=== PATIENT | male | born 1965 | race African-American/Black ===

== ENCOUNTER 2019-04-24 18:08 | Outpatient (CLI) | payer OTHER, SELFPAY ==
--- NOTE | ~2019-04-24 | XR_ITS ---
EXAMINATION: XR chest 2V EXAM DATE: 04/24/2019 18:21 INDICATION: Flu. Fever, productive cough. Central anterior chest pain with cough. TECHNIQUE: Frontal and lateral projections of the chest obtained and reviewed. Comparison is made to prior examination from 07/05/2018. FINDINGS: Symmetric nodular densities are likely patient's The lungs are otherwise clear. There are no pleural effusions. The cardiomediastinal silhouette is within normal limits. There is no pneumo thorax suspected. The bones and soft tissues are unremarkable. IMPRESSION: No acute cardiopulmonary findings. Reviewed, dictated and finalized at location A. OPERATOR
== END 2019-04-24 18:09 | disposition home or self-care (01) ==
LOC: ANHIMG 18:11
PROVIDERS: PCP Family Medicine; Visit Provider Family Medicine
DX: J10.1 Influenza due to other identified influenza virus with other respiratory manifestations (principal); R05 Cough
CPT/HCPCS: 71046

== ENCOUNTER 2020-05-02 16:39 | Outpatient (CLI) | payer OTHER, SELFPAY ==
--- NOTE | ~2020-05-02 | XR_ITS ---
XR chest 2V 05/02/2020 16:54 Indication: Hypertension Procedure: PA and lateral views of the chest Comparison: 04/24/2019 Findings: Heart size upper normal. No focal air space disease, pulmonary edema, pleural effusion or s uspected pneumothorax. Calcified granuloma left lower lobe. Impression: 1: No acute cardiopulmonary disease. Reviewed, dictated and finalized at location A. [employer] FABRICATION Impression: 1: No acute cardiopulmonary disease.
== END 2020-05-02 16:40 | disposition home or self-care (01) ==
LOC: ANHIMG 16:41
PROVIDERS: PCP Family Medicine; Visit Provider Family Medicine
DX: I10 Essential (primary) hypertension (principal)
CPT/HCPCS: 71046

== ENCOUNTER 2020-07-10 10:30 | Outpatient (RCR) | payer SELFPAY ==
[2020-05-19 12:08] VITALS: PULSE 61
== END 2020-07-10 19:30 | disposition home or self-care (01) ==
LOC: ANHCPREHAB 10:30
PROVIDERS: PCP Family Medicine; Visit Provider Internal Medicine Cardiovascular Disease
DX: I42.8 Other cardiomyopathies (principal); I11.0 Hypertensive heart disease with heart failure
CPT/HCPCS: 93798; 99199

== ENCOUNTER 2022-06-18 09:59 | Outpatient (CLI) | payer OTHER, SELFPAY ==
--- NOTE | ~2022-06-18 | US_ITS ---
EXAMINATION: US venous doppler [facility] DATE: 06/18/2022 11:15 INDICATION: Bilateral lower limb pain TECHNIQUE: [place] scale images without and with compression and Doppler images of the bilateral lower e xtremity veins were obtained. COMPARISON: 07/06/2018 FINDINGS: The right common femoral vein, profunda femoral vein, femoral vein, popliteal vein, peroneal trunk, p osterior tibial veins, and greater saphenous vein are patent. The left common femoral vein, profunda femoral vein, femoral vein, popliteal vein, peroneal trunk, po sterior tibial veins, and greater saphenous vein are patent. IMPRESSION: 1. Patent bilateral lower extremity veins. No evidence of deep venous thrombosis. Reviewed, dictated and finalized at location B. IMPRESSION: 1. Patent bilateral lower extremity veins. No evidence of deep venous thrombosi s.
== END 2022-06-18 10:00 ==
LOC: MICIMG 10:00
PROVIDERS: PCP Family Medicine; Visit Provider Physician Assistant
DX: M79.604 Pain in right leg (principal); M79.605 Pain in left leg
CPT/HCPCS: 93970

== ENCOUNTER 2022-09-27 13:30 | Outpatient (RCR) | payer OTHER, SELFPAY ==
[2022-07-16 10:19] VITALS: BP 160/84; PULSE 76; RESP 18; BMI 37.0
--- NOTE | 2022-08-12 09:22 | PCWOUND ---
Patient did not show up for her appointment. Call made to patient, but went straight to voicemail. Left message for patient to call office back.
--- NOTE | 2022-08-30 15:16 | PCWOUND ---
Patient did not show up for scheduled appointment. No call was made by patient to cancel or reschedule.
== END 2022-10-14 23:59 | disposition home or self-care (01) ==
LOC: ANHWOC 13:30
PROVIDERS: PCP Family Medicine; Visit Provider Physician Assistant
DX: I83.009 Varicose veins of unspecified lower extremity with ulcer of unspecified site (principal); L97.909 Non-pressure chronic ulcer of unspecified part of unspecified lower leg with unspecified severity
CPT/HCPCS: 99213; A9270; G0463

== ENCOUNTER 2022-11-08 07:14 | Outpatient (RCR) | payer OTHER, SELFPAY ==
[2022-10-15 00:03] VITALS: BP 160/84; PULSE 76; RESP 18; BMI 37.0
--- NOTE | 2022-12-06 10:42 | PCWOUND ---
WOCN NOTE Patient called and left message to cancel appointment for today.
--- NOTE | 2022-12-06 14:01 | PCWOUND ---
Patient called and canceled his appointment because he stated his wound is healed.
== END 2023-01-03 10:49 | disposition home or self-care (01) ==
LOC: ANHWOC 07:14
PROVIDERS: PCP Family Medicine; Visit Provider Physician Assistant
DX: I83.009 Varicose veins of unspecified lower extremity with ulcer of unspecified site (principal); L97.909 Non-pressure chronic ulcer of unspecified part of unspecified lower leg with unspecified severity
CPT/HCPCS: 99213; A9270; G0463

== ENCOUNTER 2024-02-19 18:13 | Observation (INO) | payer OTHER, SELFPAY ==
[2024-02-19] VITALS (14 sets, daily range): BP systolic 154–211; BP diastolic 107–118; PULSE 82–96; RESP 9–19; TEMP 36.8; O2SAT 94–99
--- NOTE | ~2024-02-19 | NM_ITS ---
EXAMINATION: NM neil stress w perfusion DATE: 02/21/2024 10:38 INDICATION: Non-ST elevation myocardial infarction TECHNIQUE: Rest images were obtained following intravenous administration of 10 mCi Tc99m tetrofosmin (Myoview). The patient was infused intravenously with Lexiscan (Regadenoson). Then, 31.9 mCi Tc99m t etrofosmin (Myoview) was administered intravenously, and stress images were obtained initially in the supine position with repeat post stress imaging obtained in the prone position. Data was reconstruct ed into short axis and horizontal and vertical long axis SPECT images. Gated SPECT images were also o btained. COMPARISON: None. FINDINGS: There is a moderate severity nonreversible perfusion defect consistent with infarct involvi ng the mid and basilar inferolateral segments. There is some artifactually decreased activity extendi ng into the anterolateral wall which normalizes with prone imaging. Left ventricular enlargement with calculated end-diastolic volume of 229 mm. Mild global hypokinesis with mildly decreased left ventri cular ejection fraction measuring 40%. IMPRESSION: 1. Moderate severity myocardial infarction involving the mid and basilar inferolateral segments. No e vident reversible ischemia. 2. Left ventricular ejection fraction measuring >70%. Reviewed, dictated and finalized at location A. FIC WAREHOUSE SUPERVISOR IMPRESSION: 1. Moderate severity myocardial infarction involving the mid and basilar infero lateral segments. No evident reversible ischemia. 2. Left ventricular ejection fraction measuring >70%.
--- NOTE | ~2024-02-19 | XR_ITS ---
CHEST RADIOGRAPH CLINICAL HISTORY: cp, SOB . COMPARISON: 05/02/2020 TECHNIQUE: Single portable view of the chest. FINDINGS The cardiomediastinal silhouette is unremarkable. The lungs are clear. Visualized osseous structures and soft tissues are unremarkable. IMPRESSION: No focal infiltrate or effusion. Reviewed, dictated and finalized at location A. TRICIAN MACHINE SHOP
--- NOTE | 2024-02-19 18:44 | ECG_ITS ---
Test Date: 2024-02-19 18:48:50 Measurements Intervals [place] Rate: 93 P: 50 ME: 204 QRS: -1 QRSD: 108 T: 91 QT: 365 QTc: 455 Interpretive Statements SINUS RHYTHM NONSPECIFIC T-WAVE ABNORMALITY No previous ECG available for comparison Electronically Signed On 02-20-2024 18:24:31 PROCESSING ANALYST by Seble Barbosa M.D.
--- NOTE | 2024-02-19 19:42 | ED_ITS ---
HPI - General Adult General Chief complaint: Chest Pain Stated complaint: CP and SOB, hx CHF Time Seen by Provider: 02/19/24 19:22 History of Present Illness HPI narrative: Patient 58-year-old gentleman presents emergency department with chief complaint of shortness of breath with exertion. Patient reports he has history of congestive heart failure reports he also has history of hypertension and takes multiple antihypertensives patient states that he just does not feel like taking his blood pressure medicines and heart medications at times and takes it intermittently. Patient reports been several weeks since he last checked his blood pressure and reports that today it was elevated patient did report that he took a dose of his diuretics and antihypertensives before coming into the emergency department. Neuro Related Data Allergies Allergy/AdvReac Type Severity Reaction Status Date / Time amoxicillin (From Augmentin) Allergy Intermediate Itching Verified 02/19/24 18:15 clavulanic acid (From Allergy Intermediate Itching Verified 02/19/24 18:15 Augmentin) Review of Systems 2 Review of Systems: A 10 system review of systems was completed on the patient and is negative except for what is stated in the HPI. Nursing and ancillary documentation was reviewed. [facility] Past Medical History Medical History Benign hypertension with chronic kidney disease Stage 3a chronic kidney disease Venous insufficiency (chronic) (peripheral) Mixed hyperlipidemia Malignant hypertensive urgency Hemiplegia affecting dominant side Dietary counseling and surveillance (12/12/18) Chronic eczema Chronic diastolic congestive heart failure Chronic combined systolic (congestive) and diastolic (congestive) heart failure Cerebrovascular accident (CVA) due to embolism of cerebral artery Tobacco abuse Hyperlipidemia Non-ischemic cardiomyopathy Chronic combined systolic (congestive) and diastolic (congestive) heart failure Hemiplegia, dominant side S/P CVA (cerebrovascular accident) Malignant diastolic hypertension with CHF, NYHA class 2 Family History Family History Mother Hypertension Grandparent Chronic obstructive pulmonary disease Cerebrovascular accident Social History Social History Social History: Years smoked: 1 Smoking status: Former smoker Tobacco type: cigarettes Second hand tobacco smoke exposure: No Smoking end date: 02/21/83 Alcohol intake: former Substance use: never Substance use type: does not use Do You Feel Safe in your Home?: Yes Lack of Transportation: No Lack of Food: Never True Current Housing: Decline to Answer Concerned About Future Housing: No Difficulty Paying Gas/Electric Bills: No Difficulty Paying for Meds: No Currently Unemployed: YES Education: Decline to Answer Difficulty w/ Childcare or Family Care: Decline to Answer Living arrangements: with family Occupation/Education: occupation Gender identity (if verbalized by the patient): Male Sexual Orientation (if Verbalized by the Patient): Straight or Heterosexual Exam 2 Narrative: GENERAL: Well-appearing, well-nourished, and in no acute distress. HEAD: Normocephalic, atraumatic. EYES: PERRLA and EOMI. ENT: Nares clear, no rhinorrhea or epistaxis. Mucous membranes moist. NECK: Supple. CHEST: Clear to auscultation. No respiratory distress. HEART: Regular rate and rhythm. No murmur heard. Normal peripheral pulses. ABDOMEN: Soft, nontender, nondistended, normal active bowel sounds. EXTREMITIES: Normal range of motion. +1edema. SKIN: Warm, dry, no rash. NEURO: No focal deficits. Alert and oriented x3. PSYCH: Normal mood and affect. Course Vital Signs Vital signs: Vital Signs Temperature 36.8 C 02/19/24 18:52 Pulse Rate 96 02/19/24 18:52 Respiratory Rate 16 02/19/24 18:52 Blood Pressure 211/117 H 02/19/24 18:52 Pulse Oximetry 97 02/19/24 18:52 Oxygen Delivery Room Air 02/19/24 18:52 Temperature 36.8 C 02/19/24 18:52 Pulse Rate 82 02/19/24 19:46 Respiratory Rate 11 L 02/19/24 19:46 Blood Pressure 182/109 H 02/19/24 19:46 Pulse Oximetry 99 02/19/24 19:46 Oxygen Delivery Room Air 02/19/24 19:19 Medical Decision Making Vital Signs Vital Signs: Vital Signs Temperature 36.8 C 02/19/24 18:52 Pulse Rate 96 02/19/24 18:52 Respiratory Rate 16 02/19/24 18:52 Blood Pressure 211/117 H 02/19/24 18:52 Pulse Oximetry 97 02/19/24 18:52 Oxygen Delivery Room Air 02/19/24 18:52 Temperature 36.8 C 02/19/24 18:52 Pulse Rate 82 02/19/24 19:46 Respiratory Rate 11 L 02/19/24 19:46 Blood Pressure 182/109 H 02/19/24 19:46 Pulse Oximetry 99 02/19/24 19:46 Oxygen Delivery Room Air 02/19/24 19:19 Lab Data 02/19/24 19:23 02/19/24 19:23 Labs: Lab Results 02/19/24 02/19/24 Range/Units 19:23 19:58 WBC 5.3 (4.5-10.0) K/mm3 RBC 4.98 (4.6-6.20) M/mm3 Hgb 14.8 (14.0-18.0) g/dL Hct 46.2 (42.0-52.0) % MCV 92.8 (80-100) fl MCH 29.7 (26-34) pg MCHC 32.0 (32-36) g/dl RDW 13.7 (11.5-14.5) % Plt Count 255 (150-375) k/mm3 MPV 9.6 (7.4-10.4) fl Immature Gran % (Auto) 0.9 H (0-0.5) % Neut % (Auto) 52.6 (45.5-73.1) % Lymph % (Auto) 34.8 (18.3-44.2) % [place] % (Auto) 9.0 H (2.6-8.5) % Eos % (Auto) 2.1 (0-4.4) % Baso % (Auto) 0.6 (0.2-1.2) % Lymph # (Auto) 1.86 (0.9-3.2) K/mm3 [place] # (Auto) 0.5 (0.1-0.6) K/mm3 Eos # (Auto) 0.1 (0-0.3) K/mm3 Baso # (Auto) 0.0 (0.0-0.1) K/mm3 Abs Immat Gran (auto) 0.05 H (0.00-0.031) K/mm3 Absolute Neuts (auto) 2.8 (1.3-6.7) K/mm3 Absolute Nucleated RBC 0.000 (0.0-0.012) K/mm3 Nucleated RBC % 0.0 (0.0-0.2) % PT 13.4 (11.1-14.7) Seconds INR 1.0 APTT 32.7 (22.3-36.8) Seconds Sodium 137 (137-145) mmol/L Potassium 4.1 (3.4-5.0) mmol/L Chloride 104 (98-107) mmol/L Carbon Dioxide 31 H (22-30) mmol/L Anion Gap 2 L (4-12) mmol/L BUN 17 (9-20) mg/dL Creatinine 1.20 (0.7-1.3) mg/dL Estim Creat Clear Calc 81 ml/min Estimated GFR > 60 (59 - ) Glucose 100 (65-110) mg/dL Calcium 9.8 (8.4-10.2) mg/dL Total Bilirubin 0.8 (0.2-1.3) mg/dL AST 27 (17-59) U/L ALT 15 (6-50) U/L Alkaline Phosphatase 82 (38-126) U/L Troponin I 0.055 H* (0.000-0.034) ng/mL NT-Pro-B Natriuret Pep 1870 H (19.9-100) pg/mL Total Protein 8.0 (6.3-8.2) g/dL Albumin 4.5 (3.5-5.1) g/dL Lipase 120 (23-300) U/L Urine Color Yellow (Yellow) Urine Appearance Clear (Clear) Urine pH 7.5 (5.0-9.0) Ur Specific [place] 1.011 (1.001-1.035) Urine Protein Negative (Negative) mg/dL Urine Glucose (UA) Negative (Negative) mg/dL Urine Ketones Negative (Negative) mg/dL Ur Blood (Man) Negative (Negative) Urine Nitrate Negative (Negative) Urine Bilirubin Negative (Negative) Urine Urobilinogen 1.0 (<2.0) mg/dL Leukocyte Esterase Rfl Negative (Negative) [place] Critical Care Time Critical Care Time Critical Care Time: Yes Total Critical Care Time: 30 Discharge Plan Discharge Clinical Impression: Hypertension, Elevated troponin Patient Disposition: Still a Patient Condition: Stable Patient Language: [place]ian Prescriptions: No Action cholecalciferol (vitamin D3) 25 mcg (1,000 unit) capsule 1,000 unit PO DAILY Qty: 90 3RF (DME) calcium alginate 2 X 2 bandage See Rx Instructions .Route Qty: 100 0RF Rx Instructions: As directed polysaccharide iron complex [Nu-Iron] 150 mg iron capsule 150 mg PO DAILY Qty: 90 0RF tramadol 50 mg tablet 50 mg PO Q8H PRN (Reason: pain) Qty: 30 0RF carvedilol 25 mg tablet 25 mg PO Q12H Qty: 180 3RF urea 20 % cream 1 applic topical BID Qty: 85 4RF aspirin [Adult Low Dose Aspirin] 81 mg tablet,delayed release (DR/EC) 81 mg PO DAILY Qty: 90 3RF spironolactone 50 mg tablet 50 mg PO BID Qty: 180 1RF atorvastatin 40 mg tablet 40 mg PO DAILY Qty: 90 1RF lisinopril 40 mg tablet See Rx Instructions .ROUTE .COMPLEX Qty: 90 3RF Dose Instruction: TAKE 1 TABLET BY MOUTH DAILY Rx Instructions: TAKE 1 TABLET BY MOUTH DAILY gabapentin 300 mg capsule 300 mg PO BID Qty: 60 1RF furosemide 20 mg tablet See Rx Instructions .ROUTE .COMPLEX Qty: 90 0RF Dose Instruction: TAKE 1 TABLET BY MOUTH EVERY MORNING Rx Instructions: TAKE 1 TABLET BY MOUTH EVERY MORNING hydralazine 100 mg tablet 100 mg PO TID 90 Days Qty: 270 1RF Follow-up/Referrals: Jaylin Ibarra MD [Primary Care Provider] - Time of Disposition: 21:56
[2024-02-19] MEDS: ASPIRIN 81 MG CHEWABLE TABLET 324 MG PO (19:54)
[2024-02-19] MEDS: hydrALAZINE HCL 20 MG/ML VIAL 10 MG IV PUSH (19:54)
[2024-02-19 20:03] LABS: Basophils Percent Auto 0.6 % (0.2-1.2); Eosinophils Absolute Auto 0.1 K/mm3 (0-0.3); Eosinophils Percent Auto 2.1 % (0-4.4); Hematocrit 46.2 % (42.0-52.0); Hemoglobin 14.8 g/dL (14.0-18.0); Immature Granulocyte Absolute 0.05 K/mm3 (0.00-0.031); Immature Granulocyte Percent A 0.9 % (0-0.5); Lymphocytes Absolute Auto 1.86 K/mm3 (0.9-3.2); Lymphocytes Percent Auto 34.8 % (18.3-44.2); Mean Corpuscular Hemoglobin 29.7 pg (26-34); Mean Corpuscular Volume 92.8 fl (80-100); Mean Platelet Volume 9.6 fl (7.4-10.4); Monocytes Absolute Auto 0.5 K/mm3 (0.1-0.6); Neutrophils Absolute Auto 2.8 K/mm3 (1.3-6.7); Neutrophils Percent Auto 52.6 % (45.5-73.1); Platelet Count Result 255 k/mm3 (150-375); Red Blood Count 4.98 M/mm3 (4.6-6.20); Red Cell Distribution Width 13.7 % (11.5-14.5); White Blood Count 5.3 K/mm3 (4.5-10.0)
[2024-02-19 20:06] LABS: Add Urine Microscopic? NO; Appearance Urine Clear (Clear); Bilirubin Urine Negative (Negative); Blood Urine Negative (Negative); Color Urine Yellow (Yellow); Glucose Urine UA Negative (Negative); Ketones Urine Negative (Negative); Leukocyte Esterase Ur Negative LEU/UL (Negative); Nitrate Urine Negative (Negative); Protein Urine Negative (Negative); Specific Grav Ur 1.011 (1.001-1.035); pH Urine 7.5 (5.0-9.0)
[2024-02-19 20:15] LABS: Prothrombin Time 13.4 Seconds (11.1-14.7)
[2024-02-19 20:16] LABS: Partial Thromboplastin Time 32.7 Seconds (22.3-36.8)
[2024-02-19 20:18] LABS: Alanine Aminotransferase 15 U/L (6-50); Albumin Level 4.5 g/dL (3.5-5.1); Alkaline Phosphatase 82 U/L (38-126); Anion Gap 2 mmol/L (4-12); Aspartate Amino Transferase 27 U/L (17-59); Bilirubin,Total 0.8 mg/dL (0.2-1.3); Blood Urea Nitrogen 17 mg/dL (9-20); Calcium 9.8 mg/dL (8.4-10.2); Carbon Dioxide 31 mmol/L (22-30); Chloride 104 mmol/L (98-107); Estimated CRCL calculation 81 ml/min; Estimated Glomerular Filt Rate > 60; Glucose 100 mg/dL (65-110); Lipase 120 U/L (23-300); Potassium 4.1 mmol/L (3.4-5.0); Sodium 137 mmol/L (137-145)
[2024-02-19 21:07] LABS: NT Pro B Type Natriuretic Pept 1870 pg/mL (19.9-100); Troponin I 0.055 ng/mL (0.000-0.034)
[2024-02-19] MEDS: carvediloL 25 MG TABLET PO (22:24)
--- NOTE | 2024-02-19 22:25 | ECG_ITS ---
Test Date: 2024-02-19 22:31:11 Measurements Intervals [place] Rate: 87 P: 49 SC: 209 QRS: -3 QRSD: 102 T: 115 QT: 354 QTc: 426 Interpretive Statements SINUS RHYTHM LOW QRS VOLTAGE IN PRECORDIAL LEADS [QRS DEFLECTION < 1.0 mV IN CHEST LEADS] NONSPECIFIC T-WAVE ABNORMALITY Compared to ECG 02/19/2024 18:48:50 Low QRS voltage now present T-wave abnormality still present Electronically Signed On 02-20-2024 18:20:05 JAVA CONSULTANT by Seble Barbosa M.D.
[2024-02-19 23:14] LABS: Troponin I 0.059 ng/mL (0.000-0.034)
[2024-02-20] VITALS (16 sets, daily range): BP systolic 138–183; BP diastolic 89–117; PULSE 47–79; RESP 10–18; TEMP 36.4–36.9; O2SAT 96–100; BMI 39.8
--- NOTE | 2024-02-20 | ECHO_ITS ---
Patient Info Name: Portillo Martin Age: 58 years : 1965 Gender: Male Ht: 71 in Wt: 285 lbs BSA: 2.60 m2 HR: 47 bpm BP: 167 / 104 mmHg Technical Quality: Fair Exam Date: 02/20/2024 10:56 AM Exam Location: Echo Lab Patient Status: Outpatient Admit Date: 02/19/2024 Staff Ordering Physician: Jeff Starkey MD Physical Medicine Specialist: Carlos Perez RDCS Attending Provider: Jeff Starkey MD Exam Type: CA echo doppler color flow Study Info Indications - HYPERTENSION Complete two-dimensional, color flow and Doppler transthoracic echocardiogram is performed. Summary 1. Complete two-dimensional, color flow and Doppler transthoracic echocardiogram is performed. 2. Left ventricular systolic function is normal, estimated at 50-55%. 3. There is severely increased left ventricular wall thickness. 4. The left ventricular diastolic function is grade I diastolic dysfunction. 5. Left atrial chamber dimension is mildly enlarged. 6. There is mild mitral valve regurgitation. Left Ventricle Left ventricular chamber dimension is normal. Left ventricular systolic function is normal, estimated at 50-55%. There is severely increased left ventricular wall thickness. Left ventricular septal wall motion is normal. The left ventricular diastolic function is grade I diastolic dysfunction. Right Ventricle Right ventricular chamber dimension is normal. Right ventricular systolic function is normal. Left Atria Left atrial chamber dimension is mildly enlarged. Right Atria Right atrial chamber dimension is normal. Aortic Valve The aortic valve is trileaflet. There is no aortic valve sclerosis. There is no aortic valve stenosis. There is no aortic valve regurgitation. Pulmonic Valve The pulmonic valve is normal. There is no pulmonic valve stenosis. There is no pulmonic regurgitation. Mitral Valve The mitral valve has normal leaflets. There is no mitral valve stenosis. There is mild mitral valve regurgitation. Tricuspid Valve The tricuspid valve leaflets are normal. There is no significant tricuspid valve stenosis. There is no tricuspid valve regurgitation. Pericardium/Pleural The pericardium appears normal. There is no pericardial effusion. Inferior Vena Cava Normal inferior vena cava with >50% collapse upon inspiration consistent with normal right atrial pressure, 10 mmHg. Aorta The aortic root size at the sinus of Valsalva is normal. The prox ascending aorta size is normal. Left Ventricular Outflow Tract Name Value Normal LVOT 2D LVOT Diameter 2.3 cm LVOT Doppler LVOT Peak Velocity 91 cm/s LVOT Peak Gradient 3 mmHg LVOT Mean Gradient 2 mmHg LVOT VTI 20 cm LVOT VTI/AV VTI Ratio 0.7 LVOT Stroke Volume 83 ml LVOT CO 5.0 l/min LVOT CI 2.0 l/min/m2 Pulmonic Valve Name Value Normal RVOT Doppler RVOT Peak Gradient 4 mmHg PV Doppler PV Peak Velocity 111 cm/s PV Peak Gradient 5 mmHg Mitral Valve Name Value Normal MV Doppler MV Peak Gradient 5 mmHg MV Mean Gradient 1 mmHg MV Decel [place] 255 cm/s2 MV PHT 59 ms MV Area (PHT) 3.7 cm2 4.0-5.0 MV Area (Cont Eq VTI) 2.6 cm2 MV Diastolic Function MV E Peak Velocity 52 cm/s MV A Peak Velocity 98 cm/s MV E/A 0.5 MV Decel Time 202 ms MV Annular TDI MV Septal e' Velocity 5.6 cm/s >=8.0 MV E/e' (Septal) 9.2 <=8.0 MV Lateral e' Velocity 5.8 cm/s >=10.0 MV E/e' (Lateral) 8.9 <=8.0 MV e' Average 5.70 MV E/e' (Average) 9.1 Tricuspid Valve Name Value Normal Estimated PAP/RSVP RA Pressure 10 mmHg <=5 TV Annular TDI TV Lateral [place] s' Velocity 16.3 cm/s 9.5-18.7 Aorta Name Value Normal Ascending Aorta Ao Root Diameter (MM) 3.9 cm Ao Root Diam Index (MM) 1.5 cm/m2 Ao [place] Diameter 3.2 cm 2.6-3.2 Aortic Valve Name Value Normal AV Doppler AV Peak Velocity 134 cm/s AV Peak Gradient 7 mmHg AV Mean Gradient 4 mmHg AV VTI 27 cm AV Area (Cont Eq VTI) 3.0 cm2 >=3.0 AV Area (Cont Eq Kyle) 2.7 cm2 AV V1/V2 Ratio 0.68 AV Regurgitation 2D LVOT Area 4.1 cm2 Ventricles Name Value Normal LV Dimensions 2D/MM IVS Diastolic Thickness (2D) 2.0 cm 0.6-1.0 LVID Diastole (2D) 5.8 cm 4.2-5.8 LVIW Diastolic Thickness (2D) 2.1 cm 0.6-1.0 LVID Systole (2D) 4.5 cm 2.5-4.0 LVOT Diameter 2.3 cm LV Mass (2D Cubed) 632.59 g 88.00-224.00 LV Mass Index (2D Cubed) 243 g/m2 49-115 Relative Wall Thickness (2D) 0.72 LV Fractional Shortening/Ejection Fraction 2D/MM LV Fractional Shortening (2D) 23 % 25-43 LV EF (2D Teicholz) 46 % 52-72 LV Diastolic Volume (4C MOD) 206 ml LV EF (4C MOD) 59 % LV Diastolic Volume (2C MOD) 212 ml LV EF (2C MOD) 49 % LV Diastolic Volume (BP MOD) 215 ml 62-150 LV Diastolic Volume Index (BP MOD) 83 ml/m2 34-74 LV Systolic Volume (BP MOD) 94 ml 21-61 LV Systolic Volume Index (BP MOD) 36 ml/m2 11-31 LV EF (BP MOD) 56 % 52-72 LV Diastolic Length (4C) 9.3 cm LV Systolic Length (4C) 8.1 cm LV Stroke Volume (4C MOD) 122 ml Atria Name Value Normal LA Dimensions LA Dimension (MM) 5.4 cm 3.0-4.1 LA Volume (4C A-L) 59 ml LA Volume (BP A-L) 81 ml RA Dimensions RA Area (4C) 15.9 cm2 <=18.0 Report Signatures
--- NOTE | 2024-02-20 00:30 | ECG_ITS ---
Test Date: 2024-02-20 00:39:33 Measurements Intervals [place] Rate: 63 P: 43 MI: 201 QRS: -1 QRSD: 110 T: 148 QT: 436 QTc: 448 Interpretive Statements SINUS RHYTHM LOW QRS VOLTAGE IN PRECORDIAL LEADS [QRS DEFLECTION < 1.0 mV IN CHEST LEADS] PROBABLE INFERIOR MYOCARDIAL INFARCTION , OF INDETERMINATE AGE [35 ms Q WAVE IN II/aVF] MODERATE T-WAVE ABNORMALITY, CONSIDER LATERAL ISCHEMIA [-0.1+ mV T WAVE IN I/aVL/V5/V6] Compared to ECG 02/19/2024 22:31:11 Myocardial infarct finding now present Possible ischemia now present T-wave abnormality still present Electronically Signed On 02-20-2024 18:19:11 RECORDS OFFICER by Seble Barbosa M.D.
[2024-02-20 01:17] LABS: Troponin I 0.048 ng/mL (0.000-0.034)
--- NOTE | 2024-02-20 04:38 | ADMGEN ---
This patient, Portillo Martin, was admitted to IMU Room 205-01. Patient/family oriented to hospital policies and general routines including ID bracelet, bed and alarms, visiting hours, pain management, procedures, bathroom and other care routines, personal items, smoking policy, room service/diet, and visiting hours. Information on how to activate the Rapid Response Team has been discussed. Patient/Family are encouraged to report perceived risks to care and to ask questions if they do not understand what they are told or what they should do.
--- NOTE | 2024-02-20 07:21 | P.HP_ITS ---
H&P: HPI History of Present Illness Date/Time: 02/20/24 07:21 Chief Complaint: shortness of breath Narrative: Patient 58-year-old gentleman presents emergency department with chief complaint of shortness of breath with exertion yesterday. Patient reports he has history of congestive heart failure reports he also has history of hypertension and takes multiple antihypertensives patient states that he just does not feel like taking his blood pressure medicines and heart medications at times and takes it intermittently. Patient reports been several weeks since he last checked his blood pressure and reports that today it was elevated patient did report that he took a dose of his diuretics and antihypertensives before coming into the emergency department. He denies any chest pain. He has chronic lower extremity edema. Review of Systems Review of Systems: - CONSTITUTIONAL: Denies weight loss, fe beth and chills. - HEENT: Denies changes in vision and he aring - RESPIRATORY: Reports SOB and denies c ough. - CV: Denies palpitations and CP. - GI: Denies abdominal pain, nausea, vom iting and diarrhea. - : Denies dysuria and urinary frequen cy. - MSK: Denies myalgia and joint pain. - SKIN: Denies rash and pruritus. - NEUROLOGICAL: Denies headache and sync ope. - PSYCHIATRIC: Denies recent changes in mood. Denies anxiety and depression. [facility] Past Medical History Medical History Benign hypertension with chronic kidney disease Stage 3a chronic kidney disease Venous insufficiency (chronic) (peripheral) Mixed hyperlipidemia Malignant hypertensive urgency Hemiplegia affecting dominant side Dietary counseling and surveillance (12/12/18) Chronic eczema Chronic diastolic congestive heart failure Chronic combined systolic (congestive) and diastolic (congestive) heart failure Cerebrovascular accident (CVA) due to embolism of cerebral artery Tobacco abuse Hyperlipidemia Non-ischemic cardiomyopathy Chronic combined systolic (congestive) and diastolic (congestive) heart failure Hemiplegia, dominant side S/P CVA (cerebrovascular accident) Malignant diastolic hypertension with CHF, NYHA class 2 Family History Family History Mother Hypertension Grandparent Chronic obstructive pulmonary disease Cerebrovascular accident Social History Social History Social History: Years smoked: 1 Smoking status: Never smoker Tobacco type: cigarettes Second hand tobacco smoke exposure: No Smoking end date: 02/21/83 Alcohol intake: current Drinks per week: 1 Substance use: never Substance use type: does not use Do You Feel Safe in your Home?: Yes Lack of Transportation: No Lack of Food: Never True Current Housing: I Have Housing Concerned About Future Housing: No Difficulty Paying Gas/Electric Bills: No Difficulty Paying for Meds: No Currently Unemployed: No Education: Grade School Difficulty w/ Childcare or Family Care: No Living arrangements: with family Occupation/Education: occupation Gender identity (if verbalized by the patient): Male Sexual Orientation (if Verbalized by the Patient): Straight or Heterosexual Spiritual care concerns: No Meds Home Medications and Allergies Home Medications ?Medication ?Instructions ?Recorded ?Confirmed ?Type aspirin 81 mg tablet,delayed 81 mg PO DAILY #90 tabs 12/11/20 02/20/24 Rx release (Adult Low Dose Aspirin) carvedilol 25 mg tablet 25 mg PO Q12H #180 tabs 11/22/22 02/20/24 Rx cholecalciferol (vitamin D3) 25 1,000 unit PO DAILY #90 caps 03/08/23 02/20/24 Rx mcg (1,000 unit) capsule atorvastatin 40 mg tablet 40 mg PO DAILY #90 tabs 07/01/23 02/20/24 Rx spironolactone 50 mg tablet 50 mg PO BID #180 tabs 07/01/23 02/20/24 Rx polysaccharide iron complex 150 mg 150 mg PO DAILY #90 caps 07/15/23 02/20/24 Rx iron capsule (Nu-Iron) lisinopril 40 mg tablet See Rx Instructions .Route 08/16/23 02/20/24 Rx .COMPLEX #90 tabs furosemide 20 mg tablet See Rx Instructions .Route 11/27/23 02/20/24 Rx .COMPLEX #90 tabs hydralazine 100 mg tablet 100 mg PO TID 90 days #270 tabs 11/28/23 02/20/24 Rx chlorthalidone 25 mg tablet 25 mg PO DAILY 02/20/24 02/20/24 History Allergies Allergy/AdvReac Type Severity Reaction Status Date / Time amoxicillin (From Augmentin) Allergy Intermediate Itching Verified 02/20/24 04:46 clavulanic acid (From Allergy Intermediate Itching Verified 02/20/24 04:46 Augmentin) Vital Signs Vital Signs - 24 hr 02/19/24 18:52 02/19/24 19:18 02/19/24 19:19 Temperature 98.3 F Pulse Rate 96 92 Respiratory Rate 16 14 Blood Pressure 211/117 H 199/115 H Pulse Oximetry 97 99 98 Oxygen Delivery Room Air Room Air 02/19/24 19:31 02/19/24 19:46 02/19/24 19:47 Temperature Pulse Rate 88 82 87 Respiratory Rate 14 11 L 19 Blood Pressure 187/109 H 182/109 H Pulse Oximetry 98 99 99 Oxygen Delivery 02/19/24 21:32 02/19/24 21:42 02/19/24 21:51 Temperature Pulse Rate 91 87 87 Respiratory Rate 19 18 14 Blood Pressure 165/109 H 169/107 H 176/117 H Pulse Oximetry 97 99 94 Oxygen Delivery 02/19/24 22:02 02/19/24 22:12 02/19/24 22:24 Temperature Pulse Rate 86 88 91 Respiratory Rate 10 L 17 Blood Pressure 161/114 H 177/115 H Pulse Oximetry 98 99 Oxygen Delivery 02/19/24 23:12 02/19/24 23:12 02/19/24 23:31 Temperature Pulse Rate 82 82 82 Respiratory Rate 15 16 9 L Blood Pressure 154/111 H 154/111 H 155/118 H Pulse Oximetry 98 98 94 Oxygen Delivery 02/20/24 00:22 02/20/24 00:56 02/20/24 02:01 Temperature Pulse Rate 73 63 70 Respiratory Rate 10 L 16 13 Blood Pressure 156/108 H 170/102 H 157/100 H Pulse Oximetry 99 100 97 Oxygen Delivery 02/20/24 03:53 02/20/24 04:30 02/20/24 04:38 Temperature Pulse Rate 62 71 Respiratory Rate 11 L 14 Blood Pressure 155/89 H 160/100 H Pulse Oximetry 97 97 Oxygen Delivery Room Air 02/20/24 04:49 02/20/24 06:02 02/20/24 06:44 Temperature 98.5 F Pulse Rate 73 47 L Respiratory Rate 14 Blood Pressure 183/117 H 167/104 H Pulse Oximetry 96 Oxygen Delivery Exam Narrative: GENERAL: Well-appearing, well-nourished, and in no acute distress. HEAD: Normocephalic, atraumatic. EYES: PERRLA and EOMI. ENT: Nares clear, no rhinorrhea or epistaxis. Mucous membranes moist. NECK: Supple. CHEST: Clear to auscultation. No respiratory distress. HEART: Regular rate and rhythm. No murmur heard. Normal peripheral pulses. ABDOMEN: Soft, nontender, nondistended, normal active bowel sounds. EXTREMITIES: Normal range of motion. +1edema bilateral lower extremity with findings of stasis dermatitis SKIN: Warm, dry, no rash. NEURO: No focal deficits. Alert and oriented x3. PSYCH: Normal mood and affect. H&P: Results Labs Labs: Short CBC 02/19/24 Range/Units 19:23 WBC 5.3 (4.5-10.0) K/mm3 Hgb 14.8 (14.0-18.0) g/dL Hct 46.2 (42.0-52.0) % Plt Count 255 (150-375) k/mm3 BMP 02/19/24 19:23 Sodium 137 Potassium 4.1 Chloride 104 Carbon Dioxide 31 H BUN 17 Creatinine 1.20 Glucose 100 Calcium 9.8 Cardiac Enzymes 02/19/24 02/19/24 02/20/24 Range/Units 19:23 22:15 00:40 Troponin I 0.055 H* 0.059 H* 0.048 H* (0.000-0.034) ng/mL Liver Function 02/19/24 Range/Units 19:23 Total Bilirubin 0.8 (0.2-1.3) mg/dL AST 27 (17-59) U/L ALT 15 (6-50) U/L Alkaline Phosphatase 82 (38-126) U/L Albumin 4.5 (3.5-5.1) g/dL Urine 02/19/24 Range/Units 19:58 Urine Color Yellow (Yellow) Urine Appearance Clear (Clear) Urine pH 7.5 (5.0-9.0) Ur Specific [place] 1.011 (1.001-1.035) Urine Protein Negative (Negative) mg/dL Urine Glucose (UA) Negative (Negative) mg/dL Assessment and Plan Assessment and plan (1) Non compliance w medication regimen: Code(s): Z91.14 - Patient's other noncompliance with medication regimen Status: Acute (2) Hypertension: Code(s): I10 - Essential (primary) hypertension Status: Acute (3) Non-ischemic cardiomyopathy: Code(s): I42.8 - Other cardiomyopathies Status: Acute (4) Chronic combined systolic (congestive) and diastolic (congestive) heart failure: Code(s): I50.42 - Chronic combined systolic (congestive) and diastolic (congestive) heart failure Status: Acute (5) Elevated troponin: Code(s): R79.89 - Other specified abnormal findings of blood chemistry Status: Acute (6) Hyperlipidemia: Code(s): E78.5 - Hyperlipidemia, unspecified Status: Acute (7) Venous ulcer of lower extremity due to chronic peripheral venous hypertension: Code(s): I87.319 - Chronic venous hypertension (idiopathic) with ulcer of unspecified lower extremity Status: Acute Plan Patient 58-year-old gentleman presents emergency department with chief complaint of shortness of breath with exertion. Patient reports he has history of congestive heart failure reports he also has history of hypertension and takes multiple antihypertensives patient states that he just does not feel like taking his blood pressure medicines and heart medications at times and takes it intermittently. Patient reports been several weeks since he last checked his blood pressure and reports that today it was elevated patient did report that he took a dose of his diuretics and antihypertensives before coming into the emergency department. ED Evaluation showed blood pressure was elevated to 211 117 other vitals stable. Laboratory data showed WBC 5.3 hemoglobin of 14.8 came panel was unremarkable BNP was 1870. Troponin was 0.055. Lipase 120. Urinalysis was negative. EKG showed T-wave inversions in lateral leads 1 aVL. The changes are new as compared to EKG from 2020. Chest x-ray with no focal infiltrate or effusion. Echo 06/2021: Normal EF at 62% severe concentric left ventricular hypertrophy impaired diastolic relaxation grade 1 no significant valvular abnormality. Patient did have echo finding with EF of 45% in 2019. Serial troponin 0.055-0.059-0.048. He received a dose of hydralazine and carvedilol. Patient is admitted for further evaluation and management. Will resume all his home medications which include Coreg chlorthalidone furosemide hydralazine lisinopril spironolactone Combined systolic-diastolic congestive heart failure nonischemic cardiomyopathy Hypertension Hyperlipidemia History of CVA with residual right-sided weakness Recurrent venous stasis ulcers Tobacco abuse Stage 3 chronic kidney disease Polyneuropathy DVT prophylaxis Code status full code Hospitalist MIPS Advance Care Plan I have confirmed that the patient's Advanced Care Plan is present, code status is documented, or surrogate decision maker is listed in patient medical record.: Yes Medication Reconciliation I have utilized all available resources to obtain, update and review the patients current medications (includes all prescriptions, OTC, herbals, cannabis, and nutritional supplements).: Yes
[2024-02-20] MEDS: hydrALAZINE HCL 50 MG TABLET 100 MG PO ×3 (08:45→18:08)
[2024-02-20] MEDS: FUROSEMIDE 20 MG TABLET BY MOUTH (08:45)
[2024-02-20] MEDS: CHOLECALCIFEROL 1,000 UNITS TABLET 1000 UNITS PO (08:45)
[2024-02-20] MEDS: lisinopriL 20 MG TABLET 40 MG BY MOUTH (08:45)
[2024-02-20] MEDS: ATORVASTATIN 40 MG TABLET PO (08:45)
[2024-02-20] MEDS: carvediloL 25 MG TABLET PO ×2 (08:45→20:19)
[2024-02-20] MEDS: ASPIRIN 81 MG ENTERIC TABLET PO (08:45)
[2024-02-20] MEDS: POLYSACCHARIDE IRON COMPLEX 150 MG CAPSULE PO (08:45)
[2024-02-20] MEDS: CHLORTHALIDONE 25 MG TABLET PO (08:45)
[2024-02-20] MEDS: SPIRONOLACTONE 50 MG TABLET PO ×2 (08:46→18:08)
--- NOTE | 2024-02-20 12:56 | P.CONCA_ITS ---
Assessment and Plan Assessment and plan (1) Elevated troponin: Code(s): R79.89 - Other specified abnormal findings of blood chemistry Status: Acute (2) Hypertension: Code(s): I10 - Essential (primary) hypertension Status: Acute (3) Cardiomyopathy: Qualifiers: Cardiomyopathy type: dilated Qualified Code(s): I42.0 - Dilated cardiomyopathy Code(s): I42.9 - Cardiomyopathy, unspecified Status: Acute (4) CHF (congestive heart failure), NYHA class II: Qualifiers: Congestive heart failure type: combined Congestive heart failure chronicity: chronic Qualified Code(s): I50.42 - Chronic combined systolic (congestive) and diastolic (congestive) heart failure Code(s): I50.9 - Heart failure, unspecified Status: Acute Plan 1. Hypertensive emergency 2. Acute on chronic systolic HF NYHA II, Stage C previous echo shows recovered EF NICM 3. NSTEMI 4. Hyperlipidemia 5. Hx of CVA 6. CKD3 -for most likely his troponin elevation which shows a flat profile is secondary to accelerated hypertension leading to subendocardial ischemia. His previous left heart catheterization did not show any significant obstructive CAD as per him. However we will perform a stress test to rule out significant ischemia -continue aspirin, statin -restart antihypertensive medications to decrease MAP by 25-30% only -will get an echo to assess LV function History of Present Illness History of Present Illness Consult date/time: 02/20/24 12:56 Reason For Visit: Hypertension, chest pain, elevated troponin Narrative: Patient 58-year-old -Thai gentleman known to have HTN, hx of NICM, tobacco abuse, CVA who was admitted with hypertensive emergency. Cardiology consulted for elevated troponin. he denies any chest pain. Does endorse dyspnea on exertion which is what necessitated his admission. Has been non adherent to his medications had a [facility] a few years ago which showed no obstructive ds as per him, we do not have records for that [facility] Last echo shows recovered EF in 2021 ECG shows TWI in lat leads Echo pending. Flat troponin profile Review of Systems 2 Review of Systems: - CONSTITUTIONAL: Denies weight loss, fe beth and chills. - HEENT: Denies changes in vision and he aring - RESPIRATORY: Denies SOB and cough. - CV: Denies palpitations and CP. - GI: Denies abdominal pain, nausea, vom iting and diarrhea. - : Denies dysuria and urinary frequen cy. - MSK: Denies myalgia and joint pain. - SKIN: Denies rash and pruritus. - NEUROLOGICAL: Denies headache and sync ope. - PSYCHIATRIC: Denies recent changes in mood. Denies anxiety and depression. [facility] Past Medical History Medical History Benign hypertension with chronic kidney disease Stage 3a chronic kidney disease Venous insufficiency (chronic) (peripheral) Mixed hyperlipidemia Malignant hypertensive urgency Hemiplegia affecting dominant side Dietary counseling and surveillance (12/12/18) Chronic eczema Chronic diastolic congestive heart failure Chronic combined systolic (congestive) and diastolic (congestive) heart failure Cerebrovascular accident (CVA) due to embolism of cerebral artery Tobacco abuse Hyperlipidemia Non-ischemic cardiomyopathy Chronic combined systolic (congestive) and diastolic (congestive) heart failure Hemiplegia, dominant side S/P CVA (cerebrovascular accident) Malignant diastolic hypertension with CHF, NYHA class 2 Family History Family History Mother Hypertension Grandparent Chronic obstructive pulmonary disease Cerebrovascular accident Social History Social History Social History: Years smoked: 1 Smoking status: Never smoker Tobacco type: cigarettes Second hand tobacco smoke exposure: No Smoking end date: 02/21/83 Alcohol intake: current Drinks per week: 1 Substance use: never Substance use type: does not use Do You Feel Safe in your Home?: Yes Lack of Transportation: No Lack of Food: Never True Current Housing: I Have Housing Concerned About Future Housing: No Difficulty Paying Gas/Electric Bills: No Difficulty Paying for Meds: No Currently Unemployed: No Education: Grade School Difficulty w/ Childcare or Family Care: No Living arrangements: with family Occupation/Education: occupation Gender identity (if verbalized by the patient): Male Sexual Orientation (if Verbalized by the Patient): Straight or Heterosexual Spiritual care concerns: No Meds Home Medications and Allergies Home Medications ?Medication ?Instructions ?Recorded ?Confirmed ?Type aspirin 81 mg tablet,delayed 81 mg PO DAILY #90 tabs 12/11/20 02/20/24 Rx release (Adult Low Dose Aspirin) carvedilol 25 mg tablet 25 mg PO Q12H #180 tabs 11/22/22 02/20/24 Rx cholecalciferol (vitamin D3) 25 1,000 unit PO DAILY #90 caps 03/08/23 02/20/24 Rx mcg (1,000 unit) capsule atorvastatin 40 mg tablet 40 mg PO DAILY #90 tabs 07/01/23 02/20/24 Rx spironolactone 50 mg tablet 50 mg PO BID #180 tabs 07/01/23 02/20/24 Rx polysaccharide iron complex 150 mg 150 mg PO DAILY #90 caps 07/15/23 02/20/24 Rx iron capsule (Nu-Iron) lisinopril 40 mg tablet See Rx Instructions .Route 08/16/23 02/20/24 Rx .COMPLEX #90 tabs furosemide 20 mg tablet See Rx Instructions .Route 11/27/23 02/20/24 Rx .COMPLEX #90 tabs hydralazine 100 mg tablet 100 mg PO TID 90 days #270 tabs 11/28/23 02/20/24 Rx chlorthalidone 25 mg tablet 25 mg PO DAILY 02/20/24 02/20/24 History Allergies Allergy/AdvReac Type Severity Reaction Status Date / Time amoxicillin (From Augmentin) Allergy Intermediate Itching Verified 02/20/24 04:46 clavulanic acid (From Allergy Intermediate Itching Verified 02/20/24 04:46 Augmentin) Vital Signs Vital Signs - 24 hr 02/19/24 18:52 02/19/24 19:18 02/19/24 19:19 Temperature 36.8 C Pulse Rate 96 92 Respiratory Rate 16 14 Blood Pressure 211/117 H 199/115 H Pulse Oximetry 97 99 98 Oxygen Delivery Room Air Room Air 02/19/24 19:31 02/19/24 19:46 02/19/24 19:47 Temperature Pulse Rate 88 82 87 Respiratory Rate 14 11 L 19 Blood Pressure 187/109 H 182/109 H Pulse Oximetry 98 99 99 Oxygen Delivery 02/19/24 21:32 02/19/24 21:42 02/19/24 21:51 Temperature Pulse Rate 91 87 87 Respiratory Rate 19 18 14 Blood Pressure 165/109 H 169/107 H 176/117 H Pulse Oximetry 97 99 94 Oxygen Delivery 02/19/24 22:02 02/19/24 22:12 02/19/24 22:24 Temperature Pulse Rate 86 88 91 Respiratory Rate 10 L 17 Blood Pressure 161/114 H 177/115 H Pulse Oximetry 98 99 Oxygen Delivery 02/19/24 23:12 02/19/24 23:12 02/19/24 23:31 Temperature Pulse Rate 82 82 82 Respiratory Rate 15 16 9 L Blood Pressure 154/111 H 154/111 H 155/118 H Pulse Oximetry 98 98 94 Oxygen Delivery 02/20/24 00:22 02/20/24 00:56 02/20/24 02:01 Temperature Pulse Rate 73 63 70 Respiratory Rate 10 L 16 13 Blood Pressure 156/108 H 170/102 H 157/100 H Pulse Oximetry 99 100 97 Oxygen Delivery 02/20/24 03:53 02/20/24 04:30 02/20/24 04:38 Temperature Pulse Rate 62 71 Respiratory Rate 11 L 14 Blood Pressure 155/89 H 160/100 H Pulse Oximetry 97 97 Oxygen Delivery Room Air 02/20/24 04:49 02/20/24 06:02 02/20/24 06:44 Temperature 36.9 C Pulse Rate 73 47 L Respiratory Rate 14 Blood Pressure 183/117 H 167/104 H Pulse Oximetry 96 Oxygen Delivery 02/20/24 08:00 02/20/24 08:00 02/20/24 08:00 Temperature 36.5 C Pulse Rate 61 59 L Respiratory Rate 16 Blood Pressure 162/104 H Pulse Oximetry 99 Oxygen Delivery Room Air 02/20/24 10:00 02/20/24 12:00 Temperature 36.4 C L Pulse Rate 76 65 Respiratory Rate 18 Blood Pressure 172/99 H Pulse Oximetry 100 Oxygen Delivery Exam 2 Narrative: GENERAL: Well-appearing, well-nourished, and in no acute distress. HEAD: Normocephalic, atraumatic. EYES: PERRLA and EOMI. ENT: Nares clear, no rhinorrhea or epistaxis. Mucous membranes moist. NECK: Supple. CHEST: Clear to auscultation. No respiratory distress. HEART: Regular rate and rhythm. No murmur heard. Normal peripheral pulses. ABDOMEN: Soft, nontender, nondistended, normal active bowel sounds. EXTREMITIES: Normal range of motion. +1edema. SKIN: Warm, dry, no rash. NEURO: No focal deficits. Alert and oriented x3. PSYCH: Normal mood and affect. Results Labs and Meds 02/19/24 19:23 02/19/24 19:23 Lab results: Cardiac Enzymes 02/19/24 02/19/24 02/20/24 Range/Units 19:23 22:15 00:40 AST 27 (17-59) U/L Troponin I 0.055 H* 0.059 H* 0.048 H* (0.000-0.034) ng/mL Coagulation 02/19/24 Range/Units 19:23 PT 13.4 (11.1-14.7) Seconds APTT 32.7 (22.3-36.8) Seconds CBC 02/19/24 Range/Units 19:23 WBC 5.3 (4.5-10.0) K/mm3 RBC 4.98 (4.6-6.20) M/mm3 Hgb 14.8 (14.0-18.0) g/dL Hct 46.2 (42.0-52.0) % Plt Count 255 (150-375) k/mm3 Lymph # (Auto) 1.86 (0.9-3.2) K/mm3 [place] # (Auto) 0.5 (0.1-0.6) K/mm3 Eos # (Auto) 0.1 (0-0.3) K/mm3 Baso # (Auto) 0.0 (0.0-0.1) K/mm3 Comprehensive Metabolic Panel 02/19/24 Range/Units 19:23 Sodium 137 (137-145) mmol/L Potassium 4.1 (3.4-5.0) mmol/L Chloride 104 (98-107) mmol/L Carbon Dioxide 31 H (22-30) mmol/L BUN 17 (9-20) mg/dL Creatinine 1.20 (0.7-1.3) mg/dL Glucose 100 (65-110) mg/dL Calcium 9.8 (8.4-10.2) mg/dL AST 27 (17-59) U/L ALT 15 (6-50) U/L Alkaline Phosphatase 82 (38-126) U/L Total Protein 8.0 (6.3-8.2) g/dL Albumin 4.5 (3.5-5.1) g/dL Intake and Output 02/19/24 02/20/24 02/20/24 23:59 07:59 15:59 Intake Total 240 Balance 240 Intake: Oral 240 Patient Weight 12/30/24 23:59 Weight 129.5 kg
[2024-02-21] VITALS (14 sets, daily range): BP systolic 118–161; BP diastolic 60–100; PULSE 60–91; RESP 12–18; TEMP 36.4–36.8; O2SAT 95–100
--- NOTE | 2024-02-21 11:08 | P.PNCA_ITS ---
Progress Note: A&P Assessment and Plan (1) Elevated troponin: Code(s): R79.89 - Other specified abnormal findings of blood chemistry Status: Acute (2) Hypertension: Code(s): I10 - Essential (primary) hypertension Status: Acute (3) Cardiomyopathy: Qualifiers: Cardiomyopathy type: dilated Qualified Code(s): I42.0 - Dilated cardiomyopathy Code(s): I42.9 - Cardiomyopathy, unspecified Status: Acute (4) CHF (congestive heart failure), NYHA class II: Qualifiers: Congestive heart failure type: combined Congestive heart failure chronicity: chronic Qualified Code(s): I50.42 - Chronic combined systolic (congestive) and diastolic (congestive) heart failure Code(s): I50.9 - Heart failure, unspecified Status: Acute Plan 1. Hypertensive emergency 2. Acute on chronic systolic HF NYHA II, Stage C EF 50-55%, severe LVH, Gd 1 DD (02/20/2024) NICM 3. NSTEMI 4. Hyperlipidemia 5. Hx of CVA 6. CKD3 -for most likely his troponin elevation which shows a flat profile is secondary to accelerated hypertension leading to subendocardial ischemia. His previous left heart catheterization did not show any significant obstructive CAD as per him. However we will perform a stress test to rule out significant ischemia -continue aspirin, statin -Monitor BP Subjective Date/time seen: 02/21/24 11:08 Interval history: No acute events overnight BP improved, still not optimal though MPI today Review of Systems Review of Systems: - CONSTITUTIONAL: Denies weight loss, fe beth and chills. - HEENT: Denies changes in vision and he aring - RESPIRATORY: Denies SOB and cough. - CV: Denies palpitations and CP. - GI: Denies abdominal pain, nausea, vom iting and diarrhea. - : Denies dysuria and urinary frequen cy. - MSK: Denies myalgia and joint pain. - SKIN: Denies rash and pruritus. - NEUROLOGICAL: Denies headache and sync ope. - PSYCHIATRIC: Denies recent changes in mood. Denies anxiety and depression. Exam Narrative: GENERAL: Well-appearing, well-nourished, and in no acute distress. HEAD: Normocephalic, atraumatic. EYES: PERRLA and EOMI. ENT: Nares clear, no rhinorrhea or epistaxis. Mucous membranes moist. NECK: Supple. CHEST: Clear to auscultation. No respiratory distress. HEART: Regular rate and rhythm. No murmur heard. Normal peripheral pulses. ABDOMEN: Soft, nontender, nondistended, normal active bowel sounds. EXTREMITIES: Normal range of motion. +1edema. SKIN: Warm, dry, no rash. NEURO: No focal deficits. Alert and oriented x3. PSYCH: Normal mood and affect. Objective Data Vital Signs Vital Signs: Vital Signs - 24 hr 02/20/24 12:00 02/20/24 12:00 02/20/24 12:00 Temperature 36.4 C L Pulse Rate 65 68 Respiratory Rate 18 Blood Pressure 172/99 H Pulse Oximetry 100 Oxygen Delivery Room Air Fraction of Inspired Oxygen 02/20/24 14:00 02/20/24 16:00 02/20/24 16:00 Temperature 36.8 C Pulse Rate 64 64 Respiratory Rate 18 Blood Pressure 149/97 H Pulse Oximetry 98 Oxygen Delivery Room Air Fraction of Inspired Oxygen 95 02/20/24 16:00 02/20/24 18:00 02/20/24 20:00 Temperature 36.9 C Pulse Rate 67 79 65 Respiratory Rate 16 Blood Pressure 138/89 Pulse Oximetry 96 Oxygen Delivery Fraction of Inspired Oxygen 02/20/24 20:00 02/20/24 20:00 02/20/24 20:19 Temperature Pulse Rate 67 65 Respiratory Rate Blood Pressure Pulse Oximetry Oxygen Delivery Room Air Fraction of Inspired Oxygen 95 02/20/24 23:43 02/21/24 00:00 02/21/24 00:00 Temperature 36.8 C Pulse Rate 70 86 Respiratory Rate 18 Blood Pressure 124/60 Pulse Oximetry 95 Oxygen Delivery Room Air Fraction of Inspired Oxygen 02/21/24 03:54 02/21/24 04:00 02/21/24 04:16 Temperature 36.8 C Pulse Rate 67 66 Respiratory Rate 18 Blood Pressure 147/84 H Pulse Oximetry 97 Oxygen Delivery Room Air Fraction of Inspired Oxygen 02/21/24 07:50 02/21/24 08:00 02/21/24 08:00 Temperature 36.6 C Pulse Rate 64 63 Respiratory Rate 12 Blood Pressure 148/89 H Pulse Oximetry 97 Oxygen Delivery Room Air Fraction of Inspired Oxygen 02/21/24 10:00 02/21/24 10:52 Temperature Pulse Rate 66 Respiratory Rate Blood Pressure Pulse Oximetry 96 Oxygen Delivery Room Air Fraction of Inspired Oxygen Intake/Output Intake/Output: Intake & Output 02/18/24 02/19/24 02/20/24 02/21/24 23:59 23:59 23:59 23:59 Intake Total 1400 0 Output Total 450 0 Balance 950 0 Meds/Results Medications: Active Medications Generic Name Dose Route Start Last Admin Trade Name Freq PRN Reason Stop Dose Admin Acetaminophen 650 mg 02/19/24 21:54 Acetaminophen 325 Mg Tablet PO Q4H PRN Mild Pain (1-3) or Fever Aspirin 81 mg 02/20/24 09:00 02/20/24 08:45 Aspirin 81 Mg Enteric Tablet PO 81 mg DAILY JOSE Administration Atorvastatin Calcium 40 mg 02/20/24 09:00 02/20/24 08:45 Atorvastatin 40 Mg Tablet PO 40 mg DAILY JOSE Administration Carvedilol 25 mg 02/20/24 09:00 02/20/24 20:19 Carvedilol 25 Mg Tablet PO 25 mg Q12H JOSE Administration Chlorthalidone 25 mg 02/20/24 09:00 02/20/24 08:45 Chlorthalidone 25 Mg Tablet PO 25 mg DAILY JOSE Administration Furosemide 20 mg 02/20/24 09:00 02/20/24 08:45 Furosemide 20 Mg Tablet BY MOUTH 20 mg QAM JOSE Administration Hydralazine HCl 100 mg 02/20/24 09:00 02/20/24 18:08 Hydralazine Hcl 50 Mg Tablet PO 100 mg TID JOSE Administration Hydralazine HCl 10 mg 02/20/24 07:33 Hydralazine Hcl 20 Mg/Ml Vial IV PUSH Q8H PRN Blood Pressure - High Lisinopril 40 mg 02/20/24 09:00 02/20/24 08:45 Lisinopril 20 Mg Tablet BY MOUTH 40 mg DAILY JOSE Administration Perflutren Lipid Microsphere 0 ml 02/20/24 07:33 Perflutren Lipid Microspheres 1.5 Ml Vial Diluted To 10 Ml Total Volume IV PUSH 02/23/24 07:33 ONCE PRN adequate visualization Protocol Polysaccharide Iron Complex 150 mg 02/20/24 09:00 02/20/24 08:45 Polysaccharide Iron Complex 150 Mg Capsule PO 150 mg DAILY JOSE Administration Spironolactone 50 mg 02/20/24 09:00 02/20/24 18:08 Spironolactone 50 Mg Tablet PO 50 mg BID JOSE Administration Vitamin D 1,000 units 02/20/24 09:00 02/20/24 08:45 Cholecalciferol 1,000 Units Tablet PO 1,000 units DAILY JOSE Administration Radiology Results: ITS Impressions Chest X-Ray 02/19/24 20:13 IMPRESSION: No focal infiltrate or effusion.
[2024-02-21] MEDS: ONDANSETRON INJ 4 MG/2 ML VIAL IV PUSH (12:25)
[2024-02-21] MEDS: ATORVASTATIN 40 MG TABLET PO (13:04)
[2024-02-21] MEDS: SPIRONOLACTONE 50 MG TABLET PO ×2 (13:04→16:46)
[2024-02-21] MEDS: hydrALAZINE HCL 50 MG TABLET 100 MG PO ×2 (13:04→16:45)
[2024-02-21] MEDS: CHOLECALCIFEROL 1,000 UNITS TABLET 1000 UNITS PO (13:04)
[2024-02-21] MEDS: FUROSEMIDE 20 MG TABLET BY MOUTH (13:05)
[2024-02-21] MEDS: carvediloL 25 MG TABLET PO ×2 (13:05→21:23)
[2024-02-21] MEDS: CHLORTHALIDONE 25 MG TABLET PO (13:05)
[2024-02-21] MEDS: lisinopriL 20 MG TABLET 40 MG BY MOUTH (13:05)
[2024-02-21] MEDS: ASPIRIN 81 MG ENTERIC TABLET PO (13:05)
[2024-02-21] MEDS: POLYSACCHARIDE IRON COMPLEX 150 MG CAPSULE PO (13:05)
--- NOTE | 2024-02-21 13:18 | EST_ITS ---
Patient Info Name: Portillo Martin Age: 58 years : 1965 Gender: Male Ht: 71 in Wt: 285 lbs BSA: 2.60 m2 HR: 62 bpm BP: 135 / 101 mmHg Exam Date: 02/21/2024 9:14 AM Exam Location: Echo Lab Patient Status: Inpatient Admit Date: 02/19/2024 Staff Ordering Physician: Ainsley Thayer MD Attending Provider: Jeff Starkey MD Exercise Technologist: Jacqui Vazquez RDCS Nurse: Gauri Cardozo APN Exam Type: CA stress neil w NM Study Info A regadenoson stress test was performed. Summary 1. The ECG is not suggestive of ischemia during pharmacological stress. occ PVC seen. Protocol: Lexiscan Stress ECG Details Stage: REST Duration (min): 1 min : 11 sec HR (bpm): 64 SBP (mmHg): 135 DBP (mmHg): 101 Stage: REST Duration (min): 5 min : 41 sec HR (bpm): 65 SBP (mmHg): 135 DBP (mmHg): 101 Stage: STAGE 1 Duration (min): 1 min : 0 sec HR (bpm): 81 SBP (mmHg): 145 DBP (mmHg): 97 Stage: RECOVERY Duration (min): 1 min : 0 sec HR (bpm): --- SBP (mmHg): 145 DBP (mmHg): 97 Stage: RECOVERY Duration (min): 2 min : 0 sec HR (bpm): 88 SBP (mmHg): 145 DBP (mmHg): 97 Stage: RECOVERY Duration (min): 3 min : 0 sec HR (bpm): 87 SBP (mmHg): 158 DBP (mmHg): 95 Stage: RECOVERY Duration (min): 3 min : 34 sec HR (bpm): 88 SBP (mmHg): 158 DBP (mmHg): 95 Rest HR: 65 bpm Peak HR: 99 bpm Rest Sys BP: 135 mmHg Peak Sys BP: 158 mmHg Max Pred HR: 162 bpm % Max Pred HR: 61 % Target HR: 138 bpm Max RPP: 15,642 bpm*mmHg Total Time: 1 min : 0 sec Rest Rader BP: 101 mmHg Peak Rader BP: 95 mmHg Total Dose: 0.4 mg Report Signatures
--- NOTE | 2024-02-21 17:44 | PM.IMPN ---
Progress Note: A&P Assessment and Plan (1) Non compliance w medication regimen: Code(s): Z91.14 - Patient's other noncompliance with medication regimen Status: Acute (2) Hypertension: Code(s): I10 - Essential (primary) hypertension Status: Acute (3) Non-ischemic cardiomyopathy: Code(s): I42.8 - Other cardiomyopathies Status: Acute (4) Chronic combined systolic (congestive) and diastolic (congestive) heart failure: Code(s): I50.42 - Chronic combined systolic (congestive) and diastolic (congestive) heart failure Status: Acute (5) Elevated troponin: Code(s): R79.89 - Other specified abnormal findings of blood chemistry Status: Acute (6) Hyperlipidemia: Code(s): E78.5 - Hyperlipidemia, unspecified Status: Acute (7) Venous ulcer of lower extremity due to chronic peripheral venous hypertension: Code(s): I87.319 - Chronic venous hypertension (idiopathic) with ulcer of unspecified lower extremity Status: Acute Plan Patient 58-year-old gentleman presents emergency department with chief complaint of shortness of breath with exertion. Patient reports he has history of congestive heart failure reports he also has history of hypertension and takes multiple antihypertensives patient states that he just does not feel like taking his blood pressure medicines and heart medications at times and takes it intermittently. Patient reports been several weeks since he last checked his blood pressure and reports that today it was elevated patient did report that he took a dose of his diuretics and antihypertensives before coming into the emergency department. ED Evaluation showed blood pressure was elevated to 211 117 other vitals stable. Laboratory data showed WBC 5.3 hemoglobin of 14.8 came panel was unremarkable BNP was 1870. Troponin was 0.055. Lipase 120. Urinalysis was negative. EKG showed T-wave inversions in lateral leads 1 aVL. The changes are new as compared to EKG from 2020. Chest x-ray with no focal infiltrate or effusion. Echo 06/2021: Normal EF at 62% severe concentric left ventricular hypertrophy impaired diastolic relaxation grade 1 no significant valvular abnormality. Patient did have echo finding with EF of 45% in 2019. Serial troponin 0.055-0.059-0.048. He received a dose of hydralazine and carvedilol. Patient is admitted for further evaluation and management. Resume all his home medications which include Coreg chlorthalidone furosemide hydralazine lisinopril spironolactone. Blood pressure improved with his usual home medication. Reports he has not been compliant with his medications at home. He underwent stress test per Cardiology recommendations. Results are pending. If negative will DC home tomorrow Combined systolic-diastolic congestive heart failure nonischemic cardiomyopathy Hypertension Hyperlipidemia History of CVA with residual right-sided weakness Recurrent venous stasis ulcers Tobacco abuse Stage 3 chronic kidney disease Polyneuropathy DVT prophylaxis Code status full code Subjective Date/time seen: 02/21/24 17:44 Interval history: No overnight events. Blood pressure improved. Underwent stress test today. Results are pending. Review of Systems Review of Systems: All systems reviewed & are unremarkable except as noted in HPI and below Exam Narrative: GENERAL: Well-appearing, well-nourished, and in no acute distress. HEAD: Normocephalic, atraumatic. EYES: PERRLA and EOMI. ENT: Nares clear, no rhinorrhea or epistaxis. Mucous membranes moist. NECK: Supple. CHEST: Clear to auscultation. No respiratory distress. HEART: Regular rate and rhythm. No murmur heard. Normal peripheral pulses. ABDOMEN: Soft, nontender, nondistended, normal active bowel sounds. EXTREMITIES: Normal range of motion. +1edema bilateral lower extremity with findings of stasis dermatitis SKIN: Warm, dry, no rash. NEURO: No focal deficits. Alert and oriented x3. PSYCH: Normal mood and affect. Objective Data Vital Signs Vital Signs: Vital Signs - 24 hr 02/20/24 18:00 02/20/24 20:00 02/20/24 20:00 Temperature 98.4 F Pulse Rate 79 65 Respiratory Rate 16 Blood Pressure 138/89 Pulse Oximetry 96 Oxygen Delivery Room Air Fraction of Inspired Oxygen 95 02/20/24 20:00 02/20/24 20:19 02/20/24 23:43 Temperature Pulse Rate 67 65 Respiratory Rate Blood Pressure Pulse Oximetry Oxygen Delivery Room Air Fraction of Inspired Oxygen 02/21/24 00:00 02/21/24 00:00 02/21/24 03:54 Temperature 98.2 F Pulse Rate 70 86 Respiratory Rate 18 Blood Pressure 124/60 Pulse Oximetry 95 Oxygen Delivery Room Air Fraction of Inspired Oxygen 02/21/24 04:00 02/21/24 04:16 02/21/24 07:50 Temperature 98.2 F 97.9 F Pulse Rate 67 66 64 Respiratory Rate 18 12 Blood Pressure 147/84 H 148/89 H Pulse Oximetry 97 97 Oxygen Delivery Fraction of Inspired Oxygen 02/21/24 08:00 02/21/24 08:00 02/21/24 10:00 Temperature Pulse Rate 63 66 Respiratory Rate Blood Pressure Pulse Oximetry Oxygen Delivery Room Air Fraction of Inspired Oxygen 02/21/24 10:52 02/21/24 11:41 02/21/24 12:00 Temperature 97.5 F L Pulse Rate 67 60 Respiratory Rate 12 Blood Pressure 161/100 H Pulse Oximetry 96 100 Oxygen Delivery Room Air Fraction of Inspired Oxygen 02/21/24 12:00 02/21/24 14:00 02/21/24 16:00 Temperature 98.1 F Pulse Rate 84 74 Respiratory Rate 16 Blood Pressure 135/88 Pulse Oximetry 100 98 Oxygen Delivery Room Air Fraction of Inspired Oxygen Intake/Output Intake/Output: Intake & Output 02/18/24 02/19/24 02/20/24 02/21/24 23:59 23:59 23:59 23:59 Intake Total 1400 0 Output Total 450 0 Balance 950 0 Meds/Results Medications: Active Medications Generic Name Dose Route Start Last Admin Trade Name Freq PRN Reason Stop Dose Admin Acetaminophen 650 mg 02/19/24 21:54 Acetaminophen 325 Mg Tablet PO Q4H PRN Mild Pain (1-3) or Fever Aspirin 81 mg 02/20/24 09:00 02/21/24 13:05 Aspirin 81 Mg Enteric Tablet PO 81 mg DAILY JOSE Administration Atorvastatin Calcium 40 mg 02/20/24 09:00 02/21/24 13:04 Atorvastatin 40 Mg Tablet PO 40 mg DAILY JOSE Administration Carvedilol 25 mg 02/20/24 09:00 02/21/24 13:05 Carvedilol 25 Mg Tablet PO 25 mg Q12H JOSE Administration Chlorthalidone 25 mg 02/20/24 09:00 02/21/24 13:05 Chlorthalidone 25 Mg Tablet PO 25 mg DAILY JOSE Administration Furosemide 20 mg 02/20/24 09:00 02/21/24 13:05 Furosemide 20 Mg Tablet BY MOUTH 20 mg QAM JOSE Administration Hydralazine HCl 100 mg 02/20/24 09:00 02/21/24 16:45 Hydralazine Hcl 50 Mg Tablet PO 100 mg TID JOSE Administration Hydralazine HCl 10 mg 02/20/24 07:33 Hydralazine Hcl 20 Mg/Ml Vial IV PUSH Q8H PRN Blood Pressure - High Lisinopril 40 mg 02/20/24 09:00 02/21/24 13:05 Lisinopril 20 Mg Tablet BY MOUTH 40 mg DAILY JOSE Administration Ondansetron HCl 4 mg 02/21/24 12:14 02/21/24 12:25 Ondansetron Inj 4 Mg/2 Ml Vial IV PUSH 4 mg Q6H PRN Administration Nausea And Vomiting Perflutren Lipid Microsphere 0 ml 02/20/24 07:33 Perflutren Lipid Microspheres 1.5 Ml Vial Diluted To 10 Ml Total Volume IV PUSH 02/23/24 07:33 ONCE PRN adequate visualization Protocol Polysaccharide Iron Complex 150 mg 02/20/24 09:00 02/21/24 13:05 Polysaccharide Iron Complex 150 Mg Capsule PO 150 mg DAILY JOSE Administration Spironolactone 50 mg 02/20/24 09:00 02/21/24 16:46 Spironolactone 50 Mg Tablet PO 50 mg BID JOSE Administration Vitamin D 1,000 units 02/20/24 09:00 02/21/24 13:04 Cholecalciferol 1,000 Units Tablet PO 1,000 units DAILY JOSE Administration Radiology Results: ITS Impressions Chest X-Ray 02/19/24 20:13 IMPRESSION: No focal infiltrate or effusion.
--- NOTE | 2024-02-21 23:25 | PC.NURSE ---
Patient being transferred via wheelchair to bed 315 bed 1 in stable condition. All belongings to be sent with patient. Report called to Ashley CARDENAS on 3 Med/Surg.
[2024-02-22 05:01] VITALS: BP 101/74; PULSE 75; RESP 18; TEMP 36.7; O2SAT 93
[2024-02-22] MEDS: hydrALAZINE HCL 50 MG TABLET 100 MG PO ×2 (09:18→12:36)
[2024-02-22] MEDS: ATORVASTATIN 40 MG TABLET PO (09:18)
[2024-02-22] MEDS: SPIRONOLACTONE 50 MG TABLET PO (09:18)
[2024-02-22] MEDS: FUROSEMIDE 20 MG TABLET BY MOUTH (09:18)
[2024-02-22] MEDS: CHLORTHALIDONE 25 MG TABLET PO (09:18)
[2024-02-22] MEDS: carvediloL 25 MG TABLET PO (09:18)
[2024-02-22] MEDS: lisinopriL 20 MG TABLET 40 MG BY MOUTH (09:18)
[2024-02-22] MEDS: ASPIRIN 81 MG ENTERIC TABLET PO (09:19)
[2024-02-22] MEDS: CHOLECALCIFEROL 1,000 UNITS TABLET 1000 UNITS PO (09:19)
--- NOTE | 2024-02-22 12:00 | PM.DS ---
DS: Admitting Diagnosis Discharge Date 02/22/24 Admitting Diagnosis Shortness of breath DS: Discharge Diagnosis Discharge Diagnosis (1) Non compliance w medication regimen: Code(s): Z91.14 - Patient's other noncompliance with medication regimen Status: Acute (2) Hypertension: Code(s): I10 - Essential (primary) hypertension Status: Acute (3) Non-ischemic cardiomyopathy: Code(s): I42.8 - Other cardiomyopathies Status: Acute (4) Chronic combined systolic (congestive) and diastolic (congestive) heart failure: Code(s): I50.42 - Chronic combined systolic (congestive) and diastolic (congestive) heart failure Status: Acute (5) Elevated troponin: Code(s): R79.89 - Other specified abnormal findings of blood chemistry Status: Acute (6) Hyperlipidemia: Code(s): E78.5 - Hyperlipidemia, unspecified Status: Acute (7) Venous ulcer of lower extremity due to chronic peripheral venous hypertension: Code(s): I87.319 - Chronic venous hypertension (idiopathic) with ulcer of unspecified lower extremity Status: Acute DS: Summary Hospital Course Reason for hospitalization: 58yo male with NICMP, HTN, CHF, CVA and CKD here for SOB. Please see H&P for details. Hospital Course: Patient presents with SOB and found to have elevated BP to 211/117. Patient reports noncompliance with home meds. CBC, PT and PTT were normal. CMP was unremarkable. BNP was 1870. Troponin elevated to 0.059 but flat. Lipase normal and UA was clear. EKG showed nonspecific T-wave changes. CXR was clear. He received a dose of hydralazine and carvedilol. He was resumed on his home meds and blood pressure improved. Echo showing LV systolic fxn normal with EF 50-55%, severely increased LW wall thickness and grade I diastolic dysfunction. Mild MR noted. Cardiology consulted and he underwent Lexiscan stress test per Cardiology recommendations. EKG portion showing no suggestion of ischemia during pharmacological stress but with occasional PVCs. Nuclear portion showing moderate severity myocardial infarction involving the mid and basilar inferolateral segments. No evident reversible ischemia. Left ventricular enlargement with mildly decreased ejection fraction measuring 40%. Compliance with medications was stressed. He has his medications at home and does not need refills. He overall did well and was able to be discharged on 02/22/24. Status at Discharge Cognitive/behavioral status at discharge: stable Time Spent with Patient Time attestation: Total time spent providing and/or coordinating discharge services: 34 minutes Time spent: Greater than 30 minutes Exam Narrative: AF 98.0 101/74 75 18 93% ra Gen - NARD Chest - CTA bilaterally, nml RR CV - RRR S1/S2 Abd - Soft, NT/ND, Positive BS Ext - trace pedal edema Neuro - Alert and oriented. Nonfocal exam. Psych - Nml mood and affect Skin - Warm and dry Discharge Plan Discharge Attending physician on discharge: Dev Vazquez Consulting providers: Gauri Cardozo Discharging Clinician: Dev Vazquez Anticipated Discharge Date/Time: 02/22/24 12:12 Patient Disposition: Home, Self-Care Activity: as tolerated Diet: heart healthy Discharge Instructions: Check blood pressure 1 to 2 times a day. Record and bring into your doctor for review. Call your doctor if your blood pressure is greater than 180/110. Wear compression hose on in the morning and off at night. Take precautions to avoid falls. Rise slowly from a lying or sitting position. Pause before standing or walking. Check daily morning weights after voiding. Call your doctor if you gain more than 3 lb in 2 days or 5 lb in 1 week. Contact your doctor or call 911 and come to the Emergency Room if you have lightheadedness with standing or other worrisome symptoms. Avoid NSAIDs (ibuprofen, naproxen, Aleve). Tylenol is safe to take. Follow-up with your primary care provider in 1-2 weeks. Please call for appointment. Follow-up with Cardiology in 1-2 weeks. Please call for an appointment. Thank you for using [facility] for your health care needs. Patient Instructions: Antibiotic Form, Heart Failure (DC) Patient Language: Hungarian Stand Alone Forms: General Discharge Information Follow-up/Referrals: Gauri Cardozo, SENIOR CONTRACTS ADMINISTRATOR-C [Advanced Practice Nurse] - Call for Appointment Jaylin Ibarra MD [Primary Care Provider] - Call for Appointment Discharge Medications: Continued cholecalciferol (vitamin D3) 25 mcg (1,000 unit) capsule 1,000 unit PO DAILY Qty: 90 3RF carvedilol 25 mg tablet 25 mg PO Q12H Qty: 180 3RF chlorthalidone 25 mg tablet 25 mg PO DAILY aspirin [Adult Low Dose Aspirin] 81 mg tablet,delayed release (DR/EC) 81 mg PO DAILY Qty: 90 3RF spironolactone 50 mg tablet 50 mg PO BID Qty: 180 1RF atorvastatin 40 mg tablet 40 mg PO DAILY Qty: 90 1RF lisinopril 40 mg tablet See Rx Instructions .ROUTE .COMPLEX Qty: 90 3RF Dose Instruction: TAKE 1 TABLET BY MOUTH DAILY Rx Instructions: TAKE 1 TABLET BY MOUTH DAILY furosemide 20 mg tablet See Rx Instructions .ROUTE .COMPLEX Qty: 90 0RF Dose Instruction: TAKE 1 TABLET BY MOUTH EVERY MORNING Rx Instructions: TAKE 1 TABLET BY MOUTH EVERY MORNING hydralazine 100 mg tablet 100 mg PO TID 90 Days Qty: 270 1RF Discontinued polysaccharide iron complex [Nu-Iron] 150 mg iron capsule 150 mg PO DAILY Qty: 90 0RF Date of admission: 02/19/24 21:54 Primary Care Provider: Jaylin Ibarra Admitting Provider: Jeff Starkey Attending physician on admission: Jeff Starkey Condition: Stable Hospitalist MIPS Heart Failure (Exclusion) Patient has history of Heart Transplant or Left Ventricular Assistive Device?: No IF YES, STOP HERE Heart Failure (Qualifier) Patient has current or prior documentation of LVEF less than or equal to 40%, or mod/servere depressed LVSF?: No IF NO, STOP HERE
--- OUTSIDE RECORDS SUMMARY | 2024-02-26 22:56 | XMS_ITS | Encounter Summary ---
Author Organization [facility] Address [address] [place] [address]. [address] [address] Care Team Providers Care Hide [place] Man Name Role Phone Lauri Blair MD Primary Care Provider [phone] Reason for Visit * Reason Comments Image (SCAN) CT (SCAN) Lab (SCAN) Encounter Details Date Type Department Care Team (Late st Contact Info) Description 07/05/2018 Scan [facility] Scanned, Documents Image (SCAN); CT (SCAN); Lab (SCAN) Social History Tobacco Use Types Packs/Day Years Used Date Smoking Tobacco: Never Assessed Sex and Gender Information Value Date Recorded Sex Assigned at Not on file Legal Sex Male 5:55 PM CDT Gender Identity Not on file Sexual Orientation Not on file documented as of this encounter Plan of Treatment Not on file documented as of this encounter Procedures Procedure Name Priority Date/Time Associated Diagnosis Comments CT GENERIC Routine 07/05/2018 OUTSIDE LAB (SCAN ORDER) Routine 07/05/2018 OUTSIDE LAB (SCAN ORDER) Routine 07/05/2018 IMAGE GENERIC Routine 07/05/2018 documented in this encounter Results * OUTSIDE LAB (07/05/2018) 07/05/2018 us Documents Scanned SCANNING Edited Result - Final * OUTSIDE LAB (07/05/2018) 07/05/2018 us Documents Scanned SCANNING Edited Result - Final * CT (07/05/2018) Anatomical Region Laterality Modality Other us Documents Scanned SCANNING Edited Result - Final * IMAGE STUDY (07/05/2018) Anatomical Region Laterality Modality Other us Documents Scanned SCANNING Edited Result - Final documented in this encounter Visit Diagnoses Not on filedocumented in this encounter Care Teams [place] Man Relationship Specialty Start Date End Date Lauri Blair MD [address] [place] [address] PCP - General 10/30/14 documented as of this encounter
--- OUTSIDE RECORDS SUMMARY | 2024-02-26 22:56 | XMS_ITS | Encounter Summary ---
Author Organization [facility] Address [address] [place] [address]. [address] [address] Care Team Providers Care Citizenship Teacher Name Role Phone Lauri Blair MD Primary Care Provider [phone] Encounter Details Date Type Department Care Team (Latest Contact Info) Description 07/10/2018 Scan [facility] INFO [facility] Scanned, Documents Social History Tobacco Use Types Packs/Day Years Used Date Smoking Tobacco: Never Assessed Sex and Gender Information Value Date Recorded Sex Assigned at Not on file Legal Sex Male 5:55 PM CDT Gender Identity Not on file Sexual Orientation Not on file documented as of this encounter Plan of Treatment Not on file documented as of this encounter Visit Diagnoses Not on filedocumented in this encounter Care Teams Citizenship Teacher Relationship Specialty Start Date End Date Lauri Blair MD [address] [place] [address] PCP - General 10/30/14 documented as of this encounter
--- OUTSIDE RECORDS SUMMARY | 2024-02-26 22:56 | XMS_ITS | Encounter Summary ---
Author Organization [facility] Address [address] [place] [address]. [address] [address] Care Team Providers Care Car Checker Name Role Phone Lauri Blair MD Primary Care Provider [phone] Encounter Details Date Type Department Care Team (Latest Contact Info) Description 03/02/2017 Abstract [facility] Medical Group Social History Tobacco Use Types Packs/Day Years [...] on filedocumented in this encounter Care Teams Car Checker Relationship Specialty Start Date End Date Lauri Blair MD [address] [place] [address] PCP - General 10/30/14 documented as of this encounter
--- OUTSIDE RECORDS SUMMARY | 2024-02-26 22:56 | XMS_ITS | Encounter Summary ---
Author Organization [facility] Address [address] [place] [address]. [address] [address] Care Team Providers Care Clinical Safety Manager Name Role Phone Lauri Blair MD Primary Care Provider [phone] Encounter Details Date Type Department Care Team (Latest Contact Info) Description 07/24/2018 Scan HEALTH INFO SRVCS Scanned, Documents Social [...] on filedocumented in this encounter Care Teams Clinical Safety Manager Relationship Specialty Start Date End Date Lauri Blair MD [address] [place] [address] PCP - General 10/30/14 documented as of this encounter
--- OUTSIDE RECORDS SUMMARY | 2024-02-26 22:56 | XMS_ITS | Encounter Summary ---
Author Organization [facility] Address [address] [place] [address]. [address] [address] Care Team Providers Care Design Chief Name Role Phone Lauri Blair MD Primary Care Provider [phone] Encounter Details Date Type Department Care Team (Latest Contact Info) Description 07/07/2018 Scan HEALTH INFO SRVCS Scanned, Documents Social [...] on filedocumented in this encounter Care Teams Design Chief Relationship Specialty Start Date End Date Lauri Blair MD [address] [place] [address] PCP - General 10/30/14 documented as of this encounter
--- OUTSIDE RECORDS SUMMARY | 2024-02-26 22:56 | XMS_ITS | Encounter Summary ---
Author Organization [facility] Address [address] [place] [address]. [address] [address] Care Team Providers Care Vp Platforms Name Role Phone Lauri Blair MD Primary Care Provider [phone] Encounter Details Date Type Department Care Team (Latest Contact Info) Description 02/23/2017 Abstract [facility] Medical Group Social History Tobacco Use Types Packs/Day Years Used Date Smoking Tobacco: Never Assessed Sex and Gender Information Value Date Recorded Sex Assigned at Not on file Legal Sex Male 5:55 PM CDT Gender Identity Not on file Sexual Orientation Not on file documented as of this encounter Progress Notes * Generic Conversion MD Alondra - 02/23/2017 9:40 PM CST Message Cholesterol is slightly elevated, diet and exercise Rx Vitamin D is low, start on Vitamin D3 5000 IU daily Other labs are good. Pt updated and V/U-justino Verified Results CBC W Differential [id number] 08:37AM Lauri Balir Test Name Result Flag Reference WBC 5.4 x10'3/uL 4.8-10.8 RBC 5.30 x10'6/uL 4.70-6.10 Hemoglobin (HGB) 15.0 G/DL 14.0-18.0 Hematocrit (HCT) 48.5 % 43.0-54.0 Mean Corpuscular Volume (MCV) 91.5 FL 80.0-94.0 Mean Corpuscular Hgb (MCH) 28.3 PG 27.0-31.0 Mean Corpuscular Hgb Conc (MCH 30.9 G/DL L 32.0-36.0 RDW 14.2 % 11.5-14.5 PLATELET COUNT 293 x10'3/uL 130-400 Mean Platelet Volume (MPV) 10.7 FL 9.3-12.2 IMMATURE GRANULOCYTES 0.4 % 0.0-1.0 NEUTROPHILS 54.7 % 43.0-65.0 LYMPHOCYTES 33.5 % 20.0-46.0 MONOCYTES 7.7 % 5.0-12.0 EOSINOPHILS 3.0 % 1.0-3.0 BASOPHILS 0.7 % 0.0-1.0 Compr Metabolic Prof ( CMP ) [id number] 08:37AM Lauri Blair Test Name Result Flag Reference Sodium (Na) 140 MMOL/L 136-145 Potassium (K) 3.7 MMOL/L 3.5-5.1 Chloride (Cl) 103 MMOL/L 100-108 Carbon Dioxide (CO2) 27.0 MMOL/L 21-32 Anion Gap 13.7 MMOL/L 8-20 Blood Urea Nitrogen (BUN) 17 MG/DL 7-18 Creatinine 1.23 MG/DL 0.7-1.3 BUN CREATININE RATIO 13.8 6-26 Glucose 100 MG/DL H 70-99 Calcium 9.1 MG/DL 8.5-10.1 Total Bilirubin 0.8 MG/DL 0.2-1.2 AST/GOT 19 U/L 15-37 ALT/GPT 18 U/L 16-60 Alkaline Phosphatase (ALKP) 99 U/L 50-136 Total Protein 7.8 G/DL 6.4-8.2 Albumin 3.7 G/DL 3.4-5.0 A:G RATIO 0.9 RATIO L 1.0-2.0 GFR NONAFROAMERICAN >60 ML/MIN/1.73 M2 >60 EST GFR AFRIC/AMER >60 >60 NOTE: eGFR is not calculated for patients <18 years of age. This is an estimated GFR (CKD EPI) and should not be used for calculating drug doses. ML/MIN/1.73 M2 Prostate Specif Ag ( PSA ) Scrn [id number] 08:37AM Lauri Blair Test Name Result Flag Reference Prostate Specific Antigen 3.90 NG/ML <4.00 Test was performed using the Siemens method. Results obtained with other assay methods or kits cannot be used interchangeably with results obtained by the Siemens method. TSH W Reflex Free T4 [id number] 08:37AM Lauri Blair Test Name Result Flag Reference TSH w Reflex Free T4 2.360 uIU/ML 0.358-3.74 HIGH DOSES OF BIOTIN MAY INTERFERE WITH THIS TEST RESULT. CORRELATION TO CLINICAL HISTORY AND PRESENTATION RECOMMENDED. FREE T4 NOT INDICATED Uric Acid [id number] 08:37AM Lauri Blair Test Name Result Flag Reference Uric Acid 7.4 MG/DL H 3.5-7.2 Vitamin D 25 - Hydroxy [id number] 08:37AM Lauri Blair Test Name Result Flag Reference Vitamin D 25-Hydroxy 24 NG/ML L 30-100 INTERPRETATION DEFICIENT <20 INSUFFICIENT 20-29 SUFFICIENT 30-100 Signatures Electronically signed by : Carmelina Orourke R.N.; Feb 24 2017 12:31PM PREFABRICATOR (Author) documented in this encounter Plan of Treatment Not on file documented as of this encounter Visit Diagnoses Not on filedocumented in this encounter Care Teams Vp Platforms Relationship Specialty Start Date End Date Lauri Blair MD [address] [place] [address] PCP - General 10/30/14 documented as of this encounter
--- OUTSIDE RECORDS SUMMARY | 2024-02-26 22:56 | XMS_ITS | Clinical Summary ---
Author Organization [facility] Address [address] [place] [address]. [place] [address] Care Team Providers Care Housekeeping Lead Name Role Phone Lauri Blair MD Primary Care Provider [phone] Social History Tobacco Use Types Packs/Day Years Used Date Smoking Tobacco: Never Assessed Sex and Gender Information Value Date Recorded Sex Assigned at Not on file Legal Sex Male 5:55 PM CDT Gender Identity Not on file Sexual Orientation Not on file Last Filed Vital Signs Vital Sign Reading Time Taken Comments Blood Pressure 152/90 03/23/2017 12:05 PM DIRECTOR DERMATOLOGY Pulse 67 03/23/2017 12:05 PM DIRECTOR DERMATOLOGY Temperature - - Respiratory Rate - - Oxygen Saturation - - Inhaled Oxygen Concentration - - Weight 126.6 kg (279 lb) 03/23/2017 12:05 PM DIRECTOR DERMATOLOGY Height 185.4 cm (6' 1 ) 03/23/2017 12:05 PM DIRECTOR DERMATOLOGY Body Mass Index 36.81 03/23/2017 12:05 PM DIRECTOR DERMATOLOGY Plan of Treatment Health Maintenance Due Date Last Done Comments Colorectal Cancer Screening Colonoscopy (10 Years) 1965 Annual Physical 1968 Hepatitis C 08/03/1983 DTaP, Tdap and Td Vaccines ( 1 - Tdap) 1984 Hepatitis B Vaccines (1 of 3 - 19+ 3-dose series) 1984 Zoster Vaccines (1 of 2) 08/03/2015 COVID-19 Vaccine (2023-2 5 season) 2023 Influenza Adult (#1) 2023 Meningococcal Vaccine Aged Out No sangeeta julieta eligible based on patient's age to complete this topic Pneumococcal Vaccine: Pediat rics (0 to 5 Years) and At-Risk Patients (6 to 64 Years) Aged Out No longer eligible b ased on patient's age to complete this topic RSV Immunizations Under 20 Months Aged Out No longer eligible based on patient's age to complete this topic Care Teams Housekeeping Lead Relationship Specialty Start Date End Date Lauri Blair MD [address] [place] [address] PCP - General 10/30/14
--- OUTSIDE RECORDS SUMMARY | 2024-02-26 22:56 | XMS_ITS | Encounter Summary ---
Author Organization [facility] Address [address] [place] [address]. [address] [address] Care Team Providers Care Dermatology Procedural Physician Name Role Phone Lauri Blair MD Primary Care Provider [phone] Encounter Details Date Type Department Care Team [...] on filedocumented in this encounter Care Teams Dermatology Procedural Physician Relationship Specialty Start Date End Date Lauri Blair MD [address] [place] [address] PCP - General 10/30/14 documented as of this encounter
--- OUTSIDE RECORDS SUMMARY | 2024-02-26 22:56 | XMS_ITS | Encounter Summary ---
Author Organization [facility] Address [address] [place] [address]. [place], [place] [address] [place] [address] Care Team Providers Care Rougher For Cement Name Role Phone Lauri Blair MD Primary Care Provider [phone] Reason for Visit * Reason Comments CT (SCAN) CTA BRAIN / CAROTID Encounter Details Date Type Department Care Team (Late st Contact Info) Description 07/07/2018 Scan HEALTH INFO SRVCS Scanned, Documents CT (SCAN) (CTA BRAIN / CAROTID) Social History Tobacco Use Types Packs/Day Years [...] Date/Time Associated Diagnosis Comments CT GENERIC Routine 07/07/2018 documented in this encounter Results * CT (07/07/2018) Anatomical Region Laterality Modality Other us Documents Scanned SCANNING Final Result documented in this encounter Visit Diagnoses Not on filedocumented in this encounter Care Teams Rougher For Cement Relationship Specialty Start Date End Date Lauri Blair MD [address] [place] [address] PCP - General 10/30/14 documented as of this encounter
--- OUTSIDE RECORDS SUMMARY | 2024-02-26 22:56 | XMS_ITS | Encounter Summary ---
Author Organization [facility] Address [address] [place] [address]. [address] [address] Care Team Providers Care Marble Machine Tender Name Role Phone Lauri Blair MD Primary Care Provider [phone] Encounter Details Date Type Department Care Team (Latest Contact Info) Description 03/31/2017 Abstract [facility] Medical Group Social History Tobacco Use Types [...] on filedocumented in this encounter Care Teams Marble Machine Tender Relationship Specialty Start Date End Date Lauri Blair MD [address] [place] [address] PCP - General 10/30/14 documented as of this encounter
--- OUTSIDE RECORDS SUMMARY | 2024-02-26 22:56 | XMS_ITS | Encounter Summary ---
Author Organization [facility] Address [address] [place] [address]. [address] [address] Care Team Providers Care Supervisor Green End Department Name Role Phone Lauri Blair MD Primary Care Provider [phone] Encounter Details Date Type Department Care Team (Latest Contact Info) Description 01/31/2018 Scan HEALTH INFO SRVCS Scanned, Documents Social [...] on filedocumented in this encounter Care Teams Supervisor Green End Department Relationship Specialty Start Date End Date Lauri Blair MD [address] [place] [address] PCP - General 10/30/14 documented as of this encounter
--- OUTSIDE RECORDS SUMMARY | 2024-02-26 22:56 | XMS_ITS | Encounter Summary ---
Author Organization [facility] Address [address] [place] [address]. [address] [address] Care Team Providers Care Aircraft Restorer Name Role Phone Lauri Blair MD Primary Care Provider [phone] Encounter Details Date Type Department Care Team (Latest Contact Info) Description 03/21/2017 Abstract [facility] Medical Group Social History Tobacco Use Types [...] on filedocumented in this encounter Care Teams Aircraft Restorer Relationship Specialty Start Date End Date Lauri Blair MD [address] [place] [address] PCP - General 10/30/14 documented as of this encounter
--- OUTSIDE RECORDS SUMMARY | 2024-02-26 22:56 | XMS_ITS | Encounter Summary ---
Author Organization [facility] Address [address] [place] [address]. [address] [address] Care Team Providers Care Absorption And Adsorption Engineer Name Role Phone Lauri Blair MD Primary Care Provider Encounter Details Date Type Department Care Team [...] on filedocumented in this encounter Care Teams Absorption And Adsorption Engineer Relationship Specialty Start Date End Date Lauri Blair MD [address] [place] [address] PCP - General 10/30/14 documented as of this encounter
--- OUTSIDE RECORDS SUMMARY | 2024-02-26 22:56 | XMS_ITS | Encounter Summary ---
Author Organization [facility] Address [address] [place] [address]. [place], [place] [address] [place] [address] Care Team Providers Care Able Bodied Seaman Name Role Phone Lauri Blair MD Primary Care Provider [phone] Reason for Visit * Reason Comments Ultrasound (SCAN) MRI (SCAN) Encounter Details Date Type Department Care Team ([facility] Contact Info) Description 07/06/2018 Scan [facility] HEALTH INFO SRVCS Scanned, Documents Ultrasound (SCAN); MRI (SCAN) Social History Tobacco Use Types Packs/Day [...] Procedure Name Priority Date/Time Associated Diagnosis Comments MRI GENERIC Routine 07/06/2018 ULTRASOUND GENERIC (SCAN ORDER) Routine 07/06/2018 ULTRASOUND GENERIC (SCAN ORDER) Routine 07/06/2018 documented in this encounter Results * MRI (07/06/2018) Anatomical Region Laterality Modality Other us Documents Scanned SCANNING Edited Result - Final * ULTRASOUND (07/06/2018) Anatomical Region Laterality Modality Other us Documents Scanned SCANNING Edited Result - Final * ULTRASOUND (07/06/2018) Anatomical Region Laterality Modality Other us Documents Scanned SCANNING Edited Result - Final documented in this encounter Visit Diagnoses Not on filedocumented in this encounter Care Teams Able Bodied Seaman Relationship Specialty Start Date End Date Lauri Blair MD [address] [place] [phone] (Work) PCP - General 10/30/14 documented as of this encounter
--- OUTSIDE RECORDS SUMMARY | 2024-02-26 22:56 | XMS_ITS | Encounter Summary ---
Author Organization [facility] Address [address] [place] [address]. [place], [place] [address] [place] [address] Care Team Providers Care Surgical First Assistant Name Role Phone Lauri Blair MD Primary Care Provider [phone] Encounter Details Date Type Department Care Team (Late st Contact Info) Description 03/23/2017 Abstract [facility] Medical Group Family & Internal Medicine [address] [id number] Lauri Blair MD [address] [place] [id number] Social History Tobacco Use Types Packs/Day Years Used Date Smoking Tobacco: Never Assessed Sex and Gender Information Value Date Recorded Sex Assigned at Not on file Legal Sex Male 5:55 PM CDT Gender Identity Not on file Sexual Orientation Not on file documented as of this encounter Last Filed Vital Signs Vital Sign Reading Time Taken Comments Blood Pressure 152/90 03/23/2017 12:05 PM GARNETT MACHINE OPERATOR HELPER Pulse 67 03/23/2017 12:05 PM GARNETT MACHINE OPERATOR HELPER Temperature - - Respiratory Rate - - Oxygen Saturation - - Inhaled Oxygen Concentration - - Weight 126.6 kg (279 lb) 03/23/2017 12:05 PM GARNETT MACHINE OPERATOR HELPER Height 185.4 cm (6' 1 ) 03/23/2017 12:05 PM GARNETT MACHINE OPERATOR HELPER Body Mass Index 36.81 03/23/2017 12:05 PM GARNETT MACHINE OPERATOR HELPER documented in this encounter Progress Notes * Lauri Blair MD - 03/23/2017 11:20 AM CST Reason For Visit Hospital Follow-Up Chief Complaint Patient is following up after being hospitalized for elevated BP History of Present Illness PHQ-9 Depression Questionnaire: Over the past 2 weeks, how often have you been bothered by the following problems? 1.) Little interest or pleasure in doing things? Not at all. 2.) Feeling down, depressed or hopeless? Not at all. 3.) Trouble falling asleep or sleeping too much? Several days. 4.) Feeling tired or having little energy? Half the days or more. 5.) Poor appetite or overeating? Not at all. 6.) Feeling bad about yourself, or that you are a failure, or have let yourself or your family down? Not at all. 7.) Trouble concentrating on things, such as reading a newspaper or watching television? Not at all. 8.) Moving or speaking so slowly that other people could have noticed, or the opposite, moving or speaking faster than usual? Not at all. 9.) Thoughts that you would be off or of hurting yourself in some way? Not at all. TOTAL SCORE: 3. TCM: Date of Hospital/[place] Discharge: Date of Contact: Individual Contacted: Contacted by: Reviewed/ Addressed Narrative: He is here for follow up after a recent hospitalization for congestive heart failure which was caused by a hypertensive urgency. He was watching tv and he noticed that he was more SOB. He was able tosit up and was not SOB, but when he laid down he was short of breath. This continued to worsen, andhe decided to go to the ER. He was admitted and was followed by cardiology. Medications were reconciled with his discharge records. Date of Hospital/[place] Discharge: 03/15/2017 Date of Contact: 03/16/2017 Individual Contacted: Pt's Contacted by: Nel/Carmelina Reviewed/ Addressed Pt was admitted to [facility] with elevated BP and SOB. Feeling much better after starting on medications. Pt following up with us and Dr Casas next week. Review of Systems Constitutional: Normal. ENT: normal. Cardiovascular: Normal. Respiratory: Normal. Gastrointestinal: Normal. Genitourinary: Normal. Integumentary: Normal. Musculoskeletal: Normal. Neurological: Normal. Psychiatric: Normal.. Active Problems 1. Benign essential hypertension (401.1) (I10) 2. Cardiomyopathy (425.4) (I42.9) 3. Cellulitis, leg (682.6) (L03.119) 4. Colon cancer screening (V76.51) (Z12.11) 5. Edema (782.3) (R60.9) 6. Elevated creatine kinase level (790.5) (R74.8) 7. 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 Ganglion cyst of wrist (727.41) (M67.439) 9. Leg ulcer (707.10) (L97.909) 10. Screening for endocrine, nutritional, metabolic and immunity disorder (V77.99) (Z13.29,Z13.0,Z13.21,Z13.228) 11. Screening for heart disease (V81.2) (Z13.6) 12. Screening for prostate cancer (V76.44) (Z12.5) 13. Screening for rectal cancer (V76.41) (Z12.12) 14. Vitamin D deficiency (268.9) (E55.9) Family History Mother 1. Family history of Benign Essential Hypertension Father 2. Family history of Acute Myocardial Infarction (V17.3) Social History ?? Never a smoker Current Meds 1. AmLODIPine Besylate 10 MG Oral Tablet; TAKE 1 TABLET EVERY DAY; Therapy: 21May2013 to (Evaluate:18Dec2016) Requested for: 21Jun2016; Last Rx:21Jun2016 Ordered 2. Furosemide 40 MG Oral Tablet; TAKE 1 TABLET BY MOUTH DAILY; Therapy: 51Lzo8536 to (Evaluate:04May2017) Requested for: 99Vfg8903; Last Rx:[id number] Ordered 3. GuanFACINE HCl - 1 MG Oral Tablet; TAKE 1 TABLET DAILY AT BEDTIME; Therapy: 96Jvg6164 to (Evaluate:20Oxo9869) Requested for: 55Ozo7760; Last Rx:[id number] Ordered 4. HydrALAZINE HCl - 100 MG Oral Tablet; TAKE 1 TABLET BY MOUTH 3 TIMES A DAY; Therapy: 11Ype6646 to (Evaluate:59Kkn2595) Requested for: 37Mpo8871; Last Rx:21Jun2016 Ordered 5. HydroCHLOROthiazide 25 MG Oral Tablet; TAKE 1 TABLET BY MOUTH DAILY; Therapy: 38Pgn7803 to (Evaluate:04May2017) Requested for: 43Ldo4523; Last Rx:[id number] Ordered 6. Irbesartan 300 MG Oral Tablet; TAKE 1 TABLET DAILY; Therapy: 26Wzk4729 to (Evaluate:18Dec2016) Requested for: 21Jun2016; Last Rx:21Jun2016 Ordered 7. Klor-Con M20 20 MEQ Oral Tablet Extended Release; TAKE 1 TABLET BY MOUTH EVERY DAY; Therapy: 10Mar2015 to (Evaluate:28Mvj5741) Requested for: 10Mar2015; Last Rx:10Mar2015 Ordered 8. Lisinopril 20 MG Oral Tablet; TAKE 1 TABLET BY MOUTH TWICE DAILY; Therapy: 97Bsk9393 to (Evaluate:18Dec2016) Requested for: 21Jun2016; Last Rx:21Jun2016 Ordered 9. Potassium Chloride Dorothy ER 20 MEQ Oral Tablet Extended Release; TAKE 1 TABLET BY MOUTH EVERY DAY; Therapy: 73Kgf0308 to (Evaluate:13Jun2014) Requested for: 26Jai2627; Last Rx:26Fzl7290 Ordered 10. Vitamin D-3 5000 UNIT Oral Tablet; Take 1 tablet daily; Therapy: (Recorded:95Eur6072) to Recorded Allergies 1. No Known Drug Allergies Vitals Recorded: 23Mar2017 12:05PM Heart Rate 67 Respiration 18 Systolic 152 Diastolic 90 O2 Saturation 98 Height 6 ft 1 in Weight 279 lb BMI Calculated 36.81 BSA Calculated 2.48 Physical Exam right 2+, no bruit heard over the right carotid, left 2+ and no bruit heard over the left carotid. Constitutional General appearance: No acute distress, well appearing and well nourished. Pulmonary Respiratory effort: No increased work of breathing or signs of respiratory distress. Auscultation of lungs: Clear to auscultation. Cardiovascular Palpation of heart: Normal PMI, no thrills. Auscultation of heart: Normal rate and rhythm, normal S1 and S2, without murmurs. Examination of extremities for edema and/or varicosities: Normal. Musculoskeletal Gait and station: Normal. Assessment 1. CHF (congestive heart failure) (428.0) (I50.9) 2. Benign essential hypertension (401.1) (I10) Plan 1. From Furosemide 40 MG Oral Tablet TAKE 1 TABLET BY MOUTH DAILY To Furosemide 20 MG Oral Tablet TAKE 3 TABLET DAILY NEEDED Rx By: Lauri Blair; Dispense: 30 Days ; #:30 Tablet; Refill: 5; For: Cardiomyopathy, Edema; CAROL= N; Record; Last Updated By: Kelley Lorenzana; 03/23/2017 12:18:59 PM Signatures Electronically signed by : Lauri Blair M.D.; Mar 24 2017 10:18PM GARNETT MACHINE OPERATOR HELPER (Author) documented in this encounter Plan of Treatment Not on file documented as of this encounter Visit Diagnoses Not on filedocumented in this encounter Care Teams Surgical First Assistant Relationship Specialty Start Date End Date Lauri Blair MD [address] [place] [address] PCP - General 10/30/14 documented as of this encounter
--- OUTSIDE RECORDS SUMMARY | 2024-02-26 22:56 | XMS_ITS | Encounter Summary ---
Author Organization [facility] Address [address] [place] [address]. [address] [address] Care Team Providers Care Motorbike Courier Name Role Phone Lauri Blair MD Primary Care Provider [phone] Encounter Details Date Type Department Care Team (Latest Contact Info) Description 03/17/2017 Abstract [facility] Medical Group Social History Tobacco Use Types [...] on filedocumented in this encounter Care Teams Motorbike Courier Relationship Specialty Start Date End Date Lauri Blair MD [address] [place] [address] PCP - General 10/30/14 documented as of this encounter
--- OUTSIDE RECORDS SUMMARY | 2024-02-26 22:56 | XMS_ITS | Encounter Summary ---
Author Organization [facility] Address [address] [place] [address]. [address] [address] Care Team Providers Care Cardiovascular Invasive Specialist Name Role Phone Lauri Blair MD Primary Care Provider [phone] Encounter Details Date Type Department Care Team (Latest Contact Info) Description 03/30/2017 Abstract [facility] Medical Group Social History Tobacco [...] on filedocumented in this encounter Care Teams Cardiovascular Invasive Specialist Relationship Specialty Start Date End Date Lauri Blair MD [address] [place] [address] PCP - General 10/30/14 documented as of this encounter
--- OUTSIDE RECORDS SUMMARY | 2024-02-26 22:56 | XMS_ITS | Encounter Summary ---
Author Organization [facility] Address [address] [place] [address]. [address] [address] Care Team Providers Care Cottage Attendant Name Role Phone Lauri Blair MD Primary Care Provider [phone] Encounter Details Date Type Department Care Team (Latest Contact Info) Description 07/05/2018 Scan HEALTH INFO SRVCS Scanned, Documents Social [...] on filedocumented in this encounter Care Teams Cottage Attendant Relationship Specialty Start Date End Date Lauri Blair MD [address] [place] [address] PCP - General 10/30/14 documented as of this encounter
--- OUTSIDE RECORDS SUMMARY | 2024-02-26 22:56 | XMS_ITS | Encounter Summary ---
Author Organization [facility] Address [address] [place] [address]. [address] [address] Care Team Providers Care Rn Iv Therapy Name Role Phone Lauri Blair MD Primary Care Provider [phone] Encounter Details Date Type Department Care Team (Latest Contact Info) Description 03/14/2017 Abstract [facility] Medical Group Social History Tobacco Use [...] on filedocumented in this encounter Care Teams Rn Iv Therapy Relationship Specialty Start Date End Date Lauri Blair MD [address] [place] [address] PCP - General 10/30/14 documented as of this encounter
--- OUTSIDE RECORDS SUMMARY | 2024-02-26 22:56 | XMS_ITS | Encounter Summary ---
Author Organization [facility] Address [address] [place] [address]. [address] [address] Care Team Providers Care Grants Administrator Name Role Phone Lauri Blair MD Primary Care Provider [phone] Encounter Details Date Type Department Care Team (Latest Contact Info) Description 03/16/2017 Abstract [facility] Medical Group Social History Tobacco Use Types Packs/Day Years Used Date Smoking Tobacco: Never Assessed Sex and Gender Information Value Date Recorded Sex Assigned at Not on file Legal Sex Male 5:55 PM CDT Gender Identity Not on file Sexual Orientation Not on file documented as of this encounter Progress Notes * Reinier Sanz Md, MD - 03/16/2017 9:55 AM CST Message Date of Hospital/NH Discharge: 03/15/2017 Date of Contact: 03/16/2017 Individual Contacted: Pt's Contacted by: Nel/Carmelina Reviewed/ Addressed Pt was admitted to [facility] with elevated BP and SOB. Feeling much better after starting on medications. Pt following up with us and Dr Casas next week. Signatures Electronically signed by : Carmelina Orourke RSandie; Mar 16 2017 9:58AM ENGINEERING MANAGER ELECTRONICS (Author) documented in this encounter Plan of Treatment Not on file documented as of this encounter Visit Diagnoses Not on filedocumented in this encounter Care Teams Grants Administrator Relationship Specialty Start Date End Date Lauri Blair MD [address] [place] [address] PCP - General 10/30/14 documented as of this encounter
--- OUTSIDE RECORDS SUMMARY | 2024-02-26 22:56 | XMS_ITS | Encounter Summary ---
Author Organization [facility] Address [address] [place] [address]. [address] [address] Care Team Providers Care Calibration Technician Name Role Phone Lauri Blair MD Primary Care Provider [phone] Encounter Details Date Type Department Care Team (Latest Contact Info) Description 01/19/2019 Scan HE[facility] INFO [facility] Scanned, Documents Social [...] on filedocumented in this encounter Care Teams Calibration Technician Relationship Specialty Start Date End Date Lauri Blair MD [address] [place] [address] PCP - General 10/30/14 documented as of this encounter
--- OUTSIDE RECORDS SUMMARY | 2024-02-26 22:56 | XMS_ITS | Encounter Summary ---
Author Organization [facility] Address [address] [place] [address]. [address] [address] Care Team Providers Care Websphere Developer Name Role Phone Lauri Blair MD Primary Care Provider [phone] Encounter Details Date Type Department Care Team (Latest Contact Info) Description 08/15/2017 Abstract [facility] Medical Group Social History Tobacco [...] on filedocumented in this encounter Care Teams Websphere Developer Relationship Specialty Start Date End Date Lauri Blair MD [address] [place] [address] PCP - General 10/30/14 documented as of this encounter
--- OUTSIDE RECORDS SUMMARY | 2024-02-26 22:56 | XMS_ITS | Encounter Summary ---
Author Organization [facility] Address [address] [place] [address]. [address] [address] Care Team Providers Care Service Line Bus Cleaner Name Role Phone Lauri Blair MD Primary Care Provider [phone] Encounter Details Date Type Department Care Team (Latest Contact Info) Description 04/27/2017 Abstract [facility] Medical Group Social History Tobacco Use [...] on filedocumented in this encounter Care Teams Service Line Bus Cleaner Relationship Specialty Start Date End Date Lauri Blair MD [address] [place] [address] PCP - General 10/30/14 documented as of this encounter
--- OUTSIDE RECORDS SUMMARY | 2024-02-26 22:56 | XMS_ITS | Encounter Summary ---
Author Organization [facility] Address [address] [place] [address]. [address] [address] Care Team Providers Care Aircraft Dispatcher Name Role Phone Lauri Blair MD Primary Care Provider [phone] Encounter Details Date Type Department Care Team (Latest Contact Info) Description 08/05/2017 Abstract [facility] Medical Group Social History Tobacco Use [...] filedocumented in this encounter Care Teams Aircraft Dispatcher Relationship Specialty Start Date End Date Lauri Blair MD [address] [place] [address] PCP - General 10/30/14 documented as of this encounter
--- OUTSIDE RECORDS SUMMARY | 2024-02-26 22:56 | XMS_ITS | Encounter Summary ---
Author Organization [facility] Address [address] [place] [address]. [address] [address] Care Team Providers Care Cash Posting Specialist Name Role Phone Lauri Blair MD Primary Care Provider [phone] Encounter Details Date Type Department Care Team (Latest Contact Info) Description 07/15/2017 Abstract [facility] Medical Group Social History Tobacco [...] on filedocumented in this encounter Care Teams Cash Posting Specialist Relationship Specialty Start Date End Date Lauri Blair MD [address] [place] [address] PCP - General 10/30/14 documented as of this encounter
--- OUTSIDE RECORDS SUMMARY | 2024-02-26 22:56 | XMS_ITS | Encounter Summary ---
Author Organization [facility] Address [address] [place] [address]. [address] [address] Care Team Providers Care Mica Paster Name Role Phone Lauri Blair MD Primary Care Provider [phone] Encounter Details Date Type Department Care Team (Latest Contact Info) Description 07/14/2018 Scan HEALTH INFO [facility] Scanned, Documents Social [...] on filedocumented in this encounter Care Teams Mica Paster Relationship Specialty Start Date End Date Lauri Blair MD [address] [place] [address] PCP - General 10/30/14 documented as of this encounter
--- OUTSIDE RECORDS SUMMARY | 2024-02-26 22:56 | XMS_ITS | Encounter Summary ---
Author Organization [facility] Address [address] [place] [address]. [place], [place] [address] [place] [address] Care Team Providers Care Spring Crater Name Role Phone Lauri Blair MD Primary Care Provider [phone] Reason for Visit * Reason Onset Date Comments Error 07/10/2018 Encounter Details Date Type Department Care Team (Late st Contact Info) Description 07/10/2018 Telephone [facility] Medical Group Family & Internal Medicine [address] [address] Lauri Blair MD [address] [place] [address] Error Social History Tobacco Use Types Packs/Day Years Used Date Smoking Tobacco: Never Assessed Sex and Gender Information Value Date Recorded Sex Assigned at Not on file Legal Sex Male 5:55 PM CDT Gender Identity Not on file Sexual Orientation Not on file documented as of this encounter Progress Notes * Gabi Brunson RN - 07/10/2018 11:05 AM CDT Follow up call to patient post hospitalization Admitted - 07/05/18 Discharged- 07/10/18 Patient discharged from: [facility] Discharge diagnosis/diagnoses: Weakness, SOB, r/o CVA Procedures performed while inpatient: No Begin the medication reconciliation process (completed at first face to face visit) Any follow up services needed: Yes. Education on self management: No Assess adherence with treatment (medication) regimen and provide support. Does patient have access to care and services (rides, etc)? Yes Appointment scheduled for follow up in the office (7 days if high complexity or within 14 days for medium complexity) Appointment Date: Time: patient has not made appointment yet documented in this encounter Plan of Treatment Not on file documented as of this encounter Visit Diagnoses Not on filedocumented in this encounter Care Teams Spring Crater Relationship Specialty Start Date End Date Lauri Blair MD [address] [place] [address] PCP - General 10/30/14 documented as of this encounter
--- OUTSIDE RECORDS SUMMARY | 2024-02-26 22:56 | XMS_ITS | Encounter Summary ---
Author Organization [facility] Address [address] [place] [address]. [place] [address] Care Team Providers Care Pipeline Integrity Engineer Name Role Phone Lauri Blair MD Primary Care Provider [phone] Encounter Details Date Type Department Care Team (Latest Contact Info) Description 12/27/2017 Scan [facility] Medical Group , Reinier Sanz MD Social History Tobacco Use Types Packs/Day Years [...] on filedocumented in this encounter Care Teams Pipeline Integrity Engineer Relationship Specialty Start Date End Date Lauri Blair MD [address] [place] [address] PCP - General 10/30/14 documented as of this encounter
--- OUTSIDE RECORDS SUMMARY | 2024-02-26 22:57 | XMS_ITS | Encounter Summary ---
Author Organization [facility] Address [address] [place] [address]. [place], [place] [address] [place] [address] Care Team Providers Care Photocomposing Keyboard Operator Name Role Phone Lauri Blair MD Primary Care Provider [phone] Encounter Details Date Type Department Care Team (Late st Contact Info) Description 02/05/2016 Abstract [facility] Medical Group Family & Internal Medicine [address] [phone] Lauri Blair MD [address] [place] [address] Social History Tobacco Use Types Packs/Day Years Used Date Smoking Tobacco: Never Assessed Sex and Gender Information Value Date Recorded Sex Assigned at Not on file Legal Sex Male 5:55 PM CDT Gender Identity Not on file Sexual Orientation Not on file documented as of this encounter Last Filed Vital Signs Vital Sign Reading Time Taken Comments Blood Pressure 170/98 02/05/2016 5:01 PM FOLDER MACHINE ADJUSTER Pulse 76 02/05/2016 5:01 PM FOLDER MACHINE ADJUSTER Temperature - - Respiratory Rate - - Oxygen Saturation - - Inhaled Oxygen Concentration - - Weight 125.6 kg (277 lb) 02/05/2016 5:01 PM FOLDER MACHINE ADJUSTER Height 182.9 cm (6') 02/05/2016 5:01 PM FOLDER MACHINE ADJUSTER Body Mass Index 37.57 02/05/2016 5:01 PM FOLDER MACHINE ADJUSTER documented in this encounter Progress Notes * Lauri Blair MD - 02/05/2016 4:15 PM CST Reason For Visit Chronic Recheck Visit Chief Complaint Patient is following up for lower extremity cellulitis. History of Present Illness HPI Free Text: He is here for follow up on the cellulitis and swelling of his lower extremities. He states that hehas a lot of burning when he puts on the antibiotic ointment. He has been using NELL hose and he feels that this has helped him to decrease the swelling in his legs and his legs feel better at the end of the day. He has not been monitoring his blood pressure. He has not eaten well the past couple of days which usually causes his BP to elevated. Review of Systems Constitutional, Eyes, ENT, Cardiovascular, Respiratory, Gastrointestinal, Genitourinary, Musculoskeletal, Neurological, Psychiatric, Endocrine and Hematologic review of systems normal except as noted. Integumentary: skin wound. Active Problems 1. Benign essential hypertension (401.1) (I10) 2. Cardiomyopathy (425.4) (I42.9) 3. Cellulitis, leg (682.6) (L03.119) 4. Edema (782.3) (R60.9) 5. Elevated creatine kinase level (790.5) (R74.8) 6. 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 Ganglion cyst of wrist (727.41) (M67.439) 8. Leg ulcer (707.10) (L97.909) 9. Screening for endocrine, nutritional, metabolic and immunity disorder (V77.99) (Z13.29,Z13.0,Z13.21,Z13.228) 10. Screening for heart disease (V81.2) (Z13.6) 11. Screening for prostate cancer (V76.44) (Z12.5) 12. Vitamin d deficiency (268.9) (E55.9) Family History 1. Family history of Benign Essential Hypertension 2. Family history of Acute Myocardial Infarction (V17.3) Social History ?? Never a smoker Current Meds 1. AmLODIPine Besylate 10 MG Oral Tablet; TAKE 1 TABLET EVERY DAY; Therapy: 21May2013 to (Evaluate:40Bwu5690) Requested for: 12Jan2016; Last Rx:12Jan2016 Ordered 2. Bystolic 10 MG Oral Tablet; TAKE 1 TABLET DAILY Requested for: 12Jan2016; Last Rx:12Jan2016 Ordered 3. Furosemide 40 MG Oral Tablet; TAKE ONE TABLET BY MOUTH EVERY DAY; Therapy: 13Wnp5596 to (Evaluate:08Xrh2064) Requested for: 12Jan2016; Last Rx:12Jan2016 Ordered 4. GuanFACINE HCl - 1 MG Oral Tablet; TAKE 1 TABLET DAILY AT BEDTIME; Therapy: 62Lbb4868 to (Evaluate:11Ido1704) Requested for: 58Syj7080; Last Rx:42Dce2427 Ordered 5. HydrALAZINE HCl - 100 MG Oral Tablet; TAKE 1 TABLET BY MOUTH 3 TIMES A DAY; Therapy: 76Sht6478 to (Evaluate:97Ebj8040) Requested for: 12Jan2016; Last Rx:12Jan2016 Ordered 6. HydroCHLOROthiazide 25 MG Oral Tablet; TAKE 1 TABLET BY MOUTH DAILY; Therapy: 63Eud1973 to (Evaluate:18Arf1076) Requested for: 12Jan2016; Last Rx:12Jan2016 Ordered 7. Irbesartan 300 MG Oral Tablet; TAKE 1 TABLET DAILY; Therapy: 61Lep8290 to (Evaluate:56Hcm9034) Requested for: 12Jan2016; Last Rx:12Jan2016 Ordered 8. Klor-Con M20 20 MEQ Oral Tablet Extended Release; TAKE 1 TABLET BY MOUTH EVERY DAY; Therapy: 10Mar2015 to (Evaluate:85Opo7020) Requested for: 10Mar2015; Last Rx:10Mar2015 Ordered 9. Lisinopril 20 MG Oral Tablet; TAKE 1 TABLET BY MOUTH TWICE DAILY; Therapy: 17Gct0093 to (Evaluate:86Cqd3433) Requested for: 12Jan2016; Last Rx:12Jan2016 Ordered 10. Mupirocin 2 % External Ointment; APPLY THIN FILM TO AFFECTED AREA TWICE DAILY; Therapy: 20Vnb3181 to (Last Rx:47Xiw1333) Requested for: 78Kzx3431 Ordered 11. Potassium Chloride Dorothy ER 20 MEQ Oral Tablet Extended Release; TAKE 1 TABLET BY MOUTH EVERY DAY; Therapy: 52Lag9835 to (Evaluate:49Pst2145) Requested for: 06Evq7364; Last Rx:92Mwa3592 Ordered 12. Sulfamethoxazole-Trimethoprim 800-160 MG Oral Tablet; TAKE 1 TABLET TWICE DAILY WITH FOOD; Therapy: 05Nkv3130 to (Evaluate:35Vhz6734) Requested for: 99Hpp0086; Last Rx:93Kmd3101 Ordered 13. Vitamin D-3 5000 UNIT TABS; Take 1 tablet daily; Therapy: (Recorded:36Kwj8170) to Recorded Allergies 1. No Known Drug Allergies Vitals Recorded: 24Tdz1219 05:01PM Heart Rate 76 Respiration 16 Systolic 170 Diastolic 98 O2 Saturation 97 Height 6 ft Weight 277 lb BMI Calculated 37.57 BSA Calculated 2.45 Physical Exam Constitutional General appearance: No acute distress, well appearing and well nourished. Pulmonary Respiratory effort: No increased work of breathing or signs of respiratory distress. Auscultation of lungs: Clear to auscultation. Cardiovascular Palpation of heart: Normal PMI, no thrills. Auscultation of heart: Normal rate and rhythm, normal S1 and S2, without murmurs. Examination of extremities for edema and/or varicosities: Abnormal. bilateral ankle 1+ pitting edema and bilateral pretibial 1+ pitting edema. Musculoskeletal Gait and station: Normal. Skin Skin and subcutaneous tissue: Abnormal. Erythema is much decreased, no weaping from the wounds. No drainage is noted. Assessment 1. Cellulitis, leg (682.6) (L03.119) Plan Cellulitis, leg 1. Continue with our present treatment plan.; Status:Complete; Done: 92Bcb9773 05:19PM Ordered; For:Cellulitis, leg; Ordered By:Lauri Blair; 2. Keep the affected body part above the level of your heart to avoid swelling.; Status:Complete; Done: 77Izx7859 05:19PM Ordered; For:Cellulitis, leg; Ordered By:Lauri Blair; He was instructed to stop Bactroban and change to Vasoline to keep the area moist. He is to call if he develops new erythema or increased swelling. Signatures Electronically signed by : Lauri Blair M.D.; Feb 05 2016 5:20PM FOLDER MACHINE ADJUSTER (Author) documented in this encounter Plan of Treatment Not on file documented as of this encounter Visit Diagnoses Not on filedocumented in this encounter Care Teams Photocomposing Keyboard Operator Relationship Specialty Start Date End Date Lauri Blair MD [address] [place] [address] PCP - General 10/30/14 documented as of this encounter
--- OUTSIDE RECORDS SUMMARY | 2024-02-26 22:57 | XMS_ITS | Encounter Summary ---
Author Organization [facility] Address [address] [place] [address]. [place], [place] [address] [place] [address] Care Team Providers Care Underwriting Intern Name Role Phone Lauri Blair MD Primary Care Provider Lauri Blair MD Primary Care Provider [phone] Lauri Blair MD Primary Care Provider [phone] Encounter Details Date Type Department Care Team (Latest Contact Info) Description 12/27/2011 Abstract [facility] Medical Group Social History Tobacco Use Types [...] on filedocumented in this encounter Care Teams Underwriting Intern Relationship Specialty Start Date End Date Lauri Blair MD [address] [place] [address] PCP - General 10/30/14 Lauri Blair MD [address] [place] [address] PCP - General 05/15/14 10/29/14 Lauri Blair MD [address] [place] [address] PCP - General 05/24/13 05/14/14 documented as of this encounter
--- OUTSIDE RECORDS SUMMARY | 2024-02-26 22:57 | XMS_ITS | Encounter Summary ---
Author Organization [facility] Address [address] [place] [address]. [place], [place] [address] [place] [id number] Care Team Providers Care Bar Tacker Name Role Phone Lauri Blair MD Primary Care Provider [phone] Encounter Details Date Type Department Care Team (Late st Contact Info) Description 01/29/2016 Abstract [facility] Family & Internal Medicine [address] [id number] Lauri Blair MD [address] [place] [id number] Social History Tobacco Use Types Packs/Day Years Used Date Smoking Tobacco: Never Assessed Sex and Gender Information Value Date Recorded Sex Assigned at Not on file Legal Sex Male 5:55 PM CDT Gender Identity Not on file Sexual Orientation Not on file documented as of this encounter Last Filed Vital Signs Vital Sign Reading Time Taken Comments Blood Pressure 132/82 01/29/2016 11:30 AM USER INTERFACE ARTIST Pulse 80 01/29/2016 11:30 AM USER INTERFACE ARTIST Temperature - - Respiratory Rate - - Oxygen Saturation - - Inhaled Oxygen Concentration - - Weight 125.6 kg (277 lb) 01/29/2016 11:30 AM USER INTERFACE ARTIST Height 182.9 cm (6') 01/29/2016 11:30 AM USER INTERFACE ARTIST Body Mass Index 37.57 01/29/2016 11:30 AM USER INTERFACE ARTIST documented in this encounter Progress Notes * Lauri Blair MD - 01/29/2016 10:30 AM CST Reason For Visit Chronic Recheck Visit Chief Complaint Patient is following up for HTN and vitamin d def History of Present Illness PHQ-9 Depression Questionnaire: Over the past 2 weeks, how often have you been bothered by the following problems? 1.) Little interest or pleasure in doing things? Nearly every day. 2.) Feeling down, depressed or hopeless? Not at all. 3.) Trouble falling asleep or sleeping too much? Not at all. 4.) Feeling tired or having little energy? Not at all. 5.) Poor appetite or overeating? Several days. 6.) Feeling bad about yourself, or that [...] some way? Not at all. TOTAL SCORE: 4. How difficult have these problems made it for you to do your work, take care of things at home, or get along with people? Not at all. [facility]: Date: 01/29/16 Examiner: OKMAR Grade Completed: Reading Level: 12+ Can Pronounce: Menopause, Antibiotics, Exercise, Jaundice, Rectal, Anemia, Behavior Unable to Pronounce: HPI Free Text: He comes in today for his 6-month followup visit. He also complains of some leg irritation and ulceration. 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 He had been applying an ointment around the affected area. His sleep has been disrupted due to that. He has been elevating his legs a lot but once hegets it down, the tension would start again. His legs does look like it is infected and swollen today. Hypertension (Follow-Up): The patient presents for follow-up of primary hypertension. The patient states he has been doing well with his blood pressure control since the last visit. He has no comorbid illnesses. He has no significant interval events. Symptoms: The patient is currently asymptomatic. Associated symptoms include no headache, no focal neurologic deficits and no memory loss. Home monitoring: The patient checks his blood pressure regularly. Blood pressure control has been good. Medications: the patient is adherent with his medication regimen. He denies medication side effects. Disease Management: the patient is doing well with his blood pressure goals. Vitamin D Deficiency: The patient is being seen for follow-up of vitamin D deficiency. Disease type: vitamin D deficiency. Current treatment includes vitamin D3 (cholecalciferol). The patient is currently asymptomatic. Review of Systems Constitutional, Eyes, ENT, Respiratory, Gastrointestinal, Genitourinary, Musculoskeletal, Neurological, Psychiatric, Endocrine and Hematologic review of systems normal except as noted. Cardiovascular: lower extremity edema. Integumentary: skin wound. Active Problems 1. Benign essential hypertension (401.1) (I10) 2. Cardiomyopathy (425.4) (I42.9) 3. Edema (782.3) (R60.9) 4. Elevated creatine kinase level (790.5) (R74.8) 5. 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 Ganglion cyst of wrist (727.41) (M67.439) 7. Screening for endocrine, nutritional, metabolic and immunity disorder (V77.99) (Z13.29,Z13.0,Z13.21,Z13.228) 8. Screening for heart disease (V81.2) (Z13.6) 9. Screening for prostate cancer (V76.44) (Z12.5) 10. Vitamin d deficiency (268.9) (E55.9) Family History 1. Family history of Benign Essential Hypertension 2. Family history of Acute Myocardial Infarction (V17.3) Social History ?? Never a smoker Current Meds 1. AmLODIPine Besylate 10 MG Oral Tablet; TAKE 1 TABLET EVERY DAY; Therapy: 21May2013 to (Evaluate:31Mir0961) Requested for: 12Jan2016; Last Rx:12Jan2016 Ordered 2. Bystolic 10 MG Oral Tablet; TAKE 1 TABLET DAILY Requested for: 12Jan2016; Last Rx:12Jan2016 Ordered 3. Furosemide 40 MG Oral Tablet; TAKE ONE TABLET BY MOUTH EVERY DAY; Therapy: 76Pks6967 to (Evaluate:65Fhu3504) Requested for: 12Jan2016; Last Rx:12Jan2016 Ordered 4. GuanFACINE HCl - 1 MG Oral Tablet; TAKE 1 TABLET DAILY AT BEDTIME; Therapy: 00Bqm2329 to (Evaluate:34Zzn2335) Requested for: 99Eik9108; Last Rx:88Lcf9686 Ordered 5. HydrALAZINE HCl - 100 MG Oral Tablet; TAKE 1 TABLET BY MOUTH 3 TIMES A DAY; Therapy: 77Ilk0915 to (Evaluate:58Wts5635) Requested for: 12Jan2016; Last Rx:12Jan2016 Ordered 6. HydroCHLOROthiazide 25 MG Oral Tablet; TAKE 1 TABLET BY MOUTH DAILY; Therapy: 07Mfu0613 to (Evaluate:55Rge8167) Requested for: 12Jan2016; Last Rx:12Jan2016 Ordered 7. Irbesartan 300 MG Oral Tablet; TAKE 1 TABLET DAILY; Therapy: 52Stn6541 to (Evaluate:06Xws5773) Requested for: 12Jan2016; Last Rx:12Jan2016 Ordered 8. Klor-Con M20 20 MEQ Oral Tablet Extended Release; TAKE 1 TABLET BY MOUTH EVERY DAY; Therapy: 10Mar2015 to (Evaluate:90Vfq1357) Requested for: 10Mar2015; Last Rx:10Mar2015 Ordered 9. Lisinopril 20 MG Oral Tablet; TAKE 1 TABLET BY MOUTH TWICE DAILY; Therapy: 95Edl7407 to (Evaluate:06Uci2894) Requested for: 12Jan2016; Last Rx:12Jan2016 Ordered 10. Potassium Chloride Dorothy ER 20 MEQ Oral Tablet Extended Release; TAKE 1 TABLET BY MOUTH EVERY DAY; Therapy: 94Bpg4494 to (Evaluate:39Omy2835) Requested for: 67Idu5949; Last Rx:66Oag1128 Ordered 11. Vitamin D-3 5000 UNIT TABS; Take 1 tablet daily; Therapy: (Recorded:54Azu0522) to Recorded Allergies 1. No Known Drug Allergies Vitals Recorded: 07Qaa8858 11:30AM Heart Rate 80 Respiration 16 Systolic 132 Diastolic 82 O2 Saturation 97 Height 6 ft Weight 277 lb BMI Calculated 37.57 BSA Calculated 2.45 Physical Exam Constitutional General appearance: No acute distress, well appearing and well nourished. Eyes Conjunctiva and lids: No swelling, erythema, or discharge. Pupils and irises: Equal, round and reactive to light. Ears, Nose, Mouth, and Throat External inspection of ears and nose: Normal. Otoscopic examination: Tympanic membrane translucent with normal light reflex. Canals patent without erythema. Oropharynx: Normal with no erythema, edema, exudate or lesions. Pulmonary Respiratory effort: No increased work of breathing or signs of respiratory distress. Auscultation of lungs: Clear to auscultation. Cardiovascular Palpation of heart: Normal PMI, no thrills. Auscultation of heart: Normal rate and rhythm, normal S1 and S2, without murmurs. Examination of extremities for edema and/or varicosities: Abnormal. He does have some lower extremity edema. Musculoskeletal Gait and station: Normal. Neurologic Cranial nerves: Cranial nerves 2-12 intact. Psychiatric Orientation to person, place and time: Normal. Mood and affect: Normal. Assessment 1. Benign essential hypertension (401.1) (I10) 2. Vitamin d deficiency (268.9) (E55.9) 3. Edema (782.3) (R60.9) 4. Leg ulcer (707.10) (L97.909) 5. Cellulitis, leg (682.6) (L03.119) Plan Cellulitis, leg, Edema 1. Mupirocin 2 % External Ointment (Bactroban); APPLY THIN FILM TO AFFECTED AREA TWICE DAILY Rx By: Lauri Blair; Dispense: 0 Days ; #:1 X 22 GM Tube; Refill: 0; For: Cellulitis, leg, Edema; CAROL = N; Verified Transmission to [facility] in [place]; Last Updated By: Ruben Davila; 01/29/2016 12:03:05 PM 2. Sulfamethoxazole-Trimethoprim 800-160 MG Oral Tablet (Bactrim DS); TAKE 1 TABLET TWICE DAILY WITH FOOD Rx By: Lauri Blair; Dispense: 10 Days ; #:20 Tablet; Refill: 0; For: Cellulitis, leg, Edema; CAROL = N; Verified Transmission to [facility] in [place]; Last Updated By: Ruben Davila; 01/29/2016 12:03:06 PM Cellulitis, leg, Edema, Leg ulcer 3. Compression Stocking Knee High - Large; Status:Complete; Done: 72Qux7778 Perform:Not Applicable; Order Comments:30 ADAM; Due:00Pkc2251; Last Updated By:Kelley Lorenzana; 01/29/2016 12:03:20 PM;Ordered; For:Cellulitis, leg, Edema, Leg ulcer; Ordered By:Lauri Blair; Health Maintenance 4. Influenza For: Health Maintenance; Ordered By:Lauri Blair; Effective Date:29Jan2016; Last Updated By: Kelley Lorenzana; 01/29/2016 12:02:17 PM Follow-up visit in 1 week Outpatient Follow-up Status: Hold For - Scheduling Requested for: 29Jan2016 Ordered; For: Cellulitis, leg, Edema; Ordered By: Lauri Blair Performed: Due: 36Uxh8441; Last Updated By: Kelley Lorenzana; 01/30/2016 9:11:06 AM Signatures Electronically signed by : Lauri Blair M.D.; Feb 02 2016 8:54PM USER INTERFACE ARTIST (Author) documented in this encounter Plan of Treatment Not on file documented as of this encounter Visit Diagnoses Not on filedocumented in this encounter Care Teams Bar Tacker Relationship Specialty Start Date End Date Lauri Blair MD [address] [place] [address] PCP - General 10/30/14 documented as of this encounter
--- OUTSIDE RECORDS SUMMARY | 2024-02-26 22:57 | XMS_ITS | Encounter Summary ---
Author Organization [facility] Address [address] [place] [address]. [address] [address] Care Team Providers Care Vice President Payer Name Role Phone Lauri Blair MD Primary Care Provider [phone] Lauri Blair MD Primary Care Provider [phone] Lauri Blair MD Primary Care Provider [phone] Encounter Details Date Type Department Care Team (Latest Contact Info) Description 06/11/2011 Abstract [facility] Social History Tobacco Use Types [...] on filedocumented in this encounter Care Teams Vice President Payer Relationship Specialty Start Date End Date Lauri Blair MD [address] [place] [address] PCP - General 10/30/14 Lauri Blair MD [address] [place] [address] PCP - General 05/15/14 10/29/14 Lauri Blair MD [address] [place] [address] PCP - General 05/24/13 05/14/14 documented as of this encounter
--- OUTSIDE RECORDS SUMMARY | 2024-02-26 22:57 | XMS_ITS | Encounter Summary ---
Author Organization [facility] Address [address] [place] [address]. [place], [place] [id number] [place] [address] Care Team Providers Care Locomotive Operator Name Role Phone Lauri Blair MD Primary Care Provider [phone] Encounter Details Date Type Department Care Team (Latest Contact Info) Description 05/05/2016 Abstract [facility] Social History Tobacco Use Types Packs/Day Years Used Date Smoking Tobacco: Never Assessed Sex and Gender Information Value Date Recorded Sex Assigned at Not on file Legal Sex Male 5:55 PM CDT Gender Identity Not on file Sexual Orientation Not on file documented as of this encounter Progress Notes * Lauri Blair MD - 05/05/2016 3:07 PM CDT Message Recorded as Task Date: 05/05/2016 11:11 AM, Created By: Drea Gorman Task Name: Medical Complaint Callback Assigned To: [facility] [place] Regarding Patient: Portillo Martin, Status: In Progress Comment: Drea Gorman - 05 May 2016 11:11 AM TASK CREATED Caller: Self; Medical Complaint; Patient c/o right leg swelling, he is requesting antibiotics. He states he has been given them before for this issue and they helped, now the swelling is back. [facility]. [place] [facility]. Lauri Blair - 05 May 2016 1:12 PM TASK REASSIGNED: Previously Assigned To Lauri Blair Bactrim DS bid x 7 days He should come in if his symptoms are not improving. Bee Ken 05 May 2016 3:06 PM TASK IN PROGRESS Bee Ken 05 May 2016 3:09 PM TASK EDITED Patient contacted and informed, verbal understanding to come in for appointment if no improvement tn Plan 1. Sulfamethoxazole-Trimethoprim 800-160 MG Oral Tablet (Bactrim DS); TAKE 1 TABLET TWICE DAILY UNTIL FINISHED Rx By: Lauri Blair; Dispense: 7 Days ; #:14 Tablet; Refill: 0; For: Cellulitis, leg; CAROL = N; Sent To: [facility] in [place]; Last Updated By: Bee Ken; 05/05/2016 3:08:46 PM Signatures Electronically signed by : Bee Ken, ; May 05 2016 3:09PM PLASTIC BATTERY ASSEMBLER (Author) documented in this encounter Plan of Treatment Not on file documented as of this encounter Visit Diagnoses Not on filedocumented in this encounter Care Teams Locomotive Operator Relationship Specialty Start Date End Date Lauri Blair MD [address] [place] [address] PCP - General 10/30/14 documented as of this encounter
--- OUTSIDE RECORDS SUMMARY | 2024-02-26 22:57 | XMS_ITS | Encounter Summary ---
Author Organization [facility] Address [address] [place] [address]. [place], [place] [address] [place] [address] Care Team Providers Care Emt I/85 Name Role Phone Lauri Blair MD Primary Care Provider [phone] Encounter Details Date Type Department Care Team (Late st Contact Info) Description 02/16/2017 Abstract [facility] Family & Internal Medicine [address] [phone] Lauri Blair MD [address] [place] [address] Social History Tobacco Use Types Packs/Day Years Used Date Smoking Tobacco: Never Assessed Sex and Gender Information Value Date Recorded Sex Assigned at Not on file Legal Sex Male 5:55 PM CDT Gender Identity Not on file Sexual Orientation Not on file documented as of this encounter Last Filed Vital Signs Vital Sign Reading Time Taken Comments Blood Pressure 164/84 02/16/2017 7:54 AM BRINE MIXER OPERATOR Pulse 82 02/16/2017 7:54 AM BRINE MIXER OPERATOR Temperature - - Respiratory Rate - - Oxygen Saturation - - Inhaled Oxygen Concentration - - Weight 128.1 kg (282 lb 8 oz) 02/16/2017 7:54 AM BRINE MIXER OPERATOR Height 185.4 cm (6' 1 ) 02/16/2017 7:54 AM BRINE MIXER OPERATOR Body Mass Index 37.27 02/16/2017 7:54 AM BRINE MIXER OPERATOR documented in this encounter Progress Notes * Lauri Blair MD - 02/16/2017 7:20 AM CST Chief Complaint Pt presents for yearly check up. History of Present Illness HM, Adult Male: The patient is being seen for a health maintenance evaluation. The last health maintenance visit was 1 year(s) ago. General Health: The patient's health since the last visit is described as good. He has regular dental visits. . He denies vision problems. . He denies hearing loss.. Immunizations status: up to date. Lifestyle:. He does not have a healthy diet. . He has weight concerns. . He does not exercise regularly. . He does not use tobacco. . He denies alcohol use. . He denies drug use.. Reproductive health:. the patient is sexually active. . He denies erectile dysfunction.. Screening: cancer screening reviewed and updated.. metabolic screening reviewed and updated.. risk screening reviewed and updated.. Review of Systems Constitutional: negative. Head and Face: negative. Eyes: negative. ENT: negative. Cardiovascular: negative. Respiratory: negative. Gastrointestinal: negative. Genitourinary: negative. Musculoskeletal: negative. Neurological: negative. Psychiatric: negative. Endocrine: negative. Hematologic and Lymphatic: negative. Active Problems 1. Benign essential hypertension (401.1) [...] for prostate cancer (V76.44) (Z12.5) 12. Vitamin D deficiency (268.9) (E55.9) Family History Mother ?? Family history of Benign Essential Hypertension Father ?? Family history of Acute Myocardial Infarction (V17.3) Social History ?? Never a smoker Current Meds 1. AmLODIPine Besylate 10 MG Oral Tablet; TAKE 1 TABLET EVERY DAY; Therapy: 21May2013 to (Evaluate:18Dec2016) Requested for: 21Jun2016; Last Rx:21Jun2016 Ordered Rx By: Lauri Blair; Dispense: 90 Days ; #:90 Tablet; Refill: 1; For: Benign essential hypertension; CAROL = N; Verified Transmission to [facility] 73133; Last Updated By: Cloudjutsu; 06/21/2016 4:12:09 PM 2. Bystolic 10 MG Oral Tablet; TAKE 1 TABLET DAILY Requested for: 30Luv7983; Last Rx:[id number] Ordered Rx By: Lauri Blair; Dispense: 28 Days ; #:28 Tablet; Refill: 0; For: Benign essential hypertension, Cardiomyopathy; CAROL = N; Dispense Sample; Last Updated By: Melisa Valdes; 02/01/2017 11:51:48 AM 3. Furosemide 40 MG Oral Tablet; TAKE 1 TABLET BY MOUTH DAILY; Therapy: 63Ehc0205 to (Evaluate:04May2017) Requested for: 32Qfn5175; Last Rx:[id number] Ordered Rx By: Lauri Blair; Dispense: 90 Days ; #:90 Tablet; Refill: 0; For: Cardiomyopathy, Edema; CAROL= N; Verified Transmission to [facility] 27520; Last Updated By: Cloudjutsu; 02/03/2017 10:44:30 AM 4. GuanFACINE HCl - 1 MG Oral Tablet; TAKE 1 TABLET DAILY AT BEDTIME; Therapy: 63Qid6938 to (Evaluate:74Lje4351) Requested for: 99Stx9376; Last Rx:24May2013 Ordered Rx By: Lauri Blair; Dispense: 30 Days ; #:30 Tablet; Refill: 5; For: Cardiomyopathy; CAROL = N; Verified Transmission to [facility] #2510; Last Updated By: Cloudjutsu; 05/24/2013 10:20:27 AM 5. HydrALAZINE HCl - 100 MG Oral Tablet; TAKE 1 TABLET BY MOUTH 3 TIMES A DAY; Therapy: 81Btq1244 to (Evaluate:18Dec2016) Requested for: 01Byg0174; Last Rx:21Jun2016 Ordered Rx By: Lauri Blair; Dispense: 90 Days ; #:270 Tablet; Refill: 1; For: Cardiomyopathy; CAROL = N; Verified Transmission to [facility] 38699; Last Updated By: Cloudjutsu; 06/21/2016 4:12:11 PM 6. HydroCHLOROthiazide 25 MG Oral Tablet; TAKE 1 TABLET BY MOUTH DAILY; Therapy: 70Vdt1752 to (Evaluate:04May2017) Requested for: 24Cfr9475; Last Rx:[id number] Ordered Rx By: Lauri Blair; Dispense: 90 Days ; #:90 Tablet; Refill: 0; For: Benign essential hypertension; CAROL = N; Verified Transmission to [facility] 43352; Last Updated By: Cloudjutsu; 02/03/2017 10:44:33 AM 7. Irbesartan 300 MG Oral Tablet; TAKE 1 TABLET DAILY; Therapy: 57Zfx7187 to (Evaluate:18Dec2016) Requested for: 73Uhi0398; Last Rx:[id number] Ordered Rx By: Lauri Blair; Dispense: 90 Days ; #:90 Tablet; Refill: 1; For: Benign essential hypertension; CAROL = N; Verified Transmission to [facility] 41600; Last Updated By: Cloudjutsu; 06/21/2016 4:12:09 PM 8. Klor-Con M20 20 MEQ Oral Tablet Extended Release; TAKE 1 TABLET BY MOUTH EVERY DAY; Therapy: 10Mar2015 to (Evaluate:06Nnt0598) Requested for: 10Mar2015; Last Rx:10Mar2015 Ordered Rx By: Lauri Blair; Dispense: 30 Days ; #:30 TAB; Refill: 2; For: Benign essential hypertension, Cardiomyopathy, Edema; CAROL = N; Verified Transmission to [facility] #2510; Last Updated By: Cloudjutsu; 03/10/2015 12:02:51 PM 9. Lisinopril 20 MG Oral Tablet; TAKE 1 TABLET BY MOUTH TWICE DAILY; Therapy: 08Ukl8880 to (Evaluate:18Dec2016) Requested for: 21Jun2016; Last Rx:[id number] Ordered Rx By: Lauri Blair; Dispense: 90 Days ; #:180 Tablet; Refill: 1; For: Benign essential hypertension; CAROL = N; Verified Transmission to [facility] [address]172; Last Updated By: Cloudjutsu; 06/21/2016 4:12:10 PM 10. Mupirocin 2 % External Ointment; Apply thin film to affected area twice daily; Therapy: 43Vhu6491 to (Evaluate:19May2016) Requested for: 04May2016; Last Rx:04May2016 Ordered Rx By: Lauri Blair; Dispense: 15 Days ; #:22 GM; Refill: 0; For: Cellulitis, leg, Edema; CAROL = N; Verified Transmission to [facility] #84518; Last Updated By: Cloudjutsu; 02/16/2017 8:19:23 AM 11. Potassium Chloride Dorothy ER 20 MEQ Oral Tablet Extended Release; TAKE 1 TABLET BY MOUTH EVERY DAY; Therapy: 56Nbx0615 to (Evaluate:13Jun2014) Requested for: 09Wou4304; Last Rx:[id number] Ordered Rx By: Lauri Blair; Dispense: 30 Days ; #:30 Tablet Extended Release; Refill: 6; For: Cardiomyopathy, Edema; CAROL = N; Verified Transmission to [facility] #2510; Last Updated By: Cloudjutsu; 11/15/2013 9:17:16 AM 12. Sulfamethoxazole-Trimethoprim 800-160 MG Oral Tablet; TAKE 1 TABLET TWICE DAILY WITH FOOD; Therapy: 62Rem8606 to (Evaluate:16Uox2692) Requested for: 81Hkk8708; Last Rx:[id number] Ordered Rx By: Lauri Blair; Dispense: 10 Days ; #:20 Tablet; Refill: 0; For: Cellulitis, leg, Edema; CAROL = N; Verified Transmission to [facility] #72393; Last Updated By: Cloudjutsu; 02/16/2017 8:14:55 AM 13. Vitamin D-3 5000 UNIT Oral Tablet; Take 1 tablet daily; Therapy: (Recorded:81Oqu3045) to Recorded Dispense: 0 Days ; #: Sufficient Tablet; Refill: 0; For: Vitamin D deficiency; CAROL = N; Record; Last Updated By: Alyssa Brunson; 11/03/2011 8:01:27 AM Allergies 1. No Known Drug Allergies Recorded By: Alyssa Brunson; 11/01/2011 3:00:10 PM Vitals Recorded: 26Kiy9691 07:54AM Temperature 97.7 F Heart Rate 82 Respiration 16 Systolic 164 Diastolic 84 O2 Saturation 98 Height 6 ft 1 in Weight 282 lb 8 oz BMI Calculated 37.27 BSA Calculated 2.49 Physical Exam Constitutional General appearance: No acute [...] of extremities for edema and/or varicosities: Normal. Abdomen Abdomen: Non-tender, no masses. Liver and spleen: No hepatomegaly or splenomegaly. Lymphatic Palpation of lymph nodes in neck: No lymphadenopathy. Musculoskeletal Gait and station: Normal. Neurologic Cranial nerves: Cranial nerves 2-12 intact. Psychiatric Mood and affect: Normal. Assessment 1. Encounter for preventive health examination (V70.0) (Z00.00) 2. Colon cancer screening (V76.51) (Z12.11) 3. Screening for rectal cancer (V76.41) (Z12.12) Plan Cellulitis, leg, Edema ?? Sulfamethoxazole-Trimethoprim 800-160 MG Oral Tablet (Bactrim DS) Rx By: Lauri Blair; Dispense: 10 Days ; #:20 Tablet; Refill: 0; For: Cellulitis, leg, Edema; CAROL = N; Sent To: [facility] in [place] Colon cancer screening, Screening for rectal cancer ?? Cologuard; Status:Hold For - Required information; Requested for:19Vmy8851; Perform:[employer] (Cologuard Fax); Due:18Mar2017; Last Updated By:Kelley Lorenzana; 02/16/2017 8:21:43 AM;Ordered; For:Colon cancer screening, Screening for rectal cancer; Ordered By:Lauri Blair; Screening for endocrine, nutritional, metabolic and immunity disorder, Screening for heart disease, Screening for prostate cancer ?? CBC W Differential; Status:In Progress - Specimen/Data Collected; Done: 16Feb2017 Perform:[facility]; Due:18Mar2017; Last Updated By:Faiza Fry; 02/16/2017 8:38:09 AM;Ordered; For:Screening for endocrine, nutritional, metabolic and immunity disorder, Screening for heart disease, Screening for prostate cancer; Ordered By:Lauri Blair; ?? Compr Metabolic Prof ( CMP ); Status:In Progress - Specimen/Data Collected; Done: 16Feb2017 Perform:[facility]; Due:18Mar2017; Last Updated By:Faiza Fry; 02/16/2017 8:38:09 AM;Ordered; For:Screening for endocrine, nutritional, metabolic and immunity disorder, Screening for heart disease, Screening for prostate cancer; Ordered By:Lauri Blair; ?? Lipid Profile; Status:Canceled - Manual Activation; Perform:[facility]; Due:18Mar2017; Last Updated By:Faiza Fry; 02/16/2017 8:38:09 AM;Ordered; For:Screening for endocrine, nutritional, metabolic and immunity disorder, Screening for heart disease, Screening for prostate cancer; Ordered By:Lauri Blair; ?? Prostate Specif Ag ( PSA ) Scrn; Status:In Progress - Specimen/Data Collected; Done: 16Feb2017 Perform:[facility]; Due:18Mar2017; Last Updated By:Faiza Fry; 02/16/2017 8:38:09 AM;Ordered; For:Screening for endocrine, nutritional, metabolic and immunity disorder, Screening for heart disease, Screening for prostate cancer; Ordered By:Lauri Blair; ?? TSH W Reflex Free T4; Status:In Progress - Specimen/Data Collected; Done: 16Feb2017 Perform:[facility]; Due:18Mar2017; Last Updated By:Faiza Fry; 02/16/2017 8:38:09 AM;Ordered; For:Screening for endocrine, nutritional, metabolic and immunity disorder, Screening for heart disease, Screening for prostate cancer; Ordered By:Lauri Blair; ?? Uric Acid; Status:In Progress - Specimen/Data Collected; Done: [id number] Perform:. [facility]; Due:18Mar2017; Last Updated By:aFiza Fry; 02/16/2017 8:38:09 AM;Ordered; For:Screening for endocrine, nutritional, metabolic and immunity disorder, Screening for heart disease, Screening for prostate cancer; Ordered By:Lauri Blair; ?? Urinalysis ( UA ) Culture If Ind; Status:Canceled - Manual Activation; Perform:. [facility]; Due:18Mar2017; Last Updated By:Faiza Fry; 02/16/2017 8:38:09 AM;Ordered; For:Screening for endocrine, nutritional, metabolic and immunity disorder, Screening for heart disease, Screening for prostate cancer; Ordered By:Lauri Blair; Source: : Clean Catch ?? Vitamin D 25 - Hydroxy; Status:In Progress - Specimen/Data Collected; Done: 62Yzz0718 Perform:. [facility]; Due:18Mar2017; Last Updated By:Faiza Fry; 02/16/2017 8:38:09 AM;Ordered; For:Screening for endocrine, nutritional, metabolic and immunity disorder, Screening for heart disease, Screening for prostate cancer; Ordered By:Lauri Blair; Signatures Electronically signed by : Lauri Blair M.D.; Feb 16 2017 12:20PM BRINE MIXER OPERATOR (Author) documented in this encounter Plan of Treatment Not on file documented as of this encounter Procedures Procedure Name Priority Date/Time Associated Diagnosis Comments CHOLESTECH W GLUCOSE Routine 02/16/2017 8:46 AM BRINE MIXER OPERATOR URINALYSIS AUTO DIP Routine 02/16/2017 8 :40 AM BRINE MIXER OPERATOR TSH W/REFLEX Routine 02/16/2017 8:37 AM BRINE MIXER OPERATOR PROSTATE SPECIFIC ANTIGEN,TOTAL Routine 02/16/2017 8:37 AM BRINE MIXER OPERATOR COMPREHENSIVE METABOLIC PANEL Routine 02/16/2017 8:37 AM BRINE MIXER OPERATOR CBC W/DIFF AUTOMATED Routine 02/16/2017 8:37 AM BRINE MIXER OPERATOR VITAMIN D, 25 OH Routine 02/16/2017 8:37 AM BRINE MIXER OPERATOR URIC ACID BLOOD Routine 02/16/2017 8:37 AM BRINE MIXER OPERATOR documented in this encounter Results * (ABNORMAL) CHOLESTECH W GLUCOSE (02/16/2017 8:46 AM BRINE MIXER OPERATOR) CHOLESTEROL 225(A) < 200 mg/dL [facility] CON[facility] HDL 59 40 - 60 mg/dL [facility] TRIGLYCERIDES 124 < 150 mg/dL [facility] CONVERSION LDL (CALCULATED) 142(A) 0 - 130 mg/dL [facility] CONVERSION NON HDL CHOLESTEROL 166 [facility] CON[facility] CHOL/HDL RATIO 3.8 < or =? ? ? 4.5 [facility] CONVERSION GLUCOSE 104(A) Normal < 100 mg/dL [facility] CONVERSION 02/16/2017 8:46 AM BRINE MIXER OPERATOR 02/16/2017 8:46 AM BRINE MIXER OPERATOR Narrative [facility] TO [facility] CONVERSION - 02/16/2017 8:46 AM BRINE MIXER OPERATOR Result Communication: No patient communication needed at this time Lauri Blair MD LABORATORY Final Result [facility] CON[facility] * URINALYSIS AUTO DIP (02/16/2017 8:40 AM BRINE MIXER OPERATOR) COLOR (U) Straw [facility] T O EPIC CONVERSION TRANSPARENCY Clear [facility] P TO EPIC CONVERSION GLUCOSE Negative [facility] T O EPIC CONVERSION BILIRUBIN (U) Negative [facility] UP TO EPIC CONVERSION KETONE (U) Negative [facility] TO [facility] CONVERSION SPECIFIC GRAVITY (U) 1.010 [facility] TO [facility] CONVERSION BLOOD (U) Negative [facility] T O EPIC CONVERSION PH (U) 5.5 5.0 - 7.0 [facility] T O EPIC CONVERSION PROTEIN (ELP) (U) Negative [facility] CON[facility] UROBILINOGEN 0.2 E.U./dL [facility] OUP TO EPIC CONVERSION NITRITES neg [facility] T O EPIC CONVERSION LEUKOCYTES (U) Negative [facility] OUP TO EPIC CONVERSION 02/16/2017 8:40 AM BRINE MIXER OPERATOR 02/16/2017 8:40 AM BRINE MIXER OPERATOR Narrative [facility] TO [facility] CONVERSION - 02/16/2017 8:40 AM BRINE MIXER OPERATOR Result Communication: No patient communication needed at this time Lauri Blair MD URINE ORDERABLES Final Result [facility] CONVERSION * TSH W/REFLEX (SNS) (02/16/2017 8:37 AM BRINE MIXER OPERATOR) TSH 2.360 0.358 - 3.74 uIU/ML [facility] CONVERSION Comment: Result Comment: HIGH DOSES OF BIOTIN MAY INTERFERE WITH THIS TEST RESULT. CORRELATION TO CLINICAL HISTORY AND PRESENTATION RECOMMENDED. FREE T4 NOT INDICATED 02/16/2017 8:37 AM BRINE MIXER OPERATOR 02/16/2017 8:37 AM BRINE MIXER OPERATOR Narrative [facility] TO [facility] CONVERSION - 02/16/2017 10:51 PM BRINE MIXER OPERATOR Result Communication: Call patient with results Lauri Blair MD LABORATORY Final Result Performing Organization Address City/[facility]/ZIP Co de Phone Number [facility] TO EPIC CONVERSION * (ABNORMAL) CBC W/DIFF AUTOMATED (02/16/2017 8:37 AM BRINE MIXER OPERATOR) WBC 5.4 4.8 - 10.8 x10'3/uL [facility] CONVERSION RBC 5.30 4.70 - 6.10 x10'6/uL [facility] CONVERSION HGB 15.0 14.0 - 18.0 G/DL [facility] TO [facility] CONVERSION HCT 48.5 43.0 - 54.0 % [facility] TO [facility] CONVERSION MCV 91.5 80.0 - 94.0 FL [facility] TO [facility]IC CONVERSION MCH 28.3 27.0 - 31.0 PG [facility] TO [facility] CONVERSION MCHC 30.9(L) 32.0 - 36.0 G/DL [facility] TO [facility]IC CONVERSION RDW 14.2 11.5 - 14.5 % [facility] TO [facility] CONVERSION PLT 293 130 - 400 x10'3/uL [facility] TO [facility] CONVERSION GLUCOSE 10.7 9.3 - 12.2 FL [facility] TO [facility] CONVERSION IMMATURE GRANS % 0.4 0.0 - 1.0 % [facility] CONVERSION NEUTROPHILS % 54.7 43.0 - 65.0 % [facility] CONVERSION LYMPHOCYTES 33.5 20.0 - 46.0 % [facility] TO [facility] CONVERSION MONOCYTES 7.7 5.0 - 12.0 % [facility] TO [facility] CONVERSION EOSINOPHILS 3.0 1.0 - 3.0 % [facility] TO [facility] CONVERSION BASOPHILS 0.7 0.0 - 1.0 % [facility] CONVERSION 02/16/2017 8:37 AM BRINE MIXER OPERATOR 02/16/2017 8:37 AM BRINE MIXER OPERATOR Narrative [facility] TO [facility] CONVERSION - 02/16/2017 10:12 PM BRINE MIXER OPERATOR Result Communication: Call patient with results Lauri Blair MD LABORATORY Final Result Performing Organization Address [facility] de Phone Number [facility] TO EPIC CONVERSION * (ABNORMAL) VITAMIN D, 25 OH (02/16/2017 8:37 AM BRINE MIXER OPERATOR) Pathologist [facility] VITAMIN D 25 HYDROXY S/P/B 24(L) 30 - 100 NG/ML [facility] TO [facility] CONVERSION Comment: Result Comment: ? INTERPRETATION ? DEFICIENT ??<20 ? INSUFFICIENT 20-29 ?SUFFICIENT 30-100 02/16/2017 8:37 AM BRINE MIXER OPERATOR 02/16/2017 8:37 AM BRINE MIXER OPERATOR Narrative [facility] TO [facility] CONVERSION - 02/16/2017 10:41 PM BRINE MIXER OPERATOR Result Communication: Call patient with results Lauri Blair MD LABORATORY Final Result Performing Organization Address [facility]/ZIP Co de Phone Number [facility] TO EPIC CONVERSION * (ABNORMAL) COMPREHENSIVE METABOLIC PANEL (02/16/2017 8:37 AM BRINE MIXER OPERATOR) [facility] SODIUM S/P/B 140 136 - 145 MMOL/L [facility] TO [facility] CONVERSION POTASSIUM S/P/B 3.7 3.5 - 5.1 MMOL/L [facility] TO [facility] CONVERSION CHLORIDE S/P/B 103 100 - 108 MMOL/L [facility] TO [facility] CONVERSION CO2 27.0 21 - 32 MMOL/L [facility] TO [facility] CONVERSION ANION GAP 13.7 8 - 20 MMOL/L [facility] TO [facility] CONVERSION BUN 17 7 - 18 MG/DL [facility] TO [facility] CONVERSION CREATININE S/P/B 1.23 0.7 - 1.3 MG/DL [facility] TO [facility] CONVERSION BUN CREATININE RATIO 13.8 6 - 26 [facility] CONVERSION GLUCOSE 100(H) 70 - 99 MG/DL [facility] CONVERSION CALCIUM S/P/B 9.1 8.5 - 10.1 MG/DL [facility] TO [facility]IC CONVERSION BILIRUBIN TOTAL S/P/B 0.8 0.2 - 1.2 MG/DL [facility] TO [facility] CONVERSION AST 19 15 - 37 U/L [facility] TO [facility] CONVERSION ALT 18 16 - 60 U/L [facility] TO [facility] CONVERSION ALKALINE PHOSPHATASE S/P/B 99 50 - 136 U/L [facility] TO [facility]IC CONVERSION TOTAL PROTEIN S/P/B 7.8 6.4 - 8.2 G/DL [facility] TO [facility]IC CONVERSION ALBUMIN S/P/B 3.7 3.4 - 5.0 G/DL [facility] TO [facility] CONVERSION A/G RATIO 0.9(L) 1.0 - 2.0 RATIO [facility] TO [facility]IC CONVERSION EGFR NON-AFR. AMER. >60 >60 ML/MIN/1 .73 M2 [facility] TO [facility]IC CONVERSION EGFR AFR. AMER. >60 NOTE: eGFR is not calculated for patients <18 years of age. This is an estimated GFR (CKD EPI) and should not be used for calculating drug doses. >60 ML/MIN/1 .73 M2 [facility] TO EPIC CONVERSION 02/16/2017 8:37 AM BRINE MIXER OPERATOR 02/16/2017 8:37 AM BRINE MIXER OPERATOR Narrative [facility] TO [facility] CONVERSION - 02/16/2017 10:51 PM BRINE MIXER OPERATOR Result Communication: Call patient with results Lauri Blair MD LABORATORY Final Result [facility] TO [facility] CONVERSION * (ABNORMAL) URIC ACID BLOOD (02/16/2017 8:37 AM BRINE MIXER OPERATOR) URIC ACID 7.4(H) 3.5 - 7.2 MG/DL [facility] TO EPIC CONVERSION 02/16/2017 8:37 AM BRINE MIXER OPERATOR 02/16/2017 8:37 AM BRINE MIXER OPERATOR Narrative [facility] TO EPIC CONVERSION - 02/16/2017 10:51 PM BRINE MIXER OPERATOR Result Communication: Call patient with results Lauri Blair MD LABORATORY Final Result Performing Organization Address [facility] Co de Phone Number [facility] TO EPIC CONVERSION * PROSTATE SPECIFIC ANTIGEN,TOTAL (02/16/2017 8:37 AM BRINE MIXER OPERATOR) PSA 3.90 <4.00 NG/ML [facility] TO EPIC CONVERSION Comment: Result Comment: Test was performed using the Siemens method. ??Results obtained with other assay methods or kits cannot be used interchangeably with results obtained by the Siemens method. 02/16/2017 8:37 AM BRINE MIXER OPERATOR 02/16/2017 8:37 AM BRINE MIXER OPERATOR Narrative [facility] TO EPIC CONVERSION - 02/16/2017 10:51 PM BRINE MIXER OPERATOR Result Communication: Call patient with results Lauri Blair MD LABORATORY Final Result Performing Organization Address [facility] Co de Phone Number [facility] TO EPIC CONVERSION documented in this encounter Visit Diagnoses Not on filedocumented in this encounter Care Teams Emt I/85 Relationship Specialty Start Date End Date Lauri Blair MD [address] [place] [address] PCP - General 10/30/14 documented as of this encounter
--- OUTSIDE RECORDS SUMMARY | 2024-02-26 22:57 | XMS_ITS | Encounter Summary ---
Author Organization [facility] Address [address] [place] [address]. [place], [place] [address] [place] [address] Care Team Providers Care Procurement Professional Name Role Phone Lauri Blair MD Primary Care Provider [phone] Lauri Blair MD Primary Care Provider [phone] Lauri Blair MD Primary Care Provider [phone] Encounter Details Date Type Department Care Team (Late st Contact Info) Description 12/24/[address] [facility] [place] [address] Lauri Blair MD [address] [place] [address] [id number] Social History Tobacco Use Types Packs/Day Years Used Date Smoking Tobacco: Never Assessed Sex and Gender Information Value Date Recorded Sex Assigned at Not on file Legal Sex Male 5:55 PM CDT Gender Identity Not on file Sexual Orientation Not on file documented as of this encounter Plan of Treatment Not on file documented as of this encounter Visit Diagnoses Diagnosis Essential hypertension Unspecified essential hypertension documented in this encounter Care Teams Procurement Professional Relationship Specialty Start Date End Date Lauri Blair MD [address] [place] [address] PCP - General 10/30/14 Lauri Blair MD [address] [place] [address] PCP - General 05/15/14 10/29/14 Lauri Blair MD [address] [place] [address] PCP - General 05/24/13 05/14/14 documented as of this encounter
--- OUTSIDE RECORDS SUMMARY | 2024-02-26 22:57 | XMS_ITS | Encounter Summary ---
Author Organization [facility] Address [address] [place] [address]. [place], [place] [address] [place] [address] Care Team Providers Care Composer Teaching Artist Name Role Phone Lauri Blair MD Primary Care Provider [phone] Lauri Blair MD Primary Care Provider [phone] Lauri Blair MD Primary Care Provider [phone] Encounter Details Date Type Department Care Team (Latest Contact Info) Description 01/28/2010 Abstract [facility] Social History Tobacco Use [...] on filedocumented in this encounter Care Teams Composer Teaching Artist Relationship Specialty Start Date End Date Lauri Blair MD [address] [place] [address] PCP - General 10/30/14 Lauri Blair MD [address] [place] [address] PCP - General 05/15/14 10/29/14 Lauri Blair MD [address] [place] [address] PCP - General 05/24/13 05/14/14 documented as of this encounter
--- OUTSIDE RECORDS SUMMARY | 2024-02-26 22:57 | XMS_ITS | Encounter Summary ---
Author Organization [facility] Address [address] [place] [address]. [place], [place] [address] [place] [address] Care Team Providers Care Director Of Coding Name Role Phone Lauri Blair MD Primary Care Provider [phone] Lauri Blair MD Primary Care Provider [phone] Lauri Blair MD Primary Care Provider [phone] Encounter Details Date Type Department Care Team (Late st Contact Info) Description 05/24/[address] [facility] [place] [address] Lauri Blair MD [address] [place] [address] Social History Tobacco Use Types Packs/Day Years Used Date Smoking Tobacco: Never Assessed Sex and Gender Information Value Date Recorded Sex Assigned at Not on file Legal Sex Male 5:55 PM CDT Gender Identity Not on file Sexual Orientation Not on file documented as of this encounter Plan of Treatment Not on file documented as of this encounter Visit Diagnoses Diagnosis Screening for other and unspecified endocrine, nutritional, metabolic and immunity disorders documented in this encounter Care Teams Director Of Coding Relationship Specialty Start Date End Date Lauri Blair MD [address] [place] [address] PCP - General 10/30/14 Lauri Blair MD [address] [place] [address] PCP - General 05/15/14 10/29/14 Lauri Blair MD [address] [place] [address] PCP - General 05/24/13 05/14/14 documented as of this encounter
--- OUTSIDE RECORDS SUMMARY | 2024-02-26 22:57 | XMS_ITS | Encounter Summary ---
Author Organization [facility] Address [address] [place] [address]. [place], [place] [address] [place] [address] Care Team Providers Care Building Supervisor Name Role Phone Lauri Blair MD Primary Care Provider [phone] Encounter Details Date Type Department Care Team (Latest Contact Info) Description 06/30/2016 Abstract [facility] , Generic ConversionMD Social History Tobacco Use Types Packs/Day Years Used Date Smoking Tobacco: Never Assessed Sex and Gender Information Value Date Recorded Sex Assigned at Not on file Legal Sex Male 5:55 PM CDT Gender Identity Not on file Sexual Orientation Not on file documented as of this encounter Progress Notes * Generic Conversion MD Alondra - 06/30/2016 3:38 PM CDT Message Recorded as Task Date: 06/22/2016 05:39 PM, Created By: Bee Ken Task Name: Medical Complaint Callback Assigned To: [facility] Johnnie Regarding Patient: Portillo Martin, Status: In Progress Comment: Bee Ken - 22 Jun 2016 5:39 PM TASK CREATED Lm for patient to clarify medications. Mina is questioning if patient should be on the lisinopril,irbesartan,hctz and furosemide. [phone]([facility]) Bee Syed - 22 Jun 2016 5:45 PM TASK EDITED I did call [facility] to try to get last fill dates on any of these meds and patient has never filled them there. Carmelina Chavez - 23 Jun 2016 2:19 PM TASK IN PROGRESS Alta Claire - 28 Jun 2016 12:21 PM TASK EDITED [facility] calling to check status if this, let them know we are still waiting on patient to call usback Carmelina Orourke - 29 Jun 2016 4:13 PM TASK EDITED SPoke with ny - still at work could not confim meds. He will erin first thing tomorrow before he leaves the house-Carmelina Penn - 29 Jun 2016 4:13 PM TASK IN PROGRESS PearlAna - 30 Jun 2016 7:38 AM TASK EDITED Mary sheppard called to verify pt scripts. pt is taking Vit d3 5000 iu daily lisinopril 20mg 1 tab 2 times daily amlodip 10 mg 1 daily irbesqrtan 300mg 1 tab daily furosemide 40mg 1 tab daily hydralazine 100mg 1 tab 3 times daily hydrochlorothiazide 25mg 1 tab daily Bystolic 10mg 1 tab daily Bee Ken - 30 Jun 2016 10:20 AM TASK REASSIGNED: Previously Assigned To [facility] Nurse Team Lauri Blair - 30 Jun 2016 10:34 AM TASK REASSIGNED: Previously Assigned To Lauri Blair Those are correct. Message: Dagmar at [facility] updated-[facility] Signatures Electronically signed by : Carmelina Orourke, RBacilioNBacilio; Jun 30 2016 3:39PM REQUISITION APPROVER (Author) documented in this encounter Plan of Treatment Not on file documented as of this encounter Visit Diagnoses Not on filedocumented in this encounter Care Teams Building Supervisor Relationship Specialty Start Date End Date Lauri Blair MD [address] [place] [address] PCP - General 10/30/14 documented as of this encounter
--- OUTSIDE RECORDS SUMMARY | 2024-02-26 22:57 | XMS_ITS | Encounter Summary ---
Author Organization [facility] Address [address] [place] [address]. [place], [place] [address] [place] [address] Care Team Providers Care Drier Tender Name Role Phone Lauri Blair MD Primary Care Provider [phone] Encounter Details Date Type Department Care Team (Late st Contact Info) Description 10/30/2014 Abstract [facility] [address] Lauri Blair MD [address] [place] [address] Social History Tobacco Use Types Packs/Day Years Used Date Smoking Tobacco: Never Assessed Sex and Gender Information Value Date Recorded Sex Assigned at Not on file Legal Sex Male 5:55 PM CDT Gender Identity Not on file Sexual Orientation Not on file documented as of this encounter Plan of Treatment Not on file documented as of this encounter Visit Diagnoses Diagnosis Benign essential hypertension Essential hypertension, benign documented in this encounter Care Teams Drier Tender Relationship Specialty Start Date End Date Lauri Blair MD [address] [place] [address] PCP - General 10/30/14 documented as of this encounter
--- OUTSIDE RECORDS SUMMARY | 2024-02-26 22:57 | XMS_ITS | Encounter Summary ---
Author Organization [facility] Address [address] [place] [address]. [place] [id number] Care Team Providers Care Neuroscientist Name Role Phone Lauri Blair MD Primary Care Provider [phone] Lauri Blair MD Primary Care Provider Lauri Blair MD Primary Care Provider [phone] Encounter Details Date Type Department Care Team (Late st Contact Info) Description 11/15/2013 Abstract [facility] Family & Internal Medicine [place] [address] [place] [address] Lauri Blair MD [facility] [place] [place] [place], [place] [id number] Social History Tobacco Use Types Packs/Day Years Used Date Smoking Tobacco: Never Assessed Sex and Gender Information Value Date Recorded Sex Assigned at Not on file Legal Sex Male 5:55 PM CDT Gender Identity Not on file Sexual Orientation Not on file documented as of this encounter Last Filed Vital Signs Vital Sign Reading Time Taken Comments Blood Pressure 149/82 11/15/2013 8:53 AM CDT Pulse 69 11/15/2013 8:53 AM CDT Temperature - - Respiratory Rate - - Oxygen Saturation - - Inhaled Oxygen Concentration - - Weight 119.7 kg (264 lb) 11/15/2013 8:53 AM CDT Height 182.9 cm (6') 11/15/2013 8:53 AM CDT Body Mass Index 35.8 11/15/2013 8:53 AM CDT documented in this encounter Progress Notes * Lauri Blair MD - 11/15/2013 8:30 AM CDT Reason For Visit Reason For Visit: Chronic Recheck Visit Chief Complaint Chief Complaint Free Text: f/u HTN, cardiomyopathy History of Present Illness Cardiomyopathy, Hypertrophic (Brief): The patient is being seen for a routine clinic follow-up of hypertrophic cardiomyopathy. Symptoms: edema, but no chest pain, no dyspnea at rest, no dyspnea on exertion, no fatigue, no exercise intolerance, no palpitations, no lightheadedness and no syncope. Thepatient is currently experiencing symptoms. No associated symptoms are reported. Current treatment includes beta blockers, calcium channel blockers and diuretics. By report, there is good compliance with treatment, good tolerance of treatment and good symptom control. Hypertension (Follow-Up): The patient presents for follow-up of primary hypertension. The patient states he has been doing well with his blood pressure control since the last visit. He has no comorbid illnesses. He has no significant interval events. Symptoms: Denies dyspnea, denies chest pain and worsened lower extremity edema. Associated symptomsinclude no headache, no focal neurologic deficits and no memory loss. Home monitoring: The patient checks his blood pressure sporadically. Blood pressure control has been good. Medications: The patient is adherent with his medication regimen. He denies medication side effects. Disease Management: The patient is doing well with his blood pressure goals. Review of Systems Focused-Male: Constitutional: Normal. ENT: normal. Cardiovascular: Normal. Respiratory: Normal. Gastrointestinal: Normal. Genitourinary: Normal. Integumentary: Normal. Musculoskeletal: Normal. Neurological: Normal. Psychiatric: Normal. Active Problems 1. Benign essential hypertension (401.1) (I10) 2. Cardiomyopathy (425.4) (I42.9) 3. 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 Screening for endocrine, nutritional, metabolic and immunity disorder (V77.99) (Z13.9) 5. Screening for heart disease (V81.2) (Z13.6) 6. Screening for prostate cancer (V76.44) (Z12.5) 7. Vitamin d deficiency (268.9) (E55.9) Family History 1. Family history of Benign Essential Hypertension 2. Family history of Acute Myocardial Infarction (V17.3) Social History ?? Never a smoker Current Meds 1. AmLODIPine Besylate 10 MG Oral Tablet (Norvasc); TAKE 1 TABLET EVERY DAY; Therapy: 21May2013 to (Evaluate:16May2014) Requested for: 21May2013; Last Rx:21May2013 Ordered 2. Bystolic 10 MG Oral Tablet; TAKE 1 TABLET DAILY; Therapy: (Recorded:33End9508) to Recorded 3. Cialis 20 MG Oral Tablet; TAKE 1 TABLET DAILY 1 HOUR BEFORE NEEDED; Therapy: 78Njl5876 to (Evaluate:94Icc5634) Requested for: 06Yna1644; Last Rx:45Kdz1127 Ordered 4. GuanFACINE HCl - 1 MG Oral Tablet; TAKE 1 TABLET DAILY AT BEDTIME; Therapy: 08Hgh9212 to (Evaluate:20Bhy4990) Requested for: 89Lbj0285; Last Rx:96Nms8028 Ordered 5. HydrALAZINE HCl - 100 MG Oral Tablet; TAKE 1 TABLET BY MOUTH 3 TIMES A DAY; Therapy: 74Mnn0206 to (Evaluate:69Ymm3355) Requested for: 62Cmv5959; Last Rx:89Oap9945 Ordered 6. Hydrochlorothiazide 25 MG Oral Tablet; TAKE 1 TABLET BY MOUTH DAILY; Therapy: 63Ppx9415 to (Evaluate:81Nlg5305) Requested for: 00Qne9281; Last Rx:11Xta3919 Ordered 7. Irbesartan 300 MG Oral Tablet (Avapro); TAKE 1 TABLET DAILY; Therapy: 46Odj8085 to (Evaluate:89Vec2704) Requested for: 74Hhr6789; Last Rx:63Vai6640 Ordered 8. Lisinopril 20 MG Oral Tablet; TAKE 1 TABLET BY MOUTH TWICE DAILY; Therapy: 71Efi9379 to (Evaluate:21Xjo7702) Requested for: 68Cfr8353; Last Rx:98Pdz0436 Ordered 9. Vitamin D-3 5000 UNIT Oral Tablet; Take 1 tablet daily; Therapy: (Recorded:24Rye3859) to Recorded Allergies 1. No Known Drug Allergies Vitals Vital Signs [Data Includes: Current Encounter] Recorded by : Alyssa Brunson at 00Sum1431 08:53AM Heart Rate 69 Respiration 16 Systolic 149 Diastolic 82 O2 Saturation 96 Height 6 ft Weight 264 lb BMI Calculated 35.8 BSA Calculated 2.4 Physical Exam Constitutional General appearance: No acute distress, well appearing and well nourished. Ears, Nose, Mouth, and Throat External inspection [...] of extremities for edema and/or varicosities: Abnormal. Bilateral ankle 2+ pitting edema and bilateral pretibial 1+ pitting edema. Lymphatic Palpation of lymph nodes in neck: No lymphadenopathy. Musculoskeletal Gait and station: Normal. Neurologic Cranial nerves: Cranial nerves 2-12 intact. Psychiatric Mood and affect: Normal. Assessment 1. Benign essential hypertension (401.1) (I10) 2. Cardiomyopathy (425.4) (I42.9) 3. Edema (782.3) (R60.9) Plan 1. Follow-up visit in 6 months Outpatient Follow-up Status: Hold For - Scheduling Requested for: 15Nov2013 Ordered; For: Benign essential hypertension, Cardiomyopathy, Edema, Vitamin d deficiency; Ordered By: Lauri Blair Performed: Due: 29Nov2013 2. CBC W Differential Status: Active Requested for: 15May2014 Perform: [facility] Due: 14Jun2014; Last Updated By: Alta Claire; 11/15/2013 9:19:57 AM; Ordered; For: Benign essential hypertension, Cardiomyopathy, Edema, Vitamin d deficiency; Ordered By: Lauri Blair 3. Compr Metabolic Prof ( CMP ) Status: Active Requested for: 15May2014 Perform: [facility] Due: 14Jun2014; Last Updated By: Alta Claire; 11/15/2013 9:19:57 AM; Ordered; For: Benign essential hypertension, Cardiomyopathy, Edema, Vitamin d deficiency; Ordered By: Lauri Blair 4. Creatine Kinase ( CK ) ( CPK ) Status: Active Requested for: 15May2014 Perform: [facility] Due: 14Jun2014; Last Updated By: Alta Claire; 11/15/2013 9:19:57 AM; Ordered; For: Benign essential hypertension, Cardiomyopathy, Edema, Vitamin d deficiency; Ordered By: Lauri Blair 5. Lipid Profile Status: Active Requested for: 15May2014 Perform: [facility] Due: 14Jun2014; Last Updated By: Alta Claire; 11/15/2013 9:19:58 AM; Ordered; For: Benign essential hypertension, Cardiomyopathy, Edema, Vitamin d deficiency; Ordered By: Lauri Blair 6. TSH W Reflex Free T4 Status: Active Requested for: 15May2014 Perform: [facility] Due: 60Pfn8541; Last Updated By: Alta Claire; 11/15/2013 9:19:58 AM; Ordered; For: Benign essential hypertension, Cardiomyopathy, Edema, Vitamin d deficiency; Ordered By: Lauri Blair 7. Urinalysis ( UA ) Culture If Ind Status: Active Requested for: 15May2014 Perform: [facility] Due: 14Jun2014; Last Updated By: Alta Claire; 11/15/2013 9:19:58 AM; Ordered; For: Benign essential hypertension, Cardiomyopathy, Edema, Vitamin d deficiency; Ordered By: Lauri Blair 8. Vitamin D 25 - Hydroxy Status: Active Requested for: 15May2014 Perform: [facility] Due: 62Cea1181; Last Updated By: Alta Claire; 11/15/2013 9:19:58 AM; Ordered; For: Benign essential hypertension, Cardiomyopathy, Edema, Vitamin d deficiency; Ordered By: Lauri Blair 9. Start: Furosemide 40 MG Oral Tablet; TAKE ONE TABLET BY MOUTH EVERY DAY Rx By: Lauri Blair; Dispense: 30 Days ; #:30 Tablet; Refill: 5; For: Cardiomyopathy, Edema; CAROL = N; Verified Transmission to [id number]; Last Updated By: Ruben Davila; 11/15/2013 9:17:16 AM 10. Start: Potassium Chloride [facility] 20 MEQ Oral Tablet Extended Release; TAKE 1 TABLET BY MOUTH EVERY DAY Rx By: Lauri Blair; Dispense: 30 Days ; #:30 Tablet Extended Release; Refill: 6; For: Cardiomyopathy, Edema; CAROL = N; Verified Transmission to [id number]; Last Updated By: Ruben Davila; 11/15/2013 9:17:16 AM Signatures Electronically signed by : Lauri Blair M.D.; Nov 15 2013 9:20AM CONTRIBUTION SOLICITOR (Author) documented in this encounter Plan of Treatment Not on file documented as of this encounter Procedures Procedure Name Priority Date/Time Associated Diagnosis Comments TSH W/REFLEX Routine 05/15/2014 8:05 AM CDT COMPREHENSIVE METABOLIC PANEL Routine 05/15/2014 8:05 AM CDT LIPID PANEL Routine 05/15/2014 8:05 AM CDT CBC W/DIFF AUTOMATED Routine 05/15/2014 8:05 AM CDT VITAMIN D, 25 OH Routine 05/15/2014 8:05 AM CDT CK (CPK) Routine 05/15/2014 8:05 AM CDT URINALYSIS WI REFLEX TO CULTURE Routine 05/15/2014 7:55 AM CDT documented in this encounter Results * VITAMIN D, 25 OH (05/15/2014 8:05 AM CDT) VITAMIN D 25 HYDROXY S/P/B 56 30 - 100 NG/ML [facility] CONVERSION Comment: Result Comment: ?? SUPPLEMENTING WITH VITAMIN D2 MAY RESULT IN FALSELY LOW RESULTS, CLINICAL CORRELATION NEEDED. ? INTERPRETATION ? DEFICIENT ??<20 ?INSUFFICIENT 20-30 ?SUFFICIENT 30-100 POTENTIAL INTOXICATION ??>100 ? TESTING PERFORMED AT [facility], A MEMBER OF THE [facility]. 05/15/2014 8:05 AM CDT 05/15/2014 8:05 AM CDT Narrative [facility] TO [facility] CONVERSION - 05/16/2014 7:45 PM CDT Result Communication: Call patient with results Lauri Blair MD LABORATORY Final Result [facility] TO [facility] CONVERSION * (ABNORMAL) LIPID PANEL (05/15/2014 8:05 AM CDT) CHOLESTEROL 197 <200 mg/dL [facility] CONVERSION TRIGLYCERIDES 91 <150 mg/dL [facility] CON[facility] HDL 67 >59 mg/dL [facility] CON[facility] LDL (CALCULATED) 112(H) <100 mg/dL [facility] CONVERSION NON HDL CHOLESTEROL 130(H) <130 mg/dL [facility] CONVERSION Comment: Result Comment: NOTE: WHEN THE TRIGLYCERIDES ARE >200 mg/dL, NON HDL C IS A SECONDARY TARGET OF THERAPY, WITH A GOAL 30 mg/dL HIGHER THAN THE IDENTIFIED LDL C GOAL. CHOL/HDL RATIO 2.9 0.0 - 4.5 [facility] TO [facility] CONVERSION VLDL CHOLESTEROL (LMP) 18 5 - 55 mg/dL [facility] TO [facility] CONVERSION LIPID INTERPRETATION [facility] CONCENSUS REPORT RECOMMENDATI ONS: ?ADULT ?CHILD ??LOW RISK: ?CHOLESTERO L ? <200 ? <170 ?TRIGLYCERI DE ?<150 ?--- ?HDL ? >=60 ?--- ?LDL ? <100 ? <110 ?BORDERLINE : ?CHOLESTERO L ? 200-239 ?? 170-199 ?TRIGLYCERI DE ?150-199 ? --- ?HDL ?40-59 ?--- ?LDL ? 100-159 ?? 110-129 ?HIGH RISK: ?CHOLESTERO L ? >=240 ?>=200 ?TRIGLYCERI DE ?>=200 ? --- ?HDL ?<40 ?--- ?LDL ? >=160 ?>=130 [facility] CONVERSION 05/15/2014 8:05 AM CDT 05/15/2014 8:05 AM CDT Narrative [facility] CONVERSION - 05/15/2014 10:15 PM CDT Result Communication: Call patient with results Lauri Blair MD LABORATORY Final Result Performing Organization Address City/[facility] Co de Phone Number [facility] TO [facility]IC CONVERSION * TSH W/REFLEX (SNS) (05/15/2014 8:05 AM CDT) TSH 2.63 0.27 - 4.20 mIU/mL [facility] CONVERSION Comment:Result Comment: FREE T4 NOT INDICATED 05/15/2014 8:05 AM CDT 05/15/2014 8:05 AM CDT Narrative [facility] TO [facility] CONVERSION - 05/15/2014 10:15 PM CDT Result Communication: Call patient with results Lauri Blair MD LABORATORY Final Result [facility] TO [facility] CONVERSION * (ABNORMAL) CBC W/DIFF AUTOMATED (05/15/2014 8:05 AM CDT) WBC 4.9 4.8 - 10.8 X10'3/uL [facility] CONVERSION RBC 5.17 4.70 - 6.10 X10'6/uL [facility] CONVERSION HGB 14.8 14.0 - 18.0 g/dL [facility] CONVERSION HCT 47.5 43.0 - 54.0 % [facility] CONVERSION MCV 91.9 80.0 - 94.0 fL [facility] CONVERSION MCH 28.6 27.0 - 31.0 pg [facility] TO [facility] CONVERSION MCHC 31.2(L) 32.0 - 36.0 g/dL [facility] CONVERSION RDW 13.6 11.5 - 14.5 % [facility] TO [facility] CONVERSION PLT 284 130 - 400 X10'3/uL [facility] CONVERSION GLUCOSE 9.8 9.3 - 12.2 fL [facility] CONVERSION BASOPHILS % 0.4 0.0 - 1.0 % [facility] CONVERSION EOSINOPHILS % 2.9 1.0 - 3.0 % [facility] TO [facility] CONVERSION NEUTROPHILS % 44.9 43.0 - 65.0 % [facility] TO [facility] CONVERSION LYMPHOCYTES % 41.0 20.0 - 46.0 % [facility] CONVERSION MONOCYTES % 10.2 5.0 - 12.0 % [facility] CONVERSION IMMATURE GRANS % 0.6 0.0 - 1.0 % [facility] TO [facility] CONVERSION DIFFERENTIAL TYPE AUTOMATED [facility] CONVERSION 05/15/2014 8:05 AM CDT 05/15/2014 8:05 AM CDT Narrative [facility] CONVERSION - 05/15/2014 8:12 PM CDT Result Communication: Call patient with results Lauri Blair MD LABORATORY Final Result [facility] TO [facility] CONVERSION * (ABNORMAL) COMPREHENSIVE METABOLIC PANEL (05/15/2014 8:05 AM CDT) SODIUM S/P/B 139 136 - 145 mmol/L [facility] CONVERSION POTASSIUM S/P/B 3.8 3.5 - 5.1 mmol/L [facility] TO [facility] CONVERSION CHLORIDE S/P/B 99 98 - 107 mmol/L [facility] CONVERSION CO2 28 22 - 29 mmol/L [facility] TO [facility] CONVERSION ANION GAP 16 8 - 20 [facility] T O EPIC CONVERSION BUN 19 8 - 23 mg/dL [facility] TO [facility] CONVERSION CREATININE S/P/B 1.17 0.70 - 1.20 mg/dL [facility] TO [facility] CONVERSION GFR ESTIMATE >60 >60 mL/min/1 .73m'2 [facility] TO [facility]IC CONVERSION EGFR AFR. AMER. >60 NOTE: eGFR is not calculated for patients <18 years of age. This is an estimated GFR (CKD EPI) and should not be used for calculating drug doses. >60 mL/min/1 .73m'2 [facility] TO [facility]IC CONVERSION GLUCOSE 109(H) 70 - 99 mg/dL [facility] CONVERSION CALCIUM S/P/B 10.0 8.6 - 10.2 mg/dL [facility] TO [facility] CONVERSION BILIRUBIN TOTAL S/P/B 0.9 0.2 - 1.2 mg/dL [facility] TO [facility] CONVERSION AST 23 0 - 40 IU/L [facility] CONVERSION ALT 15 0 - 41 IU/L [facility] TO [facility] CONVERSION ALKALINE PHOSPHATASE S/P/B 86 40 - 129 IU/L [facility] TO [facility] CONVERSION TOTAL PROTEIN S/P/B 7.7 6.4 - 8.3 g/dL [facility] TO [facility] CONVERSION ALBUMIN S/P/B 4.7 3.5 - 5.2 g/dL [facility] TO [facility] CONVERSION GLOBULIN 3.0 2.3 - 3.6 g/dL [facility] TO [facility] CONVERSION A/G RATIO 1.6 1.0 - 2.0 [facility] TO [facility] CONVERSION 05/15/2014 8:05 AM CDT 05/15/2014 8:05 AM CDT Narrative [facility] TO [facility] CONVERSION - 05/15/2014 10:15 PM CDT Result Communication: Call patient with results us Lauri Blair MD LABORATORY Final Result [facility] TO [facility] CONVERSION * (ABNORMAL) CK (CPK) (05/15/2014 8:05 AM CDT) CPK 921(H) 39 - 308 IU/L [facility] CONVERSION 05/15/2014 8:05 AM CDT 05/15/2014 8:05 AM CDT Narrative [facility] TO [facility] CONVERSION - 05/15/2014 10:15 PM CDT Result Communication: Call patient with results Lauri Blair MD LABORATORY Final Result [facility] TO [facility] CONVERSION * (ABNORMAL) URINALYSIS WI REFLEX TO CULTURE (05/15/2014 7:55 AM CDT) SPECIMEN TYPE URINE CLEAN CATCH [facility] TO [facility] CONVERSION COLOR (U) STRAW [facility] T O EPIC CONVERSION TRANSPARENCY CLEAR [facility] P TO EPIC CONVERSION SPECIFIC GRAVITY (U) 1.012 1.001 - 1.030 [facility] TO [facility]IC CONVERSION U PH 6.0 5.0 - 9.0 [facility] T O EPIC CONVERSION LEUKOCYTES (U) NEG NEG [facility] OUP TO EPIC CONVERSION NITRITES NEG NEG [facility] T O EPIC CONVERSION PROTEIN (U) NEG <30 MG/DL [facility] CONVERSION GLUCOSE NEG NEG MG/DL [facility] T O EPIC CONVERSION KETONES MG/DL (U) NEG NEG MG/DL [facility] TO [facility]IC CONVERSION UROBILINOGEN NEG NEG MG/DL [facility] P TO EPIC CONVERSION BILIRUBIN (U) NEG NEG MG/DL [facility] UP TO EPIC CONVERSION BLOOD (U) NEG NEG [facility] T O EPIC CONVERSION REFLEX URINE CULTURE: CULTURE IS NOT INDICATED [facility] TO [facility] CONVERSION SQUAMOUS EPITHELIALS RARE /LPF [facility] TO [facility] CONVERSION RBC/HPF <1 <6 /HPF [facility] T O EPIC CONVERSION WBC 1 <6 /HPF [facility] T O EPIC CONVERSION BACTERIA (U) RARE(A) NONE /HPF [facility] P TO EPIC CONVERSION 05/15/2014 7:55 AM CDT 05/15/2014 7:55 AM CDT Narrative [facility] TO [facility] CONVERSION - 05/15/2014 8:26 PM CDT Result Communication: Call patient with results Lauri Blair MD URINE ORDERABLES Final Result [facility] CONVERSION documented in this encounter Visit Diagnoses Not on filedocumented in this encounter Care Teams Neuroscientist Relationship Specialty Start Date End Date Lauri Blair MD [address] [place] [address] PCP - General 10/30/14 Lauri Blair MD [address] [place] [address] PCP - General 05/15/14 10/29/14 Lauri Blair MD [address] [place] [address] PCP - General 05/24/13 05/14/14 documented as of this encounter
--- OUTSIDE RECORDS SUMMARY | 2024-02-26 22:57 | XMS_ITS | Encounter Summary ---
Author Organization [facility] Address [address] [place] [address]. [place], [place] [id number] [place] [id number] Care Team Providers Care Distribution Manager Name Role Phone Lauri Blair MD Primary Care Provider [phone] Encounter Details Date Type Department Care Team (Late st Contact Info) Description 10/30/2014 Abstract [facility] Family & Internal Medicine [address] [phone] Lauri Blair MD [address] [place] [address] [id number] Social History Tobacco Use Types Packs/Day Years Used Date Smoking Tobacco: Never Assessed Sex and Gender Information Value Date Recorded Sex Assigned at Not on file Legal Sex Male 5:55 PM CDT Gender Identity Not on file Sexual Orientation Not on file documented as of this encounter Last Filed Vital Signs Vital Sign Reading Time Taken Comments Blood Pressure 140/83 10/30/2014 8:07 AM CDT Pulse 80 10/30/2014 8:07 AM CDT Temperature - - Respiratory Rate - - Oxygen Saturation - - Inhaled Oxygen Concentration - - Weight 117.9 kg (260 lb) 10/30/2014 8:07 AM CDT Height 182.9 cm (6') 10/30/2014 8:07 AM CDT Body Mass Index 35.26 10/30/2014 8:07 AM CDT documented in this encounter Progress Notes * Lauri Blair MD - 10/30/2014 10:31 PM CDT Message Labs are good. LETTER MAILED NOTIFYING PT--NK Verified Results CBC W Differential [id number] 09:15AM Lauri Blair Test Name Result Flag Reference White Blood Cell Count (WBC) 5.7 X10'3/uL 4.8-10.8 Red Blood Cell Count (RBC) 5.30 X10'6/uL 4.70-6.10 Hemoglobin (HGB) 15.2 g/dL 14.0-18.0 Hematocrit (HCT) 49.1 % 43.0-54.0 Mean Corpuscular Volume (MCV) 92.6 fL 80.0-94.0 Mean Corpuscular Hgb (MCH) 28.7 pg 27.0-31.0 Mean Corpuscular Hgb Conc (MCH 31.0 g/dL L 32.0-36.0 Red Cell Distrib Width (RDW) 13.5 % 11.5-14.5 Platelet Count (PLT) 294 X10'3/uL 130-400 Mean Platelet Volume (MPV) 9.6 fL 9.3-12.2 Basophils % (Auto) 0.7 % 0.0-1.0 Eosinophils % (Auto) 5.1 % H 1.0-3.0 Neutrophils % (Auto) 44.9 % 43.0-65.0 Lymphocytes % (Auto) 41.0 % 20.0-46.0 Monocytes % (Auto) 7.9 % 5.0-12.0 IMMATURE GRANULOCYTES 0.4 % 0.0-1.0 Differential Type AUTOMATED Compr Metabolic Prof ( CMP ) [id number] 09:15AM Lauri Blair Test Name Result Flag Reference Sodium (Na) 140 mmol/L 136-145 Potassium (K) 3.6 mmol/L 3.5-5.1 Chloride (Cl) 95 mmol/L L 98-107 Carbon Dioxide (CO2) 29 mmol/L 22-29 Anion Gap 20 8-20 Blood Urea Nitrogen (BUN) 16 mg/dL 8-23 Creatinine 1.22 mg/dL H 0.70-1.20 Glomerular Filt Rate Calc >60 mL/min/1.73m'2 >60 Glomerular Filt Rate (AA) Calc >60 >60 NOTE: eGFR is not calculated for patients <18 years of age. This is an estimated GFR (CKD EPI) and should not be used for calculating drug doses. mL/min/1.73m'2 Glucose 119 mg/dL H 70-99 Calcium 9.5 mg/dL 8.6-10.2 Total Bilirubin 0.8 mg/dL 0.2-1.2 AST/GOT 25 IU/L 0-40 ALT/GPT 19 IU/L 0-41 Alkaline Phosphatase (ALKP) 106 IU/L 40-129 Total Protein 8.0 g/dL 6.4-8.3 Albumin 4.7 g/dL 3.5-5.2 Globulin, Calc 3.3 g/dL 2.3-3.6 A:G Ratio 1.4 1.0-2.0 Lipid Profile 30Oct2014 09:15AM Lauri Blair Test Name Result Flag Reference Cholesterol 184 mg/dL <200 NOTE: Acetaminophen, N Acetyl p benzoquinone imine (NAPQI), N acetylcysteine (NAC), Metamizole, 4 Aminoantipyrine (4 AAP) and 4 Methylamino antipyrine (4 MAP) at high concentrations can cause falsely low results on Lactate, Uric Acid, Cholesterol, Triglyceride, HDL, and Direct LDL. Triglycerides 129 mg/dL <150 HDL Cholesterol 60 mg/dL >59 LDL Cholesterol, Calculated 98 mg/dL <100 Non HDL, Calc 124 mg/dL <130 NOTE: WHEN THE TRIGLYCERIDES ARE >200 mg/dL, NON HDL C IS A SECONDARY TARGET OF THERAPY, WITH A GOAL 30 mg/dL HIGHER THAN THE IDENTIFIED LDL C GOAL. Cholesterol/HDL Ratio 3.1 0.0-4.5 VLDL Cholesterol 26 mg/dL 5-55 Lipid Profile Comment 1 (Report) NIH CONCENSUS REPORT RECOMMENDATIONS: ADULT CHILD LOW RISK: CHOLESTEROL <200 <170 TRIGLYCERIDE <150 --- HDL >=60 --- LDL <100 <110 BORDERLINE: CHOLESTEROL 200-239 170-199 TRIGLYCERIDE 150-199 --- HDL 40-59 --- LDL 100-159 110-129 HIGH RISK: CHOLESTEROL >=240 >=200 TRIGLYCERIDE >=200 --- HDL <40 --- LDL >=160 >=130 Creatine Kinase ( CK ) ( CPK ) 30Oct2014 09:15AM Lauri Blair Test Name Result Flag Reference Creatine Kinase (CK) 943 IU/L H 39-308 Urinalysis ( UA ) Culture If Ind 30Oct2014 09:14AM Lauri Blair Test Name Result Flag Reference Specimen Type URINE CLEAN CATCH Urine Color YELLOW Urine Clarity CLEAR Urine Specific [place] 1.010 1.001-1.030 Urine pH 5.0 5.0-9.0 Urine Leukocyte Esterase NEGATIVE NEG Urine Nitrite NEGATIVE NEG Urine Protein NEGATIVE MG/DL <30 Urine Glucose NEGATIVE MG/DL NEG Urine Ketones (Acetone) NEGATIVE MG/DL NEG Urine Urobilinogen NEGATIVE MG/DL NEG Urine Bilirubin NEGATIVE MG/DL NEG Urine Occult Blood NEGATIVE NEG Culture Indicated CULTURE IS NOT INDICATED Squamous Epithelial FEW /LPF Hyaline Cast FEW /LPF Urine RBC <1 /HPF <6 Urine WBC <1 /HPF <6 Signatures Electronically signed by : Ashanti Gonzalez, ; Oct 31 2014 8:11AM JANITOR HELPER (Author) * Lauri Blair MD - 10/30/2014 7:45 AM CDT Reason For Visit Chronic Recheck Visit Chief Complaint General check up HTN. History of Present Illness HPI Free Text: He bump on his right wrist that has been present for years. He does not have pain but it seems to keep getting larger. It does not affect his ROM or function. Hypertension (Follow-Up): The patient presents for follow-up [...] doing well with his blood pressure goals. Cardiomyopathy, Hypertrophic (Brief): The patient is being seen for a routine clinic follow-up of hypertrophic cardiomyopathy. The patient is currently asymptomatic. No associated symptoms are reported. Review of Systems Constitutional, Eyes, ENT, Cardiovascular, Respiratory, Gastrointestinal, Genitourinary, Musculoskeletal, Integumentary, Neurological, Psychiatric, Endocrine and Hematologic review of systems normal except as noted. Active Problems 1. Benign essential hypertension (401.1) (I10) 2. Cardiomyopathy (425.4) (I42.9) 3. Edema (782.3) (R60.9) 4. Elevated creatine kinase level (790.5) (R74.8) 5. 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 Screening for endocrine, nutritional, metabolic and immunity disorder (V77.99) (Z13.9) 7. Screening for heart disease (V81.2) (Z13.6) 8. Screening for prostate cancer (V76.44) (Z12.5) 9. Vitamin d deficiency (268.9) (E55.9) Family History 1. Family history of Benign Essential Hypertension 2. Family history of Acute Myocardial Infarction (V17.3) Social History ?? Never a smoker Current Meds 1. AmLODIPine Besylate 10 MG Oral Tablet; TAKE 1 TABLET EVERY DAY; Therapy: 21May2013 to (Evaluate:08Hke5871) Requested for: 71Wfk9585; Last Rx:[id number] Ordered 2. Bystolic 10 MG Oral Tablet; TAKE 1 TABLET DAILY; Therapy: (Recorded:82Mcw9742) to Recorded 3. Furosemide 40 MG Oral Tablet; TAKE ONE TABLET BY MOUTH EVERY DAY; Therapy: 62Gcb4117 to (Evaluate:14Lsn4223) Requested for: 77Hma0213; Last Rx:[id number] Ordered 4. GuanFACINE HCl - 1 MG Oral Tablet; TAKE 1 TABLET DAILY AT BEDTIME; Therapy: 98Ckb2599 to (Evaluate:42Xvb8132) Requested for: 75Mll7190; Last Rx:[id number] Ordered 5. HydrALAZINE HCl - 100 MG Oral Tablet; TAKE 1 TABLET BY MOUTH 3 TIMES A DAY; Therapy: 23Dzp9312 to (Evaluate:07Vzy7695) Requested for: 50Koo6582; Last Rx:[id number] Ordered 6. Hydrochlorothiazide 25 MG Oral Tablet; TAKE 1 TABLET BY MOUTH DAILY; Therapy: 36Osw4149 to (Evaluate:90Nne7835) Requested for: 94Ysf1645; Last Rx:[id number] Ordered 7. Irbesartan 300 MG Oral Tablet; TAKE 1 TABLET DAILY; Therapy: 53Eik5242 to (Evaluate:97Bqw6003) Requested for: 05Gfm2002; Last Rx:[id number] Ordered 8. Lisinopril 20 MG Oral Tablet; TAKE 1 TABLET BY MOUTH TWICE DAILY; Therapy: 18Ina9424 to (Evaluate:26May2015) Requested for: 69Txl7474; Last Rx:25Vqf5299 Ordered 9. Potassium Chloride Dorothy ER 20 MEQ Oral Tablet Extended Release; TAKE 1 TABLET BY MOUTH EVERY DAY; Therapy: 75Mco6317 to (Evaluate:13Jun2014) Requested for: 37Cgg1770; Last Rx:[id number] Ordered 10. Vitamin D-3 5000 UNIT Oral Tablet; Take 1 tablet daily; Therapy: (Recorded:95Vrc2027) to Recorded Allergies 1. No Known Drug Allergies Vitals Recorded: 30Oct2014 08:07AM Heart Rate 80 Respiration 16 Systolic 140 Diastolic 83 O2 Saturation 96 Height 6 ft Weight 260 lb BMI Calculated 35.26 BSA Calculated 2.38 Physical Exam Constitutional General appearance: No acute [...] varicosities: Normal. Musculoskeletal Gait and station: Normal. Neurologic Cranial nerves: Cranial nerves 2-12 intact. Psychiatric Mood and affect: Normal. Assessment 1. Benign essential hypertension (401.1) (I10) 2. Cardiomyopathy (425.4) (I42.9) 3. Ganglion cyst of wrist (727.41) (M67.439) Plan Benign essential hypertension, Cardiomyopathy 1. CBC W Differential; Status:Active; Requested for:30Apr2015; Perform:[facility]; Due:30May2015; Last Updated By:Alyssa Brunson; 10/30/20148:58:11 AM;Ordered; For:Benign essential hypertension, Cardiomyopathy; Ordered By:Lauri Blair; 2. Compr Metabolic Prof ( CMP ); Status:Active; Requested for:30Apr2015; Perform:[facility]; Due:30May2015; Last Updated By:Alyssa Brunson; :58:11 AM;Ordered; For:Benign essential hypertension, Cardiomyopathy; Ordered By:Lauri Blair; 3. Lipid Profile; Status:Active; Requested for:30Apr2015; Perform:[facility]; Due:30May2015; Last Updated By:Alyssa Brunson; :58:11 AM;Ordered; For:Benign essential hypertension, Cardiomyopathy; Ordered By:Lauri Blair; 4. Prostate Specif Ag ( PSA ) Scrn; Status:Active; Requested for:30Apr2015; Perform:. [facility]; Due:30May2015; Last Updated By:Alyssa Brunson; :58:11 AM;Ordered; For:Benign essential hypertension, Cardiomyopathy; Ordered By:Lauri Blair; 5. Thyroid Stim Hormone ( TSH ); Status:Active; Requested for:30Apr2015; Perform:. [facility]; Due:30May2015; Last Updated By:Alyssa Brunson; :58:11 AM;Ordered; For:Benign essential hypertension, Cardiomyopathy; Ordered By:Lauri Blair; 6. Urinalysis ( UA ) Culture If Ind; Status:Active; Requested for:30Apr2015; Perform:. [facility]; Due:30May2015; Last Updated By:Alyssa Brunson; :58:11 AM;Ordered; For:Benign essential hypertension, Cardiomyopathy; Ordered By:Lauri Blair; 7. Vitamin D 25 - Hydroxy; Status:Active; Requested for:30Apr2015; Perform:[facility]; Due:30May2015; Last Updated By:Alyssa Brunson; 10/30/20148:58:11 AM;Ordered; For:Benign essential hypertension, Cardiomyopathy; Ordered By:Lauri Blair; 8. Follow-up visit in 6 months Outpatient Follow-up Status: Complete Done: 30Oct2014 Ordered; For: Benign essential hypertension, Cardiomyopathy; Ordered By: Lauri Blair Performed:Due: 13Nov2014; Last Updated By: Alta Claire; 10/30/2014 9:46:50 AM Ganglion cyst of wrist 9. Hand Referral Outpatient For: Benign essential hypertension For: Cardiomyopathy Status: Active Requested for: [id number] Ordered; For: Ganglion cyst of wrist; Ordered By: Lauri Blair Performed: Due: 13Nov2014; Last Updated By: Alta Claire; 10/30/2014 9:47:51 AM [facility] form completed. will fax when OV note is completed CBC W Differential; Status:Resulted - Requires Verification; Done: 22Feb2024 12:00AM Due:29Nov2014;Ordered; For:Benign essential hypertension, Cardiomyopathy; Ordered By:Lauri Blair; Compr Metabolic Prof ( CMP ); Status:Resulted - Requires Verification; Done: 22Feb2024 12:00AM Due:29Nov2014;Ordered; For:Benign essential hypertension, Cardiomyopathy; Ordered By:Lauri Blair; Lipid Profile; Status:Resulted - Requires Verification; Done: 22Feb2024 12:00AM Due:29Nov2014;Ordered; For:Benign essential hypertension, Cardiomyopathy; Ordered By:Lauri Blair; Urinalysis ( UA ) Culture If Ind; Status:Resulted - Requires Verification; Done: 22Feb2024 12:00AM Due:29Nov2014;Ordered; For:Benign essential hypertension, Cardiomyopathy; Ordered By:Lauri Blair; Creatine Kinase ( CK ) ( CPK ); Status:Resulted - Requires Verification; Done: 22Feb2024 12:00AM Due:29Nov2014;Ordered; For:Benign essential hypertension, Cardiomyopathy; Ordered By:Lauri Blair; Signatures Electronically signed by : Lauri Blair M.D.; Nov 03 2014 8:26PM JANITOR HELPER (Author) documented in this encounter Plan of Treatment Not on file documented as of this encounter Procedures Procedure Name Priority Date/Time Associated Diagnosis Comments COMPREHENSIVE METABOLIC PANEL Routine 10/30/2014 9:15 AM CDT LIPID PANEL Routine 10/30/2014 9:15 AM CDT CBC W/DIFF AUTOMATED Routine 10/30/2014 9:15 AM CDT CK (CPK) Routine 10/30/2014 9:15 AM CDT URINALYSIS WI REFLEX TO CULTURE Routine 10/30/2014 9:14 AM CDT documented in this encounter Results * (ABNORMAL) CBC W/DIFF AUTOMATED (10/30/2014 9:15 AM CDT) WBC 5.7 4.8 - 10.8 X10'3/uL [facility] TO [facility] CONVERSION RBC 5.30 4.70 - 6.10 X10'6/uL [facility] TO [facility] CONVERSION HGB 15.2 14.0 - 18.0 g/dL [facility] TO [facility] CONVERSION HCT 49.1 43.0 - 54.0 % [facility] CONVERSION MCV 92.6 80.0 - 94.0 fL [facility] TO [facility]IC CONVERSION MCH 28.7 27.0 - 31.0 pg [facility] TO [facility]IC CONVERSION MCHC 31.0(L) 32.0 - 36.0 g/dL [facility] TO [facility] CONVERSION RDW 13.5 11.5 - 14.5 % [facility] TO [facility] CONVERSION PLT 294 130 - 400 X10'3/uL [facility] TO [facility] CONVERSION GLUCOSE 9.6 9.3 - 12.2 fL [facility] TO [facility] CONVERSION BASOPHILS % 0.7 0.0 - 1.0 % [facility] TO [facility]IC CONVERSION EOSINOPHILS % 5.1(H) 1.0 - 3.0 % [facility] TO [facility]IC CONVERSION NEUTROPHILS % 44.9 43.0 - 65.0 % [facility] TO [facility]IC CONVERSION LYMPHOCYTES % 41.0 20.0 - 46.0 % [facility] TO [facility] CONVERSION MONOCYTES % 7.9 5.0 - 12.0 % [facility] TO [facility] CONVERSION IMMATURE GRANS % 0.4 0.0 - 1.0 % [facility] TO [facility]IC CONVERSION DIFFERENTIAL TYPE AUTOMATED [facility] TO [facility] CONVERSION 10/30/2014 9:15 AM CDT 10/30/2014 9:15 AM CDT Narrative [facility] TO [facility] CONVERSION - 10/30/2014 5:23 PM CDT Result Communication: Call patient with results us Lauri Blair MD LABORATORY Final Result [facility] TO [facility] CONVERSION * LIPID PANEL (10/30/2014 9:15 AM CDT) CHOLESTEROL 184 <200 mg/dL [facility] CONVERSION Comment: Result Comment: NOTE: Acetaminophen, N Acetyl p benzoquinone imine (NAPQI), N acetylcysteine (NAC), Metamizole, 4 Aminoantipyrine (4 AAP) and 4 Methylamino antipyrine (4 MAP) at high concentrations can cause falsely low results on Lactate, Uric Acid, Cholesterol, Triglyceride, HDL, and Direct LDL. TRIGLYCERIDES 129 <150 mg/dL [facility] TO [facility] CONVERSION HDL 60 >59 mg/dL [facility] CONVERSION LDL (CALCULATED) 98 <100 mg/dL [facility] TO [facility] CONVERSION NON HDL CHOLESTEROL 124 <130 mg/dL [facility] TO [facility] CONVERSION Comment: Result Comment: NOTE: WHEN THE TRIGLYCERIDES ARE >200 mg/dL, NON HDL C IS A SECONDARY TARGET OF THERAPY, WITH A GOAL 30 mg/dL HIGHER THAN THE IDENTIFIED LDL C GOAL. CHOL/HDL RATIO 3.1 0.0 - 4.5 [facility] CONVERSION VLDL CHOLESTEROL (LMP) 26 5 - 55 mg/dL [facility] TO EPIC [...] ? >=160 ?>=130 [facility] TO [facility]IC CONVERSION 10/30/2014 9:15 AM CDT 10/30/2014 9:15 AM CDT Narrative [facility] TO [facility] CONVERSION - 10/30/2014 6:19 PM CDT Result Communication: Call patient with results us Lauri Blair MD LABORATORY Final Result [facility] TO [facility] CONVERSION * (ABNORMAL) CK (CPK) (10/30/2014 9:15 AM CDT) CPK 943(H) 39 - 308 IU/L [facility] TO [facility]IC CONVERSION 10/30/2014 9:15 AM CDT 10/30/2014 9:15 AM CDT Narrative [facility] CONVERSION - 10/30/2014 6:19 PM CDT Result Communication: Call patient with results Lauri Blair MD LABORATORY Final Result [facility] TO [facility] CONVERSION * (ABNORMAL) COMPREHENSIVE METABOLIC PANEL (10/30/2014 9:15 AM CDT) [facility] SODIUM S/P/B 140 136 - 145 mmol/L [facility] TO EPIC CONVERSION POTASSIUM S/P/B 3.6 3.5 - 5.1 mmol/L [facility] TO EPIC CONVERSION CHLORIDE S/P/B 95(L) 98 - 107 mmol/L [facility] TO [facility]IC CONVERSION CO2 29 22 - 29 mmol/L [facility] TO [facility] CONVERSION ANION GAP 20 8 - 20 [facility] T O EPIC CONVERSION BUN 16 8 - 23 mg/dL [facility] TO [facility]IC CONVERSION CREATININE S/P/B 1.22(H) 0.70 - 1.20 mg/dL [facility] TO [facility]IC CONVERSION GFR ESTIMATE >60 >60 mL/min/1 .73m'2 [facility] TO [facility]IC CONVERSION EGFR AFR. AMER. >60 NOTE: eGFR is not calculated for patients <18 years of age. This is an estimated GFR (CKD EPI) and should not be used for calculating drug doses. >60 mL/min/1 .73m'2 [facility] TO [facility]IC CONVERSION GLUCOSE 119(H) 70 - 99 mg/dL [facility] TO [facility] CONVERSION CALCIUM S/P/B 9.5 8.6 - 10.2 mg/dL [facility] TO [facility]IC CONVERSION BILIRUBIN TOTAL S/P/B 0.8 0.2 - 1.2 mg/dL [facility] TO [facility]IC CONVERSION AST 25 0 - 40 IU/L [facility] TO [facility] CONVERSION ALT 19 0 - 41 IU/L [facility] TO [facility]IC CONVERSION ALKALINE PHOSPHATASE S/P/B 106 40 - 129 IU/L [facility] TO [facility]IC CONVERSION TOTAL PROTEIN S/P/B 8.0 6.4 - 8.3 g/dL [facility] TO EPIC CONVERSION ALBUMIN S/P/B 4.7 3.5 - 5.2 g/dL [facility] TO EPIC CONVERSION GLOBULIN 3.3 2.3 - 3.6 g/dL [facility] TO [facility]IC CONVERSION A/G RATIO 1.4 1.0 - 2.0 [facility] TO [facility]IC CONVERSION 10/30/2014 9:15 AM CDT 10/30/2014 9:15 AM CDT Narrative [facility] TO [facility] CONVERSION - 10/30/2014 6:19 PM CDT Result Communication: Call patient with results Lauri Blair MD LABORATORY Final Result [facility] TO [facility] CONVERSION * URINALYSIS WI REFLEX TO CULTURE (10/30/2014 9:14 AM CDT) SPECIMEN TYPE URINE CLEAN CATCH [facility] TO [facility] CONVERSION COLOR (U) YELLOW [facility] T O EPIC CONVERSION TRANSPARENCY CLEAR [facility] P TO EPIC CONVERSION SPECIFIC GRAVITY (U) 1.010 1.001 - 1.030 [facility] TO [facility]IC CONVERSION U PH 5.0 5.0 - 9.0 [facility] T O EPIC CONVERSION LEUKOCYTES (U) NEGATIVE NEG [facility] OUP TO EPIC CONVERSION NITRITES NEGATIVE NEG [facility] T O EPIC CONVERSION PROTEIN (U) NEGATIVE <30 MG/DL [facility] TO [facility]IC CONVERSION GLUCOSE NEGATIVE NEG MG/DL [facility] T O EPIC CONVERSION KETONES MG/DL (U) NEGATIVE NEG MG/DL [facility] TO [facility]IC CONVERSION UROBILINOGEN NEGATIVE NEG MG/DL [facility] P TO EPIC CONVERSION BILIRUBIN (U) NEGATIVE NEG MG/DL [facility] UP TO EPIC CONVERSION BLOOD (U) NEGATIVE NEG [facility] T O EPIC CONVERSION REFLEX URINE CULTURE: CULTURE IS NOT INDICATED [facility] TO [facility]IC CONVERSION SQUAMOUS EPITHELIALS FEW /LPF [facility] TO [facility] CONVERSION HYALINE CASTS FEW /LPF [facility] UP TO EPIC CONVERSION RBC/HPF <1 <6 /HPF [facility] T O EPIC CONVERSION WBC <1 <6 /HPF [facility] T O EPIC CONVERSION 10/30/2014 9:14 AM CDT 10/30/2014 9:14 AM CDT Narrative [facility] TO [facility]IC CONVERSION - 10/30/2014 6:17 PM CDT Result Communication: Call patient with results Lauri Blair MD URINE ORDERABLES Final Result [facility] TO [facility]IC CONVERSION documented in this encounter Visit Diagnoses Not on filedocumented in this encounter Care Teams Distribution Manager Relationship Specialty Start Date End Date Lauri Blair MD [address] [place] [address] PCP - General 10/30/14 documented as of this encounter
--- OUTSIDE RECORDS SUMMARY | 2024-02-26 22:57 | XMS_ITS | Encounter Summary ---
Author Organization [facility] Address [address] [place] [address]. [address] [address] Care Team Providers Care Emotional Disabilities Teacher Name Role Phone Lauri Blair MD Primary Care Provider [phone] Lauri Blair MD Primary Care Provider [phone] Encounter Details Date Type Department Care Team (Late st Contact Info) Description 05/15/2014 Abstract [facility] Medical Group Family & Internal Medicine - [place] [address] [place] [address] Lauri Blair MD [address] [place] [address] Social History Tobacco Use Types Packs/Day Years Used Date Smoking Tobacco: Never Assessed Sex and Gender Information Value Date Recorded Sex Assigned at Not on file Legal Sex Male 5:55 PM CDT Gender Identity Not on file Sexual Orientation Not on file documented as of this encounter Last Filed Vital Signs Vital Sign Reading Time Taken Comments Blood Pressure 143/82 05/15/2014 7:32 AM CDT Pulse 91 05/15/2014 7:32 AM CDT Temperature - - Respiratory Rate - - Oxygen Saturation - - Inhaled Oxygen Concentration - - Weight 117.9 kg (260 lb) 05/15/2014 7:32 AM CDT Height 182.9 cm (6') 05/15/2014 7:32 AM CDT Body Mass Index 35.26 05/15/2014 7:32 AM CDT documented in this encounter Progress Notes * Lauri Blair MD - 05/15/2014 7:15 AM CDT Reason For Visit Reason For Visit: Chronic Recheck Visit Chief Complaint Chief Complaint Free Text: General check up hypertension. History of Present Illness HPI Free Text: He has a bump on the back of his right wrist that he first noticed last week. No trauma to the area. He felt that this was much larger and then it seemed to go down but his hand was swollen for a fewdays but has now gone down. He does not have any numbness or tingling. He has not noticed any pain with movement of the hand. Hypertension (Follow-Up): The patient presents for follow-up of primary hypertension. The patient states he has been doing well with his blood pressure control since the last visit. Comorbid Illnesses: cardiac failure. He has no significant interval events. Symptoms: [...] (425.4) (I42.9) 3. Edema (782.3) (R60.9) 4. 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 Screening for endocrine, nutritional, metabolic and immunity disorder (V77.99) (Z13.9) 6. Screening for heart disease (V81.2) (Z13.6) 7. Screening for prostate cancer (V76.44) (Z12.5) 8. Vitamin d deficiency (268.9) (E55.9) Family History 1. Family history of Benign Essential Hypertension 2. Family history of Acute Myocardial Infarction (V17.3) Social History ?? Never a smoker Current Meds 1. AmLODIPine Besylate 10 MG Oral Tablet; TAKE 1 TABLET EVERY DAY; Therapy: 21May2013 to (Evaluate:16May2014) Requested for: 21May2013; Last Rx:21May2013 Ordered 2. Bystolic 10 MG Oral Tablet; TAKE 1 TABLET DAILY; Therapy: (Recorded:25Hnx3988) to Recorded 3. Furosemide 40 MG Oral Tablet; TAKE ONE TABLET BY MOUTH EVERY DAY; Therapy: 54Ilr8077 to (Evaluate:18Lta4286) Requested for: 82Eul7386; Last Rx:81Orz2333 Ordered 4. GuanFACINE HCl - 1 MG Oral Tablet; TAKE 1 TABLET DAILY AT BEDTIME; Therapy: 20Vld9793 to (Evaluate:18Grx9404) Requested for: 88Cfe6772; Last Rx:20Oit5630 Ordered 5. HydrALAZINE HCl - 100 MG Oral Tablet; TAKE 1 TABLET BY MOUTH 3 TIMES A DAY; Therapy: 58Ahw9594 to (Evaluate:33Jlu5626) Requested for: 93Jsi0492; Last Rx:11Qml8233 Ordered 6. Hydrochlorothiazide 25 MG Oral Tablet; TAKE 1 TABLET BY MOUTH DAILY; Therapy: 87Jdu6034 to (Evaluate:07Qfi0764) Requested for: 67Fey1863; Last Rx:84Pry0802 Ordered 7. Irbesartan 300 MG Oral Tablet; TAKE 1 TABLET DAILY; Therapy: 78Sgm1773 to (Evaluate:23Trv6451) Requested for: 10Ahc3333; Last Rx:77Eho7647 Ordered 8. Lisinopril 20 MG Oral Tablet; TAKE 1 TABLET BY MOUTH TWICE DAILY; Therapy: 24Ydz3838 to (Evaluate:61Dpj5726) Requested for: 99Exv9694; Last Rx:58Cvy5998 Ordered 9. Potassium Chloride Dorothy ER 20 MEQ Oral Tablet Extended Release; TAKE 1 TABLET BY MOUTH EVERY DAY; Therapy: 33Arb7644 to (Evaluate:56Jtn5099) Requested for: 02Fkx5611; Last Rx:93Vti7009 Ordered 10. Vitamin D-3 5000 UNIT Oral Tablet; Take 1 tablet daily; Therapy: (Recorded:07Rvn5936) to Recorded Allergies 1. No Known Drug Allergies Vitals Vital Signs [Data Includes: Current Encounter] Recorded: 15May2014 07:32AM Heart Rate 91 Respiration 16 Systolic 143 Diastolic 82 Height 6 ft Weight 260 lb BMI [...] of extremities for edema and/or varicosities: Normal. Lymphatic Palpation of lymph nodes in neck: No lymphadenopathy. Musculoskeletal Gait and station: Normal. Inspection/palpation of joints, bones, and muscles: Abnormal. There is a 1.5cm cyst on the dorsum of his right wrist. The cyst is nontender to palpation, and easily movable. No restriction in the range of motion. No swelling is noted. Neurologic Cranial nerves: Cranial nerves 2-12 intact. Psychiatric Mood and affect: Normal. Assessment 1. Benign essential hypertension (401.1) (I10) Plan 1. Follow-up visit in 6 months Outpatient Follow-up Status: Complete Done: 15May2014 Ordered; For: Benign essential hypertension, Cardiomyopathy; Ordered By: Lauri Blair Performed:Due: 29May2014; Last Updated By: Rekha Trent; 05/15/2014 7:54:57 AM 2. Prostate Specif Ag ( PSA ) Scrn; Status:Hold For - Manual Activation; Requested for:15May2014; Perform:[facility]; Due:14Jun2014;Ordered; For:Screening for prostate cancer; Ordered By:Lauri Blair; Signatures Electronically signed by : Lauri Blair M.D.; May 15 2014 7:56AM ASSISTANT INFANT TODDLER TEACHER (Author) documented in this encounter Plan of Treatment Not on file documented as of this encounter Visit Diagnoses Not on filedocumented in this encounter Care Teams Emotional Disabilities Teacher Relationship Specialty Start Date End Date Lauri Blair MD [address] [place] [address] PCP - General 10/30/14 Lauri Blair MD [address] [place] [address] PCP - General 05/15/14 10/29/14 documented as of this encounter
--- OUTSIDE RECORDS SUMMARY | 2024-02-26 22:57 | XMS_ITS | Encounter Summary ---
Author Organization [facility] Address [address] [place] [address]. [address] [address] Care Team Providers Care Online Content Coordinator Name Role Phone Lauri Blair MD Primary Care Provider [phone] Encounter Details Date Type Department Care Team (Latest Contact Info) Description 06/21/2016 Abstract [facility] Medical Group Social History Tobacco [...] on filedocumented in this encounter Care Teams Online Content Coordinator Relationship Specialty Start Date End Date Lauri Blair MD [address] [place] [address] PCP - General 10/30/14 documented as of this encounter
--- OUTSIDE RECORDS SUMMARY | 2024-02-26 22:57 | XMS_ITS | Encounter Summary ---
Author Organization [facility] Address [address] [place] [address]. [address] [address] Care Team Providers Care Universal Grinder Tool Name Role Phone Lauri Blair MD Primary Care Provider [phone] Lauri Blair MD Primary Care Provider [phone] Lauri Blair MD Primary Care Provider [phone] Encounter Details Date Type Department Care Team (Latest Contact Info) Description 12/24/2011 Abstract [facility] Medical Group Social History Tobacco [...] on filedocumented in this encounter Care Teams Universal Grinder Tool Relationship Specialty Start Date End Date Lauri Blair MD [address] [place] [address] PCP - General 10/30/14 Lauri Blair MD [address] [place] [address] PCP - General 05/15/14 10/29/14 Lauri Blair MD [address] [place] [address] PCP - General 05/24/13 05/14/14 documented as of this encounter
--- OUTSIDE RECORDS SUMMARY | 2024-02-26 22:57 | XMS_ITS | Encounter Summary ---
Author Organization [facility] Address [address] [place] [address]. [address] [address] Care Team Providers Care Electrical Inspector Name Role Phone Lauri Blair MD Primary Care Provider [phone] Encounter Details Date Type Department Care Team (Latest Contact Info) Description 03/21/2015 Abstract [facility] Medical Group Social History Tobacco Use [...] on filedocumented in this encounter Care Teams Electrical Inspector Relationship Specialty Start Date End Date Lauri Blair MD [address] [place] [address] PCP - General 10/30/14 documented as of this encounter
--- OUTSIDE RECORDS SUMMARY | 2024-02-26 22:57 | XMS_ITS | Encounter Summary ---
Author Organization [facility] Address [address] [place] [address]. [place], [place] [address] [place] [address] Care Team Providers Care Mailing Machine Helper Name Role Phone Lauri Blair MD Primary Care Provider [phone] Lauri Blair MD Primary Care Provider [phone] Lauri Blair MD Primary Care Provider [phone] Encounter Details Date Type Department Care Team (Late st Contact Info) Description 03/24/[address] [facility] [place] [address] Lauri Blair MD [address] [place] [id number] Social History Tobacco Use Types Packs/Day Years [...] hypertension documented in this encounter Care Teams Mailing Machine Helper Relationship Specialty Start Date End Date Lauri Blair MD [address] [place] [address] PCP - General 10/30/14 Lauri Blair MD [address] [place] [address] PCP - General 05/15/14 10/29/14 Lauri Blair MD [address] [place] [address] PCP - General 05/24/13 05/14/14 documented as of this encounter
--- OUTSIDE RECORDS SUMMARY | 2024-02-26 22:57 | XMS_ITS | Encounter Summary ---
Author Organization [facility] Address [address] [place] [address]. [address] [address] Care Team Providers Care Snapper On Name Role Phone Lauri Blair MD Primary Care Provider [phone] Lauri Blair MD Primary Care Provider [phone] Lauri Blair MD Primary Care Provider [phone] Encounter Details Date Type Department Care Team (Latest Contact Info) Description 03/24/2011 Abstract [facility] Medical Group Social History [...] on filedocumented in this encounter Care Teams Snapper On Relationship Specialty Start Date End Date Lauri Blair MD [address] [place] [address] PCP - General 10/30/14 Lauri Blair MD [address] [place] [address] PCP - General 05/15/14 10/29/14 Lauri Blair MD [address] [place] [address] PCP - General 05/24/13 05/14/14 documented as of this encounter
--- OUTSIDE RECORDS SUMMARY | 2024-02-26 22:57 | XMS_ITS | Encounter Summary ---
Author Organization [facility] Address [address] [place] [address]. [address] [address] Care Team Providers Care Project Management Manager Name Role Phone Lauri Blair MD Primary Care Provider [phone] Lauri Blair MD Primary Care Provider [phone] Encounter Details Date Type Department Care Team (Latest Contact Info) Description 05/16/2014 Abstract [facility] Medical Group Social History Tobacco Use Types Packs/Day Years Used Date Smoking Tobacco: Never Assessed Sex and Gender Information Value Date Recorded Sex Assigned at Not on file Legal Sex Male 5:55 PM CDT Gender Identity Not on file Sexual Orientation Not on file documented as of this encounter Progress Notes * Lauri Blair MD - 05/16/2014 9:56 PM CDT Message CK is elevated recheck in 4 weeks. PT NOTIFIED, LAB ORDER MAILED-NK Verified Results CBC W Differential 15May2014 08:05AM Lauri Blair Test Name Result Flag Reference White Blood Cell Count (WBC) 4.9 X10'3/uL 4.8-10.8 Red Blood Cell Count (RBC) 5.17 X10'6/uL 4.70-6.10 Hemoglobin (HGB) 14.8 g/dL 14.0-18.0 Hematocrit (HCT) 47.5 % 43.0-54.0 Mean Corpuscular Volume (MCV) 91.9 fL 80.0-94.0 Mean Corpuscular Hgb (MCH) 28.6 pg 27.0-31.0 Mean Corpuscular Hgb Conc (MCH 31.2 g/dL L 32.0-36.0 Red Cell Distrib Width (RDW) 13.6 % 11.5-14.5 Platelet Count (PLT) 284 X10'3/uL 130-400 Mean Platelet Volume (MPV) 9.8 fL 9.3-12.2 Basophils % (Auto) 0.4 % 0.0-1.0 Eosinophils % (Auto) 2.9 % 1.0-3.0 Neutrophils % (Auto) 44.9 % 43.0-65.0 Lymphocytes % (Auto) 41.0 % 20.0-46.0 Monocytes % (Auto) 10.2 % 5.0-12.0 IMMATURE GRANULOCYTES 0.6 % 0.0-1.0 Differential Type AUTOMATED Compr Metabolic Prof ( CMP ) 15May2014 08:05AM Lauri Blair Test Name Result Flag Reference Sodium (Na) 139 mmol/L 136-145 Potassium (K) 3.8 mmol/L 3.5-5.1 Chloride (Cl) 99 mmol/L 98-107 Carbon Dioxide (CO2) 28 mmol/L 22-29 Anion Gap 16 8-20 Blood Urea Nitrogen (BUN) 19 mg/dL 8-23 Creatinine 1.17 mg/dL 0.70-1.20 Glomerular Filt Rate Calc >60 mL/min/1.73m'2 >60 Glomerular Filt Rate (AA) Calc >60 >60 NOTE: eGFR is not calculated for patients <18 years of age. This is an estimated GFR (CKD EPI) and should not be used for calculating drug doses. mL/min/1.73m'2 Glucose 109 mg/dL H 70-99 Calcium 10.0 mg/dL 8.6-10.2 Total Bilirubin 0.9 mg/dL 0.2-1.2 AST/GOT 23 IU/L 0-40 ALT/GPT 15 IU/L 0-41 Alkaline Phosphatase (ALKP) 86 IU/L 40-129 Total Protein 7.7 g/dL 6.4-8.3 Albumin 4.7 g/dL 3.5-5.2 Globulin, Calc 3.0 g/dL 2.3-3.6 A:G Ratio 1.6 1.0-2.0 Creatine Kinase ( CK ) ( CPK ) 15May2014 08:05AM Lauri Blair Test Name Result Flag Reference Creatine Kinase (CK) 921 IU/L H 39-308 Lipid Profile 15May2014 08:05AM Lauri Blair Test Name Result Flag Reference Cholesterol 197 mg/dL <200 Triglycerides 91 mg/dL <150 HDL Cholesterol 67 mg/dL >59 LDL Cholesterol, Calculated 112 mg/dL H <100 Non HDL, Calc 130 mg/dL H <130 NOTE: WHEN THE TRIGLYCERIDES ARE >200 mg/dL, NON HDL C IS A SECONDARY TARGET OF THERAPY, WITH A GOAL 30 mg/dL HIGHER THAN THE IDENTIFIED LDL C GOAL. Cholesterol/HDL Ratio 2.9 0.0-4.5 VLDL Cholesterol 18 mg/dL 5-55 Lipid Profile Comment 1 (Report) NIH CONCENSUS REPORT RECOMMENDATIONS: ADULT CHILD LOW RISK: CHOLESTEROL <200 <170 TRIGLYCERIDE <150 --- HDL >=60 --- LDL <100 <110 BORDERLINE: CHOLESTEROL 200-239 170-199 TRIGLYCERIDE 150-199 --- HDL 40-59 --- LDL 100-159 110-129 HIGH RISK: CHOLESTEROL >=240 >=200 TRIGLYCERIDE >=200 --- HDL <40 --- LDL >=160 >=130 TSH W Reflex Free T4 15May2014 08:05AM Lauri Blair Test Name Result Flag Reference TSH w Reflex Free T4 2.63 mIU/mL 0.27-4.20 FREE T4 NOT INDICATED Vitamin D 25 - Hydroxy 15May2014 08:05AM Lauri Blair Test Name Result Flag Reference Vitamin D 25-Hydroxy 56 NG/ML 30-100 SUPPLEMENTING WITH VITAMIN D2 MAY RESULT IN FALSELY LOW RESULTS, CLINICAL CORRELATION NEEDED. INTERPRETATION DEFICIENT <20 INSUFFICIENT 20-30 SUFFICIENT 30-100 POTENTIAL INTOXICATION >100 TESTING PERFORMED AT [facility], A MEMBER OF THE [facility]. Urinalysis ( UA ) Culture If Ind 15May2014 07:55AM Lauri Blair Test Name Result Flag Reference Specimen Type URINE CLEAN CATCH Urine Color STRAW Urine Clarity CLEAR Urine Specific [place] 1.012 1.001-1.030 Urine pH 6.0 5.0-9.0 Urine Leukocyte Esterase NEG NEG Urine Nitrite NEG NEG Urine Protein NEG MG/DL <30 Urine Glucose NEG MG/DL NEG Urine Ketones (Acetone) NEG MG/DL NEG Urine Urobilinogen NEG MG/DL NEG Urine Bilirubin NEG MG/DL NEG Urine Occult Blood NEG NEG Culture Indicated CULTURE IS NOT INDICATED Squamous Epithelial RARE /LPF Urine RBC <1 /HPF <6 Urine WBC 1 /HPF <6 Urine Bacteria RARE /HPF A NONE Plan Elevated creatine kinase level ?? Creatine Kinase ( CK ) ( CPK ); Status:Active; Requested for:14Jun2014; Signatures Electronically signed by : Ashanti Gonzalez, ; May 17 2014 11:32AM CHILD AND FAMILY THERAPIST (Author) documented in this encounter Plan of Treatment Not on file documented as of this encounter Visit Diagnoses Not on filedocumented in this encounter Care Teams Project Management Manager Relationship Specialty Start Date End Date Lauri Blair MD [address] [place] [address] PCP - General 10/30/14 Lauri Blair MD [address] [place] [address] PCP - General 05/15/14 10/29/14 documented as of this encounter
--- OUTSIDE RECORDS SUMMARY | 2024-02-26 22:57 | XMS_ITS | Encounter Summary ---
Author Organization [facility] Address [address] [place] [address]. [place], [place] [address] [place] [address] Care Team Providers Care Cloth Cutter Name Role Phone Lauri Blair MD Primary Care Provider Encounter Details Date Type Department Care Team (Late st Contact Info) Description 04/24/2015 Abstract [facility] Medical Group Family & Internal Medicine [address] [address] Lauri Blair MD [address] [place] [address] Social History Tobacco Use Types Packs/Day Years [...] on filedocumented in this encounter Care Teams Cloth Cutter Relationship Specialty Start Date End Date Lauri Blair MD [address] [place] [address] PCP - General 10/30/14 documented as of this encounter
--- OUTSIDE RECORDS SUMMARY | 2024-02-26 22:57 | XMS_ITS | Encounter Summary ---
Author Organization [facility] Address [address] [place] [address]. [address] [address] Care Team Providers Care Faucet Polisher Name Role Phone Lauri Blair MD Primary Care Provider [phone] Lauri Blair MD Primary Care Provider Lauri Blair MD Primary Care Provider [phone] Encounter Details Date Type Department Care Team (Latest Contact Info) Description 10/19/2011 Abstract [facility] Medical Group Social [...] on filedocumented in this encounter Care Teams Faucet Polisher Relationship Specialty Start Date End Date Lauri Blair MD [address] [place] [address] PCP - General 10/30/14 Lauri Blair MD [address] [place] [address] PCP - General 05/15/14 10/29/14 Lauri Blair MD [address] [place] [address] PCP - General 05/24/13 05/14/14 documented as of this encounter
--- OUTSIDE RECORDS SUMMARY | 2024-02-26 22:57 | XMS_ITS | Encounter Summary ---
Author Organization [facility] Address [address] [place] [address]. [place] [id number] Care Team Providers Care Milk Wagon Driver Name Role Phone Lauri Blair MD Primary Care Provider [phone] Lauri Blair MD Primary Care Provider [phone] Lauri Blair MD Primary Care Provider [phone] Encounter Details Date Type Department Care Team (Latest Contact Info) Description 02/29/2012 Abstract [facility] Medical Group Social History Tobacco Use Types Packs/Day Years Used Date Smoking Tobacco: Never Assessed Sex and Gender Information Value Date Recorded Sex Assigned at Not on file Legal Sex Male 5:55 PM CDT Gender Identity Not on file Sexual Orientation Not on file documented as of this encounter Progress Notes * Generic Conversion MD Alondra - 02/29/2012 11:29 AM CST Message Recorded as Task Date: 02/29/2012 08:26 AM, Created By: Rekha Garcia Task Name: Medical Complaint Callback Assigned To: [facility] Team Johnnie Regarding Patient: Portillo Tai, Status: Active Comment: Rekha Garcia - 29 Feb 2012 8:26 AM TASK CREATED Caller: Self; Medical Complaint; partner is being treated for infection caused by tampon getting stuck. she is being treated with metronidazol 500mg, her physician instructed mr. tai to contact you for treatment as well. currently reporting no symptoms. Lauri Blair - 29 Feb 2012 11:25 AM TASK REASSIGNED: Previously Assigned To Lauri Blair Flagyl 500mg bid x 7 days No alcohol while taking this. Plan 1. MetroNIDAZOLE 500 MG Oral Tablet; TAKE 1 TABLET TWICE DAILY UNTIL FINISHED; Therapy: to (Evaluate:07Mar2012); Last Rx:29Feb2012 Signatures Electronically signed by : Alyssa Brunson, ; Feb 29 2012 11:30AM (Author) TOR ENGINE ASSEMBLER documented in this encounter Plan of Treatment Not on file documented as of this encounter Visit Diagnoses Not on filedocumented in this encounter Care Teams Milk Wagon Driver Relationship Specialty Start Date End Date Lauri Blair MD [address] [place] [address] PCP - General 10/30/14 Lauri Blair MD [address] [place] [address] PCP - General 05/15/14 10/29/14 Lauri Blair MD [address] [place] [address] PCP - General 05/24/13 05/14/14 documented as of this encounter
--- OUTSIDE RECORDS SUMMARY | 2024-02-26 22:57 | XMS_ITS | Encounter Summary ---
Author Organization [facility] Address [address] [place] [address]. [place], [place] [address] [place] [address] Care Team Providers Care Registered Route Associate Name Role Phone Lauri Blair MD Primary Care Provider [phone] Encounter Details Date Type Department Care Team (Late st Contact Info) Description 02/16/2017 Orders Only [facility] [address] [place], [place] [id number] Lauri Blair MD [address] [place] [address] Social History Tobacco Use Types Packs/Day Years Used Date Smoking Tobacco: Never Assessed Sex and Gender Information Value Date Recorded Sex Assigned at Not on file Legal Sex Male 5:55 PM CDT Gender Identity Not on file Sexual Orientation Not on file documented as of this encounter Plan of Treatment Not on file documented as of this encounter Results * (ABNORMAL) VITAMIN D, 25 OH (02/16/2017 8:37 AM CROP NUTRITION SCIENTIST) VITAMIN D 25 HYDROXY S/P/B 24(L) 30 - 100 NG/ML 02/16/2017 10:41 PM CROP NUTRITION SCIENTIST [facility] Comment: ? INTERPRETATION ? DEFICIENT ??<20 ? INSUFFICIENT 20-29 ?SUFFICIENT 30-100 02/16/2017 8:37 AM CROP NUTRITION SCIENTIST Lauri Blair MD LABORATORY Final Result [facility] [address] [place] [address], * (ABNORMAL) URIC ACID BLOOD (02/16/2017 8:37 AM CROP NUTRITION SCIENTIST) URIC ACID 7.4(H) 3.5 - 7.2 MG/DL 02/16/2017 10:51 PM CROP NUTRITION SCIENTIST [facility] 02/16/2017 8:37 AM CROP NUTRITION SCIENTIST Lauri Blair MD LABORATORY Final Result Performing Organization Address [facility] Co de Phone Number [facility] [address] [place] [address], * TSH W/REFLEX (02/16/2017 8:37 AM CROP NUTRITION SCIENTIST) TSH 2.360 0.358 - 3.74 uIU/ML 02/16/2017 10:51 PM CROP NUTRITION SCIENTIST [facility] Comment: HIGH DOSES OF BIOTIN MAY INTERFERE WITH THIS TEST RESULT. CORRELATION TO CLINICAL HISTORY AND PRESENTATION RECOMMENDED. FREE T4 NOT INDICATED 02/16/2017 8:37 AM CROP NUTRITION SCIENTIST Lauri Blair MD LABORATORY Final Result [facility] [address] [place] [address], * PROSTATE SPECIFIC ANTIGEN,SCREENING (02/16/2017 8:37 AM CROP NUTRITION SCIENTIST) PSA 3.90 <4.00 NG/ML 02/16/2017 10:51 PM CROP NUTRITION SCIENTIST [facility] Comment: Test was performed using the Siemens method. ??Results obtained with other assay methods or kits cannot be used interchangeably with results obtained by the Siemens method. 02/16/2017 8:37 AM CROP NUTRITION SCIENTIST Lauri Blair MD LABORATORY Final Result [facility] [address] [place] [address], * (ABNORMAL) COMPREHENSIVE METABOLIC PANEL (02/16/2017 8:37 AM CROP NUTRITION SCIENTIST) [facility] GLUCOSE 100(H) 70 - 99 MG/DL 02/16/2017 10:51 PM [facility] BUN 17 7 - 18 MG/DL 02/16/2017 10:51 PM [facility] CREATININE S/P/B 1.23 0.7 - 1.3 MG/DL 02/16/2017 10:51 PM [facility] SODIUM S/P/B 140 136 - 145 MMOL/L 02/16/2017 10:51 PM [facility] POTASSIUM S/P/B 3.7 3.5 - 5.1 MMOL/L 02/16/2017 10:51 PM [facility] CHLORIDE S/P/B 103 100 - 108 MMOL/L 02/16/2017 10:51 PM [facility] CO2 27.0 21 - 32 MMOL/L 02/16/2017 10:51 PM [facility] CALCIUM S/P/B 9.1 8.5 - 10.1 MG/DL 02/16/2017 10:51 PM [facility] BILIRUBIN TOTAL S/P/B 0.8 0.2 - 1.2 MG/DL 02/16/2017 10:51 PM [facility] TOTAL PROTEIN S/P/B 7.8 6.4 - 8.2 G/DL 02/16/2017 10:51 PM [facility] ALBUMIN S/P/B 3.7 3.4 - 5.0 G/DL 02/16/2017 10:51 PM [facility] AST 19 15 - 37 U/L 02/16/2017 10:51 PM [facility] ALT 18 16 - 60 U/L 02/16/2017 10:51 PM [facility] ALKALINE PHOSPHATASE S/P/B 99 50 - 136 U/L 02/16/2017 10:51 PM [facility] ANION GAP 13.7 8 - 20 MMOL/L 02/16/2017 10:51 PM [facility] BUN CREATININE RATIO 13.8 6 - 26 02/16/2017 10:51 PM [facility] A/G RATIO 0.9(L) 1.0 - 2.0 RATIO 02/16/2017 10:51 PM [facility] EGFR NON-AFR. AMER. >60 >60 ML/MIN/1.7 3 M2 02/16/2017 10:51 PM [facility] EGFR AFR. AMER. >60 >60 ML/MIN/1.7 3 M2 02/16/2017 10:51 PM [facility] Comment: NOTE: eGFR is not calculated for patients <18 years of age. This is an estimated GFR (CKD EPI) and should not be used for calculating drug doses. 02/16/2017 8:37 AM CROP NUTRITION SCIENTIST us Lauri Blair MD LABORATORY Final Result [facility] [address] [place] [address], [place] [phone] * (ABNORMAL) CBC W/DIFF AUTOMATED (02/16/2017 8:37 AM CROP NUTRITION SCIENTIST) WBC 5.4 4.8 - 10.8 x10'3/uL 02/16/2017 10:12 PM [facility] RBC 5.30 4.70 - 6.10 x10'6/uL 02/16/2017 10:12 PM [facility] HGB 15.0 14.0 - 18.0 G/DL 02/16/2017 10:12 PM [facility] HCT 48.5 43.0 - 54.0 % 02/16/2017 10:12 PM [facility] MCV 91.5 80.0 - 94.0 FL 02/16/2017 10:12 PM [facility] MCH 28.3 27.0 - 31.0 PG 02/16/2017 10:12 PM [facility] MCHC 30.9(L) 32.0 - 36.0 G/DL 02/16/2017 10:12 PM [facility] RDW 14.2 11.5 - 14.5 % 02/16/2017 10:12 PM [facility] PLT 293 130 - 400 x10'3/uL 02/16/2017 10:12 PM [facility] MPV 10.7 9.3 - 12.2 FL 02/16/2017 10:12 PM [facility] NEUTROPHILS % 54.7 43.0 - 65.0 % 02/16/2017 10:12 PM [facility] LYMPHOCYTES % 33.5 20.0 - 46.0 % 02/16/2017 10:12 PM [facility] MONOCYTES % 7.7 5.0 - 12.0 % 02/16/2017 10:12 PM [facility] EOSINOPHILS 3.0 1.0 - 3.0 % 02/16/2017 10:12 PM CROP NUTRITION SCIENTIST [facility] BASOPHILS 0.7 0.0 - 1.0 % 02/16/2017 10:12 PM CROP NUTRITION SCIENTIST [facility] IMMATURE GRANS % 0.4 0.0 - 1.0 % 02/16/2017 10:12 PM CROP NUTRITION SCIENTIST [facility] 02/16/2017 8:37 AM CROP NUTRITION SCIENTIST Lauri Blair MD LABORATORY Final Result [facility] [address] [place] [address], documented in this encounter Visit Diagnoses Diagnosis Encounter for screening for diseases of the blood and blood-forming organs and certain disorders involving the immune mechanism Encounter for screening for nutritional disorder Screening for other and unspecified endocrine, nutritional, metabolic, and immunity disorders Encounter for screening for other metabolic disorders documented in this encounter Care Teams Registered Route Associate Relationship Specialty Start Date End Date Lauri Blair MD [address] [place] [address] PCP - General 10/30/14 documented as of this encounter
--- OUTSIDE RECORDS SUMMARY | 2024-02-26 22:57 | XMS_ITS | Encounter Summary ---
Author Organization [facility] Address [address] [place] [address]. [place], [place] [id number] [place] [address] Care Team Providers Care Knit Goods Cutter Hand Name Role Phone Lauri Blair MD Primary Care Provider [phone] Encounter Details Date Type Department Care Team (Latest Contact Info) Description 02/16/2017 9:02 PM UTILITY REPAIRER - 02/16/2017 11:59 PM UTILITY REPAIRER Hospital Encounter [facility] [place] [address] Lauri Blair MD [address] [place] [address] Discharge Disposition: Home or Self Care (Routine Discharge) Social History Tobacco Use Types Packs/Day Years [...] Date/Time Associated Diagnosis Comments TSH W/REFLEX Routine 02/16/2017 8:37 AM UTILITY REPAIRER Encounter for screening for diseases of the blood and blood-forming organs and certain disorders involving the immune mechanism Encounter for screening for nutritional disorder Encounter for screening for other metabolic disorders PROSTATE SPECIFIC ANTIGEN,SCREENING Routine 02/16/2017 8:37 AM UTILITY REPAIRER Encounter for screening for diseases of the blood and blood-forming organs and certain disorders involving the immune mechanism Encounter for screening for nutritional disorder Encounter for screening for other metabolic disorders COMPREHENSIVE METABOLIC PANEL Routine 02/16/2017 8:37 AM UTILITY REPAIRER Encounter for screening for diseases of the blood and blood-forming organs and certain disorders involving the immune mechanism Encounter for screening for nutritional disorder Encounter for screening for other metabolic disorders CBC W/DIFF AUTOMATED Routine 02/16/2017 8:37 AM UTILITY REPAIRER Encounter for screening for diseases of the blood and blood-forming organs and certain disorders involving the immune mechanism Encounter for screening for nutritional disorder Encounter for screening for other metabolic disorders VITAMIN D, 25 OH Routine 02/16/2017 8:37 AM UTILITY REPAIRER Encounter for screening for diseases of the blood and blood-forming organs and certain disorders involving the immune mechanism Encounter for screening for nutritional disorder Encounter for screening for other metabolic disorders URIC ACID BLOOD Routine 02/16/2017 8:37 AM UTILITY REPAIRER Encounter for screening for diseases of the blood and blood-forming organs and certain disorders involving the immune mechanism Encounter for screening for nutritional disorder Encounter for screening for other metabolic disorders documented in this encounter Results * (ABNORMAL) VITAMIN D, 25 OH (02/16/2017 8:37 AM UTILITY REPAIRER) [facility] VITAMIN D 25 HYDROXY S/P/B 24(L) 30 - 100 NG/ML 02/16/2017 10:41 PM UTILITY REPAIRER [facility] Comment: ? INTERPRETATION ? DEFICIENT ??<20 ? INSUFFICIENT 20-29 ?SUFFICIENT 30-100 02/16/2017 8:37 AM UTILITY REPAIRER us Lauri Blair MD LABORATORY Final Result [facility] [address] [place] [address], [place] [phone] * (ABNORMAL) URIC ACID BLOOD (02/16/2017 8:37 AM UTILITY REPAIRER) URIC ACID 7.4(H) 3.5 - 7.2 MG/DL 02/16/2017 10:51 PM UTILITY REPAIRER [facility] 02/16/2017 8:37 AM UTILITY REPAIRER us Lauri Blair MD LABORATORY Final Result [facility] [address] [place] [address], * TSH W/REFLEX (02/16/2017 8:37 AM UTILITY REPAIRER) Pathologist [facility] [place] TSH 2.360 0.358 - 3.74 uIU/ML 02/16/2017 10:51 PM UTILITY REPAIRER [facility] Comment: HIGH DOSES OF BIOTIN MAY INTERFERE WITH THIS TEST RESULT. CORRELATION TO CLINICAL HISTORY AND PRESENTATION RECOMMENDED. FREE T4 NOT INDICATED 02/16/2017 8:37 AM UTILITY REPAIRER us Lauri Blair MD LABORATORY Final Result Performing Organization Address City/[facility] Co de Phone Number [facility] [address] [place] [address], [place] [phone] * PROSTATE SPECIFIC ANTIGEN,SCREENING (02/16/2017 8:37 AM UTILITY REPAIRER) PSA 3.90 <4.00 NG/ML 02/16/2017 10:51 PM UTILITY REPAIRER [facility] Comment: Test was performed using the Siemens method. ??Results obtained with other assay methods or kits cannot be used interchangeably with results obtained by the Siemens method. 02/16/2017 8:37 AM UTILITY REPAIRER us Lauri Blair MD LABORATORY Final Result [facility] [address] [place] [address], [place] [phone] * (ABNORMAL) COMPREHENSIVE METABOLIC PANEL (02/16/2017 8:37 AM [facility]) [facility] GLUCOSE 100(H) 70 - 99 MG/DL 02/16/2017 10:51 PM [facility] BUN 17 7 - 18 MG/DL 02/16/2017 10:51 PM [facility] CREATININE S/P/B 1.23 0.7 - 1.3 MG/DL 02/16/2017 10:51 PM [facility] SODIUM S/P/B 140 136 - 145 MMOL/L 02/16/2017 10:51 PM [facility] POTASSIUM S/P/B 3.7 3.5 - 5.1 MMOL/L 02/16/2017 10:51 PM [facility] CHLORIDE S/P/B 103 100 - 108 MMOL/L 02/16/2017 10:51 PM [facility] CO2 27.0 21 - 32 MMOL/L 02/16/2017 10:51 PM [facility] CALCIUM S/P/B 9.1 8.5 - 10.1 MG/DL 02/16/2017 10:51 PM [facility] BILIRUBIN TOTAL S/P/B 0.8 0.2 - 1.2 MG/DL 02/16/2017 10:51 PM [facility] TOTAL PROTEIN S/P/B 7.8 6.4 - 8.2 G/DL 02/16/2017 10:51 PM [facility] ALBUMIN S/P/B 3.7 3.4 - 5.0 G/DL 02/16/2017 10:51 PM [facility] AST 19 15 - 37 U/L 02/16/2017 10:51 PM [facility] ALT 18 16 - 60 U/L 02/16/2017 10:51 PM [facility] ALKALINE PHOSPHATASE S/P/B 99 50 - 136 U/L 02/16/2017 10:51 PM [facility] ANION GAP 13.7 8 - 20 MMOL/L 02/16/2017 10:51 PM [facility] BUN CREATININE RATIO 13.8 6 - 26 02/16/2017 10:51 PM [facility] A/G RATIO 0.9(L) 1.0 - 2.0 RATIO 02/16/2017 10:51 PM [facility] EGFR NON-AFR. AMER. >60 >60 ML/MIN/1.7 3 M2 02/16/2017 10:51 PM [facility] EGFR AFR. AMER. >60 >60 ML/MIN/1.7 3 M2 02/16/2017 10:51 PM [facility] Comment: NOTE: eGFR is not calculated for patients <18 years of age. This is an estimated GFR (CKD EPI) and should not be used for calculating drug doses. 02/16/2017 8:37 AM UTILITY REPAIRER us Lauri Blair MD LABORATORY Final Result [facility] [address] [place] [address], * (ABNORMAL) CBC W/DIFF AUTOMATED (02/16/2017 8:37 AM UTILITY REPAIRER) WBC 5.4 4.8 - 10.8 x10'3/uL 02/16/2017 10:12 PM [facility] RBC 5.30 4.70 - 6.10 x10'6/uL 02/16/2017 10:12 PM [facility] HGB 15.0 14.0 - 18.0 G/DL 02/16/2017 10:12 PM [facility] HCT 48.5 43.0 - 54.0 % 02/16/2017 10:12 PM [facility] MCV 91.5 80.0 - 94.0 FL 02/16/2017 10:12 PM [facility] MCH 28.3 27.0 - 31.0 PG 02/16/2017 10:12 PM [facility] MCHC 30.9(L) 32.0 - 36.0 G/DL 02/16/2017 10:12 PM [facility] RDW 14.2 11.5 - 14.5 % 02/16/2017 10:12 PM [facility] PLT 293 130 - 400 x10'3/uL 02/16/2017 10:12 PM [facility] MPV 10.7 9.3 - 12.2 FL 02/16/2017 10:12 PM [facility] NEUTROPHILS % 54.7 43.0 - 65.0 % 02/16/2017 10:12 PM [facility] LYMPHOCYTES % 33.5 20.0 - 46.0 % 02/16/2017 10:12 PM [facility] MONOCYTES % 7.7 5.0 - 12.0 % 02/16/2017 10:12 PM [facility] EOSINOPHILS 3.0 1.0 - 3.0 % 02/16/2017 10:12 PM [facility] BASOPHILS 0.7 0.0 - 1.0 % 02/16/2017 10:12 PM [facility] IMMATURE GRANS % 0.4 0.0 - 1.0 % 02/16/2017 10:12 PM [facility] 02/16/2017 8:37 AM UTILITY REPAIRER us Lauri Blair MD LABORATORY Final Result [facility] [address] [place] [address], documented in this encounter Visit Diagnoses Diagnosis Encounter for screening for diseases of the blood and blood-forming organs and certain disorders involving the immune mechanism Encounter for screening for nutritional disorder Screening for other and unspecified endocrine, nutritional, metabolic, and immunity disorders Encounter for screening for other metabolic disorders documented in this encounter Care Teams Knit Goods Cutter Hand Relationship Specialty Start Date End Date Lauri Blair MD [address] [place] [address] PCP - General 10/30/14 documented as of this encounter
--- OUTSIDE RECORDS SUMMARY | 2024-02-26 22:57 | XMS_ITS | Encounter Summary ---
Author Organization [facility] Address [address] [place] [address]. [address] [address] Care Team Providers Care Dry Cell And Battery Assembler Name Role Phone Lauri Blair MD Primary Care Provider [phone] Encounter Details Date Type Department Care Team (Latest Contact Info) Description 12/24/2014 Abstract [facility] Medical Group Social History Tobacco Use [...] on filedocumented in this encounter Care Teams Dry Cell And Battery Assembler Relationship Specialty Start Date End Date Lauri Blair MD [address] [place] [address] PCP - General 10/30/14 documented as of this encounter
--- OUTSIDE RECORDS SUMMARY | 2024-02-26 22:57 | XMS_ITS | Encounter Summary ---
Author Organization [facility] Address [address] [place] [address]. [place] [id number] Care Team Providers Care Qa Test Lead Name Role Phone Lauri Blair MD Primary Care Provider Lauri Blair MD Primary Care Provider [phone] Lauri Blair MD Primary Care Provider [phone] Encounter Details Date Type Department Care Team (Late st Contact Info) Description 11/03/2011 Abstract [facility] Family & Internal Medicine [place] [id number] [place] [address] Lauri Blair MD [facility] [place] [address] Social History Tobacco Use Types Packs/Day Years Used Date Smoking Tobacco: Never Assessed Sex and Gender Information Value Date Recorded Sex Assigned at Not on file Legal Sex Male 5:55 PM CDT Gender Identity Not on file Sexual Orientation Not on file documented as of this encounter Last Filed Vital Signs Vital Sign Reading Time Taken Comments Blood Pressure 138/82 11/03/2011 8:00 AM CDT Pulse 74 11/03/2011 8:00 AM CDT Temperature - - Respiratory Rate - - Oxygen Saturation - - Inhaled Oxygen Concentration - - Weight 112.5 kg (248 lb) 11/03/2011 8:00 AM CDT Height 182.9 cm (6') 11/03/2011 8:00 AM CDT Body Mass Index 33.63 11/03/2011 8:00 AM CDT documented in this encounter Progress Notes * Lauri Blair MD - 11/03/2011 7:45 AM CDT Reason For Visit Reason For Visit: Chronic Recheck Visit Chief Complaint Chief Complaint: f/u htn, cardiomyopathy dr chicas told him he could stop lasix History of Present Illness Cardiomyopathy, Dilated (Brief): The patient is being seen for a routine clinic follow-up of dilated cardiomyopathy. The patient is currently asymptomatic. No associated symptoms are reported. Current treatment includes angiotensin receptor blockers, diuretics and beta blockers. By report, there isgood compliance with treatment, good tolerance of treatment and good symptom control. Hypertension (Follow-Up): The patient presents for follow-up of primary hypertension. The patient states he has been doing well with his blood pressure control since the last visit. Comorbid Illnesses: cardiac failure. He has no significant interval events. Symptoms: Denies impaired vision, denies dyspnea, denies chest pain, denies intermittent leg claudication and denies lower extremity edema. Associated symptoms include no headache, no focal neurologic deficits and no memory loss. Home monitoring: The patient checks his blood pressure regularly. Blood pressure control has been good. Medications: The patient is adherent with his medication regimen. He denies medication side effects. Disease Management: The patient is doing well with his blood pressure goals. The patient is due fora lipid panel and a serum creatinine. Vitamin D Deficiency: The patient is being seen for follow-up of vitamin D deficiency. Disease type: vitamin D deficiency. Current treatment includes vitamin D3 (cholecalciferol). Review of Systems Focused-Male: Constitutional: Normal. ENT: normal. Cardiovascular: Normal. Respiratory: Normal. Gastrointestinal: Normal. Genitourinary: inadequacy of penile erection. Integumentary: Normal. Musculoskeletal: Normal. Neurological: Normal. Active Problems 1. Benign Essential Hypertension 401.1 2. Cardiomyopathy 425.4 3. Male Erectile Disorder 302.72 4. Vitamin D Deficiency 268.9 Current Meds 1. HydrALAZINE HCl 100 MG Oral Tablet; TAKE TABLET 3 times daily; Therapy: (Recorded:01Nov2011) to 2. Hydrochlorothiazide 25 MG Oral Tablet; TAKE 1 TABLET BY MOUTH DAILY; Therapy: [id number] to (Evaluate:[id number]) Requested for: 24Sep2011; Last Rx:24Sep2011 3. Irbesartan 300 MG Oral Tablet; TAKE 1 TABLET DAILY; Therapy: 28Oct2011 to (Evaluate:25May2012) Requested for: 28Oct2011; Last Rx:28Oct2011 4. Lisinopril 20 MG Oral Tablet; TAKE 2 TABLETS DAILY; Therapy: (Recorded:01Nov2011) to 5. Norvasc 10 MG Oral Tablet; TAKE 1 TABLET BY MOUTH EVERY DAY; Therapy: (Recorded:01Nov2011) to 6. Vitamin D-3 5000 UNIT Oral Tablet; Take 1 tablet daily; Therapy: (Recorded:03Nov2011) to Allergies 1. No Known Drug Allergies Vitals Signs [Data Includes: Current Encounter] 03Nov2011 08:00AM Heart Rate: 74 Respiration: 16 Systolic: 138 Diastolic: 82 BMI Calculated: 33.59 BSA Calculated: 2.34 Height: 6 ft Weight: 248 lb Physical Exam Constitutional General appearance: No acute distress, well appearing and well nourished. Eyes Conjunctiva and lids: No swelling, erythema, or discharge. Pupils and irises: Equal, round and reactive to light. Ears, Nose, Mouth, and Throat External inspection of ears and nose: Normal. Otoscopic examination: Tympanic membrance translucent with normal light reflex. Canals patent [...] Normal. Mood and affect: Normal. Assessment 1. Vitamin D Deficiency 268.9 2. Cardiomyopathy 425.4 3. Benign Essential Hypertension 401.1 Plan 1. Follow-up visit in 6 months Outpatient Follow-up Requested for: 03Nov2011 2. CBC with Diff Requested for: 03Nov2011 3. CMP (Comprehensive Metabolic Profile) Requested for: 03Nov2011 4. Lipid Profile Requested for: 03Nov2011 5. TSH (Thyroid Stim Hormone) Requested for: [id number] 6. Vitamin D 1,25-Dihydroxy Requested for: [id number] Signatures Electronically signed by : Lauri Blair M.D.; Nov 03 2011 8:16AM (Author) PER MAKER HELPER documented in this encounter Plan of Treatment Not on file documented as of this encounter Visit Diagnoses Not on filedocumented in this encounter Care Teams Qa Test Lead Relationship Specialty Start Date End Date Lauri Blair MD [address] [place] [address] PCP - General 10/30/14 Lauri Blair MD [address] [place] [address] PCP - General 05/15/14 10/29/14 Lauri Blair MD [address] [place] [address] PCP - General 05/24/13 05/14/14 documented as of this encounter
--- OUTSIDE RECORDS SUMMARY | 2024-02-26 22:57 | XMS_ITS | Encounter Summary ---
Author Organization [facility] Address [address] [place] [address]. [address] [address] Care Team Providers Care Briquette Machine Operator Name Role Phone Lauri Blair MD Primary Care Provider [phone] Lauri Blair MD Primary Care Provider [phone] Lauri Blair MD Primary Care Provider [phone] Encounter Details Date Type Department Care Team (Latest Contact Info) Description 10/28/2011 Abstract [facility] Social History Tobacco Use Types Packs/Day Years Used Date Smoking Tobacco: Never Assessed Sex and Gender Information Value Date Recorded Sex Assigned at Not on file Legal Sex Male 5:55 PM CDT Gender Identity Not on file Sexual Orientation Not on file documented as of this encounter Progress Notes * Generic Conversion MD Alondra - 10/28/2011 12:43 PM CDT Message Recorded as Task Date: 10/28/2011 08:24 AM, Created By: Rekha Garcia Task Name: Medical Complaint Callback Assigned To: [facility] Team Johnnie Regarding Patient: Portillo Martin, Status: Active Comment: Rekha Garcia - 28 Oct 2011 8:24 AM TASK CREATED Caller: Self; Medical Complaint; pt states pharmacy says avapro and cozaar are similar to diovan and would be cheaper for him. Lauri Blair - 28 Oct 2011 8:50 AM TASK REASSIGNED: Previously Assigned To Lauri Blair Can try Avapro 300mg daily Plan 1. Irbesartan 300 MG Oral Tablet; TAKE 1 TABLET DAILY; Therapy: to (Evaluate:25May2012); Last Rx:[id number] Signatures Electronically signed by : Alyssa Brunson, ; Oct 28 2011 12:44PM (Author) MANAGER documented in this encounter Plan of Treatment Not on file documented as of this encounter Visit Diagnoses Not on filedocumented in this encounter Care Teams Briquette Machine Operator Relationship Specialty Start Date End Date Lauri Blair MD [address] [place] [address] PCP - General 10/30/14 Lauri Blair MD [address] [place] [address] PCP - General 05/15/14 10/29/14 Lauri Blair MD [address] [place] [address] PCP - General 05/24/13 05/14/14 documented as of this encounter
--- OUTSIDE RECORDS SUMMARY | 2024-02-26 22:57 | XMS_ITS | Encounter Summary ---
Author Organization [facility] Address [address] [place] [address]. [place] [id number] Care Team Providers Care Human Anatomy Teacher Name Role Phone Lauri Blair MD Primary Care Provider [phone] Lauri Blair MD Primary Care Provider [phone] Lauri Blair MD Primary Care Provider [phone] Encounter Details Date Type Department Care Team (Late st Contact Info) Description 05/24/2013 Abstract [facility] Family & Internal Medicine [place] [address] [place] [address] Lauri Blair MD [facility] [place] [address] Social History Tobacco Use Types Packs/Day Years Used Date Smoking Tobacco: Never Assessed Sex and Gender Information Value Date Recorded Sex Assigned at Not on file Legal Sex Male 5:55 PM CDT Gender Identity Not on file Sexual Orientation Not on file documented as of this encounter Last Filed Vital Signs Vital Sign Reading Time Taken Comments Blood Pressure 140/86 05/24/2013 9:52 AM CDT Pulse 63 05/24/2013 9:52 AM CDT Temperature - - Respiratory Rate - - Oxygen Saturation - - Inhaled Oxygen Concentration - - Weight 113.4 kg (250 lb) 05/24/2013 9:52 AM CDT Height 182.9 cm (6') 05/24/2013 9:52 AM CDT Body Mass Index 33.91 05/24/2013 9:52 AM CDT documented in this encounter Progress Notes * Lauri Blair MD - 05/24/2013 9:30 AM CDT Reason For Visit Reason For Visit: Chronic Recheck Visit Chief Complaint Chief Complaint Free Text: f/u HTN, cardiomyopathy History of Present Illness Hypertension (Follow-Up): The patient presents for follow-up of primary hypertension. The patient states he has been doing well with his blood pressure control since the last visit. Comorbid Illnesses: cardiac failure and left ventricular hypertrophy. He has no significant interval events. Symptoms: The patient is currently asymptomatic. Associated symptoms include no headache, no focal neurologic deficits and no memory loss. Home monitoring: The patient is not checking blood pressure at home. Medications: The patient is adherent with his medication regimen. He denies medication side effects. Disease Management: The patient is doing well with his blood pressure goals. The patient is due fora lipid panel and a serum creatinine. Cardiomyopathy, Dilated (Brief): The patient is being seen for a routine clinic follow-up of dilated cardiomyopathy. The patient is currently asymptomatic. No associated symptoms are reported. Current treatment includes CHIOMA inhibitors, angiotensin receptor blockers, diuretics and beta blockers. By report, there is good compliance with treatment, good tolerance of treatment and good symptom control. Erectile Disorder: The patient is being seen for follow-up of erectile disorder. Symptoms: erectile dysfunction and inability to maintain erection, but no decreased libido and no excessive penile curvature. Associated Symptoms: he currently has no accompanying symptoms. Current Treatment: Current treatment includes: tadalafil. By report, there is good adherence with treatment, good tolerance of treatment and good symptom control. Review of Systems Focused-Male: Constitutional: Normal. ENT: normal. Cardiovascular: Normal. Respiratory: Normal. Gastrointestinal: Normal. Genitourinary: Normal. Integumentary: Normal. Musculoskeletal: Normal. Neurological: Normal. Psychiatric: Normal. Active Problems 1. Benign essential hypertension (401.1) (I10) 2. Cardiomyopathy (425.4) (I42.9) 3. 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 Vitamin d deficiency (268.9) (E55.9) Family History [...] Oral Tablet; TAKE 1 TABLET DAILY; Therapy: (Recorded:24May2013) to Recorded 3. HydrALAZINE HCl - 100 MG Oral Tablet; TAKE 1 TABLET BY MOUTH 3 TIMES A DAY; Therapy: 72Ugw7854 to (Evaluate:24Zrc7470) Requested for: 05Uxn2728; Last Rx:[id number] Ordered 4. Hydrochlorothiazide 25 MG Oral Tablet; TAKE 1 TABLET BY MOUTH DAILY; Therapy: 55Hrg8517 to (Evaluate:85Wgs5710) Requested for: 45Bzo1397; Last Rx:[id number] Ordered 5. Irbesartan 300 MG Oral Tablet (Avapro); TAKE 1 TABLET DAILY; Therapy: 22Knu8388 to (Evaluate:15May2014) Requested for: 95Kxg9666; Last Rx:[id number] Ordered 6. Lisinopril 20 MG Oral Tablet; TAKE 1 TABLET BY MOUTH TWICE DAILY; Therapy: 19Gzb0301 to (Evaluate:13Jan2014) Requested for: 11Tne8002; Last Rx:[id number] Ordered 7. Vitamin D-3 5000 UNIT Oral Tablet; Take 1 tablet daily; Therapy: (Recorded:97Bmo7922) to Recorded Allergies 1. No Known Drug Allergies Vitals Vital Signs [Data Includes: Current Encounter] Recorded by : Alyssa Brunson at 24May2013 09:52AM Heart Rate 63 Respiration 16 Systolic 140 Diastolic 86 O2 Saturation 96 Height 6 ft Weight 250 lb BMI Calculated 33.91 BSA Calculated 2.34 Physical Exam Constitutional General appearance: No acute [...] (401.1) (I10) 2. Cardiomyopathy (425.4) (I42.9) 3. Screening for endocrine, nutritional, metabolic and immunity disorder (V77.99) (Z13.9) 4. Screening for heart disease (V81.2) (Z13.6) 5. Screening for prostate cancer (V76.44) (Z12.5) Plan 1. Take your blood pressure once a day. Record the numbers and bring them with you to your appointments. Status: Complete Done: 24May2013 10:30AM Ordered; For: Benign essential hypertension; Ordered By: Lauri Blair 2. Start: Tribenzor 40-10-25 MG Oral Tablet; Take 1 tablet daily Rx By: Lauri Blair; Dispense: 90 Days ; #:90 Tablet; Refill: 3; For: Benign essential hypertension, Cardiomyopathy; CAROL = N; Print Rx 3. Follow-up visit in 6 months Outpatient Follow-up Status: Complete Done: 24May2013 Ordered; For: Benign essential hypertension, Cardiomyopathy; Ordered By: Lauri Blair Performed:Due: 03Jun2013; Last Updated By: Rekha Garcia; 05/24/2013 10:18:53 AM 4. CBC with Diff Status: Canceled Perform: Other Lab Due: 39Yoh3255; Ordered; For: Benign essential hypertension, Cardiomyopathy, Vitamin d deficiency; Ordered By: Lauri Blair 5. CMP (Comprehensive Metabolic Profile) Status: Canceled Perform: Other Lab Due: 05Jgq9962; Ordered; For: Benign essential hypertension, Cardiomyopathy, Vitamin d deficiency; Ordered By: Lauri Blair 6. Lipid Profile Status: Canceled Perform: Other Lab Due: 25Xhj3990; Ordered; For: Benign essential hypertension, Cardiomyopathy, Vitamin d deficiency; Ordered By: Lauri Blair 7. TSH (Thyroid Stim Hormone) Status: Canceled Perform: Other Lab Due: 25Rzd6560; Ordered; For: Benign essential hypertension, Cardiomyopathy, Vitamin d deficiency; Ordered By: Lauri Blair 8. Uric Acid Status: Canceled Perform: Other Lab Due: 43Ued9005; Ordered; For: Benign essential hypertension, Cardiomyopathy, Vitamin d deficiency; Ordered By: Lauri Blair 9. Urinalysis ( UA ) Culture If Ind Status: Canceled Perform: Other Lab Due: 14Rcl5049; Ordered; For: Benign essential hypertension, Cardiomyopathy, Vitamin d deficiency; Ordered By: Lauri Blair 10. Vitamin D 25-Hydroxy Status: Canceled Perform: Other Lab Due: 24Hej3102; Ordered; For: Benign essential hypertension, Cardiomyopathy, Vitamin d deficiency; Ordered By: Lauri Blair 11. Start: GuanFACINE HCl - 1 MG Oral Tablet; TAKE 1 TABLET DAILY AT BEDTIME Rx By: Lauri Blair; Dispense: 30 Days ; #:30 Tablet; Refill: 5; For: Cardiomyopathy; CAROL = N; Verified Transmission to [facility]; Last Updated By: Spark Etail; 05/24/2013 10:20:27 AM 12. Start: Cialis 20 MG Oral Tablet; TAKE 1 TABLET DAILY 1 HOUR BEFORE NEEDED Rx By: Lauri Blair; Dispense: 6 Days ; #:6 Tablet; Refill: 5; For: Erectile dysfunction of nonorganic origin; CAROL = N; Verified Transmission to [facility]; Last Updated By: Spark Etail; 05/24/2013 10:20:28 AM 13. CBC W Differential Status: Active Requested for: 24May2013 [facility] Due: 72Kkb6595; Last Updated By: Rekha Garcia; 05/24/2013 10:17:14 AM; Ordered; For: Screening for endocrine, nutritional, metabolic and immunity disorder, Screening for heart disease, Screening for prostate cancer; Ordered By: Lauri Blair 14. Compr Metabolic Prof ( CMP ) Status: Active Requested for: 24May2013 [facility]form[facility] Due: 77Opo0585; Last Updated By: Rekha Garcia; 05/24/2013 10:17:14 AM; Ordered; For: Screening for endocrine, nutritional, metabolic and immunity disorder, Screening for heart disease, Screening for prostate cancer; Ordered By: Lauri Blair 15. Lipid Profile Status: Active Requested for: 24May2013 [facility] Due: 23Maa7201; Last Updated By: Rekha Garcia; 05/24/2013 10:17:14 AM; Ordered; For: Screening for endocrine, nutritional, metabolic and immunity disorder, Screening for heart disease, Screening for prostate cancer; Ordered By: Lauri Blair 16. Prostate Specif Ag ( PSA ) Scrn Status: Active Requested for: 24May2013 Perform: [facility] Due: 90Jzs5077; Last Updated By: Rekha Garcia; 05/24/2013 10:17:14 AM; Ordered; For: Screening for endocrine, nutritional, metabolic and immunity disorder, Screening for heart disease, Screening for prostate cancer; Ordered By: Lauri Blair 17. TSH W Reflex Free T4 Status: Active Requested for: 24May2013 Perform: [facility] Due: 68Aim0963; Last Updated By: Rekha Garcia; 05/24/2013 10:17:14 AM; Ordered; For: Screening for endocrine, nutritional, metabolic and immunity disorder, Screening for heart disease, Screening for prostate cancer; Ordered By: Lauri Blair 18. Urinalysis ( UA ) Culture If Ind Status: Active Requested for: 24May2013 Perform: [facility] Due: 21Nfy3027; Last Updated By: Rekha Garcia; 05/24/2013 10:17:14 AM; Ordered; For: Screening for endocrine, nutritional, metabolic and immunity disorder, Screening for heart disease, Screening for prostate cancer; Ordered By: Lauri Blair 19. Vitamin D 25 - Hydroxy Status: Active Requested for: 24May2013 Perform: [facility] Due: 30Eyw2081; Last Updated By: Rekha Garcia; 05/24/2013 10:17:14 AM; Ordered; For: Screening for endocrine, nutritional, metabolic and immunity disorder, Screening for heart disease, Screening for prostate cancer; Ordered By: Lauri Blair Signatures Electronically signed by : Lauri Blair M.D.; May 24 2013 10:30AM RADIOLOGY SUPERVISOR (Author) documented in this encounter Plan of Treatment Not on file documented as of this encounter Procedures Procedure Name Priority Date/Time Associated Diagnosis Comments URINALYSIS WI REFLEX TO CULTURE Routine 05/24/2013 10:35 AM CDT TSH W/REFLEX Routine 05/24/2013 10:27 AM CDT PROSTATE SPECIFIC ANTIGEN,TOTAL Routine 05/24/2013 10:27 AM CDT COMPREHENSIVE METABOLIC PANEL Routine 05/24/2013 10:27 AM CDT LIPID PANEL Routine 05/24/2013 10:27 AM CDT CBC W/DIFF AUTOMATED Routine 05/24/2013 10:27 AM CDT VITAMIN D, 25 OH Routine 05/24/2013 10:2 7 AM CDT documented in this encounter Results * (ABNORMAL) URINALYSIS WI REFLEX TO CULTURE (05/24/2013 10:35 AM CDT) SPECIMEN TYPE URINE CLEAN CATCH [facility] TO EPIC CONVERSION COLOR (U) YELLOW [facility] T O EPIC CONVERSION TRANSPARENCY CLEAR [facility] TO EPIC CONVERSION SPECIFIC GRAVITY (U) 1.016 1.001 - 1.03 [facility] TO [facility]IC CONVERSION U PH 7.0 5.0 - 9.0 [facility] T O EPIC [...] NONE /HPF [facility] TO EPIC CONVERSION MUCUS RARE /LPF [facility] T O EPIC CONVERSION 05/24/2013 10:3 5 AM CDT 05/24/2013 10:35 AM CDT Narrative [facility] TO [facility] CONVERSION - 05/24/2013 8:32 PM CDT Result Communication: No patient communication needed at this time Lauri Blair MD URINE ORDERABLES Final Result Performing Organization Address [facility] Co de Phone Number [facility] TO EPIC CONVERSION * PROSTATE SPECIFIC ANTIGEN,TOTAL (05/24/2013 10:27 AM CDT) PSA 0.810 <4.0 ng/mL [facility] TO [facility]IC CONVERSION Comment: Result Comment: TEST WAS PERFORMED USING THE ABBI METHOD. ??PSA VALUES OBTAINED WITH OTHER ASSAY METHODS OR KITS CANNOT BE USED INTERCHANGEABLY WITH RESULTS OBTAINED BY THE ABBI METHOD. 05/24/2013 10:2 7 AM CDT 05/24/2013 10:27 AM CDT Narrative [facility] TO [facility]IC CONVERSION - 05/24/2013 9:17 PM CDT Result Communication: No patient communication needed at this time Lauri Blair MD LABORATORY Final Result [facility] TO [facility]IC CONVERSION * VITAMIN D, 25 OH (05/24/2013 10:27 AM CDT) VITAMIN D 25 HYDROXY S/P/B 67 30 - 100 NG/ML [facility] TO [facility]IC CONVERSION Comment: Result Comment: ?? SUPPLEMENTING WITH VITAMIN D2 MAY RESULT IN FALSELY LOW RESULTS, CLINICAL CORRELATION NEEDED. ? INTERPRETATION ? DEFICIENT ??<20 ?INSUFFICIENT 20-30 ?SUFFICIENT 30-100 POTENTIAL INTOXICATION ??>100 ? TESTING PERFORMED AT [facility], A MEMBER OF THE [facility]. 05/24/2013 10:2 7 AM CDT 05/24/2013 10:27 AM CDT Narrative [facility] TO [facility] CONVERSION - 05/27/2013 10:24 AM CDT Result Communication: No patient communication needed at this time us Lauri Blair MD LABORATORY Final Result [facility] TO [facility] CONVERSION * (ABNORMAL) COMPREHENSIVE METABOLIC PANEL (05/24/2013 10:27 AM CDT) Pathologist [facility] SODIUM S/P/B 138 136 - 145 mmol/L [facility] TO [facility]IC CONVERSION POTASSIUM S/P/B 3.8 3.5 - 5.1 mmol/L [facility] TO EPIC CONVERSION CHLORIDE S/P/B 97(L) 98 - 107 mmol/L [facility] TO EPIC CONVERSION CO2 30(H) 22 - 29 mmol/L [facility] TO [facility]IC CONVERSION ANION GAP 15 8 - 20 [facility] T O EPIC CONVERSION BUN 16 8 - 23 mg/dL [facility] TO [facility]IC CONVERSION CREATININE S/P/B 1.05 0.70 - 1.20 mg/dL [facility] TO [facility]IC CONVERSION GFR ESTIMATE >60 >60 mL/min/1 .73m'2 [facility] TO EPIC CONVERSION EGFR AFR. AMER. >60 NOTE: eGFR is not calculated for patients <18 years of age. This is an estimated GFR (CKD EPI) and should not be used for calculating drug doses. >60 mL/min/1 .73m'2 [facility] TO EPIC CONVERSION GLUCOSE 102(H) 70 - 99 mg/dL [facility] CONVERSION CALCIUM S/P/B 9.6 8.6 - 10.2 mg/dL [facility] TO [facility] CONVERSION BILIRUBIN TOTAL S/P/B 0.5 0.2 - 1.2 mg/dL [facility] TO [facility] CONVERSION AST 22 0 - 40 IU/L [facility] TO [facility] CONVERSION ALT 17 0 - 41 IU/L [facility] TO [facility]IC CONVERSION ALKALINE PHOSPHATASE S/P/B 81 40 - 129 IU/L [facility] TO [facility]IC CONVERSION TOTAL PROTEIN S/P/B 7.3 6.4 - 8.3 g/dL [facility] TO [facility]IC CONVERSION ALBUMIN S/P/B 4.6 3.5 - 5.2 g/dL [facility] TO [facility]IC CONVERSION GLOBULIN 2.7 2.3 - 3.6 g/dL [facility] TO [facility]IC CONVERSION A/G RATIO 1.7 1.0 - 2.0 [facility] TO [facility] CONVERSION 05/24/2013 10:2 7 AM CDT 05/24/2013 10:27 AM CDT Narrative [facility] CONVERSION - 05/24/2013 9:17 PM CDT Result Communication: No patient communication needed at this time Lauri Blair MD LABORATORY Final Result [facility] TO [facility]IC CONVERSION * TSH W/REFLEX (SNS) (05/24/2013 10:27 AM CDT) TSH 2.18 0.27 - 4.20 mIU/mL [facility] TO [facility] CONVERSION Comment:Result Comment: FREE T4 NOT INDICATED 05/24/2013 10:2 7 AM CDT 05/24/2013 10:27 AM CDT Narrative [facility] TO [facility] CONVERSION - 05/24/2013 9:17 PM CDT Result Communication: No patient communication needed at this time Lauri Blair MD LABORATORY Final Result [facility] TO [facility] CONVERSION * (ABNORMAL) LIPID PANEL (05/24/2013 10:27 AM CDT) CHOLESTEROL 186 <200 mg/dL [facility] TO [facility] CONVERSION TRIGLYCERIDES 81 <150 mg/dL [facility] TO [facility] CONVERSION HDL 60 >59 mg/dL [facility] TO [facility] CONVERSION LDL (CALCULATED) 110(H) <100 mg/dL [facility] TO [facility]IC CONVERSION NON HDL CHOLESTEROL 126 <130 mg/dL [facility] TO [facility]IC CONVERSION Comment: Result Comment: NOTE: WHEN THE TRIGLYCERIDES ARE >200 mg/dL, NON HDL C IS A SECONDARY TARGET OF THERAPY, WITH A GOAL 30 mg/dL HIGHER THAN THE IDENTIFIED LDL C GOAL. CHOL/HDL RATIO 3.1 0.0 - 4.5 [facility] TO [facility]IC CONVERSION VLDL CHOLESTEROL (LMP) 16 5 - 55 mg/dL [facility] TO EPIC [...] ? >=160 ?>=130 [facility] TO [facility]IC CONVERSION 05/24/2013 10:2 7 AM CDT 05/24/2013 10:27 AM CDT Narrative [facility] TO EPIC CONVERSION - 05/24/2013 9:17 PM CDT Result Communication: No patient communication needed at this time Lauri Blair MD LABORATORY Final Result [facility] TO [facility]IC CONVERSION * (ABNORMAL) CBC W/DIFF AUTOMATED (05/24/2013 10:27 AM CDT) Pathologist [facility] WBC 4.0(L) 4.8 - 10.8 X10'3/uL [facility] TO [facility]IC CONVERSION RBC 4.97 4.70 - 6.10 X10'6/uL [facility] TO EPIC CONVERSION HGB 14.0 14.0 - 18.0 g/dL [facility] TO EPIC CONVERSION HCT 46.4 43.0 - 54.0 % [facility] TO [facility]IC CONVERSION MCV 93.4 80.0 - 94.0 fL [facility] TO EPIC CONVERSION MCH 28.2 27.0 - 31.0 pg [facility] TO EPIC CONVERSION MCHC 30.2(L) 32.0 - 36.0 g/dL [facility] TO EPIC CONVERSION RDW 13.6 11.5 - 14.5 % [facility] TO EPIC CONVERSION PLT 252 130 - 400 X10'3/uL [facility] TO [facility]IC CONVERSION GLUCOSE 9.8 9.3 - 12.2 fL [facility] TO EPIC CONVERSION BASOPHILS % 0.5 0.0 - 1.0 % [facility] TO EPIC CONVERSION EOSINOPHILS % 2.0 1.0 - 3.0 % [facility] TO EPIC CONVERSION NEUTROPHILS % 45.0 43.0 - 65.0 % [facility] TO EPIC CONVERSION LYMPHOCYTES % 43.4 20.0 - 46.0 % [facility] TO EPIC CONVERSION MONOCYTES % 8.6 5.0 - 12.0 % [facility] TO EPIC CONVERSION IMMATURE GRANS % 0.5 0.0 - 1.0 % [facility] TO EPIC CONVERSION DIFFERENTIAL TYPE AUTOMATED [facility] TO [facility] CONVERSION 05/24/2013 10:2 7 AM CDT 05/24/2013 10:27 AM CDT Narrative [facility] TO EPIC CONVERSION - 05/24/2013 8:43 PM CDT Result Communication: No patient communication needed at this time Lauri Blair MD LABORATORY Final Result [facility] TO EPIC CONVERSION documented in this encounter Visit Diagnoses Not on filedocumented in this encounter Care Teams Human Anatomy Teacher Relationship Specialty Start Date End Date Lauri Blair MD [address] [place] [address] PCP - General 10/30/14 Lauri Blair MD [address] [place] [address] PCP - General 05/15/14 10/29/14 Lauri Blair MD [address] [place] [address] PCP - General 05/24/13 05/14/14 documented as of this encounter
--- OUTSIDE RECORDS SUMMARY | 2024-02-26 22:57 | XMS_ITS | Encounter Summary ---
Author Organization [facility] Address [address] [place] [address]. [address] [address] Care Team Providers Care Quality Control Name Role Phone Lauri Blair MD Primary Care Provider [phone] Encounter Details Date Type Department Care Team (Latest Contact Info) Description 04/16/2015 Abstract [facility] Social History Tobacco Use [...] on filedocumented in this encounter Care Teams Quality Control Relationship Specialty Start Date End Date Lauri Blair MD [address] [place] [address] PCP - General 10/30/14 documented as of this encounter
--- OUTSIDE RECORDS SUMMARY | 2024-02-26 22:57 | XMS_ITS | Encounter Summary ---
Author Organization [facility] Address [address] [place] [address]. [place], [place] [address] [place] [address] Care Team Providers Care Lieutenant/Deputy Name Role Phone Lauri Blair MD Primary Care Provider [phone] Lauri Blair MD Primary Care Provider [phone] Lauri Blair MD Primary Care Provider [phone] Encounter Details Date Type Department Care Team (Latest Contact Info) Description 05/14/2011 Abstract [facility] Group Social History Tobacco Use Types [...] on filedocumented in this encounter Care Teams Lieutenant/Deputy Relationship Specialty Start Date End Date Lauri Blair MD [address] [place] [address] PCP - General 10/30/14 Lauri Blair MD [address] [place] [address] PCP - General 05/15/14 10/29/14 Lauri Blair MD [address] [place] [address] PCP - General 05/24/13 05/14/14 documented as of this encounter
--- OUTSIDE RECORDS SUMMARY | 2024-02-26 22:57 | XMS_ITS | Encounter Summary ---
Author Organization [facility] Address [address] [place] [address]. [place], [place] [address] [place] [address] Care Team Providers Care Emergency Medicine Medical Director Name Role Phone Lauri Blair MD Primary Care Provider [phone] Encounter Details Date Type Department Care Team (Late st Contact Info) Description 07/23/2015 Abstract [facility] Family & Internal Medicine [address] [phone] Lauri Blair MD [address] [place] [address] Social History Tobacco Use Types Packs/Day Years Used Date Smoking Tobacco: Never Assessed Sex and Gender Information Value Date Recorded Sex Assigned at Not on file Legal Sex Male 5:55 PM CDT Gender Identity Not on file Sexual Orientation Not on file documented as of this encounter Last Filed Vital Signs Vital Sign Reading Time Taken Comments Blood Pressure 146/85 07/23/2015 7:28 AM CDT Pulse 83 07/23/2015 7:28 AM CDT Temperature - - Respiratory Rate - - Oxygen Saturation - - Inhaled Oxygen Concentration - - Weight 121.1 kg (267 lb) 07/23/2015 7:28 AM CDT Height 182.9 cm (6') 07/23/2015 7:28 AM CDT Body Mass Index 36.21 07/23/2015 7:28 AM CDT documented in this encounter Progress Notes * Lauri Blair MD - 07/23/2015 7:15 AM CDT Reason For Visit Chronic Recheck Visit Chief Complaint Pt presents for yearly evaluation of hypertension and cardiomyopathy. History of Present Illness HPI Free Text: He is still getting cramping in his thighs at night. It seems to happen about every 3 days, and only occur at night. They will wake him up from sleep. He has not taken OTC medications. Cardiomyopathy, Hypertrophic (Brief): The patient is being seen for a routine clinic follow-up of hypertrophic cardiomyopathy. The patient is currently asymptomatic. No associated symptoms are reported. Hypertension (Follow-Up): The patient presents for follow-up of primary hypertension. The patient states he has been doing well with his blood pressure control since the last visit. He has no significant interval events. Symptoms: The patient is currently asymptomatic. Home monitoring: The patient checks his blood pressure regularly. Blood pressure control has been good. Medications: the patient is adherent with his medication regimen. He denies medication side effects. Disease Management: the patient is doing well with his blood pressure goals. Review of Systems Constitutional, Eyes, ENT, Cardiovascular, [...] 1 TABLET EVERY DAY; Therapy: 21May2013 to (Evaluate:25Oct2015) Requested for: 30Oct2014; Last Rx:30Oct2014 Ordered 2. Bystolic 10 MG Oral Tablet; TAKE 1 TABLET DAILY; Therapy: (Recorded:63Hnc8067) to Recorded 3. Furosemide 40 MG Oral Tablet; TAKE ONE TABLET BY MOUTH EVERY DAY; Therapy: 43Dnt1630 to (Evaluate:78All0728) Requested for: 01Zkp0920; Last Rx:04Sbi1525 Ordered 4. GuanFACINE HCl - 1 MG Oral Tablet; TAKE 1 TABLET DAILY AT BEDTIME; Therapy: 76Mkr7543 to (Evaluate:82Cbd4646) Requested for: 90Tro7499; Last Rx:68Gfk5442 Ordered 5. HydrALAZINE HCl - 100 MG Oral Tablet; TAKE 1 TABLET BY MOUTH 3 TIMES A DAY; Therapy: 19Gis4010 to (Evaluate:28Exl7135) Requested for: 06Jan2015; Last Rx:24Udj6417 Ordered 6. Hydrochlorothiazide 25 MG Oral Tablet; TAKE 1 TABLET BY MOUTH DAILY; Therapy: 33Cib8804 to (Evaluate:39Viw6496) Requested for: 30Dec2014; Last Rx:85Uzb7054 Ordered 7. Irbesartan 300 MG Oral Tablet; TAKE 1 TABLET DAILY; Therapy: 62Yjp4806 to (Evaluate:45Prq5993) Requested for: 30Dec2014; Last Rx:72Qze3114 Ordered 8. Klor-Con M20 20 MEQ Oral Tablet Extended Release; TAKE 1 TABLET BY MOUTH EVERY DAY; Therapy: 10Mar2015 to (Evaluate:30Tby3505) Requested for: 10Mar2015; Last Rx:70Fjs4674 Ordered 9. Lisinopril 20 MG Oral Tablet; TAKE 1 TABLET BY MOUTH TWICE DAILY; Therapy: 30Lup8140 to (Evaluate:18Ljn3581) Requested for: 34Ygq0949; Last Rx:82Jsp9876 Ordered 10. Potassium Chloride Dorothy ER 20 MEQ Oral Tablet Extended Release; TAKE 1 TABLET BY MOUTH EVERY DAY; Therapy: 61Beq5575 to (Evaluate:84Fyr9968) Requested for: 80Ogi7030; Last Rx:75Rqk5073 Ordered 11. Vitamin D-3 5000 UNIT TABS; Take 1 tablet daily; Therapy: (Recorded:62Uie2198) to Recorded Allergies 1. No Known Drug Allergies Vitals Recorded: 23Jul2015 07:28AM Heart Rate 83 Respiration 17 Systolic 146 Diastolic 85 O2 Saturation 96 Height 6 ft Weight 267 lb BMI Calculated 36.21 BSA Calculated 2.41 Physical Exam Constitutional General appearance: No acute [...] hypertension (401.1) (I10) 2. Cardiomyopathy (425.4) (I42.9) Plan Benign essential hypertension, Cardiomyopathy, Screening for endocrine, nutritional, metabolic and immunity disorder, Screening for heart disease, Screening for prostate cancer, Vitamin d deficiency 1. CBC W Differential; Status:Active; Requested for:22Jan2016; Perform:[facility]; Due:88Bfx5015; Last Updated By:Kelley Lorenzana; 07/23/2015 8:05:36AM;Ordered; For:Benign essential hypertension, Cardiomyopathy, Screening for endocrine, nutritional, metabolic and immunity disorder, Screening for heart disease, Screening for prostate cancer, Vitamin d deficiency; Ordered By:Lauri Blair; 2. Compr Metabolic Prof ( CMP ); Status:Active; Requested for:84Yum3323; Perform:. [facility]; Due:74Hsu2029; Last Updated By:Kelley Lorenzana; 07/23/2015 8:05:37AM;Ordered; For:Benign essential hypertension, Cardiomyopathy, Screening for endocrine, nutritional, metabolic and immunity disorder, Screening for heart disease, Screening for prostate cancer, Vitamin d deficiency; Ordered By:Lauri Blair; 3. Lipid W Reflex DLDL; Status:Active; Requested for:22Jan2016; Perform:[facility]; Due:21Feb2016; Last Updated By:Kelley Lorenzana; 07/23/2015 8:05:37AM;Ordered; For:Benign essential hypertension, Cardiomyopathy, Screening for endocrine, nutritional, metabolic and immunity disorder, Screening for heart disease, Screening for prostate cancer, Vitamin d deficiency; Ordered By:Lauri Blair; 4. Prostate Specif Ag ( PSA ) Scrn; Status:Active; Requested for:22Jan2016; Perform:[facility]. [facility]; Due:50Rwh9380; Last Updated By:Kelley Lorenzana; 07/23/2015 8:05:37AM;Ordered; For:Benign essential hypertension, Cardiomyopathy, Screening for endocrine, nutritional, metabolic and immunity disorder, Screening for heart disease, Screening for prostate cancer, Vitamin d deficiency; Ordered By:Lauri Blair; 5. Thyroid Stim Hormone ( TSH ); Status:Active; Requested for:22Jan2016; Perform:[facility]; Due:21Feb2016; Last Updated By:Kelley Lorenzana; 07/23/2015 8:05:37AM;Ordered; For:Benign essential hypertension, Cardiomyopathy, Screening for endocrine, nutritional, metabolic and immunity disorder, Screening for heart disease, Screening for prostate cancer, Vitamin d deficiency; Ordered By:Lauri Blair; 6. Urinalysis ( UA ) Culture If Ind; Status:Active; Requested for:22Jan2016; Perform:[facility]; Due:21Feb2016; Last Updated By:Kelley Lorenzana; 07/23/2015 8:05:37AM;Ordered; For:Benign essential hypertension, Cardiomyopathy, Screening for endocrine, nutritional, metabolic and immunity disorder, Screening for heart disease, Screening for prostate cancer, Vitamin d deficiency; Ordered By:Lauri Blair; Source: : [facility] 7. Follow-up visit in 6 months Outpatient Follow-up Status: Complete Done: 23Jul2015 Ordered; For: Benign essential hypertension, Cardiomyopathy, Screening for endocrine, nutritional, metabolic and immunity disorder, Screening for heart disease, Screening for prostate cancer, Vitamind deficiency; Ordered By: Lauri Blair Performed: Due: 45Wdp0636; Last Updated By: Alta Claire; 07/23/2015 8:11:23 AM Signatures Electronically signed by : Lauri Blair M.D.; Jul 27 2015 6:25PM CHINESE HERBALIST (Author) documented in this encounter Plan of Treatment Not on file documented as of this encounter Visit Diagnoses Not on filedocumented in this encounter Care Teams Emergency Medicine Medical Director Relationship Specialty Start Date End Date Lauri Blair MD [address] [place] [address] PCP - General 10/30/14 documented as of this encounter
--- OUTSIDE RECORDS SUMMARY | 2024-02-26 22:57 | XMS_ITS | Encounter Summary ---
Author Organization [facility] Address [address] [place] [address]. [place], [place] [address] [place] [address] Care Team Providers Care Data Center Consultant Name Role Phone Lauri Blair MD Primary Care Provider [phone] Lauri Blair MD Primary Care Provider [phone] Encounter Details Date Type Department Care Team (Late st Contact Info) Description 05/15/[address] [facility] [place] [address] Lauri Blair MD [address] [place] [address] Social History Tobacco Use Types Packs/Day Years [...] benign documented in this encounter Care Teams Data Center Consultant Relationship Specialty Start Date End Date Lauri Blair MD [address] [place] [address] PCP - General 10/30/14 Lauri Blair MD [address] [place] [address] PCP - General 05/15/14 10/29/14 documented as of this encounter
--- OUTSIDE RECORDS SUMMARY | 2024-02-26 22:57 | XMS_ITS | Encounter Summary ---
Author Organization [facility] Address [address] [place] [address]. [address] [address] Care Team Providers Care Teleservices Representative Name Role Phone Lauri Blair MD Primary Care Provider [phone] Encounter Details Date Type Department Care Team (Latest Contact Info) Description 02/06/2016 Abstract [facility] Social History Tobacco [...] on filedocumented in this encounter Care Teams Teleservices Representative Relationship Specialty Start Date End Date Lauri Blair MD [address] [place] [address] PCP - General 10/30/14 documented as of this encounter
--- OUTSIDE RECORDS SUMMARY | 2024-02-26 22:57 | XMS_ITS | Encounter Summary ---
Author Organization [facility] Address [address] [place] [address]. [address] [address] Care Team Providers Care Networking Specialist Name Role Phone Lauri Blair MD Primary Care Provider [phone] Lauri Blair MD Primary Care Provider [phone] Lauri Blair MD Primary Care Provider [phone] Encounter Details Date Type Department Care Team (Latest Contact Info) Description 04/11/2014 Abstract [facility] Social History Tobacco Use Types [...] on filedocumented in this encounter Care Teams Networking Specialist Relationship Specialty Start Date End Date Lauri Blair MD [address] [place] [address] PCP - General 10/30/14 Lauri Blair MD [address] [place] [address] PCP - General 05/15/14 10/29/14 Lauri Blair MD [address] [place] [address] PCP - General 05/24/13 05/14/14 documented as of this encounter
--- OUTSIDE RECORDS SUMMARY | 2024-02-26 22:57 | XMS_ITS | Encounter Summary ---
Author Organization [facility] Address [address] [place] [address]. [address] [address] Care Team Providers Care Collar Runner Name Role Phone Lauri Blair MD Primary Care Provider [phone] Lauri Blair MD Primary Care Provider [phone] Lauri Blair MD Primary Care Provider Encounter Details Date Type Department Care Team (Latest Contact Info) Description 12/22/2012 Abstract [facility] Social History Tobacco [...] on filedocumented in this encounter Care Teams Collar Runner Relationship Specialty Start Date End Date Lauri Blair MD [address] [place] [address] PCP - General 10/30/14 Lauri Blair MD [address] [place] [address] PCP - General 05/15/14 10/29/14 Lauri Blair MD [address] [place] [address] PCP - General 05/24/13 05/14/14 documented as of this encounter
--- OUTSIDE RECORDS SUMMARY | 2024-02-26 22:57 | XMS_ITS | Encounter Summary ---
Author Organization [facility] Address [address] [place] [address]. [place], [place] [address] [place] [address] Care Team Providers Care Gate Keeper Name Role Phone Lauri Blair MD Primary Care Provider [phone] Lauri Blair MD Primary Care Provider Lauri Blair MD Primary Care Provider [phone] Encounter Details Date Type Department Care Team (Latest Contact Info) Description 07/22/2011 Abstract [facility] Social History Tobacco Use [...] on filedocumented in this encounter Care Teams Gate Keeper Relationship Specialty Start Date End Date Lauri Blair MD [address] [place] [address] PCP - General 10/30/14 Lauri Blair MD [address] [place] [address] PCP - General 05/15/14 10/29/14 Lauri Blair MD [address] [place] [address] PCP - General 05/24/13 05/14/14 documented as of this encounter
--- OUTSIDE RECORDS SUMMARY | 2024-02-26 22:57 | XMS_ITS | Encounter Summary ---
Author Organization [facility] Address [address] [place] [address]. [address] [address] Care Team Providers Care Relationship Consultant Name Role Phone Lauri Blair MD Primary Care Provider [phone] Lauri Blair MD Primary Care Provider [phone] Lauri Blair MD Primary Care Provider [phone] Encounter Details Date Type Department Care Team (Latest Contact Info) Description 04/14/2011 Abstract [facility] Medical [...] on filedocumented in this encounter Care Teams Relationship Consultant Relationship Specialty Start Date End Date Lauri Blair MD [address] [place] [address] PCP - General 10/30/14 Lauri Blair MD [address] [place] [address] PCP - General 05/15/14 10/29/14 Lauri Blair MD [address] [place] [address] PCP - General 05/24/13 05/14/14 documented as of this encounter
--- OUTSIDE RECORDS SUMMARY | 2024-02-26 22:57 | XMS_ITS | Encounter Summary ---
Author Organization [facility] Address [address] [place] [address]. [place], [place] [address] [place] [address] Care Team Providers Care Billet Cutter Name Role Phone Lauri Blair MD Primary Care Provider [phone] Lauri Blair MD Primary Care Provider [phone] Lauri Blair MD Primary Care Provider [phone] Encounter Details Date Type Department Care Team (Latest Contact Info) Description 08/09/2012 Abstract [facility] Social History [...] on filedocumented in this encounter Care Teams Billet Cutter Relationship Specialty Start Date End Date Lauri Blair MD [address] [place] [address] PCP - General 10/30/14 Lauri Blair MD [address] [place] [address] PCP - General 05/15/14 10/29/14 Lauri Blair MD [address] [place] [address] PCP - General 05/24/13 05/14/14 documented as of this encounter
--- OUTSIDE RECORDS SUMMARY | 2024-02-26 22:57 | XMS_ITS | Encounter Summary ---
Author Organization [facility] Address [address] [place] [address]. [place] [id number] Care Team Providers Care Medical Assembly Name Role Phone Lauri Blair MD Primary Care Provider [phone] Lauri lBair MD Primary Care Provider [phone] Lauri Blari MD Primary Care Provider [phone] Encounter Details Date Type Department Care Team (Late st Contact Info) Description 05/03/[address] [facility] Family & Internal Medicine [place] [address] [place] [address] Lauri Blair MD [facility] [place] [address] Social History Tobacco Use Types Packs/Day Years Used Date Smoking Tobacco: Never Assessed Sex and Gender Information Value Date Recorded Sex Assigned at Not on file Legal Sex Male 5:55 PM CDT Gender Identity Not on file Sexual Orientation Not on file documented as of this encounter Last Filed Vital Signs Vital Sign Reading Time Taken Comments Blood Pressure 152/84 05/03/2012 7:55 AM CDT Pulse 62 05/03/2012 7:55 AM CDT Temperature - - Respiratory Rate - - Oxygen Saturation - - Inhaled Oxygen Concentration - - Weight 115.2 kg (254 lb) 05/03/2012 7:55 AM CDT Height 182.9 cm (6') 05/03/2012 7:55 AM CDT Body Mass Index 34.45 05/03/2012 7:55 AM CDT documented in this encounter Progress Notes * Lauri Blair MD - 05/03/2012 7:45 AM CDT Reason For Visit Reason For Visit: Chronic Recheck Visit Chief Complaint Chief Complaint Free Text: f/u htn, cardiomyopathy History of Present Illness Hypertension (Follow-Up): [...] medication regimen. He denies medication side effects. Review of Systems Focused-Male: Constitutional: Normal. ENT: normal. Cardiovascular: Normal. Respiratory: Normal. Gastrointestinal: Normal. Genitourinary: Normal. Integumentary: Normal. Musculoskeletal: Normal. Neurological: Normal. Psychiatric: Normal. Active Problems 1. Benign Essential Hypertension 401.1 2. Cardiomyopathy 425.4 3. Male Erectile Disorder 302.72 4. Vitamin D Deficiency 268.9 Family History 1. Paternal history of Acute Myocardial Infarction V17.3 2. Maternal history of Benign Essential Hypertension Social History ?? Never A Smoker Current Meds 1. AmLODIPine Besylate 10 MG Oral Tablet; TAKE 1 TABLET EVERY DAY; Therapy: 13Mar2012 to (Evaluate:06Jun2013) Requested for: 13Mar2012; Last Rx:13Mar2012 Ordered; For: Benign Essential Hypertension (401.1); Rx By: Lauri Blair; Dispense: 90 Days ; #:90 Tablet; Refill: 4; Verified Transmission to [id number]; Last Updated By: Alyssa Brunson 2. Bystolic 20 MG Oral Tablet; TAKE 1 TABLET DAILY; Therapy: (Recorded:03May2012) to Recorded; For: Benign Essential Hypertension (401.1), Cardiomyopathy (425.4); Dispense: 90 Days ; #:90 Tablet; Refill: 3; Record; Last Updated By: Alyssa Brunson 3. HydrALAZINE HCl 100 MG Oral Tablet; TAKE TABLET 3 times daily; Therapy: (Recorded:01Nov2011) to Recorded; For: Cardiomyopathy (425.4); Dispense: 0 Days ; #: Sufficient Tablet; Refill: 0; Record; Last Updated By: Alyssa Brunson 4. Hydrochlorothiazide 25 MG Oral Tablet; TAKE 1 TABLET BY MOUTH DAILY; Therapy: 86Omp6066 to (Evaluate:90Bqs8946) Requested for: 58Jvr9979; Last Rx:40Znk3427 Ordered; Rx By: Lauri Blair; Dispense: 90 Days ; #:90 Tablet; Refill: 3; Verified Transmission to [facility] #2510; Last Updated By: Pawan Vasquez 5. Irbesartan 300 MG Oral Tablet; TAKE 1 TABLET DAILY; Therapy: 61Bkh2989 to (Evaluate:28Dec2012) Requested for: 03Jan2012; Last Rx:03Jan2012 Ordered; For: Benign Essential Hypertension (401.1); Rx By: Lauri Blair; Dispense: 90 Days ; #:90 Tablet; Refill: 3; Verified Transmission to [facility]2510; Last Updated By: Rekha Garcia 6. Lisinopril 20 MG Oral Tablet; TAKE 2 TABLETS DAILY; Therapy: (Recorded:01Nov2011) to Recorded; For: Benign Essential Hypertension (401.1); Dispense: 30 Days ; #:60 Tablet; Refill: 6; Record; Last Updated By: Alyssa Brunson 7. Vitamin D-3 5000 UNIT Oral Tablet; Take 1 tablet daily; Therapy: (Recorded:03Nov2011) to Recorded; For: Vitamin D Deficiency (268.9); Dispense: 0 Days ; #: Sufficient Tablet; Refill: 0; Record; Last Updated By: Alyssa Brunson Allergies 1. No Known Drug Allergies No Known Drug Allergies Vitals Vital Signs [Data Includes: Current Encounter] 03May2012 07:55AM Heart Rate 62 Respiration 16 Systolic 152 Diastolic 84 BMI Calculated 34.4 BSA Calculated 2.36 Height 6 ft Weight 254 lb Physical Exam Constitutional General appearance: No acute distress, well appearing and well nourished. Eyes Conjunctiva and lids: No swelling, erythema, or discharge. Ears, Nose, Mouth, and Throat External inspection of ears and nose: Normal. Otoscopic examination: Tympanic membrance translucent with normal light reflex. Canals patent without erythema. Pulmonary Respiratory effort: No increased work of [...] Mood and affect: Normal. Assessment 1. Benign Essential Hypertension 401.1 2. Cardiomyopathy 425.4 3. Vitamin D Deficiency 268.9 Plan 1. Follow-up visit in 6 months Outpatient Follow-up Requested for: 03May2012 Ordered; For: Benign Essential Hypertension (401.1), Vitamin D Deficiency (268.9), Cardiomyopathy (425.4); Ordered By: Lauri Blair Performed: Due: 13May2012 2. CBC with Diff Requested for: 03Nov2012 Ordered; For: Benign Essential Hypertension (401.1), Vitamin D Deficiency (268.9), Cardiomyopathy (425.4); Ordered By: Lauri Blair Perform: Other Lab Due: 13Nov2012 3. CMP (Comprehensive Metabolic Profile) Requested for: 03Nov2012 Ordered; For: Benign Essential Hypertension (401.1), Vitamin D Deficiency (268.9), Cardiomyopathy (425.4); Ordered By: Lauri Blair Perform: Other Lab Due: 13Nov2012 4. Lipid Profile Requested for: 03Nov2012 Ordered; For: Benign Essential Hypertension (401.1), Vitamin D Deficiency (268.9), Cardiomyopathy (425.4); Ordered By: Lauri Blair Perform: Other Lab Due: 13Nov2012 5. TSH (Thyroid Stim Hormone) Requested for: 03Nov2012 Ordered; For: Benign Essential Hypertension (401.1), Vitamin D Deficiency (268.9), Cardiomyopathy (425.4); Ordered By: Lauri Blair Perform: Other Lab Due: 13Nov2012 6. Uric Acid Requested for: 03Nov2012 Ordered; For: Benign Essential Hypertension (401.1), Vitamin D Deficiency (268.9), Cardiomyopathy (425.4); Ordered By: Lauri Blair Perform: Other Lab Due: 44Eoj2140 7. Urinalysis ( UA ) Culture If Ind Requested for: 93Dch1841 Ordered; For: Benign Essential Hypertension (401.1), Vitamin D Deficiency (268.9), Cardiomyopathy (425.4); Ordered By: Lauri Blair Perform: Other Lab Due: 62Cft5848 8. Vitamin D 25-Hydroxy Requested for: 24Rsi3709 Ordered; For: Benign Essential Hypertension (401.1), Vitamin D Deficiency (268.9), Cardiomyopathy (425.4); Ordered By: Lauri Blair Perform: Other Lab Due: 15Jfb3686 Signatures Electronically signed by : Lauri Blair M.D.; May 03 2012 8:25AM (Author) EY WORKER documented in this encounter Plan of Treatment Not on file documented as of this encounter Visit Diagnoses Not on filedocumented in this encounter Care Teams Medical Assembly Relationship Specialty Start Date End Date Lauri Blair MD [address] [place], [place] [id number] PCP - General 10/30/14 Lauir Blair MD [address] [place] [address] PCP - General 05/15/14 10/29/14 Lauri Blair MD [address] [place] [address] PCP - General 05/24/13 05/14/14 documented as of this encounter
--- OUTSIDE RECORDS SUMMARY | 2024-02-26 22:57 | XMS_ITS | Encounter Summary ---
Author Organization [facility] Address [address] [place] [address]. [place] [id number] Care Team Providers Care Family And Divorce Legal Assistant Name Role Phone Lauri Blair MD Primary Care Provider Lauri Blair MD Primary Care Provider [phone] Lauri Blair MD Primary Care Provider [phone] Encounter Details Date Type Department Care Team (Latest Contact Info) Description 09/24/2011 Abstract [facility] Social History Tobacco Use Types Packs/Day Years Used Date Smoking Tobacco: Never Assessed Sex and Gender Information Value Date Recorded Sex Assigned at Not on file Legal Sex Male 5:55 PM CDT Gender Identity Not on file Sexual Orientation Not on file documented as of this encounter Progress Notes * Daisha Camp MD - 09/24/2011 8:47 AM CDT Message Recorded as Task Date: 09/24/2011 08:34 AM, Created By: Rekha Garcia Task Name: Med Renewal Request Assigned To: [facility] Team Johnnie Regarding Patient: Portillo Martin, Status: Active Comment: Rekha Garcia - 24 Sep 2011 8:34 AM TASK CREATED requesting hctz 25mg daily #90 be sent to [facility] Plan 1. Hydrochlorothiazide 25 MG Oral Tablet; TAKE 1 TABLET BY MOUTH DAILY; Therapy: 09Tbo0617 to (Evaluate:24Swc5677); Last Rx:[id number] Signatures Electronically signed by : Pawan Vasquez, ; Sep 24 2011 8:48AM (Author) TER'S HELPER documented in this encounter Plan of Treatment Not on file documented as of this encounter Visit Diagnoses Not on filedocumented in this encounter Care Teams Family And Divorce Legal Assistant Relationship Specialty Start Date End Date Lauri Blair MD [address] [place] [address] PCP - General 10/30/14 Lauri Blair MD [address] [place] [address] PCP - General 05/15/14 10/29/14 Lauri Blair MD [address] [place] [address] PCP - General 05/24/13 05/14/14 documented as of this encounter
--- OUTSIDE RECORDS SUMMARY | 2024-02-26 22:57 | XMS_ITS | Encounter Summary ---
Author Organization [facility] Address [address] [place] [address]. [place], [place] [address] [place] [address] Care Team Providers Care Office Automation Technician Name Role Phone Lauri Blair MD Primary Care Provider [phone] Lauri Blair MD Primary Care Provider [phone] Lauri Blair MD Primary Care Provider [phone] Encounter Details Date Type Department Care Team (Latest Contact Info) Description 06/21/2010 Abstract [facility] [...] on filedocumented in this encounter Care Teams Office Automation Technician Relationship Specialty Start Date End Date Lauri Blair MD [address] [place] [address] PCP - General 10/30/14 Lauri Blair MD [address] [place] [address] PCP - General 05/15/14 10/29/14 Lauri Blair MD [address] [place] [address] PCP - General 05/24/13 05/14/14 documented as of this encounter
--- OUTSIDE RECORDS SUMMARY | 2024-02-26 22:57 | XMS_ITS | Encounter Summary ---
Author Organization [facility] Address [address] [place] [address]. [address] [address] Care Team Providers Care Outreach Consultant Name Role Phone Lauri Blair MD Primary Care Provider Encounter Details Date Type Department Care Team (Latest Contact Info) Description 04/11/2015 Abstract [facility] Medical [facility] Social History Tobacco [...] on filedocumented in this encounter Care Teams Outreach Consultant Relationship Specialty Start Date End Date Lauri Blair MD [address] [place] [address] PCP - General 10/30/14 documented as of this encounter
--- OUTSIDE RECORDS SUMMARY | 2024-02-26 23:01 | XMS_ITS | CONTINUITY OF CARE DOCUMENT ---
Author Name manny christopherfaina Address Unknown Organization [facility] Address [address] [facility] [address] [place] [address] Phone [phone] Care Team Providers Care Slurry Worker Name Role Phone Mario ROBERT, Gabriel Unavailable TRISTON ROBERT, SHEMAR Unavailable SHEMAR GOLDSTEIN MD Unavailable [phone] PROBLEMS Condition Status Date Provider Notes Shortness of breath active Gabriel Martin MD CHF active Gabriel Martin MD Hypertension active Gabriel Martin MD Hyperlipidemia active Gabriel Martin MD Neuropathy active Gabriel Martin MD Ulcer, leg, bilateral active Gabriel Gonzalez VENOUS INSUFFICIENCY active Gabriel Martin MD C V A / Stroke active Gabriel Martin MD (Hist ory of) Cardiology examination active Gabriel Martin MD ENCOUNTERS Date Type Provider Location Encounter Diag nosis 09/21 - 09/21 In-person encounter Office Visit Gabriel Martin MD [place] [facility] 07/28 - 07/28 In-person encounter Office Visit Gabriel Martin MD [place] [facility] 06/30 - 06/30 In-person encounter Office Visit Gabriel Martin MD [place] [facility] Cardiology examinationC V A / StrokeVENO US INSUFFICIENCYUlcer, leg, bilateralNeuropathyHyperlipidemiaHypertensionCHFShor tness of breath VITAL SIGNS Date Observation Value Provider Body Mass Index (Ratio) 35.94 kg/m2 Konrad Martin MD blood pressure, diastolic 81 mm[Hg] Vi pin [facility] blood pressure, systolic 134 mm[Hg] Vip in [facility] oxygen saturation, oximetry 96 % [facility] respiratory rate E&M 12 /min [facility] pulse rate 90 /min [facility] weight E&M 265 [lb_av] [facility] height E&M 72 [in_i] [facility] blood pressure, diastolic 82 mm[Hg] Nasim Serrano RN blood pressure, systolic 140 mm[Hg] Mary Serrano RN oxygen saturation, oximetry 95 % Mary Serrano RN respiratory rate E&M 18 /min Mary crowe RN pulse rate 86 /min Mary Serrano RN Body Mass Index (Ratio) 36.21 kg/m2 Konrad Martin MD blood pressure, diastolic 107 mm[Hg] Li [employer]kLogic blood pressure, systolic 163 mm[Hg] Rocio kLogic blood pressure, cuff size regular Ja rret blood pressure, diastolic 107 mm[Hg] Ja rret blood pressure, systolic 163 mm[Hg] Jar ret pulse rate 81 /min Van er y height E&M 72 [in_i] Van erda y oxygen saturation, oximetry 96 % Van respiratory rate E&M 14 /min Van weight E&M 267 [lb_av] Van er y ALLERGIES No Known Drug Allergies HISTORY OF MEDICATION USE Medication Status Instructions Dates Provider Indications Com ments chlorthalidone 25 mg tablet active Take 1 tablet by mouth once a day 0 Gabriel Martin MD hydralazine 100 mg tablet active TAKE 1 TABLET BY MOUTH THREE TIMES DAILY lisinopril 40 mg tablet active TAKE 1 TABLET BY MOUTH DAILY carvedilol 25 mg tablet active TAKE 1 TABLET BY MOUTH EVERY 12 HOURS Van atorvastatin 40 mg tablet active TAKE 1 TABLET BY MOUTH DAILY furosemide 20 mg tablet active Take 1 tablet by mouth once a day gabapentin 300 mg capsule active Take 1 capsule by mouth twice a day spironolactone 50 mg tablet active Take 1 tablet by mouth twice a day Vitamin D3 125 mcg (5,000 unit) tablet active Take 1 tablet by mouth once a day aspirin 81 mg capsule active Take 1 capsule by mouth once a day SOCIAL HISTORY Date Observation Value Provider smoking status Never smoker Gabriel Martin MD smoking status Never smoker Gabriel Martin MD smoking status Never smoker INSURANCE PROVIDERS Payer name Policy type / Coverage type [place] [employer] party [employer] 9 [id number] ADVANCE DIRECTIVES Name Date DISCUSSED - NO DECISION MADE TREATMENT PLAN Date Name Performer Cardiology: H is updated medication list for this problem includes: Chlorthalidone 25 Mg Tablet (Chlorthalidone) ..... Take 1 tablet by mouth once a day Hydralazine 100 Mg Tablet (Hydralazine) ..... Take 1 tablet by mouth three times daily Lisinopril 40 Mg Tablet (Lisinopril) ..... Take 1 tablet by mouth daily Carvedilol 25 Mg Tablet (Carvedilol) ..... Take 1 tablet by mouth every 12 hours Furosemide 20 Mg Tablet (Furosemide) ..... Take 1 tablet by mouth once a day Spironolactone 50 Mg Tablet (Spironolactone) ..... Take 1 tablet by mouth twice a day BP today: 134/81 P rior BP: 140/82 (07/29/2023) Gabriel Martin MD Cardiology: H is updated medication list for this problem includes: Atorvastatin 40 Mg Tablet (Atorvastatin) ..... Take 1 tablet by mouth daily Gabriel Martin MD Cardiology Gabriel Martin MD Cardiology:venogram did not show illiac compression and his GSV does have reflux bilaterally. Pt would like to contoinue with conservative treatment for now and follow up in 3 months Gabriel Martin MD Cardiology:Per ultra sound, however did not appear to be that significant Gabriel Martin MD Cardiology:We need t o rule out iliac vein narrowing, so will do venogram with IVUS. Gabriel Martin MD Cardiology:Minimal SOB, but appe ars Gabriel Martin MD Cardiology: H is updated medication list for this problem includes: Atorvastatin 40 Mg Tablet (Atorvastatin) ..... Take 1 tablet by mouth daily Gabriel Martin MD Cardiology: H is updated medication list for this problem includes: Chlorthalidone 25 Mg Tablet (Chlorthalidone) ..... Take 1 tablet by mouth once a day Hydralazine 100 Mg Tablet (Hydralazine) ..... Take 1 tablet by mouth three times daily Lisinopril 40 Mg Tablet (Lisinopril) ..... Take 1 tablet by mouth daily Carvedilol 25 Mg Tablet (Carvedilol) ..... Take 1 tablet by mouth every 12 hours Furosemide 20 Mg Tablet (Furosemide) ..... Take 1 tablet by mouth once a day Spironolactone 50 Mg Tablet (Spironolactone) ..... Take 1 tablet by mouth twice a day BP today: 163/107 Gabriel Martin MD Cardiology:Follows with Cardiolo gist in [place] Gabriel Martin MD Cardiology:check PÉREZ , has non healing ulcers b/l Gabriel Martin MD Cardiology:x4 Gabriel Martin MD Cardiology:Check veronica ous doppler and PÉREZ H as ulcers on b/l LE u ses compression provided by wound care Gabriel Martin MD Date Name PROTHROMBIN TIME WIT H INR LIPID PANEL CBC (INCLUDES DIFF/P LT) BASIC METABOLIC PANE L W/EGFR Venogram with IVUS - Other BASIC METABOLIC PANE L W/EGFR Venous Doppler Bilat eral LE - Reflux Arterial Duplex Bi-L ower EX PROBNP, N TERMINAL Microalb/Creatinine Urine, Random HISTORY OF PROCEDURES Procedure Date Procedure Name Provider Procedure Notes S tatus Complex e/m visit add on Gabriel Martin MD completed EKG Gabriel Martin MD completed
--- OUTSIDE RECORDS SUMMARY | 2024-02-26 23:02 | XMS_ITS | Encounter Summary ---
Author Organization [facility] Address [address] [place] [address] Care Team Providers Care Weed Cutter Name Role Phone Unavailable Primary Care Provider Unavailabl e Encounter Details Date Type Department Care Team (Latest Contact Info) Description 08/05/2017 4:11 PM CDT Hospital Encounter [facility] Sultan Guillermo Gallo MD [address] [facility] [address] [address] Chronic diastolic heart failure (CMS/HCC) Social History Tobacco Use Types Packs/Day Years Used Date Smoking Tobacco: Never Assessed Sex and Gender Information Value Date Recorded Sex Assigned at Not on file Legal Sex Male 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 PM 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 Gender Identity Not on file Sexual Orientation Not on file documented as of this encounter Plan of Treatment Not on file documented as of this encounter Procedures Procedure Name Priority Date/Time Associated Diagnosis Comments CBC WITH AUTO DIFFERENTIAL Routine 08/05/2017 4:34 PM CDT documented in this encounter Results * CBC with auto differential (08/05/2017 4:34 PM CDT) WBC 5.5 3.5 - 10.5 x10 3/ul 08/05/2017 5:43 PM CDT [facility] HISTORICAL RESULTS RBC 4.51 4.11 - 5.71 x10 6/ul 08/05/2017 5:43 PM CDT [facility] HISTORICAL RESULTS Hemoglobin 13.3 13.0 - 17.0 g/dL 08/05/2017 5:43 PM CDT [facility] HISTORICAL RESULTS Hct 40.8 38.2 - 48.5 % 08/05/2017 5:[address] [facility] MCV 90.5 80.0 - 97.0 fl 08/05/2017 5:43 PM CDT [facility] HISTORICAL RESULTS MCH 29.5 27.0 - 31.2 pg 08/05/2017 5:43 PM CDT [facility] HISTORICAL RESULTS MCHC 32.6 31.8 - 35.4 g/dl 08/05/2017 5:43 PM CDT [facility] HISTORICAL RESULTS RDW 13.5 11.6 - 14.8 % 08/05/2017 5:43 PM CDT [facility] HISTORICAL RESULTS Plt Count 275 150 - 450 X10 3/ul 08/05/2017 5:43 PM CDT [facility] HISTORICAL RESULTS MPV 9.9 7.4 - 10.4 fl 08/05/2017 5:43 PM T [facility] HISTORICAL RESULTS Neut % 53.9 37.0 - 85.0 % 08/05/2017 5:43 PM CDT [facility] HISTORICAL RESULTS Immature Gran % 0.4 0.0 - 3.0 % 08/05/2017 5:43 PM CDT [facility] HISTORICAL RESULTS Lymph % 33.6 5.0 - 45.0 % 08/05/2017 5:43 PM CDT [facility] HISTORICAL RESULTS Lemhi % 9.6 3.0 - 15.0 % 08/05/2017 5:43 PM CDT [facility] HISTORICAL RESULTS Eos % 2.0 0.0 - 7.0 % 08/05/2017 5:43 PM CDT [facility] HISTORICAL RESULTS Baso % 0.5 0.0 - 2.0 % 08/05/2017 5:43 PM CDT [facility] HISTORICAL RESULTS Absolute Neuts (auto) 3.0 1.7 - 8.7 x10 3/ul 08/05/2017 5:[address] [facility] Immature Gran # 0.0 0.0 - 0.3 x10 3/ul 08/05/2017 5:43 PM CDT [facility] HISTORICAL RESULTS Absolute Lymphs (auto) 1.9 0.2 - 4.6 x10 3/ul 08/05/2017 5:43 PM CDT [facility] HISTORICAL RESULTS Absolute Monos (auto) 0.5 0.1 - 1.5 x10 3/ul 08/05/2017 5:43 PM CDT [facility] HISTORICAL RESULTS Absolute Eos (auto) 0.1 0.0 - 0.7 x10 3/ul 08/05/2017 5:43 PM CDT [facility] HISTORICAL RESULTS Absolute Basos (auto) 0.0 0.0 - 0.2 x10 3/ul 08/05/2017 5:43 PM CDT [facility] HISTORICAL RESULTS Nucleat RBC Rel Count 0.0 0 - 3 #/100WBC 08/05/2017 5:43 PM T [facility] HISTORICAL RESULTS Absolute Nucleated RBC 0.00 x10 3/ul 08/05/2017 5:43 PM CDT [facility] HISTORICAL RESULTS Absolute Neutrophils 3000 200 - 8000 /ul 08/05/2017 5:43 PM T [facility] HISTORICAL RESULTS 08/05/2017 4:34 PM CDT 08/05/2017 5:35 PM CDT us Sultan Guillermo Ruggiero MD LAB BLOOD ORDERABLES Final Re sult [facility] HISTORICAL RESULTS documented in this encounter Visit Diagnoses Diagnosis Chronic diastolic heart failure (HCC) Chronic diastolic heart failure documented in this encounter
--- OUTSIDE RECORDS SUMMARY | 2024-02-26 23:02 | XMS_ITS | Encounter Summary ---
Author Organization [facility] Address [address] [place] [address] Care Team Providers Care Instructor Decorating Name Role Phone Jaylin Ibarra MD Primary Care Provider Reason for Visit * Reason Onset Date Comments Reschedule 05/08/2021 Encounter Details Date Type Department Care Team (Late st Contact Info) Description 05/08/[address] 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 Asked for pt to call office for next appt. * Telephone Encounter - Lila Rivas MA - 05/08/2021 12:13 PM CDT 05/08/21- LM we need to r/s appt on 05/15/21. AD will be out of office. documented in this encounter Plan of Treatment Not on file documented as of this encounter Visit Diagnoses Not on filedocumented in this encounter Care Teams Instructor Decorating Relationship Specialty Start Date End Date Jaylin Ibarra MD [address] [facility] [address] [place] [address] PCP - General Family Medicine 07/10/18 documented as of this encounter
--- OUTSIDE RECORDS SUMMARY | 2024-02-26 23:02 | XMS_ITS | Encounter Summary ---
Author Organization [facility] Address [address] [place] [address] Care Team Providers Care Assistant Manager/Embalmer Name Role Phone Jaylin Ibarra MD Primary Care Provider Encounter Details Date Type Department Care Team (Late st Contact Info) Description 01/09/2019 Telephone [facility] [address] [place] [address] Ang Porter MD [address] [place] [address] Social History Tobacco Use Types Packs/Day Years Used Date Smoking Tobacco: Never Smokeless Tobacco: Former Alcohol Use Standard Drinks/Week Comments Not Currently 0 (1 standard drink = 0.6 oz pur e alcohol) Sex and Gender Information Value Date Recorded Sex Assigned at Not on file Legal Sex Male 7:05 PM OPERATION AGENT Gender Identity Not on file Sexual Orientation Not on file documented as of this encounter Miscellaneous Notes * Telephone Encounter - Lila Weldon RN - 01/09/2019 11:31 AM OPERATION AGENT Patients blood pressure was elevated while here for echo although patient had stated that he did not take his medications prior to study and ate a lot of bloom. Per Dr. Porter, have patient monitor blood pressure at home and call with readings. Left message for patient requesting blood pressure readings. Advised patient that if he does not have a home bp machine that we can schedule him an appointment in the office for a BP check. ATION AGENT documented in this encounter Plan of Treatment Not on file documented as of this encounter Visit Diagnoses Not on filedocumented in this encounter Care Teams Assistant Manager/Embalmer Relationship Specialty Start Date End Date Jaylin Ibarra MD [address] [facility] [address] [place] [address] PCP - General Family Medicine 07/10/18 documented as of this encounter
--- OUTSIDE RECORDS SUMMARY | 2024-02-26 23:02 | XMS_ITS | Encounter Summary ---
Author Organization [facility] Address [address] [place] [address] Care Team Providers Care Gold Tooler Name Role Phone Jaylin Ibarra MD Primary Care Provider Reason for Referral * (Routine) - Closed Specialty Diagnoses / Procedures Referred By Porter miller Referred To Contact Procedures Transthoracic Echo Complete W Doppler/CF [facility] [address] [place] [address] [place] [phone] Phone: tel: fax: Referral ID Status Reason Start Date Expiration Date Visits Re quested Visits Authorized [id number] Closed 07/10/2018 01/19/2020 1 1 Encounter Details Date Type Department Care Team (Late st Contact Info) Description 07/10/2018 Orders Only [facility] [address] [place] [address] [address] [place] [phone] Lauri Peña MD [address] [place] [address] Social History Tobacco Use Types Packs/Day Years Used Date Smoking Tobacco: Never Assessed Sex and Gender Information Value Date Recorded Sex Assigned at Not on file 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 Gender Identity Not on file Sexual Orientation Not on file documented as of this encounter Plan of Treatment Not on file documented as of this encounter Procedures Procedure Name Priority Date/Time Associated Diagnosis Comments TRANSTHORACIC ECHO (TTE) COM PLETE W DOPPLER/CF Routine 07/06/2018 documented in this encounter Results * Transthoracic Echo Complete W Doppler/CF (07/06/2018) Anatomical Region Laterality Modality Ultrasound us Historical Provider MD ARREDONDO ECHO PROCEDURES Final Result documented in this encounter Visit Diagnoses Not on filedocumented in this encounter Care Teams Gold Tooler Relationship Specialty Start Date End Date Jaylin Ibarra MD [address] [facility] [address] [place] [phone] PCP - General Family Medicine 07/10/18 documented as of this encounter
--- OUTSIDE RECORDS SUMMARY | 2024-02-26 23:02 | XMS_ITS | Encounter Summary ---
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
--- OUTSIDE RECORDS SUMMARY | 2024-02-26 23:02 | XMS_ITS | Encounter Summary ---
Author Organization [facility] Address [address] [place] [address] Care Team Providers Care Qa Internship Name Role Phone Jaylin Ibarra MD Primary Care Provider Encounter Details Date Type Department Care Team (Late st Contact Info) Description 05/12/2020 Telephone [facility] Cardiology [address] [facility] [address] [facility] [address] [place] [phone] Sally Quijano NP [address] [facility] [address] [place] [address] Social History Tobacco Use Types Packs/Day Years Used Date Smoking Tobacco: Never Smokeless Tobacco: Former Alcohol Use Standard Drinks/Week Comments Not Currently 0 (1 standard drink = 0.6 oz pur e alcohol) Sex and Gender Information Value Date Recorded Sex Assigned at Not on file 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 We have the paperwork and will complete and fax back this week. * Telephone Encounter - Jackie Sheppard - 05/12/2020 2:41 PM CDT Pt calling to check the status of the paperwork from [employer]. Said he will be terminated if it isn't in right away. Said he was told last week that we would call him back and he hasn't heard anything. documented in this encounter Plan of Treatment Not on file documented as of this encounter Visit Diagnoses Not on filedocumented in this encounter Care Teams Qa Internship Relationship Specialty Start Date End Date Jaylin Ibarra MD [address] [facility] [address] [place] [phone] PCP - General Family Medicine 07/10/18 documented as of this encounter
--- OUTSIDE RECORDS SUMMARY | 2024-02-26 23:02 | XMS_ITS | Encounter Summary ---
Author Organization 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
--- OUTSIDE RECORDS SUMMARY | 2024-02-26 23:02 | XMS_ITS | Data Portability ---
Author Organization [place] [employer] [facility], Main Office Address [address] [place] [address] Care Team Providers Care Cattle Examiner Name Role Phone SHEMAR GOLDSTEIN Primary Care Provider Assessment Encounter Date Assessment Date Assessment LastModified by Organization Details LastModified Time 08/24/2023 08/24/2023 This note is dictated and transcribed by [employer]. [employer] variances may occur. Despite proofreading, typographical errors may occur. Occasional wrong-word or 'zhlea-z-gfzb' substitutions may have occurred due to the inherent limitations of voice recording. Read the chart carefully and recognize, using context, where substitutions have occurred. Not available 08/24/2023 11:37:46 08/31/2023 08/31/2023 This note is dictated and transcribed by [employer]. [employer] variances may occur. Despite proofreading, typographical errors may occur. Occasional wrong-word or 'jhssb-c-jegy' substitutions may have occurred due to the inherent limitations of voice recording. Read the chart carefully and recognize, using context, where substitutions have occurred. Not available 08/31/2023 11:35:59 09/07/2023 09/07/2023 This note is dictated and transcribed by [employer]. [employer] variances may occur. Despite proofreading, typographical errors may occur. Occasional wrong-word or 'aoxix-q-xqwt' substitutions may have occurred due to the inherent limitations of voice recording. Read the chart carefully and recognize, using context, where substitutions have occurred. Not available 09/07/2023 11:17:19 09/21/2023 09/21/2023 This note is dictated and transcribed by [employer]. [employer] variances may occur. Despite proofreading, typographical errors may occur. Occasional wrong-word or 'qracx-h-drmd' substitutions may have occurred due to the inherent limitations of voice recording. Read the chart carefully and recognize, using context, where substitutions have occurred. Not available 09/21/2023 13:01:41 Plan of Treatment Reminders Order Date Submit Date Provider Last Modified By Organization Details Last Modified Time Details Appointments None record ed. Lab None record ed. Referral None record ed. Procedures None record ed. Surgeries None record ed. Imaging None record ed. Medication Orders None record ed. Patient TargetsNo targets recorded. Patient InstructionsNo instructions recorded. Reason for Referral None Reported. Problems Name Problem SNOMED Code Status Onset Date Resolution Date Notes Provider Name and Address Organization Details Recorded Time Venous stasis edema of bilateral lower limbs [id number] 106 Active 2023 Parth Mckeon DPM [address], [address], [place], [address], [employer] [facility] 4 10:35:36 Venous stasis ulcer with edema of left lower leg [id number] 101 Active 2023 Parth Mckeon DPM [address], [address], [place], [address], [employer] 4 10:35:41 Venous stasis ulcer with edema of right lower leg 74575572489860 106 Active 2023 Parth Mckeon DPM [address], [address], [place], [address], [employer] 4 10:35:46 Wound pain 413269569 Active 2023 Parth Mckeon DPM [address], [address], [place], [address], [facility] 4 10:36:12 Problem Notes None recorded. Procedures Surgical History Date Name Laterality Status Provider Name and Address Organization Details Recorded Time 09/21/2023 Wound Care-Podiat ry completed RONALD Topete [employer] 09/21/2023 13:30:37 09/14/2023 Wound Care-Podiat ry completed Rosa Elena Angel RN [place] [facility] [employer] 09/14/2023 11:26:28 09/07/2023 Wound Care-Podiat ry completed Rosa Elena Angel RN [facility] [employer] [facility] 09/07/2023 11:17:10 08/31/2023 Wound Care-Podiat ry completed Parth Mckeon DPM [address], [address], [place], [address], [facility] [place] [employer] [facility] 08/31/2023 11:35:53 08/24/2023 Wound Care-Podiat ry completed Parth Mckeon DPM [address], [place], [address], [facility] [place] [employer] [facility] 08/24/2023 11:37:40 08/17/2023 Wound Care-Podiat ry completed Parth Mckeon DPM [address], [place], [address], [facility] [place] [employer] [facility] 08/17/2023 13:47:35 08/10/2023 Wound Care-Podiat ry completed Rosa Elena Angel RN [facility] [employer] [facility] 08/10/2023 11:27:31 08/03/2023 Wound Care-Podiat ry completed Rosa Elena Angel RN [facility] [employer] [facility] 08/03/2023 10:51:58 07/27/2023 Wound Care-Podiat ry completed Rosa Elena Angel RN [facility] [employer] [facility] 07/27/2023 10:46:51 07/21/2023 Wound Care-Podiat ry completed Rosa Elena Angel RN [facility] [employer] [facility] 07/21/2023 12:35:30 07/13/2023 Wound Care-Podiat ry completed Parth Mckeon DPM [address], [address], [place], [address], [facility] [place] [employer] [facility] 07/13/2023 15:28:10 07/06/2023 Wound Care-Podiat ry completed Parth Mckeon DPM [address], [place], [address], [place] [facility] 07/06/2023 14:46:58 06/29/2023 Wound Care-Podiat ry completed Flynn Gonzales RN [facility] 06/29/2023 12:56:36 06/22/2023 Wound Care-Podiat ry completed Flynn Gonzales RN [facility] 06/22/2023 13:00:25 06/16/2023 Wound Care-Podiat ry completed Flynn Gonzales RN [facility] 06/16/2023 17:14:35 06/15/2023 Wound Care-Podiat ry completed Flynn Gonzales RN [facility] 06/15/2023 10:38:07 Imaging Results None recorded. Procedure Notes None recorded. Medical Equipment None Reported. Medications Name Sig Start Date Stop Date Status Note LastModified by Organization Details LastModified Time atorvastati n 40 mg tablet TAKE 1 TABLET BY MOUTH DAILY active Not Available Not Available No t Available carvedilol 25 mg tablet TAKE 1 TABLET BY MOUTH EVERY 12 HOURS active Not Available Not Available No t Available hydrocodone 5 mg-acetamin ophen 325 mg tablet TAKE 1 TABLET BY MOUTH EVERY 8 HOURS NEEDED FOR PAIN active Not Available Not Available No t Available polysacchar santana iron complex 150 mg iron capsule TAKE 1 CAPSULE BY MOUTH DAILY active Not Available Not Available No t Available chlorthalid one 25 mg tablet TAKE 1 TABLET BY MOUTH DAILY active Not Available Not Available No t Available ciprofloxac in 500 mg tablet TAKE 1 TABLET BY MOUTH EVERY 12 HOURS FOR 7 DAYS DIRECTED active Not Available Not Available No t Available tramadol 50 mg tablet TAKE 1 TABLET BY MOUTH EVERY 8 HOURS NEEDED FOR PAIN active Not Available Not Available No t Available cephalexin 500 mg capsule TAKE 1 CAPSULE BY MOUTH EVERY 12 HOURS FOR 10 DAYS 07/10 completed Not Available Not Available Not Available hydralazine 100 mg tablet TAKE 1 TABLET BY MOUTH THREE TIMES DAILY active Not Available Not Available No t Available gabapentin 300 mg capsule TAKE 1 CAPSULE BY MOUTH TWICE DAILY active Not Available Not Available No t Available aspirin 81 mg chewable tablet Chew 1 tablet every day by oral route. active Not Available Not Available No t Available furosemide 20 mg tablet TAKE 1 TABLET BY MOUTH EVERY MORNING active Not Available Not Available No t Available gabapentin 100 mg capsule TAKE 1 CAPSULE BY MOUTH EVERY DAY AT BEDTIME 06/14 completed Not Available Not Available Not Available triamcinolo ne acetonide 0.1 % lotion APPLY A THIN LAYER TO THE AFFECTED AREA(S) lower legs with dressing change BY TOPICAL ROUTE once PER DAY active Not Available Not Available No t Available lisinopril 40 mg tablet TAKE 1 TABLET BY MOUTH DAILY active Not Available Not Available No t Available spironolact one 50 mg tablet TAKE 1 TABLET BY MOUTH TWICE DAILY active Not Available Not Available No t Available amoxicillin 875 mg-potassiu m clavulanate 125 mg tablet TAKE 1 TABLET BY MOUTH EVERY 12 HOURS 06/14 completed Not Available Not Available Not Available Vitals Date Recorded Body temperature Oxygen saturation Oxygen saturation in Arterial blood by Pulse oximetry Heart rate Systolic blood pressure Diastolic blood pressure Provider Name and Address Organization Details Last Updated DateTime 4 97.6 [degF] 97 % 97 % 63 /min 152 mm[Hg] 98 mm[Hg] Flynn Gonzales RN [facility] [employer] [facility] 4 09:15:32 Date Recorded Body temperature Oxygen saturation Oxygen saturation in Arterial blood by Pulse oximetry Heart rate Respiratory rate Systolic blood pressure Diastolic blood pressure Provider Name and Address Organization Details Last Updated DateTime 4 98.4 [degF] 96 % 96 % 64 /min 18 /min 157 mm[Hg] 100 mm[Hg] Rosa Elena Angel RN [facility] [employer] [facility] 4 09:56:52 Date Recorded Body temperature Respiratory rate Heart rate Oxygen saturation Oxygen saturation in Arterial blood by Pulse oximetry Systolic blood pressure Diastolic blood pressure Provider Name and Address Organization Details Last Updated DateTime 4 98.1 [degF] 18 /min 67 /min 96 % 96 % 165 mm[Hg] 93 mm[Hg] Rosa Elena Angel RN [facility] [employer] [facility] 4 11:05:04 Date Recorded Heart rate Oxygen saturation Oxygen saturation in Arterial blood by Pulse oximetry Respiratory rate Body temperature Systolic blood pressure Diastolic blood pressure Provider Name and Address Organization Details Last Updated DateTime 4 64 /min 97 % 97 % 18 /min 97.9 [degF] 172 mm[Hg] 102 mm[Hg] Rosa Elena Angel RN [facility] [employer] [facility] 4 10:48:00 Date Recorded Body temperature Oxygen saturation Oxygen saturation in Arterial blood by Pulse oximetry Respiratory rate Heart rate Systolic blood pressure Diastolic blood pressure Provider Name and Address Organization Details Last Updated DateTime 4 98.4 [degF] 98 % 98 % 18 /min 77 /min 142 mm[Hg] 79 mm[Hg] Rosa Elena Angel RN [place] [facility] [place] [employer] [facility] 4 13:23:08 Social History None recorded. Functional Status None recorded. Mental Status None recorded. Family History Nothing Reported. Medical History No medical history recorded. Past Encounters Encounter ID Performer Location Encounter Start Date Encounter Closed Date Diagnosis/Indication Diagnosis SNOMED-CT Code Diagnosis ICD10 Code [id number] [facility] [address] [place] [address] 06/15/2023 08:54:32 06/15/2023 11:22:57 Venous stasis edema of bilateral lower limbs [id number] 7579147 I87.2 Venous sta sis ulcer with edema of left lower leg 5996251176 6376603 L97.929 Venous sta sis ulcer with edema of right lower leg 7066937119 1071579 L97.919 Wound pain 014134841 R52 [id number] [facility] [address] [place] [address] 06/16/2023 16:10:38 06/23/2023 10:29:29 [id number] [facility] [address] [place] [address] 06/22/2023 12:38:50 06/22/2023 13:52:16 Venous stasis edema of bilateral lower limbs 2617698180 9212008 I87.2 Venous sta sis ulcer with edema of left lower leg 4623504063 2259795 L97.929 Venous sta sis ulcer with edema of right lower leg 7053865357 8991075 L97.844 [id number] [facility] [address] [place] [address] 06/29/2023 12:27:00 06/29/2023 15:11:32 Venous stasis edema of bilateral lower limbs 9090902062 3040576 I87.2 Venous sta sis ulcer with edema of left lower leg 0761453842 1016265 L97.929 Venous sta sis ulcer with edema of right lower leg 5623575638 7617880 L97.871 [id number] [facility] [address] [place] [address] 07/06/2023 11:15:32 07/06/2023 15:12:37 Venous stasis ulcer with edema of left lower leg 6159337757 9864817 L97.929 Venous sta sis ulcer with edema of right lower leg 8785969610 1091606 L97.919 Venous sta sis edema of bilateral lower limbs 6808009089 6421519 I87.2 [id number] [facility] [address] [place] [address] 07/13/2023 14:30:39 07/13/2023 18:35:57 Venous stasis ulcer with edema of left lower leg 2523486794 8480833 L97.929 Venous sta sis ulcer with edema of right lower leg 5367749210 7209405 L97.919 Venous sta sis edema of bilateral lower limbs 7702669332 9048645 I87.2 [id number] [facility] [address] [place] [address] 07/21/2023 09:56:37 07/21/2023 12:33:42 [id number] [facility] [address] [place] [address] 07/27/2023 10:02:51 07/27/2023 15:43:22 Venous stasis ulcer with edema of left lower leg 1447035796 4765167 L97.929 Venous sta sis ulcer with edema of right lower leg 0259291773 2230811 L97.919 Venous sta sis edema of bilateral lower limbs 0544872055 6271489 I87.2 [id number] [facility] [address] [place] [address] 08/03/2023 10:01:24 08/04/2023 10:12:44 Venous stasis ulcer with edema of left lower leg 1026561769 8020726 L97.929 Venous sta sis ulcer with edema of right lower leg 9327361613 4512295 L97.919 Venous sta sis edema of bilateral lower limbs 8884449951 3506749 I87.2 [id number] [facility] [address] [place] [address] 08/10/2023 10:53:44 08/11/2023 11:29:15 Venous stasis ulcer with edema of left lower leg 3728073592 8165031 L97.929 Venous sta sis ulcer with edema of right lower leg 4571499489 7195591 L97.919 Venous sta sis edema of bilateral lower limbs 7460314780 9627749 I87.2 [id number] [facility] [address] [place] [address] 08/17/2023 12:32:14 08/17/2023 14:53:32 Venous stasis ulcer with edema of left lower leg 8665041848 3774316 L97.929 Venous sta sis ulcer with edema of right lower leg 1461520948 4469532 L97.333 [id number] [facility] [address] [place] [address] 08/24/2023 09:00:02 08/24/2023 18:03:44 Venous stasis ulcer with edema of left lower leg 5238497426 0862133 L97.929 Venous sta sis ulcer with edema of right lower leg 2802921909 5705525 L97.655 [id number] [facility] [address] [place] [address] 08/31/2023 09:44:14 08/31/2023 14:37:30 Venous stasis ulcer with edema of left lower leg 7094504900 3169179 L97.929 Venous sta sis ulcer with edema of right lower leg 8733084750 1804156 L97.014 [id number] [facility] [address] [place] [address] 09/07/2023 10:45:37 09/07/2023 14:15:46 Venous stasis ulcer with edema of left lower leg 6023964398 1059759 L97.929 Venous sta sis ulcer with edema of right lower leg 6663890402 1675695 L97.750 [id number] Parth Mckeon DPM [facility] [address] [place] [address] 09/14/2023 10:38:56 09/15/2023 16:13:16 [id number] [facility] [address] [place] [address] 09/21/2023 12:27:51 09/21/2023 13:30:00 Venous stasis ulcer with edema of left lower leg 8397931654 7838402 L97.929 Venous sta sis ulcer with edema of right lower leg 4969636669 0666146 L97.919 Health Concerns Section Related Observation LastModified by Organization Detai ls LastModified Time None Recorded Concern Status LastModified by Organization Details LastModified Time None Recorded Advance Directives Directive None Recorded Payers Encounter Date Sequence Insurance Name Policy Number Policy Holbrook Covered Member ID Holbrook Member ID Guarantor Name 08/24/2023 1 [facility] [id number] Portillo Martin [id number] Portillo Martin 08/31/2023 1 [facility] [id number] Portillo Martin [id number] Portillo Martin 09/07/[address] [place] [address] [id number] Portillo Martin [id number] Portillo Martin 09/14/[address] [place] [address] [id number] Portillo Martin [id number] Portillo Martin 09/21/[address] [place] [address] [id number] Portillo Martin [id number] Portillo Martin Notes Date Note Type Note Provider Name and Address Organization Details Recorded Time 08/24/2023 text/html . Patient is a 58-year-old male with venous insufficiency of the lower legs. Patient was seen by vascular on August 22 underwent a venogram. Patient was told he has no significant issues. Patient denies any complications secondary to the procedure. Patient continues have slowly healing wounds secondary to compression wound care. Patient denies any fever, chills, nausea vomiting. Patient denies any troubles breathing, chest pain, leg pain. Parth Mckeon DPM [address], [address], [place], [address], [employer] 08/24/2023 11:38:36 08/31/2023 text/html . Patient is a 58-year-old male who returns the office for bilateral lower leg swelling and venous ulcers. Patient continues to slowly heal the wounds with compression therapies doing well he denies any new complaints. Patient denies any calf pain, trouble breathing, chest pain, negative for fever, chills, nausea vomiting. Parth Mckeon DPM [address], [place], [address], [employer] 08/31/2023 11:36:53 09/07/2023 text/html . Patient is a 50-year-old male returns for follow-up on venous wounds bilateral lower legs he continues to slowly heal he denies any new complaints. Patient denies any calf pain. Parth Mckeon DPM [address], [place], [address], [employer] 09/07/2023 11:39:36 09/21/2023 text/html . Patient is a 58-year-old male who returns the office for bilateral lower extremity venous insufficiency with wounds. Patient states that he has not obtained any compression stockings. Patient states that he believes the wounds are healed he denies any new wounds. Patient denies any calf pain. Patient denies any fever, chills, nausea vomiting. Parth Mckeon DPM [address], [place], [address], [employer] 09/21/2023 13:50:50
--- OUTSIDE RECORDS SUMMARY | 2024-02-26 23:02 | XMS_ITS | Encounter Summary ---
Author Organization [facility] Address [address] [place] [address] Care Team Providers Care Process Control Programmer Name Role Phone Unavailable Primary Care Provider Unavailabl e Encounter Details Date Type Department Care Team (Late st Contact Info) Description 08/15/2017 9:33 AM CDT Hospital Encounter [facility] Sultan Guillermo Gallo MD [address] [facility] [address] [address] Heart disease Social History Tobacco Use Types Packs/Day Years Used Date Smoking Tobacco: Never Assessed Sex and Gender Information Value Date Recorded Sex Assigned at Not on file 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 us Historical Provider [facility] RALPH LEON Final Result * Transthoracic Echo (TTE) Limited (08/15/2017 12:00 AM CDT) Anatomical Region Laterality Modality Ultrasound 08/15/2017 Narrative 08/16/2017 12:57 PM CDT Results viewable in EMR, Cardiovascular [EOD] Procedure Note ProviderLauri MD - 07/08/2020 Results viewable in EMR, Cardiovascular [EOD] us Sultan Guillermo Ruggiero MD [facility] ECHO PROCEDURES Final Resu lt documented in this encounter Visit Diagnoses Diagnosis Heart disease Unspecified heart disease documented in this encounter
--- OUTSIDE RECORDS SUMMARY | 2024-02-26 23:02 | XMS_ITS | Encounter Summary ---
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
--- OUTSIDE RECORDS SUMMARY | 2024-02-26 23:02 | XMS_ITS | Encounter Summary ---
Author Organization [facility] Healthcare Address [address] [place] [address] Care Team Providers Care Supply Chain Procurement Manager Name Role Phone Unavailable Primary Care Provider Unavailabl e Encounter Details Date Type Department Care Team (Latest Contact Info) Description 07/15/2017 1:21 PM CDT - 07/21/2017 1:21 PM CDT Hospital Encounter [facility] Sultan Guillermo Gallo MD [address] [facility] [address] [address] Chronic diastolic heart failure (CMS/HCC) Social History Tobacco Use Types Packs/Day Years Used Date Smoking Tobacco: Never Assessed Sex and Gender Information Value Date Recorded Sex Assigned at Not on file 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 Gender Identity Not on file Sexual Orientation Not on file documented as of this encounter Plan of Treatment Not on file documented as of this encounter Procedures Procedure Name Priority Date/Time Associated Diagnosis Comments THYROID PANEL Routine 07/15/2017 1:51 PM CDT B-TYPE NATRIURETIC PEPTIDE Routine 07/15/2017 1:51 PM CDT CREATINE KINASE (CK), TOTAL Routine 07/15/2017 1:51 PM CDT COMPREHENSIVE METABOLIC PANEL Routine 07/15/2017 1:51 PM CDT URINALYSIS, MACRO AND MICRO Routine 07/15/2017 1:22 PM CDT documented in this encounter Results * Thyroid Panel (07/15/2017 1:51 PM CDT) [facility] TSH 0.82 0.27 - 4.20 uIU/mL Free T4 1.25 0.93 - 1.70 ng/dL 07/15/2017 1:51 PM CDT 07/15/2017 3:17 PM CDT Sultan Guillermo Ruggiero MD LAB BLOOD ORDERABLES Final Re sult Performing Organization Address [facility] de [facility] Number [facility] HISTORICAL RESULTS * B-type natriuretic peptide (07/15/2017 1:51 PM CDT) [facility] B-Natriuretic Peptide 62 0 - 100 pg/mL Comment: B Natriutetic Peptide METHOD: ??Siemens Centaur XP using ISAEL. Decision threshold of 100 pg/mL has been demonstrated to provide the maximal combination of sensitivity, specificity, and predictive value for the diagnosis of congestive heart failure (CHF). ??Virtually all patients with no evidence of CHF have BNP values <100 pg/mL. ?? NOTE: ??Nesiritide (Natrecor) interferes with the BNP assay. BNP result will be invalid if drawn within 2 hours of bolus or infusion of nesiritide. 07/15/2017 1:51 PM CDT 07/15/2017 3:17 PM CDT Sultan Guillermo Ruggiero MD LAB BLOOD ORDERABLES Final Re sult Performing Organization Address [facility] de Phone Number [facility] HISTORICAL RESULTS * (ABNORMAL) Creatine kinase (CK), total (07/15/2017 1:51 PM CDT) [facility] Creatine Kinase 660(H) 20 - 200 U/L 07/15/2017 1:51 PM CDT 07/15/2017 3:17 PM CDT Sultan Guillermo Ruggiero MD LAB BLOOD ORDERABLES Final Re sult [facility] HISTORICAL RESULTS * (ABNORMAL) Comprehensive metabolic panel (07/15/2017 1:51 PM CDT) Sodium 139 135 - 145 mmol/L Potassium 3.2(L) 3.3 - 5.1 mmol/L Chloride 97 96 - 108 mmol/L Carbon Dioxide 28 22 - 32 mmol/L Anion Gap 14 7 - 16 Glucose 123(H) 70 - 100 mg/dL BUN 12 6 - 20 mg/dL Creatinine 1.2 0.5 - 1.3 mg/dL Comment: NOTE: Estimated GFR (Cockroft-Gault) will NOT be calculated unless patient Height and Weight were entered. Also, Kidney Disease Stage (GFR) and Estimated GFR (Cockroft-Gault) will NOT be calculated if Creatinine result is <0.2. Kidney Disease Stage 82 mL/MIN Comment: NOTE; ??The GFR is an estimated value using the creatinine, sex, age, and race of the patient. THE Estimated Kidney Disease GFR is validated for AGES 18-70 YEARS STAGE ?mL/Min ?DESCRIPTION ??1 ?90 mL/min or more ?Normal or elevated GFR ??2 ? 60-89 mL/min ?Mildly decreased GFR ??3 ? 30-59 mL/min ?Moderately decreased GFR ??4 ? 15-29 mL/min ?Severely decreased GFR ??5 ? <15 mL/min ? Kidney failure or on dialysis @ Calcium 9.1 8.6 - 10.0 mg/dL Total Protein 7.2 6.4 - 8.3 g/dL Albumin 4.0 3.5 - 5.2 g/dL Globulin 3.2 2.3 - 3.5 gm/dL Albumin/Globulin Ratio 1.3 1.1 - 1.8 Total Bilirubin 0.4 0.0 - 1.2 mg/dL AST 22 0 - 40 U/L ALT 16 0 - 41 U/L Alkaline Phosphatase 83 40 - 129 U/L 07/15/2017 1:51 PM CDT 07/15/2017 3:17 PM CDT us Sultan Guillermo Ruggiero MD LAB BLOOD ORDERABLES Final Re sult [facility] HISTORICAL RESULTS * (ABNORMAL) Urinalysis, macro and micro (07/15/2017 1:22 PM CDT) Ur Collection Type CLEAN CATCH Urine Color YELLOW YELLOW Urine Clarity CLEAR CLEAR Urine Glucose (UA) NORMAL NORMAL mg/dL Urine Bilirubin NEGATIVE NEGATIVE mg/dl Urine Ketones NEGATIVE NEGATIVE mg/dL Ur Specific [place] 1.016 1.005 - 1.025 Urine Blood NEGATIVE NEGATIVE mg/dl Urine pH 7.0 5.0 - 8.0 Urine Protein NEGATIVE NEGATIVE mg/dL Urine Urobilinogen 2(H) NORMAL mg/dL Urine Nitrite NEGATIVE NEGATIVE Ur Leukocyte Esterase NEGATIVE NEGATIVE Davin/ul Ur Microscopic Review Indicated or Ordered Urine RBC 3 0 - 2 /HPF Ur Squamous Epith Cells Rare /HPF 07/15/2017 1:22 PM CDT 07/15/2017 1:56 PM [facility] Narrative [facility] HISTORICAL RESULTS - 07/15/2017 2:06 PM T us Sultan Guillermo Ruggiero MD LAB URINE ORDERABLES Final Re jonot [facility] HISTORICAL RESULTS documented in this encounter Visit Diagnoses Diagnosis Chronic diastolic heart failure (HCC) Chronic diastolic heart failure documented in this encounter
--- OUTSIDE RECORDS SUMMARY | 2024-02-26 23:02 | XMS_ITS | Encounter Summary ---
Author Organization 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
--- OUTSIDE RECORDS SUMMARY | 2024-02-26 23:02 | XMS_ITS | Encounter Summary ---
Author Organization [facility] Medical [facility] Address [address] [place] [address] Care Team Providers Care Applications Programmer Name Role Phone Jaylin Ibarra MD Primary Care Provider Reason for Visit * Reason Comments Follow-up 8-9 mo f/u Congestive Heart Failure Cardiomyopathy Encounter Details Date Type Department Care Team (Late st Contact Info) Description 03/05/2022 3:15 PM MULTIMEDIA PROGRAMMER Office Visit [facility] Cardiology [address] [place] [address] Ang Porter MD [address] [facility] [address] [place], [place] [id number] Chronic heart failure with preserved ejection fraction (CMS/HCC) (HCC) (Primary Dx); Essential hypertension; Nonrheumatic mitral valve regurgitation; Mixed hyperlipidemia; H/O cardiomyopathy; History of CVA with residual deficit Social History Tobacco Use Types Packs/Day Years Used Date Smoking Tobacco: Never Smokeless Tobacco: Former Alcohol Use Standard Drinks/Week Comments Not Currently 0 (1 standard drink = 0.6 oz pur e alcohol) Sex and Gender Information Value Date Recorded Sex Assigned at Not on file Legal Sex Male 7:05 PM MULTIMEDIA PROGRAMMER Gender Identity Not on file Sexual Orientation Not on file documented as of this encounter Last Filed Vital Signs Vital Sign Reading Time Taken Comments Blood Pressure 130/78 03/05/2022 3:11 PM MULTIMEDIA PROGRAMMER Pulse 82 03/05/2022 3:11 PM MULTIMEDIA PROGRAMMER Temperature - - Respiratory Rate - - Oxygen Saturation 82% 03/05/2022 3:11 PM MULTIMEDIA PROGRAMMER Inhaled Oxygen Concentration - - Weight 129.8 kg (286 lb 3.2 oz) 03/05/2022 3:11 PM MULTIMEDIA PROGRAMMER Height 182.9 cm (6') 03/05/2022 3:11 PM MULTIMEDIA PROGRAMMER Body Mass Index 38.82 03/05/2022 3:11 PM MULTIMEDIA PROGRAMMER documented in this encounter Progress Notes * Ang Porter MD - 03/05/2022 3:15 PM CST [facility] DATE OF VISIT: 03/05/2022 CHIEF COMPLAINT Chief Complaint Patient presents with Follow-up 8-9 mo f/u Congestive Heart Failure Cardiomyopathy ASSESSMENT Diagnoses and all orders for this visit: Chronic heart failure with preserved ejection fraction (CMS/HCC) (HCC) (Primary) Essential hypertension Nonrheumatic mitral valve regurgitation Mixed hyperlipidemia H/O cardiomyopathy History of CVA with residual deficit PLAN/RECOMMENDATIONS 1. BP reasonably controlled, goal <140/90mmHg, but still not controlled goal <140/90mmHg.. Monitor BP on routine basis. Call with readings. Continue consistent cardiovascular exercise, weight loss, medication compliance, and low- sodium diet. -Continue Coreg to 25mg BID, Amlodipine 10mg daily, Hydralazine 50mg TID. -Call with BP readings for further recommendations 2. HFrEF EF 43% Echo 04/2020 normalized by echo EF 62% 06/2021. He is compensated NYHA class II sxs.CHF counseling performed. Follow daily weight, less than 2 g daily sodium intake, medication compliance. Call w/ wt gain >3lb in 24 hrs or worsening edema and/or REGALADO. -mild edema stable worse towards end of the day resolves by morning. -continue Lasix 40 mg daily. Remains on Spironolactone 50mg BID from PCP. Monitor for gynecomastia. -continue lisinopril 40 mg daily, carvedilol 25 mg twice daily. Cough is positional only and transient not other times and not chronic so I do not believe related CHIOMA-inhibitor. Discussed at length. Should he note progression or understand that it is more ubiquinol then he appreciates changing to ARB very reasonable such as losartan 100 mg daily. He will continue on his current regimen and notifythe office with any new concerns or symptoms. 3. Lifestyle modification counseling performed. Weight loss, exercise, reduction in caloric intake. 4. Lipids personally reviewed 03/05/22 LDL 56, well controlled goal LDL<70. Continue [id number] qhs and lifestyle modification. 5. Continue ASA 81mg daily given CVA hx. Monitor for bleeding. 6. Echo 07/10/18 at [facility] EF 35%. Echo 06/2021 EF 62% trivial MR much improved compared to prior study. Discussed in detail. All questions answered to his satisfaction. -review laboratory studies when available from PCP. Over 50% of this visit counseling CHF, CVA risk, HTN, lipids, medications, lifestyle modification. Follow up in the office in 1 year or sooner as needed. Thank you for allowing me the privilege of participating in the care this very pleasant patient. Please do not hesitate to contact me with any additional questions or concerns. PREET Martin is a 56 y.o. male with a PMHx of longstanding hypertension, heart failure and nonhealing wounds on the lower extremities. [place] clinical [place] 3-4 years [place] showing normal coronary arteries. An echo from February 2017 showed a mildly dilated LV, moderate concentric LVH and mildly reduced LV systolic function with EF 45-54%. He presented to [facility] on 07/07/2018 with complaint of imbalance and dizziness, drifting towards the left when he was walking. Initial CT of the brain was unremarkablebut an MRI revealed no acute infarction of the right lentiform nucleus and posterior limb of the right internal capsule. There was also old infarct seen in the frontal lobe, left basal ganglia and bilateral thalami. Venous Doppler showed no DVT, CTA brain/carotids showed no stenosis of the ICAs. A new echo during the admission showed moderate global LV systolic dysfunction with EF estimated 35% and grade 2 diastolic dysfunction, severe LAE, mild MR, mildly dilated aortic root 4.[address] Porter met him in consultation. The cardiomyopathy was felt to most likely be nonischemic. Aspirin 81 mg daily was recommended along with initiation of carvedilol and atorvastatin, and an outpatient structural metal fabricator apprentice to rule out atrial arrhythmia. 07/24/18 HFU w/ CAT: Comes to the office today with his fiancee for hospital follow-up. He just saw Dr. Radha alvarado this morning prior to this visit. She recommended up titration of his carvedilol if okay with us. He also starts physical therapy later today. He is still having some weakness on the left side, particularly feels like he does not have very good balance if he is going up steps. He does however feel comfortable walking, and has been going for walks daily, or sometimes twice a day. Home blood pressures are now 10-20 points lower than they were prior to his hospitalization. [facility] 30 day event monitor placed, but was having difficulty with air messa ges, finally took it off on July 21 in their getting a new 1 mailed today. He has made some dietary changes to reduce his fried foods and reduce egg consumption. POC lipid panel today: TC 116, TG 224, LDL 36, HDL 35 11/20/18 Weight up, feeling more bloated/abdominal fullness and more edema. Denies worsening REGALADO, noCP or falls. Started on Fe for anemia 1 mo ago by PCP. No bleeding. No falls or syncope. BP remainselevated 02/22/19 CAT visit: He is here for routine follow-up after a new echo was performed. He is not checking BP at home very often but when he does,readings are similar to today. He is walking his dog every morning and every evening, and also riding an exercise bike for 60-90 minutes a day. He continues to do some of the same PT strengthening exercises for his left arm and hand, showing slow improvement. Continues to follow with Dr. Mosqueda. He is going to focus on losing about 10 lb and plans to do it with reducing portion sizes in the diet, he has made a lot effort to reduce sodium in the diet andalso eliminate sodas. He is not using any alcohol or tobacco. When he sees Dr. 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 05/08/20 CAT visit: He is overdue for routine follow-up, and it just so happens he was hospitalized last week at [facility] for CHF exacerbation. Leading up to the admission he had noticed increased dyspnea, coughing at night and increased snoring gradually coming on during the month prior. Hehad a new echo performed, BNP was 403 and trop was elevated (0.061, 0.057, 0.062). Apparently bloodpressure was quite high on presentation. ECG showed no acute changes and the elevated troponin was thought likely demand ischemia. His symptoms improved greatly with IV Lasix. The echo showed moderate LV enlargement with moderate LV septal and apical hypokinesis and mild inferior wall hypokinesis with EF estimated 43%, mild RV enlargement, moderate LAE, mild LINDA, moderate LVH, mild MR, RVSP 41 mmHg. Today he returns to the office accompanied by his . He reports feeling ???so-so?? with ups anddowns but overall feels better. His says he is not snoring anymore. He gets short of breath ifhe ???does too much.?? He saw PCP earlier this week who repeated a chest x-ray and he was told it was normal. His weight has come down. He reports blood pressure readings at home are better. Right now he does not feel strong enough yet to return to work, does not think he can lift anything over 10lb at this point. 11/05/20 Doing ok no REGALADO but more knee trouble getting around, weight gain hours cut back as it was too hard on his knees. No palps, syncope or falls. 06/15/21 CAT visit- he is here for routine follow-up. He reports no changes in his health since he was last here. He feels muscle cramps in the quadriceps pretty much on a daily basis. Says he makes apoint to eat bananas and yogurt. His legs will swell at the end of a workday and then the swelling resolves when he goes home and elevates his legs. He denies orthopnea, PND or any new shortness of breath. 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 03/05/22 notes every time lies back coughs 3-4 times then he is fine. Denies orthopnea, no coughing otherwise, feeling well otherwise not working too hard. No CP, no REGALADO, no palps or dizziness. Kyra meds. PCP has him on 40 hour per week work restriction. BP ok highest up to 160's otherwise 130's average. Cramps periodically has to stretch out mostly at night. Edema after working all day resolves lying down. MEDICAL HISTORY Past Medical History: Diagnosis Date CHF (congestive heart failure) ([facility]) ([facility]) Heart disease Hyperlipidemia Hypertension Mixed conductive and sensorineural hearing loss N/A Stroke ([facility]) ([facility]) Social History Tobacco Use Smoking status: Never Smoker Smokeless tobacco: Former User Substance Use Topics Alcohol use: Not Currently Drug use: Not on file Family History Problem Relation Age of Onset Heart disease Mother Hypertension Mother Early Mother MEDICATIONS HOME MEDICATIONS : amLODIPine (NORVASC) 10 mg tablet aspirin 81 mg enteric coated tablet atorvastatin (LIPITOR) 40 mg tablet carvedilol (COREG) 25 mg tablet cholecalciferol (VITAMIN D-3) 1,000 unit tablet furosemide (LASIX) 40 mg tablet hydrALAZINE (APRESOLINE) 50 mg tablet lisinopriL (PRINIVIL,ZESTRIL) 40 mg tablet spironolactone (ALDACTONE) 50 mg tablet polysaccharide iron complex (NU-IRON) 150 mg iron capsule ALLERGIES No Known Allergies REVIEW OF SYSTEMS Review of Systems Constitutional: Positive for weight gain. Negative for decreased appetite, diaphoresis, fever, malaise/fatigue and night sweats. HENT: Negative for hearing loss and nosebleeds. Eyes: Negative for blurred vision and pain. Cardiovascular: Positive for leg swelling. Negative for chest pain, claudication, dyspnea on exertion, irregular heartbeat, near-syncope, orthopnea, palpitations and syncope. Respiratory: Positive for cough. Negative for hemoptysis, shortness of breath, snoring and wheezing. Endocrine: Negative for cold intolerance and heat intolerance. Hematologic/Lymphatic: Negative for bleeding problem. Does not bruise/bleed easily. Skin: Negative for color change, itching, rash and suspicious lesions. Musculoskeletal: Positive for arthritis and joint pain. Negative for falls, muscle weakness and myalgias. Gastrointestinal: Negative for bloating, abdominal pain, heartburn, hematemesis, melena and nausea. Genitourinary: Negative for dysuria, hematuria and nocturia. Neurological: Negative for excessive daytime sleepiness, dizziness, focal weakness, headaches, light-headedness, loss of balance and weakness. Psychiatric/Behavioral: Negative for altered mental status, depression and memory loss. The patientis not nervous/anxious. Allergic/Immunologic: Negative for environmental allergies. All other systems reviewed and are negative. PHYSICAL EXAM Vitals BP 130/78 (BP Location: Left arm, Patient Position: Sitting) Pulse 82 Ht 182.9 cm (6') Wt 129.8 kg (286 lb 3.2 oz) SpO2 (!) 82% BMI 38.82 kg/m?? Weight: 129.8 kg (286 lb 3.2 oz) Height: 182.9 cm (6') Body mass index is 38.82 kg/m??. Physical Exam Vitals reviewed. Constitutional: General: He is not in acute distress. Appearance: Normal appearance. He is well-developed. He is not diaphoretic. Comments: Wearing a mask HENT: Head: Normocephalic and atraumatic. Right Ear: External ear normal. Left Ear: External ear normal. Nose: Nose normal. Mouth/Throat: Mouth: Mucous membranes are moist. Dentition: Normal dentition. Eyes: General: Lids are normal. No scleral icterus. Extraocular Movements: Extraocular movements intact. Conjunctiva/sclera: Conjunctivae normal. Neck: Thyroid: No thyromegaly. Vascular: Normal carotid pulses. No carotid bruit, hepatojugular reflux or JVD. Trachea: No tracheal deviation. Cardiovascular: Rate and Rhythm: Normal rate and regular rhythm. Pulses: Normal pulses and intact distal pulses. No decreased pulses. Heart sounds: Normal heart sounds, S1 normal and S2 normal. Heart sounds not distant. No murmur heard. No friction rub. No gallop. No S3 or S4 sounds. Pulmonary: Effort: Pulmonary effort is normal. No respiratory distress. Breath sounds: Normal breath sounds. No wheezing or rales. Chest: Chest wall: No tenderness. Abdominal: General: Bowel sounds are normal. There is no distension. Palpations: Abdomen is soft. There is no mass. Tenderness: There is no abdominal tenderness. There is no guarding or rebound. Comments: obese Musculoskeletal: General: No tenderness or deformity. Normal range of motion. Cervical back: Normal range of motion and neck supple. Right lower leg: Edema present. Left lower leg: Edema present. Comments: 1+ bilateral LE edema Lymphadenopathy: Cervical: No cervical adenopathy. Skin: General: Skin is warm and dry. Coloration: Skin is not pale. Findings: No ecchymosis, erythema, petechiae or rash. Nails: There is no clubbing. Neurological: General: No focal deficit present. Mental Status: He is alert and oriented to person, place, and time. Mental status is at baseline. Cranial Nerves: No cranial nerve deficit. Motor: No abnormal muscle tone. Coordination: Coordination normal. Psychiatric: Mood and Affect: Mood normal. Speech: Speech normal. Behavior: Behavior normal. Behavior is cooperative. Thought Content: Thought content normal. Judgment: Judgment normal. LABS AND OTHER DIAGNOSTIC TESTS Lab Results Component Value Date WBC 5.5 08/05/2017 HGB 13.3 08/05/2017 HCT 40.8 08/05/2017 CHOL 161 03/15/2017 HDL 53 03/15/2017 LDLCALC 90 03/15/2017 TRIG 92 03/15/2017 CREATININE 1.35 (H) 07/13/2021 POTASSIUM 3.2 (L) 07/15/2017 BUNSER 16 07/13/2021 Results for orders placed or performed in visit on 06/15/21 Basic metabolic panel Result Value Ref Range Glucose 91 65 - 99 mg/dL BUN 16 6 - 24 mg/dL Creatinine, Serum 1.35 (H) 0.76 - 1.27 mg/dL eGFR 62 >59 mL/min/1.73 BUN/creat ratio 12 9 - 20 Sodium 140 134 - 144 mmol/L Potassium, sr 4.7 3.5 - 5.2 mmol/L Chloride 102 96 - 106 mmol/L CO2 20 20 - 29 mmol/L Calcium 9.7 8.7 - 10.2 mg/dL 03/31/17 Lexiscan: FINDINGS: 1. Quality of the study is fair. No motion correction performed. Left ventricular cavity appears lucia normal at rest and stress images. 2. Right ventricle is normal with normal contractility. 3. SPECT stress images revealed mild decrease in tracer uptake involving a small area of basal inferior and also in the inferolateral apical region. 4. Remaining segments perfuse normally. SPECT rest images revealed moderate decrease in tracer uptake involving the mid to basal inferior and inferolateral region and also mild decrease in tracer uptake involving a small area of inferoapical and lateral apical region. The perfusion defect is worse at rest than at stress. Gated images demonstrate hypokinesis of the septal and inferior wall. Calculated ejection fraction is 41%. TID ratio is 1.01. IMPRESSION: 1. No evidence of ischemia noted. 2. Possible apical attenuation artifact noted. Basal inferior infarct noted. 3. Abnormal left ventricular wall motion. 4. Calculated ejection fraction is 41%. 01/08/19 2D Echo: Conclusions: Normal left ventricular size. Severe concentric left ventricular hypertrophy. Mild global left ventricular systolic dysfunction. Impaired diastolic relaxation Grade I. Ejection fraction is visually estimated at 45 %. Ejection fraction is measured at 43 %. There is mild enlargement of left atrium. Moderate mitral valve regurgitation. Estimated peak RVSP is 35 mmHg. Trivial regurgitation in the tricuspid valve. Compared to an echo done on 07/06/2018, LV systolic function has improved. Mitral regurgitation seems to be moderate. Patient's BP today 193/100. 07/16/21 2D Echo: Conclusions: Normal left ventricular size. Definity contrast agent used to visually enhance endocardial wall motion and contractility. Lot Number: [id number]. Severe concentric left ventricular hypertrophy. Impaired diastolic relaxation Grade I. Ejection fraction is measured at 62 %. There is mild enlargement of left atrium. Normal appearance of the mitral valve. Trivial regurgitation of the mitral valve. Normal appearance of the aortic valve. Compared with prior exams LVEF continues to improve . MR is now trivial. Personally reviewed EKG, electronic medical record, and bloodwork/lipids. Osmin Porter MD, [facility] This note is dictated and transcribed using [employer] Software. Pedigree Tracer variancesmay occur. Despite proofreading, typographical errors may occur. IMEDIA PROGRAMMER documented in this encounter Miscellaneous Notes * Addendum Note - Maribeth Rivas MA - 03/05/2022 3:15 PM CSTAddended by: MARIBETH RIVAS on: 03/05/2022 04:31 PM Modules accepted: Orders IMEDIA PROGRAMMER documented in this encounter Plan of Treatment Not on file documented as of this encounter Procedures Procedure Name Priority Date/Time Associated Diagnosis Comments POCT LIPID PANEL Routine 03/05/2022 4:30 PM MULTIMEDIA PROGRAMMER Mixed hyperlipidemia documented in this encounter Results * POCT lipid panel (03/05/2022 4:30 PM MULTIMEDIA PROGRAMMER) Cholesterol, POC 120 mg/dL Comment:GLU = 122 HDL, POC 40 mg/dL Triglycerides, POC 121 mg/dL LDL Cholesterol POC 56 mg/dL Chol/HDL Ratio, POC 1.4 Non-HDL Cholesterol, POC 80 mg/dL Cholesterol Total, POC 120 mg/dL Capillary blood 03/05/2022 4 :30 PM MULTIMEDIA PROGRAMMER Ang Porter MD POINT OF CARE TEST ORDER SANDRA Final Result documented in this encounter Visit Diagnoses Diagnosis Chronic heart failure with preserved ejection fraction (CMS/HCC) (HCC)- Primary Essential hypertension Unspecified essential hypertension Nonrheumatic mitral valve regurgitation Mixed hyperlipidemia H/O cardiomyopathy History of CVA with residual deficit documented in this encounter Care Teams Applications Programmer Relationship Specialty Start Date End Date Jaylin Ibarra MD [address] [address] PCP - General Family Medicine 07/10/18 documented as of this encounter
--- OUTSIDE RECORDS SUMMARY | 2024-02-26 23:02 | XMS_ITS | Encounter Summary ---
Author Organization [facility] Healthcare Address [address] [place] [address] Care Team Providers Care Sas Administrator Name Role Phone Jaylin Ibarra MD Primary Care Provider Reason for Referral * Consultation (Routine) - Closed Specialty Diagnoses / Procedures Referred By Porter miller Referred To Contact Pain Management Diagnoses Persistent wound pain Parth Mckeon DPM [address] [place] [address] Phone: tel: fax: [address] [phone] Referral ID Status Reason Start Date Expiration Date V isits Requested Visits Authorized [id number] Closed Specialty Services Required 06/21/2023 07/20/2024 1 1 Question Answer Please select the performing region: [facility] [[id number]] # of visits: 1 Encounter Details Date Type Department Care Team (Late st Contact Info) Description 06/21/2023 Orders Only [facility] [address] [place] [id number] Parth Mckeon DPM [address] [place] [address] Persistent wound pain (Primary Dx) Social History Tobacco Use Types Packs/Day Years Used Date Smoking Tobacco: Never Smokeless Tobacco: Former Alcohol Use Standard Drinks/Week Comments Not Currently 0 (1 standard drink = 0.6 oz pur e alcohol) Personal Safety Answer Date Recorded Getting School Help Needed Not on file 03/17 Sex and Gender Information Value Date Recorded Sex Assigned at Not on file Legal Sex Male 7:05 PM 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 CHEMIST Gender Identity Not on file Sexual Orientation Not on file documented as of this encounter Plan of Treatment Scheduled Referrals Name Type Priority Associated Diagnoses Order Schedule Ambulatory referral to Pain Management Outpatient Referral Routine Persistent Wound Pain Expected: 07/05/2023 (Approximate), Expires: 06/20/2024 documented as of this encounter Visit Diagnoses Diagnosis Persistent wound pain- Primary documented in this encounter Care Teams Sas Administrator Relationship Specialty Start Date End Date Jaylin Ibarra MD [address] [facility] [address] [place] [address] PCP - General Family Medicine 07/10/18 documented as of this encounter
--- OUTSIDE RECORDS SUMMARY | 2024-02-26 23:02 | XMS_ITS | Encounter Summary ---
Author Organization [facility] Address [address] [place] [address] Care Team Providers Care Supervisor Sleeping Bag Department Name Role Phone Jaylin Ibarra MD Primary Care Provider Encounter Details Date Type Department Care Team (Late st Contact Info) Description 07/07/2018 Orders Only [facility] [address] [place] [address] Scanning, Provider Social History Tobacco Use Types Packs/Day Years Used Date Smoking Tobacco: Never Assessed Sex and Gender Information Value Date Recorded Sex Assigned at Not on file Legal Sex Male 7:05 PM WOOD GRAINER Gender Identity Not on file Sexual Orientation Not on file documented as of this encounter Plan of Treatment Not on file documented as of this encounter Procedures Procedure Name Priority Date/Time Associated Diagnosis Comments SCAN - RADIOLOGY/IMAGING 07/07/2018 documented in this encounter Results * SCAN - RADIOLOGY/IMAGING (07/07/2018) Anatomical Region Laterality Modality Other us Provider Scanning Final Result documented in this encounter Visit Diagnoses Not on filedocumented in this encounter Care Teams Supervisor Sleeping Bag Department Relationship Specialty Start Date End Date Jayiln Ibarra MD [address] [place] [address] PCP - General Family Medicine 07/10/18 documented as of this encounter
--- OUTSIDE RECORDS SUMMARY | 2024-02-26 23:02 | XMS_ITS | Encounter Summary ---
Author Organization [facility] Address [address] [place] [address] Care Team Providers Care Branch Office Manager Name Role Phone Jaylin Ibarra MD Primary Care Provider Reason for Visit * Diagnostic Imaging (Routine) - Canceled Specialty Diagnoses / Procedures Referred By Contac t Referred To Contact Diagnoses Chronic combined systolic and diastolic CHF (congestive heart failure) (CMS/HCC) (HCC) Nonischemic cardiomyopathy (CMS/HCC) (HCC) Essential hypertension Cerebrovascular accident (CVA), unspecified mechanism (HCC) Aortic root dilatation (CMS/HCC) (HCC) Procedures Transthoracic Echo Complete W Doppler/CF Ang Porter MD Phone: tel: fax: External Order Referral ID Status Reason Start Date Expiration Date V isits Requested Visits Authorized [id number] Canceled 11/20/2018 05/31/2020 1 1 Encounter Details Date Type Department Care Team (Latest Contact Info) Description 01/08/2019 9:15 AM EXECUTIVE CANDIDATE DEVELOPER Ancillary Procedure [facility] Cardiology [address] [place] [address] Chronic combined systolic and diastolic CHF (congestive heart failure) (CMS/HCC); Nonischemic cardiomyopathy (CMS/HCC); Essential hypertension; Cerebrovascular accident (CVA), unspecified mechanism (CMS/HCC); Aortic root dilatation (CMS/HCC) Social History Tobacco Use Types Packs/Day Years Used Date Smoking Tobacco: Never Smokeless Tobacco: Former Alcohol Use Standard Drinks/Week Comments Not Currently 0 (1 standard drink = 0.6 oz pur e alcohol) Sex and Gender Information Value Date Recorded Sex Assigned at Not on file Legal Sex Male 7:05 PM EXECUTIVE CANDIDATE DEVELOPER Gender Identity Not on file Sexual Orientation Not on file documented as of this encounter Plan of Treatment Not on file documented as of this encounter Procedures Procedure Name Priority Date/Time Associated Diagnosis Comments TRANSTHORACIC ECHO (TTE) COMPLETE W DOPPLER/CF WO CONTRAST Routine 01/08/2019 10:07 AM EXECUTIVE CANDIDATE DEVELOPER Chronic combined systolic and diastolic CHF (congestive heart failure) (CMS/HCC) Nonischemic cardiomyopathy (CMS/HCC) Essential hypertension Cerebrovascular accident (CVA), unspecified mechanism (CMS/HCC) Aortic root dilatation (CMS/HCC) documented in this encounter Results * TRANSTHORACIC ECHO (TTE) COMPLETE W DOPPLER/CF WO CONTRAST (01/08/2019 10:07 AM EXECUTIVE CANDIDATE DEVELOPER) Anatomical Region Laterality Modality Ultrasound 01/08/2019 9:04 AM EXECUTIVE CANDIDATE DEVELOPER Narrative 01/08/2019 11:10 AM EXECUTIVE CANDIDATE DEVELOPER [facility] [address] [facility] [place] [address] [id number] [address] [address] [place] [address], [place] [address] P:[phone] P:[phone] Echocardiographic Report Patient Name: PORTILLO LOPEZ : 1965 Study Date: 01/08/2019 9:04:58 AM Gender: M Tech: Location: [place] Ref.Provider: TRISTON Height(Cm): 183 BSA: 2.44 Weight(Kg): 124.29 Heart Rate: 62 BP: 193/100 Quality: Good Order Provider: ANG PORTER Procedures: Echocardiographic Report: Transthoracic echocardiogram with complete 2D, M-Mode, and color Doppler examination. Indications: Congestive Heart Failure, Hypertension, and Nonischemic cardiomyopathy. Measurements: 2D/M Mode Doppler Measurement Value Normal Range Measurement Value Normal Range EF Mod 43 ??AV Mean PG 5 mmHg EF MM 55 [ 55 - 70 ] % AV Peak Kyle 1.50 m/s LVIDd 2D 6.05 [ 3.90 - 5.30 ] cm AV Peak PG 9 mmHg LVIDd MM 6.23 [ 3.90 - 5.30 ] cm AV VTI 0.30 cm LVIDs 2D 4.73 [ 2.30 - 3.90 ] cm LVOT Peak Kyle 0.79 [ 0.70 - 1.10 ] m/s LVIDs MM 4.40 [ 2.30 - 3.90 ] cm LVOT VTI 0.14 cm LVPWd 2D 1.99 [ 0.60 - 1.00 ] cm MV E Peak Kyle 0.66 [ 0.60 - 1.30 ] m/s LVPWd MM 2.02 [ 0.60 - 1.00 ] cm MV A Peak Kyle 0.95 [ 0.40 - 0.80 ] m/s IVSd 2D 2.02 [ 0.60 - 0.90 ] cm MV Decel Time 284 [ 150 - 200 ] msec IVSd MM 1.93 [ 0.60 - 0.90 ] cm PV Peak Kyle 1.15 [ 0.40 - 0.80 ] m/s LA Dimension MM 5.59 [ 2.70 - 3.80 ] cm TR Peak Kyle 2.72 [ 0.40 - 0.80 ] m/s AoR Diam MM 3.85 [ 2.60 - 3.70 ] cm TR Peak PG 30 mmHg LA Volume Index 31.00 [ 16.00 - 28.00 ] cc/m2 RVSP 38.00 mmHg ACS MM 2.20 cm E' 0.06 E/E' 10 Findings: Interpretation Site: Exam was interpreted at [facility]. Left Ventricle: Normal left ventricular size. Severe concentric left ventricular hypertrophy. Mild global left ventricular systolic dysfunction. Impaired diastolic relaxation Grade I. Ejection fraction is visually estimated at 45 %. Ejection fraction is measured at 43 %. Right Ventricle: Normal right ventricular size. Normal right ventricular systolic function. Left Atrium: There is mild enlargement of left atrium. Right Atrium: The right atrium is normal in size. Atrial Septum: Normal atrial septum. Mitral Valve: Normal appearance of the mitral valve. Moderate mitral valve regurgitation. There is no hemodynamically significant mitral stenosis by Doppler. Aortic Valve: Normal appearance of the aortic valve. No evidence of hemodynamically significant aortic stenosis by Doppler. Trileaflet aortic valve. No aortic regurgitation. Tricuspid Valve: Normal appearance of the tricuspid valve. Estimated peak RVSP is 35 mmHg. Trivial regurgitation in the tricuspid valve. Pulmonic Valve: Pulmonic valve not well visualized. No evidence of pulmonic regurgitation. Pericardium: Normal pericardium with no significant pericardial effusion. Aorta: Sinus of Valsalva is normal. IVC: Normal size and normal respiratory collapse consistent with normal right atrial pressure (<5 mmHg). Pulmonary Artery: Normal pulmonary artery size. Conclusions: Normal left ventricular size. Severe concentric [...] to be moderate. Patient's BP today 193/100. Electronically Signed By: Dr. Seble Barbosa [facility] 2019-01-08 11:10:07 EXECUTIVE CANDIDATE DEVELOPER Procedure Note Seble Barbosa MD - 01/08/2019 [facility] [address] [facility] [address] [address] [address] [facility] [address] [address], [place] [address] P:[phone] P:[phone] Echocardiographic Report Patient Name: PORTILLO LOPEZ : 1965 Study Date: 01/08/2019 9:04:58 AM Gender: M Tech: Location: [place] Ref.Provider: TRISTON Height(Cm): 183 BSA: 2.44 Weight(Kg): 124.29 Heart Rate: 62 BP: 193/100 Quality: Good Order Provider: ANG PORTER Procedures: Echocardiographic Report: Transthoracic echocardiogram with complete 2D, M-Mode, and color Dopplerexamination. Indications: Congestive Heart Failure, Hypertension, and Nonischemic cardiomyopathy. Measurements: 2D/M Mode Doppler Measurement Value Normal Range Measurement Value Normal Range EF Mod 43 AV Mean PG 5 mmHg EF MM 55 [ 55 - 70 ] % AV Peak Kyle 1.50 m/s LVIDd 2D 6.05 [ 3.90 - 5.30 ] cm AV Peak PG 9 mmHg LVIDd MM 6.23 [ 3.90 - 5.30 ] cm AV VTI 0.30 cm LVIDs 2D 4.73 [ 2.30 - 3.90 ] cm LVOT Peak Kyle 0.79 [ 0.70 - 1.10 ] m/s LVIDs MM 4.40 [ 2.30 - 3.90 ] cm LVOT VTI 0.14 cm LVPWd 2D 1.99 [ 0.60 - 1.00 ] cm MV E Peak Kyle 0.66 [ 0.60 - 1.30 ] m/s LVPWd MM 2.02 [ 0.60 - 1.00 ] cm MV A Peak Kyle 0.95 [ 0.40 - 0.80 ] m/s IVSd 2D 2.02 [ 0.60 - 0.90 ] cm MV Decel Time 284 [ 150 - 200 ] msec IVSd MM 1.93 [ 0.60 - 0.90 ] cm PV Peak Kyle 1.15 [ 0.40 - 0.80 ] m/s LA Dimension MM 5.59 [ 2.70 - 3.80 ] cm TR Peak Kyle 2.72 [ 0.40 - 0.80 ]m/s AoR Diam MM 3.85 [ 2.60 - 3.70 ] cm TR Peak PG 30 mmHg LA Volume Index 31.00 [ 16.00 - 28.00 ] cc/m2 RVSP 38.00 mmHg ACS MM 2.20 cm E' 0.06 E/E' 10 Findings: Interpretation Site: Exam was interpreted at [facility]. Left Ventricle: Normal left ventricular size. Severe concentric left ventricularhypertrophy. Mild global left ventricular systolic dysfunction. Impaired diastolic relaxation GradeI. Ejection fraction is visually estimated at 45 %. Ejection fraction is measured at43 %. Right Ventricle: Normal right ventricular size. Normal right ventricular systolicfunction. Left Atrium: There is mild enlargement of left atrium. Right Atrium: The right atrium is normal in size. Atrial Septum: Normal atrial septum. Mitral Valve: Normal appearance of the mitral valve. Moderate mitral valveregurgitation. There is no hemodynamically significant mitral stenosis by Doppler. Aortic Valve: Normal appearance of the aortic valve. No evidence of hemodynamicallysignificant aortic stenosis by Doppler. Trileaflet aortic valve. No aortic regurgitation. Tricuspid Valve: Normal appearance of the tricuspid valve. Estimated peak RVSP is 35 mmHg.Trivial regurgitation in the tricuspid valve. Pulmonic Valve: Pulmonic valve not well visualized. No evidence of pulmonicregurgitation. Pericardium: Normal pericardium with no significant pericardial effusion. Aorta: Sinus of Valsalva is normal. IVC: Normal size and normal respiratory collapse consistent with normal rightatrial pressure (<5 mmHg). Pulmonary Artery: Normal pulmonary artery size. Conclusions: Normal left ventricular size. Severe concentric left ventricularhypertrophy. Mild global left ventricular systolic dysfunction. Impaired diastolicrelaxation Grade I. Ejection fraction is visually estimated at 45 %. Ejection fraction ismeasured at 43 %. There is mild enlargement of left atrium. Moderate mitral valve regurgitation. Estimated peak RVSP is 35 mmHg. Trivial regurgitation in the tricuspidvalve. Compared to an echo done on 07/06/2018, LV systolic function has improved.Mitral regurgitation seems to be moderate. Patient's BP today 193/100. Electronically Signed By: Dr. Seble Barbosa [facility] 2019-01-08 11:10:07 EXECUTIVE CANDIDATE DEVELOPER Ang Porter MD CV ECHO PROCEDURES Final Result documented in this encounter Visit Diagnoses Diagnosis Chronic combined systolic and diastolic CHF (congestive heart failure) (CMS/HCC) (HCC) Nonischemic cardiomyopathy (CMS/HCC) (HCC) Other primary cardiomyopathies Essential hypertension Unspecified essential hypertension Cerebrovascular accident (CVA), unspecified mechanism (HCC) Aortic root dilatation (CMS/HCC) (HCC) Thoracic aneurysm without mention of rupture documented in this encounter Care Teams Branch Office Manager Relationship Specialty Start Date End Date Jaylin Ibarra MD [address] [facility] [address] [place] [address] PCP - General Family Medicine 07/10/18 documented as of this encounter
--- OUTSIDE RECORDS SUMMARY | 2024-02-26 23:02 | XMS_ITS | Encounter Summary ---
Author Organization [facility] Address [address] [place] [address] Care Team Providers Care Vest Baster Name Role Phone Unavailable Primary Care Provider Unavailabl e Encounter Details Date Type Department Care Team (Late st Contact Info) Description 03/30/2017 7:55 AM TRUCK DRIVER RUBBISH COLLECTOR Hospital Encounter [facility] Sultan Guillermo aGllo MD [address] [facility] [address] [address] Heart disease Social History Tobacco Use Types Packs/Day Years Used Date Smoking Tobacco: Never Assessed Sex and Gender Information Value Date Recorded Sex Assigned at Not on file Legal Sex Male 7:05 PM TRUCK DRIVER RUBBISH COLLECTOR Gender Identity Not on file Sexual Orientation Not on file documented as of this encounter Plan of Treatment Not on file documented as of this encounter Procedures Procedure Name Priority Date/Time Associated Diagnosis Comments STRESS LEXISCAN/MYOVIEW Routine 03/30/2017 8:06 AM TRUCK DRIVER RUBBISH COLLECTOR NM MPI SPECT (REST AND/OR STRESS) MULTIPLE STUDIES Routine 03/30/2017 8:02 AM TRUCK DRIVER RUBBISH COLLECTOR CARDIOLOGY REPORT 03/30/2017 12: 00 AM TRUCK DRIVER RUBBISH COLLECTOR documented in this encounter Results * Stress Lexiscan/Myoview (03/30/2017 8:06 AM TRUCK DRIVER RUBBISH COLLECTOR) Anatomical Region Laterality Modality Nuclear Medicine 03/30/2017 8:06 AM TRUCK DRIVER RUBBISH COLLECTOR Narrative 03/30/2017 11:37 AM TRUCK DRIVER RUBBISH COLLECTOR DATE OF SERVICE: 03/30/2017 INDICATIONS: 1. ??Dilated cardiomyopathy. 2. ??Congestive heart failure. The resting heart rate is 60, resting blood pressure 151/101. ??Resting EKG showed normal sinus, diffuse T-wave changes. Lexiscan 0.4 mg was injected intravenously over 15 seconds. ??Myoview was injected 15 seconds after the Lexiscan injection. ??Blood pressure and 12-lead EKG were obtained every 2-3 minutes. ??Pulse oximetry and rhythm was continuously monitored. ??Leg exercises were done for chronotropic stimulation. ??The heart rate increased with the test and reached a peak of 84 over 4 minutes. ??Blood pressure 147/80 at 3 minutes. ??Oxygen saturation 99% at 4 minutes. ??There was no chest pain with the test. ??No nausea, vomiting, coughing or wheezing. ??A few single PVCs were seen with the test. ??No new EKG changes were seen. ??The recovery was uneventful and Myoview imaging was then started. CONCLUSIONS: 1. ??No major side effects from Lexiscan. 2. ??No chest pain or new EKG changes with the test. 3. ??Myoview scan results to follow. [facility] Job: [id number] Dictated By: Sultan Karolina Ruggiero MD Dictated For: Sultan Karolina Ruggiero MD [EOD] Procedure Note Provider, MD Lauri - 07/08/2020 DATE OF SERVICE: 03/30/2017 INDICATIONS: 1. Dilated cardiomyopathy. 2. Congestive heart failure. The resting heart rate is 60, resting blood pressure 151/101. Resting EKGshowed normal sinus, diffuse T-wave changes. Lexiscan 0.4 mg was injected intravenously over 15 seconds. Myoview wasinjected 15 seconds after the Lexiscan injection. Blood pressure adj27-kzzd EKG were obtained every 2-3 minutes. Pulse oximetry and rhythmwas continuously monitored. Leg exercises were done for chronotropicstimulation. The heart rate increased with the test and reached a peak of84 over 4 minutes. Blood pressure 147/80 at 3 minutes. Oxygen cosltuowuh13% at 4 minutes. There was no chest pain with the test. No nausea,vomiting, coughing or wheezing. A few single PVCs were seen with thetest. No new EKG changes were seen. The recovery was uneventful andMyoview imaging was then started. CONCLUSIONS: 1. No major side effects from Lexiscan. 2. No chest pain or new EKG changes with the test. 3. Myoview scan results to follow. [facility] Job: [id number] Dictated By: Sultan Karolina Ruggiero MD Dictated For: Sultan Karolina Ruggiero MD [EOD] us Sultan Guillermo Ruggiero MD IMG NM PROCEDURES Final Resul t * NM MPI SPECT (Rest and/or Stress) Multiple Studies (03/30/2017 8:02 AM TRUCK DRIVER RUBBISH COLLECTOR) Anatomical Region Laterality Modality Body N/A Nuclear Medicine 03/30/2017 8:02 AM TRUCK DRIVER RUBBISH COLLECTOR Impressions 03/31/2017 7:12 AM TRUCK DRIVER RUBBISH COLLECTOR 1. ??No evidence of ischemia noted. 2. ??Possible apical attenuation artifact noted. ??Basal inferior infarct noted. 3. ??Abnormal left ventricular wall motion. 4. ??Calculated ejection fraction is 41%. [facility] Job: [id number] Dictated By: Fran Dewitt MD Dictated For: Fran Dewitt MD [EOD] Narrative 03/31/2017 7:12 AM TRUCK DRIVER RUBBISH COLLECTOR DATE OF SERVICE: 03/30/2017 Please see separate dictation by Dr. Ruggiero for the indications and stress portion. MYOCARDIAL PERFUSION IMAGING REPORT: ??Patient received 11 mCi of Myoview at rest and 34 mCi of Myoview at stress. FINDINGS: 1. ??Quality of the study is fair. ??No motion correction performed. ??Left ventricular cavity appears to be normal at rest and stress images. 2. ??Right ventricle is normal with normal contractility. 3. ??SPECT stress images revealed mild decrease in tracer uptake involving a small area of basal inferior and also in the inferolateral apical region. 4. ??Remaining segments perfuse normally. ??SPECT rest images revealed moderate decrease in tracer uptake involving the mid to basal inferior and inferolateral region and also mild decrease in tracer uptake involving a small area of inferoapical and lateral apical region. ??The perfusion defect is worse at rest than at stress. ??Gated images demonstrate hypokinesis of the septal and inferior wall. ??Calculated ejection fraction is 41%. ??TID ratio is 1.01. Procedure Note Provider, Lauri, - 07/08/2020 DATE OF SERVICE: 03/30/2017 Please see separate dictation by Dr. Ruggiero for the indications and stressportion. MYOCARDIAL PERFUSION IMAGING REPORT: Patient received 11 mCi of Myoviewat rest and 34 mCi of Myoview at stress. FINDINGS: 1. Quality of the study is fair. No motion correction performed. Leftventricular cavity appears to be normal at rest and stress images. 2. Right ventricle is normal with normal contractility. 3. SPECT stress images revealed mild decrease in tracer uptake involvinga small area of basal inferior and also in the inferolateral apicalregion. 4. Remaining segments perfuse normally. SPECT rest images revealedmoderate decrease in tracer uptake involving the mid to basal inferior andinferolateral region and also mild decrease in tracer uptake involving asmall area of inferoapical and lateral apical region. The perfusiondefect is worse at rest than at stress. Gated images demonstratehypokinesis of the septal and inferior wall. Calculated ejection fractionis 41%. TID ratio is 1.01. IMPRESSION: 1. No evidence of ischemia noted. 2. Possible apical attenuation artifact noted. Basal inferior infarctnoted. 3. Abnormal left ventricular wall motion. 4. Calculated ejection fraction is 41%. [facility] Job: [id number] Dictated By: Fran Dewitt MD Dictated For: Fran Dewitt MD [EOD] Sultan Guillermo Ruggiero MD IMG NM PROCEDURES Final Resul t * CARDIOLOGY REPORT (03/30/2017 12:00 AM TRUCK DRIVER RUBBISH COLLECTOR) Anatomical Region Laterality Modality Other Narrative 03/30/2017 12:00 AM TRUCK DRIVER RUBBISH COLLECTOR Ordered by an unspecified provider. Historical Provider [facility] RALPH LEON Final Result documented in this encounter Visit Diagnoses Diagnosis Heart disease Unspecified heart disease documented in this encounter
--- OUTSIDE RECORDS SUMMARY | 2024-02-26 23:02 | XMS_ITS | Encounter Summary ---
Author Organization [facility] Address [address] [place] [address] Care Team Providers Care Lab Director Name Role Phone Jaylin Ibarra MD Primary Care Provider Encounter Details Date Type Department Care Team (Late st Contact Info) Description 02/22/2019 9:30 AM LASER ENGRAVER Office Visit [facility] Cardiology [address] [facility] [address] [place] [address] Sally Quijano NP [address] [place] [address] [place] [address] Nonischemic cardiomyopathy (CMS/HCC) (Primary Dx); Chronic combined systolic and diastolic CHF (congestive heart failure) (CMS/HCC); Hypertensive heart disease with chronic combined systolic and diastolic congestive heart failure (CMS/HCC); Class 2 severe obesity with serious comorbidity and body mass index (BMI) of 38.0 to 38.9 in adult, unspecified obesity type (CMS/HCC); History of CVA with residual deficit; Nonrheumatic mitral valve regurgitation Social History Tobacco Use Types Packs/Day Years Used Date Smoking Tobacco: Never Smokeless Tobacco: Former Tobacco Cessation:Counseling Given: Yes Alcohol Use Standard Drinks/Week Comments Not Currently 0 (1 standard drink = 0.6 oz pur e alcohol) Sex and Gender Information Value Date Recorded Sex Assigned at Not on file Legal Sex Male 7:05 PM LASER ENGRAVER Gender Identity Not on file Sexual Orientation Not on file documented as of this encounter Last Filed Vital Signs Vital Sign Reading Time Taken Comments Blood Pressure 146/98 02/22/2019 9:33 AM LASER ENGRAVER Pulse 62 02/22/2019 9:33 AM LASER ENGRAVER Temperature - - Respiratory Rate - - Oxygen Saturation 97% 02/22/2019 9:33 AM LASER ENGRAVER Inhaled Oxygen Concentration - - Weight 127.8 kg (281 lb 11.2 oz) 02/22/2019 9:33 AM LASER ENGRAVER Height 182.9 cm (6') 02/22/2019 9:33 AM LASER ENGRAVER Body Mass Index 38.21 02/22/2019 9:33 AM LASER ENGRAVER documented in this encounter Progress Notes * Sally Quijano NP - 02/22/2019 9:30 AM CST [facility] Date of Visit: 02/22/2019 Patient ID: Portillo Martin 1965 Chief Complaint: Portillo Martin is a 53 y.o. male who is an established patient of Dr. Porter with a history of nonischemic cardiomyopathy returning to the office for follow- up after having a repeat echocardiogram. History of Present Illness: Portillo Martin is a 53 y.o. male with a past medical history of longstanding hypertension, heart failure and nonhealing wounds on the lower extremities. He had been followed by bandoleer straightener stamper Dr. Ruggiero in [place] and reported a cardiac catheterization 3-4 years ago showing normal coronary arteries. An echo from February 2017 showed a mildly dilated LV, moderate concentric LVH and mildly reducedLV systolic function with EF 45-54%. He presented to [facility] on 07/07/2018 with complaintof imbalance and dizziness, drifting towards the left when he was walking. Initial CT of the brain was unremarkable but an MRI revealed no acute infarction of the right lentiform nucleus and posterior limb of the right internal capsule. There was also old infarct seen in the frontal lobe, left basal ganglia and bilateral thalami. Venous Doppler showed no DVT, CTA brain/carotids showed no stenosisof the ICAs. A new echo during the admission showed moderate global LV systolic dysfunction with EFestimated 35% and grade 2 diastolic dysfunction, severe LAE, mild MR, mildly dilated aortic root 4.[address] Porter met him in consultation. The cardiomyopathy was felt to most likely be nonischemic. Aspirin 81 mg daily was recommended along with initiation of carvedilol and atorvastatin, and an outpatient monitoring coordinator to rule out atrial arrhythmia. 07/24/18 HFU w/ CAT: Comes to the office today with his maria del rosario for hospital follow-up. He just saw Dr. Radha lavarado this morning prior to this visit. She [...] prior to his hospitalization. He came to theoffice on July 10 to have the 30 day event monitor placed, but was having difficulty with air messa ges, finally took it off on July 21 in their getting a new 1 mailed today. He has made some dietary changes to reduce his fried foods and reduce egg consumption. 11/20/18 Weight up, feeling more bloated/abdominal fullness [...] to today. He is walking his dog everymorning and every evening, and also riding an exercise bike for 60-90 minutes a day. He continues to do some of the same PT strengthening exercises for his left arm and hand, showing slow improvement. Continues to follow with Dr. Mosqueda. He is going to focus on losing about 10 lb and plans to do itwith reducing portion sizes in the diet, he has made a lot effort to reduce sodium in the diet and also eliminate sodas. He is not using any alcohol or tobacco. When he sees Dr. 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 Records that I personally reviewed on the day of this visit include: (the interpretation is outlined in the HPI above) 11/20/[address] Porter, 01/08/2019 echocardiogram report I have also reviewed: allergies, current medications, past family history, past medical history, past social history, past surgical history and problem list Review of Systems Constitution: Negative for diaphoresis, fever, malaise/fatigue, weight gain and weight loss. HENT: Negative for hearing loss. Eyes: Negative for visual disturbance. Cardiovascular: Negative for chest pain, claudication, dyspnea on exertion, leg swelling, orthopnea, palpitations, paroxysmal nocturnal dyspnea and syncope. Respiratory: Positive for cough. Negative for hemoptysis, shortness of breath, snoring and wheezing. Aggravated by walking in cold air outside Hematologic/Lymphatic: Does not bruise/bleed easily. Skin: Negative for poor wound healing and rash. Musculoskeletal: Negative for joint pain and myalgias. Gastrointestinal: Negative for heartburn, nausea and vomiting. Genitourinary: Negative for hematuria. Neurological: Positive for focal weakness. Negative for dizziness, headaches and light-headedness. Left-sided Psychiatric/Behavioral: Negative for depression. The patient is not nervous/anxious. Vital Signs: BP 146/98 (BP Location: Right arm, Patient Position: Sitting) Pulse 62 Ht 182.9 cm (6') Wt 127.8 kg (281 lb 11.2 oz) SpO2 97% BMI 38.21 kg/m?? Physical Exam Constitutional: He is oriented to person, place, and time. He appears well- developed and well-nourished. No distress. Pleasant man, obese body habitus. HENT: Head: Normocephalic and atraumatic. Nose: Nose normal. Mouth/Throat: Mucous membranes are normal. Eyes: Pupils are equal, round, and reactive to light. Conjunctivae and EOM are normal. No scleral icterus. Neck: Normal range of motion. No JVD present. No tracheal deviation present. Cardiovascular: Normal rate, regular rhythm and normal heart sounds. No murmur heard. Pulmonary/Chest: Effort normal and breath sounds normal. No respiratory distress. Abdominal: Soft. Bowel sounds are normal. There is no tenderness. Musculoskeletal: Normal range of motion. General: No edema. Comments: Trace bilateral lower extremity edema. Neurological: He is alert and oriented to person, place, and time. Trace left sided weakness, CVA residual. Walks with a limp Skin: Skin is warm and dry. Psychiatric: He has a normal mood and affect. No Known Allergies Current Outpatient Medications: ??? amLODIPine (NORVASC) 10 mg tablet, TAKE 1 TABLET BY MOUTH EVERY DAY, Disp: 90 tablet, Rfl: 0 ??? aspirin 81 mg enteric coated tablet, Take 81 mg by mouth daily, Disp: , Rfl: ??? atorvastatin (LIPITOR) 40 mg tablet, Take 40 mg by mouth daily, Disp: , Rfl: ??? carvedilol (COREG) 25 mg tablet, Take 1 tablet (25 mg total) by mouth 2 (two) times a day with meals, Disp: 180 tablet, Rfl: 3 ??? cholecalciferol (VITAMIN D-3) 1,000 unit tablet, Take 1,000 Units by mouth daily, Disp: , Rfl: ??? furosemide (LASIX) 40 mg tablet, Take 40 mg by mouth daily, Disp: , Rfl: ??? hydrALAZINE (APRESOLINE) 100 mg tablet, Take 10 mg by mouth 2 (two) times a day , Disp: , Rfl: ??? lisinopril (PRINIVIL,ZESTRIL) 20 mg tablet, Take 40 mg by mouth daily , Disp: , Rfl: ??? polysaccharide iron complex (NU-IRON) 150 mg iron capsule, Take 150 mg by mouth 2 (two) times aday, Disp: , Rfl: ??? spironolactone (ALDACTONE) 50 mg tablet, Take 50 mg by mouth 2 (two) times a day, Disp: , Rfl: Assessment: Diagnoses and all orders for this visit: Nonischemic cardiomyopathy (CMS/HCC) (Primary) Chronic combined systolic and diastolic CHF (congestive heart failure) (CMS/HCC) Hypertensive heart disease with chronic combined systolic and diastolic congestive heart failure (CMS/HCC) Class 2 severe obesity with serious comorbidity and body mass index (BMI) of 38.0 to 38.9 in adult,unspecified obesity type (CMS/HCC) History of CVA with residual deficit Nonrheumatic mitral valve regurgitation Plan/Recommendations: His recent echo shows improvement in his LV function from 35% to 45%. He appears euvolemic at this time. He remains on optimal medical therapy with carvedilol, lisinopril and spironolactone. He is also taking 40 mg of furosemide daily. I reviewed the signs and symptoms of decompensated heart failure with him so he would recognize this if it occurred. His blood pressure remains elevated. He is on maximum dosages of multiple antihypertensives. I advised him to continue focusing on weight loss with diet and exercise to help improve the blood pressure. We discussed weight loss strategy with ongoing regular exercise and calorie reduction by eating smaller portion sizes and maintaining a low-sodium diet. He has mild left-sided residual deficits from the stroke. He is on aspirin and statin. He continuesto do physical therapy exercises at home to improve the left upper extremity. He has a slight limp with the left lower extremity but does not have problems with balance or falling. The recent echo also showed mitral valve regurgitation persists at a moderate degree. We will continue to monitor this on serial echocardiograms. Return to the office to see Dr. Porter in 4 months. Call us sooner with questions or concerns. GENNARO Moore- Nurse Practitioner with [facility] This note is dictated and transcribed using [employer] Software. Director Enterprise Data [employer] variancesmay occur. Despite proofreading, typographical errors may occur. R ENGRAVER R ENGRAVER documented in this encounter Plan of Treatment Not on file documented as of this encounter Visit Diagnoses Diagnosis Nonischemic cardiomyopathy (CMS/HCC) (HCC)- Primary Other primary cardiomyopathies Chronic combined systolic and diastolic CHF (congestive heart failure) (CMS/HCC) (HCC) Hypertensive heart disease with chronic combined systolic and diastolic congestive heart failure (HCC) Class 2 severe obesity with serious comorbidity and body mass index (BMI) of 38.0 to 38.9 in adult, unspecified obesity type (HCC) History of CVA with residual deficit Nonrheumatic mitral valve regurgitation documented in this encounter Care Teams Lab Director Relationship Specialty Start Date End Date Jaylin Ibarra MD [address] [address] PCP - General Family Medicine 07/10/18 documented as of this encounter
--- OUTSIDE RECORDS SUMMARY | 2024-02-26 23:02 | XMS_ITS | Encounter Summary ---
Author Organization [facility] Care Team Providers Care Frame Tender Name Role Phone Jaylin Ibarra MD Primary Care Provider Encounter Details Date Type Department Care Team (Latest Contact Info) Description 03/30/2017 Orders Only [facility]IN[facility] ProviderLauri MD [address] [place] [address] [phone] Social History Tobacco Use Types Packs/Day Years Used Date Smoking Tobacco: Never Assessed Sex and Gender Information Value Date Recorded Sex Assigned at Not on file Legal Sex Male 7:05 PM PHOTO MASK PATTERN GENERATOR Gender Identity Not on file Sexual Orientation Not on file documented as of this encounter Plan of Treatment Not on file documented as of this encounter Procedures Procedure Name Priority Date/Time Associated Diagnosis Comments CARDIOLOGY REPORT 03/30/2017 12: 00 AM PHOTO MASK PATTERN GENERATOR documented in this encounter Results * CARDIOLOGY REPORT (03/30/2017 12:00 AM PHOTO MASK PATTERN GENERATOR) Anatomical Region Laterality Modality Other Narrative 03/30/2017 12:00 AM PHOTO MASK PATTERN GENERATOR Ordered by an unspecified provider. Historical Provider [facility] RAL[facility] LEON Final Result documented in this encounter Visit Diagnoses Not on filedocumented in this encounter Care Teams Frame Tender Relationship Specialty Start Date End Date Jaylin Ibarra MD [address] [facility] [address] [place] [address] PCP - General Family Medicine 07/10/18 documented as of this encounter
--- OUTSIDE RECORDS SUMMARY | 2024-02-26 23:02 | XMS_ITS | Encounter Summary ---
Author Organization [facility] Address [address] [place] [address] Care Team Providers Care Medical File Clerk Name Role Phone Jaylin Ibarra MD Primary Care Provider Reason for Referral * Diagnostic Imaging (Routine) - Canceled Specialty [...] Expiration Date V isits Requested Visits Authorized [id number] Canceled 11/20/2018 05/31/2020 1 1 Reason for Visit * Reason Comments Follow-up 3 mo follow up on CV A, CHF, NICM, HTN Encounter Details Date Type Department Care Team (Latest Contact Info) Description 11/20/2018 9:45 AM CDT Office Visit [facility] [address] [place] [address] Ang Porter MD [address] [facility] [address] [place] [address] Chronic combined systolic and diastolic CHF (congestive heart failure) (CMS/HCC) (Primary Dx); Nonischemic cardiomyopathy (CMS/HCC); Essential hypertension; Cerebrovascular accident (CVA), unspecified mechanism (CMS/HCC); Aortic root dilatation (CMS/HCC); Class 2 severe obesity due to excess calories with serious comorbidity and body mass index (BMI) of 37.0 to 37.9 in adult (CMS/HCC) Social History Tobacco Use Types Packs/Day Years Used Date Smoking Tobacco: Never Smokeless Tobacco: Former Alcohol Use Standard Drinks/Week Comments Not Currently 0 (1 standard drink = 0.6 oz pur e alcohol) Sex and Gender Information Value Date Recorded Sex Assigned at Not on file 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 Gender Identity Not on file Sexual Orientation Not on file documented as of this encounter Last Filed Vital Signs Vital Sign Reading Time Taken Comments Blood Pressure 138/98 11/20/2018 9:57 AM CDT Pulse 70 11/20/2018 9:57 AM CDT Temperature - - Respiratory Rate - - Oxygen Saturation 95% 11/20/2018 9:57 AM CDT Inhaled Oxygen Concentration - - Weight 124.3 kg (274 lb) 11/20/2018 9:57 AM CDT Height 182.9 cm (6') 11/20/2018 9:57 AM CDT Body Mass Index 37.16 11/20/2018 9:57 AM CDT documented in this encounter Ordered Prescriptions Prescription Sig Dispense Quantity Refills Last Filled Start Date End Date carvedilol (COREG) 25 mg tablet Take 1 tablet (25 mg total) by mouth 2 (two) times a day with meals 180 tablet 3 11/20/2018 documented in this encounter Progress Notes * Ang Porter MD - 11/20/2018 9:45 AM CDT [facility] DATE OF VISIT: 11/20/2018 CHIEF COMPLAINT Chief Complaint Patient presents with ??? Follow-up 3 mo follow up on CVA, CHF, NICM, HTN ASSESSMENT Diagnoses and all orders for this visit: Chronic combined systolic and diastolic CHF (congestive heart failure) (CMS/HCC) (Primary) - Transthoracic Echo Complete W Doppler/CF; Future Nonischemic cardiomyopathy (CMS/HCC) - Transthoracic Echo Complete W Doppler/CF; Future Essential hypertension - Transthoracic Echo Complete W Doppler/CF; Future Cerebrovascular accident (CVA), unspecified mechanism (CMS/HCC) - Transthoracic Echo Complete W Doppler/CF; Future Aortic root dilatation (CMS/HCC) - Transthoracic Echo Complete W Doppler/CF; Future Class 2 severe obesity due to excess calories with serious comorbidity and body mass index (BMI) of37.0 to 37.9 in adult (CMS/HCC) Other orders - carvedilol (COREG) 25 mg tablet; Take 1 tablet (25 mg total) by mouth 2 (two) times a day with meals PLAN/RECOMMENDATIONS 1. BP elevated but improved on repeat check, but still not controlled. Monitor BP on routine basis.Call with readings. Continue consistent cardiovascular exercise, weight loss, medication compliance, and low-sodium diet. -Increase Coreg to 25mg BID -Call with BP readings for further recommendations 2. Mild decompensation. CHF counseling performed. Follow daily weight, less than 2 g daily sodium intake, medication compliance. Call w/ wt gain >3lb in 24 hrs or worsening edema and/or REGALADO. -Weight up, more edema -Take Lasix 80mg a day for 3 days and call with weight, sxs. 3. Lifestyle modification counseling performed. Weight loss, exercise, reduction in caloric intake. 4. Lipids personally reviewed 07/24/18 LDL 36, well controlled. Continue statin therapy and lifestylemodification. 5. 07/10/18 event monitor without A. Fib, occ PVC's underlying SR, personally reviewed and discussed. Cont ASA 81mg daily indefinitely. 6. Echo 07/10/18 at [place] EF 35%. Repeat Echo prior to return visit in 2 months to assess EF on medical therapy and response. Further recommendations to follow. Over 50% of this visit counseling CHF, CVA risk, HTN, lipids, medications, lifestyle modification. Follow up in the office In 2 months or sooner as needed. Thank you for allowing me the privilege of participating in the care this very pleasant patient. Please do not hesitate to contact me with any additional questions or concerns. HPI Portillo Lopez is a 53 y.o. male with a PMHx of longstanding hypertension, heart failure and nonhealing wounds on the lower extremities. 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 An echo from February 2017 showed a mildly dilated LV, moderate concentric LVH and mildly reduced LV systolic function with EF 45-54%. He presented to [facility] on 07/07/2018 with complaint of imbalance and [...] of carvedilol and atorvastatin, and an outpatient front desk monitor to rule out atrial arrhythmia. 07/24/18 HFU [...] placed, but was having difficulty with air [employer]in[employer], finally took it off on July 21 [...] bleeding. No falls or syncope. BP remainselevated MEDICAL HISTORY Past Medical History: Diagnosis Date ??? CHF (congestive heart failure) (CMS/HCC) ??? Hyperlipidemia ??? Hypertension ??? Stroke (CMS/HCC) Social History Tobacco Use ??? Smoking status: Never Smoker ??? Smokeless tobacco: Former User Substance Use Topics ??? Alcohol use: Not Currently ??? Drug use: Not on file Family History Problem Relation Age of Onset ??? Heart disease Mother ??? Hypertension Mother MEDICATIONS HOME MEDICATIONS : amLODIPine (NORVASC) 10 mg tablet aspirin 81 mg enteric coated tablet atorvastatin (LIPITOR) 40 mg tablet carvedilol (COREG) 25 mg tablet cholecalciferol (VITAMIN D-3) 1,000 unit tablet furosemide (LASIX) 40 mg tablet hydrALAZINE (APRESOLINE) 100 mg tablet lisinopril (PRINIVIL,ZESTRIL) 20 mg tablet polysaccharide iron complex (NU-IRON) 150 mg iron capsule spironolactone (ALDACTONE) 50 mg tablet carvedilol (COREG) 12.5 mg tablet bisoprolol (ZEBETA) 10 mg tablet carvedilol (COREG) 6.25 mg tablet chlorthalidone 25 mg tablet clobetasol (TEMOVATE) 0.05 % cream ALLERGIES No Known Allergies REVIEW OF SYSTEMS Review of Systems Constitution: Positive for weight gain. Negative for decreased appetite, diaphoresis, fever, malaise/fatigue and night sweats. HENT: Negative for hearing loss and nosebleeds. Eyes: Negative for blurred vision and pain. Cardiovascular: Positive for leg swelling. Negative for chest pain, claudication, dyspnea on exertion, irregular heartbeat, near-syncope, orthopnea, palpitations and syncope. Respiratory: Negative for cough, hemoptysis, shortness of breath, snoring and wheezing. Endocrine: Negative for cold intolerance and heat intolerance. Hematologic/Lymphatic: Negative for bleeding problem. Does not bruise/bleed easily. Skin: Negative for color change, itching, rash and suspicious lesions. Musculoskeletal: Positive for joint pain. Negative for falls, muscle weakness and myalgias. Gastrointestinal: Positive for bloating. Negative for abdominal pain, heartburn, hematemesis, melena and nausea. Genitourinary: Negative for dysuria, hematuria and nocturia. Neurological: Negative for excessive daytime sleepiness, dizziness, focal weakness, headaches, light-headedness, loss of balance and weakness. Psychiatric/Behavioral: Negative for altered mental status, depression and memory loss. The patientis not nervous/anxious. Allergic/Immunologic: Negative for environmental allergies. PHYSICAL EXAM Vitals BP 138/98 (BP Location: Right arm, Patient Position: Sitting) Pulse 70 Ht 182.9 cm (6') Wt 124.3 kg (274 lb) SpO2 95% BMI 37.16 kg/m?? Weight: 124.3 kg (274 lb) Height: 182.9 cm (6') Body mass index is 37.16 kg/m??. Physical Exam Constitutional: He is oriented to person, place, and time. He appears well- developed and well-nourished. He is cooperative. No distress. HENT: Head: Normocephalic and atraumatic. Right Ear: External ear normal. Left Ear: External ear normal. Nose: Nose normal. Mouth/Throat: Oropharynx is clear and moist and mucous membranes are normal. Normal dentition. Eyes: Conjunctivae, EOM and lids are normal. No scleral icterus. Neck: Normal range of motion. Neck supple. Normal carotid pulses, no hepatojugular reflux and no JVD present. Carotid bruit is not present. No tracheal deviation present. No thyromegaly present. Cardiovascular: Normal rate, regular rhythm, S1 normal, S2 normal, normal heart sounds, intact distal pulses and normal pulses. Exam reveals no gallop, no S3, no S4, no distant heart sounds and no friction rub. No murmur heard. Pulmonary/Chest: Effort normal and breath sounds normal. No respiratory distress. He has no wheezes. He has no rales. He exhibits no tenderness. Abdominal: Soft. Bowel sounds are normal. He exhibits no distension and no mass. There is no tenderness. There is no rebound and no guarding. Musculoskeletal: Normal range of motion. He exhibits no edema, tenderness or deformity. Lymphadenopathy: He has no cervical adenopathy. Neurological: He is alert and oriented to person, place, and time. No cranial nerve deficit. He exhibits normal muscle tone. Coordination normal. Skin: Skin is warm and dry. No ecchymosis, no petechiae and no rash noted. He is not diaphoretic. No cyanosis or erythema. No pallor. Nails show no clubbing. Psychiatric: He has a normal mood and affect. His speech is normal and behavior is normal. Judgmentnormal. LABS AND OTHER DIAGNOSTIC TESTS Lab Results Component Value Date WBC 5.5 08/05/2017 HGB 13.3 08/05/2017 HCT 40.8 08/05/2017 CHOL 161 03/15/2017 HDL 53 03/15/2017 LDLCALC 90 03/15/2017 TRIG 92 03/15/2017 CREATININE 1.2 07/15/2017 POTASSIUM 3.2 (L) 07/15/2017 Results for orders placed or performed in visit on 07/24/18 POCT lipid panel Result Value Ref Range Cholesterol, POC 116 mg/dL HDL, POC 35 mg/dL Triglycerides, POC 224 mg/dL LDL, Direct, POC 36 mg/dL Chol/HDL Ratio, POC 3.3 Non-HDL Cholesterol, POC 81 mg/dL Cholesterol Total, POC 116 mg/dL Personally reviewed EKG, electronic medical record, and bloodwork/lipids. Osmin Porter MD, [facility] This note is dictated and transcribed using [email or web address] Direct Software. Fibre Composite Technician variancesmay occur. Despite proofreading, typographical errors may occur. documented in this encounter Plan of Treatment Not on file documented as of this encounter Results * TRANSTHORACIC ECHO (TTE) COMPLETE W DOPPLER/CF WO CONTRAST (01/08/2019 10:07 AM SINGING WAITER OR WAITRESS) Anatomical Region Laterality Modality Ultrasound 01/08/2019 9:04 AM SINGING WAITER OR WAITRESS Narrative 01/08/2019 11:10 AM SINGING WAITER OR WAITRESS [facility] [facility] [address] [address] [address], [place] [address] P:[phone] P:[phone] Echocardiographic Report Patient Name: PORTILLO LOPEZ : 1965 Study Date: 01/08/2019 9:04:58 AM Gender: M Tech: Location: [place] Ref.Provider: TRISTON Height(Cm): 183 BSA: 2.44 Weight(Kg): [...] 55 - 70 ] % AV Peak Kyel 1.50 m/s LVIDd 2D 6.05 [ 3.90 [...] Findings: Interpretation Site: Exam was interpreted at [facility]. Left Ventricle: Normal left ventricular size. Severe [...] 193/100. Electronically Signed By: Dr. Seble Barbosa [facility] 2019-01-08 11:10:07 SINGING WAITER OR WAITRESS Procedure Note Seble Barbosa MD - 01/08/2019 [facility] [facility] [address] [address] [address], [place] [address] P:[phone] P:[phone] Echocardiographic Report Patient Name: PORTILLO LOPEZ : 1965 Study Date: 01/08/2019 9:04:58 AM Gender: M Tech: Location: [place] Ref.Provider: TRISTON Height(Cm): 183 BSA: 2.44 Weight(Kg): [...] Findings: Interpretation Site: Exam was interpreted at [facility]. Left Ventricle: Normal left ventricular size. Severe [...] 193/100. Electronically Signed By: Dr. Seble Barbosa [facility] 2019-01-08 11:10:07 SINGING WAITER OR WAITRESS Ang Porter MD CV ECHO PROCEDURES Final Result documented in this encounter Visit Diagnoses Diagnosis Chronic combined systolic and diastolic CHF (congestive heart failure) (CMS/HCC) (HCC)- Primary Nonischemic cardiomyopathy (CMS/HCC) (HCC) Other primary cardiomyopathies Essential hypertension Unspecified essential hypertension Cerebrovascular accident (CVA), unspecified mechanism (HCC) Aortic root dilatation (CMS/HCC) (HCC) Thoracic aneurysm without mention of rupture Class 2 severe obesity due to excess calories with serious comorbidity and body mass index (BMI) of 37.0 to 37.9 in adult (HCC) Chronic combined systolic and diastolic CHF (congestive heart failure) (CMS/HCC) (HCC) Nonischemic cardiomyopathy (CMS/HCC) (HCC) Other primary cardiomyopathies Essential hypertension Unspecified essential hypertension Cerebrovascular accident (CVA), unspecified mechanism (HCC) Aortic root dilatation (CMS/HCC) (HCC) Thoracic aneurysm without mention of rupture documented in this encounter Discontinued Medications Medication Sig Discontinue Reason Start Date End Da te clobetasol (TEMOVATE) 0.05 % cream Apply topically 2 (two) times a day Therapy completed 11/20/2018 chlorthalidone 25 mg tablet Take 25 mg by mouth daily Therapy completed 11/20/2018 carvedilol (COREG) 6.25 mg tablet Take 6.25 mg by mouth 2 (two) times a day with meals Therapy completed 11/20/2018 bisoprolol (ZEBETA) 10 mg tablet Take 20 mg by mouth daily Therapy completed 11/20/2018 carvedilol (COREG) 12.5 mg tablet Take 12.5 mg by mouth 2 (two) times a day with meals Reorder 11/20/2018 documented as of this encounter Historical Medications * This list may reflect changes made after this encounter. polysaccharide iron complex (NU-IRON) 150 mg iron capsuleIndications :Iron Deficiency Anemia Take 150 mg by mouth 2 (two) times a day added in this encounter Care Teams Medical File Clerk Relationship Specialty Start Date End Date Jaylin Ibarra MD [address] [facility] [[email or web address] [address] [place] [address] PCP - General Family Medicine 07/10/18 documented as of this encounter
--- OUTSIDE RECORDS SUMMARY | 2024-02-26 23:02 | XMS_ITS | Encounter Summary ---
Author Organization [facility] Address [address] [place] [address] Care Team Providers Care Production Shift Supervisor Name Role Phone Jaylin Ibarra MD Primary Care Provider Reason for Visit * Reason Onset Date Comments referral to cardiac rehab 05/09/2020 Encounter Details Date Type Department Care Team (Late st Contact Info) Description 05/09/2020 Documentation [facility] Cardiology [address] [facility] [address] [place] [phone] Sally Quijano NP [address] [place] [address] referral to cardiac rehab Social History Tobacco Use Types Packs/Day Years Used Date Smoking Tobacco: Never Smokeless Tobacco: Former Alcohol Use Standard Drinks/Week Comments Not Currently 0 (1 standard drink = 0.6 oz pur e alcohol) Sex and Gender Information Value Date Recorded Sex Assigned at Not on file 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 Earnestine he participate in the program for 1 month to recondition him so he can return to work. Our staff contacted Dr. Damian is office and we were told that we would need to complete the necessarypaperwork for the patient to remain out of work. documented in this encounter Plan of Treatment Not on file documented as of this encounter Visit Diagnoses Not on filedocumented in this encounter Care Teams Production Shift Supervisor Relationship Specialty Start Date End Date Jaylin Ibarra MD [address] [place] [address] PCP - General Family Medicine 07/10/18 documented as of this encounter
--- OUTSIDE RECORDS SUMMARY | 2024-02-26 23:02 | XMS_ITS | Encounter Summary ---
Author Organization [facility] Address [address] [facility] [address] [place] [address] Care Team Providers Care Tool Drawing Checker Name Role Phone Jaylin Ibarra MD Primary Care Provider Reason for Visit * Reason Comments Hospital Follow Up NICM Encounter Details Date Type Department Care Team (Late st Contact Info) Description 05/08/2020 10:00 AM CDT Office Visit [facility] Cardiology [address] [facility] [address] [place] [address] Sally Quijano NP [address] [place] [address] Nonischemic cardiomyopathy (CMS/HCC) (Primary Dx); Hypertensive heart disease with chronic combined systolic and diastolic congestive heart failure (CMS/HCC); History of CVA with residual deficit; Nonrheumatic mitral valve regurgitation; Hospital discharge follow-up Social History Tobacco Use Types Packs/Day Years Used Date Smoking Tobacco: Never Smokeless Tobacco: Former Alcohol Use Standard Drinks/Week Comments Not Currently 0 (1 standard drink = 0.6 oz pur e alcohol) Sex and Gender Information Value Date Recorded Sex Assigned at Not on file 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 Gender Identity Not on file Sexual Orientation Not on file documented as of this encounter Last Filed Vital Signs Vital Sign Reading Time Taken Comments Blood Pressure 120/76 05/08/2020 10:12 AM CDT Pulse 65 05/08/2020 10:12 AM CDT Temperature - - Respiratory Rate - - Oxygen Saturation 96% 05/08/2020 10:12 AM CDT Inhaled Oxygen Concentration - - Weight 118.8 kg (262 lb) 05/08/2020 10:12 AM CDT Height 182.9 cm (6') 05/08/2020 10:12 AM CDT Body Mass Index 35.53 05/08/2020 10:12 AM CDT documented in this encounter Progress Notes * Sally Quijano NP - 05/08/2020 10:00 AM CDT [facility] Date of Visit: 02/22/2019 Patient ID: Portillo Martin 1965 Chief Complaint: Portillo Martin is a 54 y.o. male who is an established patient of Dr. Porter with a history of nonischemic cardiomyopathy returning to the office for follow[place]. History of Present Illness: Portillo Martin is a 54 y.o. male with a past medical history of longstanding hypertension, heart failure and nonhealing wounds on the lower extremities. He had been followed by classification inspector Dr. Ruggiero in [place] and reported a cardiac catheterization 3-4 years ago showing normal coronary arteries. An echo from February 2017 showed a mildly dilated LV, moderate concentric LVH and mildly reducedLV systolic function with EF 45-54%. He presented to [facility] on 07/07/2018 with complaintof imbalance and dizziness, [...] of carvedilol and atorvastatin, and an outpatient compliance monitor to rule out atrial arrhythmia. 07/24/18 HFU w/ CAT: Comes to the office today with his maria del rosario for hospital follow-up. He just saw Dr. Radha alvarado this morning prior to this visit. She recommended up titration of his carvedilol if okay with us. He also starts physical therapy later today. He is still having some weakness on the left s santana, particularly feels like he does not have very good balance if he is going up steps. He does however feel comfortable walking, and has been going for walks daily, or sometimes twice a day. Home blood pressures are now 10-20 points lower than they were prior to his hospitalization. 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 05/08/20 CAT visit: He is overdue for routine follow-up, and it just so happens he was hospitalized last week at [facility] for CHF exacerbation. Leading up to the [...] lift anything over 10lb at this point. Records that I personally reviewed on the day of this visit include: (the interpretation is outlined in the HPI above) 02/22/2019 office note from myself, April 2020 [facility] records including the ECG, labs, echocardiogram report; also a conversation with cardiac rehab coordinator regarding thedetails of the alternative CHF rehab program I have also reviewed: allergies, current medications, past family history, past medical history, past social history, past surgical history and problem list Review of Systems Constitution: Positive for diaphoresis. Negative for fever, malaise/fatigue, weight gain and weightloss. HENT: Negative for hearing loss. Eyes: Negative for visual disturbance. Cardiovascular: Positive for chest pain and palpitations. Negative for claudication, leg swelling, orthopnea, paroxysmal nocturnal dyspnea and syncope. Respiratory: Positive for shortness of breath. Negative for cough, hemoptysis, snoring and wheezing. Hematologic/Lymphatic: Does not bruise/bleed easily. Skin: Negative for poor wound healing and rash. Musculoskeletal: Negative for joint pain and myalgias. Gastrointestinal: Negative for heartburn, nausea and vomiting. Genitourinary: Negative for hematuria. Neurological: Negative for dizziness, headaches and light-headedness. Psychiatric/Behavioral: Negative for depression. The patient is not nervous/anxious. Vital Signs: BP 120/76 (BP Location: Left arm, Patient Position: Sitting) Pulse 65 Ht 182.9 cm (6') Wt 118.8 kg (262 lb) SpO2 96% BMI 35.53 kg/m?? Physical Exam Constitutional: He is oriented to person, place, and time. He appears well- developed and well-nourished. No distress. Pleasant man, obese body habitus. HENT: Head: Normocephalic and atraumatic. Nose: Nose normal. Mouth/Throat: Mucous membranes are normal. Eyes: Pupils are equal, round, and reactive to light. Conjunctivae and EOM are normal. No scleral icterus. Neck: No JVD present. No tracheal deviation present. Cardiovascular: Normal rate, regular rhythm and normal heart sounds. No murmur heard. Pulmonary/Chest: Effort normal. No respiratory distress. He has decreased breath sounds in the leftlower field. Mildly decreased LLL only Abdominal: Soft. Bowel sounds are normal. There is no abdominal tenderness. Musculoskeletal: General: No edema. Normal range of motion. Cervical back: Normal range of motion. Neurological: He is alert and oriented to person, place, and time. Skin: Skin is warm and dry. Skin on legs is dry and scaly Psychiatric: He has a normal mood and [...] meals, Disp: 180 tablet, Rfl: 3 ??? furosemide (LASIX) 40 mg tablet, Take 40 mg by mouth daily Take 1.5 tablets daily., Disp: , Rfl: ??? hydrALAZINE (APRESOLINE) 100 mg tablet, Take 50 mg by mouth every 8 (eight) hours , Disp: , Rfl: ??? lisinopril (PRINIVIL,ZESTRIL) 20 mg tablet, Take 40 mg by mouth daily , Disp: , Rfl: ??? polysaccharide iron complex (NU-IRON) 150 mg iron capsule, Take 150 mg by mouth 2 (two) times aday, Disp: , Rfl: ??? spironolactone (ALDACTONE) 50 mg tablet, Take 50 mg by mouth 2 (two) times a day, Disp: , Rfl: ??? cholecalciferol (VITAMIN D-3) 1,000 unit tablet, Take 1,000 Units by mouth daily, Disp: , Rfl: Assessment: Diagnoses and all orders for this visit: Nonischemic cardiomyopathy (CMS/HCC) (Primary) Hypertensive heart disease with chronic combined systolic and diastolic congestive heart failure (CMS/HCC) History of CVA with residual deficit Nonrheumatic mitral valve regurgitation Hospital discharge follow-up Plan/Recommendations: He was recently hospitalized at [place] for CHF exacerbation. I was able to retrieve these records and review them. His LV function remains below normal but appears stable with his previous echo fromDecember 2018. He does not yet feel strong enough to return to work and I would like to refer him to the alternative CHF rehab program for strengthening if this is affordable to him. After a month ofthe program, he would then be likely able to return to work. He is going to discuss this with his and I asked him to call the office tomorrow to let me know. Troponins were mildly elevated but flat in the setting of CHF exacerbation and elevated blood pressure. This was likely demand ischemia and I do not think a repeat ischemic evaluation is indicated. Blood pressure reading in the office today is controlled. He remains on optimal medical therapy with carvedilol, lisinopril and spironolactone. He is also taking 60 mg of furosemide daily. I reviewedthe signs and symptoms of decompensated heart failure with him so he would recognize this if it occurred. I advised him to monitor daily weights at home. Explained that if he or his noticed the signs, notify our office immediately, and we can often treat this as an outpatient without hospitalization. For his history of stroke he remains on aspirin and statin. He has known mitral valve regurgitation and on this most recent echo it was quantified as mild. We will continue to monitor this on serial echocardiograms. Return to the office to see Dr. Porter in 3 months. Call us sooner with questions or concerns. My total encounter time on 05/08/2020 was 50 minutes which was spent in the activities documented inthe note. This includes time spent prior to the visit and after the visit in direct care of the patient. This time does not include time spent in any separately reportable services. GENNARO Moore- Nurse Practitioner with [facility] This note is dictated and transcribed using [employer] Direct Software. Assistant Professor Of Spanish variancesmay occur. Despite proofreading, typographical errors may occur. documented in this encounter Plan of Treatment Not on file documented as of this encounter Visit Diagnoses Diagnosis Nonischemic cardiomyopathy (CMS/HCC) (HCC)- Primary Other primary cardiomyopathies Hypertensive heart disease with chronic combined systolic and diastolic congestive heart failure (HCC) History of CVA with residual deficit Nonrheumatic mitral valve regurgitation Hospital discharge follow-up Other follow-up examination documented in this encounter Care Teams Tool Drawing Checker Relationship Specialty Start Date End Date Jaylin Ibarra MD [address] [address] PCP - General Family Medicine 07/10/18 documented as of this encounter
--- OUTSIDE RECORDS SUMMARY | 2024-02-26 23:02 | XMS_ITS | Encounter Summary ---
Author Organization 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
--- OUTSIDE RECORDS SUMMARY | 2024-02-26 23:02 | XMS_ITS | Encounter Summary ---
Author Organization [facility] Address [address] [facility] [address] [place] [address] Care Team Providers Care Erisa Attorney Name Role Phone Jaylin Ibarra MD Primary Care Provider Encounter Details Date Type Department Care Team (Late st Contact Info) Description 05/14/2020 Telephone [facility] Cardiology [address] [facility] [address] [place] [address] Ang Porter MD [address] [address] Social History Tobacco Use Types Packs/Day Years Used Date Smoking Tobacco: Never Smokeless Tobacco: Former Alcohol Use Standard Drinks/Week Comments Not Currently 0 (1 standard drink = 0.6 oz pur e alcohol) Sex and Gender Information Value Date Recorded Sex Assigned at Not on file 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 Completed pt FMLA paperwork with this information and expected return to work date set for Tuesday, June 23 as discussed. Pt will call us if he still has concerns about returning to work after his month of cardiac rehab. Ptappreciated the assistance. * Telephone Encounter - Maddi Hills - 05/14/2020 8:34 AM CDT Missed call from Marilin Co: [phone] documented in this encounter Plan of Treatment Not on file documented as of this encounter Visit Diagnoses Not on filedocumented in this encounter Care Teams Erisa Attorney Relationship Specialty Start Date End Date Jaylin Ibarra MD [address] [address] PCP - General Family Medicine 07/10/18 documented as of this encounter
--- OUTSIDE RECORDS SUMMARY | 2024-02-26 23:02 | XMS_ITS | Encounter Summary ---
Author Organization [facility] Address [address] [facility] [address] [place] [address] Care Team Providers Care Weigh Tank Operator Name Role Phone Jaylin Ibrara MD Primary Care Provider Encounter Details Date Type Department Care Team (Late st Contact Info) Description 11/08/2020 Orders Only [facility] Cardiology [address] [facility] [address] [place] [phone] Provider, MD Lauri [address] [place] [address] Social History Tobacco Use Types Packs/Day Years Used Date Smoking Tobacco: Never Smokeless Tobacco: Former Alcohol Use Standard Drinks/Week Comments Not Currently 0 (1 standard drink = 0.6 oz pur e alcohol) Sex and Gender Information Value Date Recorded Sex Assigned at Not on file 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 Gender Identity Not on file Sexual Orientation Not on file documented as of this encounter Plan of Treatment Not on file documented as of this encounter Procedures Procedure Name Priority Date/Time Associated Diagnosis Comments LIPID PANEL Routine 08/15/2020 LIPID PANEL Routine 08/15/2020 documented in this encounter Results * Lipid panel (08/15/2020) Blood specimen (specimen) us Historical Provider LAB BLOOD ORDERABLES Liz l Result * Lipid panel (08/15/2020) SCRIBED Cholesterol, Total 127 100 - 199 EXTERNAL LAB SCRIBED HDL 47 40 - 60 EXTERNAL LAB SCRIBED LDL 58 0 - 99 EXTERNAL LAB SCRIBED Triglycerides 122 0 - 149 EXTERNAL LAB Blood specimen (specimen) us Historical Provider LAB BLOOD ORDERABLES Edit ed Result - Final EXTERNAL LAB documented in this encounter Visit Diagnoses Not on filedocumented in this encounter Care Teams Weigh Tank Operator Relationship Specialty Start Date End Date Jaylin Ibarra MD [address] [facility] [address] [place] [address] PCP - General Family Medicine 07/10/18 documented as of this encounter
--- OUTSIDE RECORDS SUMMARY | 2024-02-26 23:02 | XMS_ITS | Clinical Summary ---
Author Organization [facility] [address] Address [address] [place] [address] Care Team Providers Care Industrial Mechanic Name Role Phone Jaylin Ibarra MD Primary Care Provider Allergies No known active allergies Medications furosemide (LASIX) 40 mg tablet Take 40 mg by mouth daily Take 1.5 tablets daily. Active aspirin 81 mg enteric coated tablet Take 81 mg by mouth daily Active cholecalciferol (VITAMIN D-3) 1,000 unit tablet Take 1,000 Units by mouth daily Active lisinopriL (PRINIVIL,ZESTR [place]) 40 mg tablet Take 40 mg by mouth daily Active atorvastatin (LIPITOR) 40 mg tablet Take 40 mg by mouth daily Active spironolactone (ALDACTONE) 50 mg tablet Take 50 mg by mouth 2 (two) times a day Active hydrALAZINE (APRESOLINE) 50 mg tabletIndicatio ns:hypertension Take 50 mg by mouth every 8 (eight) hours Active polysaccharide iron complex (NU-IRON) 150 mg iron capsuleIndicati ons:Iron Deficiency Anemia Take 150 mg by mouth 2 (two) times a day Active carvedilol (COREG) 25 mg tablet Take 1 tablet (25 mg total) by mouth 2 (two) times a day with meals 180 tablet 3 11/20/2018 Active amLODIPine (NORVASC) 10 mg tablet TAKE 1 TABLET BY MOUTH EVERY DAY 90 tablet 01/22/2019 Active Active Problems Problem Noted Date Diagnosed Date H/O cardiomyopathy 03/05/2022 Chronic heart failure with p reserved ejection fraction (CMS/HCC) 03/05/2022 Mixed hyperlipidemia 03/05/2022 History of CVA with residual deficit 02/22/2019 Hypertensive heart disease w ith chronic combined systolic and diastolic congestive heart failure 02/22/2019 Nonrheumatic mitral valve regurgitation 02/22/19 20 Class 2 severe obesity with serious comorbidity and body mass index (BMI) of 38.0 to 38.9 in adult 11/20/2018 Cerebrovascular accident (CVA) 07/24/2018 Essential hypertension 07/24/2018 Chronic HFrEF (heart failure with reduced ejection fraction) (CMS/HCC) 07/24/2018 Nonischemic cardiomyopathy (CMS/HCC) 07/24/2018 Aortic root dilatation (CMS/HCC) 07/24/2018 Overview (07/24/2018): On echo June 2018 4.0 cm Encounters Date Type Department Care Team Description 02/23/2024 Telephone [facility] Cardiology [address] [place] [address] Gauri Cardozo NP from Last 3 Months Medical History Medical History Date Comments Hypertension CHF (congestive heart failure) (CMS/HCC) (HCC) Hyperlipidemia Stroke ([facility]) Heart disease Mixed conductive and sensorineural hearing loss N/A Family History Medical History Relation Name Comments Early Mother Mary Chavarria Heart disease Mother Mary Chavarria Hypertension Mother Mary Chavarria Relation Name Status Comments Mother Mary Chavarria Alive Social History Tobacco Use Types Packs/Day Years [...] on file 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 Gender Identity Not on file Sexual Orientation Not on file Obstetrics History Last Filed Vital Signs Vital Sign Reading Time Taken Comments Blood Pressure 130/78 03/05/2022 3:11 PM MAIL PROCESSING EQUIPMENT MECHANIC Pulse 82 03/05/2022 3:11 PM MAIL PROCESSING EQUIPMENT MECHANIC Temperature 36.9 ??C (98.4 ??F) 03/15/2017 3:23 PM CS T Respiratory Rate - - Oxygen Saturation 82% 03/05/2022 3:11 PM MAIL PROCESSING EQUIPMENT MECHANIC Inhaled Oxygen Concentration - - Weight 129.8 kg (286 lb 3.2 oz) 03/05/2022 3:11 PM MAIL PROCESSING EQUIPMENT MECHANIC Height 182.9 cm (6') 03/05/2022 3:11 PM MAIL PROCESSING EQUIPMENT MECHANIC Body Mass Index 38.82 03/05/2022 3:11 PM MAIL PROCESSING EQUIPMENT MECHANIC Plan of Treatment Health Maintenance Due Date Last Done Comments Colon Cancer Screening-Colonoscopy 1965 Depression Screening 1965 Hepatitis C Screening 1965 Prostate Cancer Screening-PSA 1965 Pneumococcal vaccine <65 (1 of 2 - PCV) 08/03/1971 DTaP/Tdap/Td Vaccine (1 - Tdap) 1976 Hepatitis B Screening 08/03/1983 Regular Well Visit/Exam 18-64 08/03/1983 Zoster Vaccine (1 of 2) 08/03/2015 Influenza Vaccine (#1) 2023 Insurance [facility] H[facility]/PPO Address: [facility] [address] [place] [address] Care Teams Industrial Mechanic Relationship Specialty Start Date End Date Jaylin Ibarra MD [address] [place] [address] PCP - General Family Medicine 07/10/18
--- OUTSIDE RECORDS SUMMARY | 2024-02-26 23:02 | XMS_ITS | Encounter Summary ---
Author Organization [facility] Address [address] [facility] [address] [place] [address] Care Team Providers Care Impression Printer Name Role Phone Jaylin Ibarra MD Primary Care Provider Reason for Visit * (Routine) - Closed Specialty Diagnoses / Procedures Referred By Contac t Referred To Contact Diagnoses Atrial fibrillation, unspecified type (HCC) Atrial flutter, unspecified type (HCC) Procedures Event Monitor, 30 Day Event Ang Porter MD Phone: tel: fax: [facility] Referral ID Status Reason Start Date Expiration Date Visits Re quested Visits Authorized [id number] Closed 07/10/2018 01/19/2020 1 1 Encounter Details Date Type Department Care Team (Latest Contact Info) Description 07/10/2018 2:15 PM CDT Ancillary Procedure [facility] Cardiology [address] [facility] [address] [place] [address] Atrial fibrillation, unspecified type (CMS/HCC); Atrial flutter, unspecified type (CMS/HCC) Social History Tobacco Use Types Packs/Day Years Used Date Smoking Tobacco: Never Assessed Sex and Gender Information Value Date Recorded Sex Assigned at Not on file 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 Porter Referring Doctor PCP: Jaylin Ibarra MD History Recent stroke, history of heart failure and cardiomyopathy. The patient was monitored from 07/10/2018 to 08/11/2018 for a total of 33 days, although there were3 days in which the monitor did not record information. The underlying rhythm was sinus, with an average heart rate of 64 beats per minute. Infrequent PVCs were noted. There was no atrial fibrillation. There was no SVT, VT, or AV block. The patient submitted 2 manual events, but did not have any sym ptomatology associated with them. Conclusion Unremarkable 33 day monitor. No atrial fibrillation seen. Job ID/VF Job ID: [id number] documented in this encounter Plan of Treatment Pending Results Name Type Priority Associated Diagnoses Date /Time Event Monitor, 30 Day Event Cardiac Services Routine Atrial fibrillation, unspecified type (CMS/HCC) Atrial flutter, unspecified type (CMS/HCC) 07/10/2018 2:26 PM CDT documented as of this encounter Visit Diagnoses Diagnosis Atrial fibrillation, unspecified type (HCC) Atrial flutter, unspecified type (HCC) documented in this encounter Care Teams Impression Printer Relationship Specialty Start Date End Date Jaylin Ibarra MD [address] [address] PCP - General Family Medicine 07/10/18 documented as of this encounter
--- OUTSIDE RECORDS SUMMARY | 2024-02-26 23:02 | XMS_ITS | Encounter Summary ---
Author Organization [facility] Address [address] [facility] [address] [place] [address] Care Team Providers Care Teletypesetter Monitor Name Role Phone Jaylin Ibarra MD Primary Care Provider Encounter Details Date Type Department Care Team (Late st Contact Info) Description 04/10/2020 Telephone [facility] Cardiology [address] [facility] [address] [place] [address] Ang Porter MD [address] [place] [address] Social History Tobacco Use Types Packs/Day Years Used Date Smoking Tobacco: Never Smokeless Tobacco: Former Alcohol Use Standard Drinks/Week Comments Not Currently 0 (1 standard drink = 0.6 oz pur e alcohol) Sex and Gender Information Value Date Recorded Sex Assigned at Not on file 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 ICULTURAL FARMWORKER documented in this encounter Plan of Treatment Not on file documented as of this encounter Visit Diagnoses Not on filedocumented in this encounter Care Teams Teletypesetter Monitor Relationship Specialty Start Date End Date Jaylin Ibarra MD [address] [facility] [address] [place] [address] PCP - General Family Medicine 07/10/18 documented as of this encounter
--- OUTSIDE RECORDS SUMMARY | 2024-02-26 23:02 | XMS_ITS | Referral Summary ---
Author Organization [facility] [address] Address [address] [place] [address] Care Team Providers Care Engraver Ornamental Design Name Role Phone Jaylin Ibarra MD Primary Care Provider Encounters Date Type Department Care Team Description 02/23/2024 Telephone [facility] Cardiology [address] [place] [address] Gauri Cardozo NP from Last 3 Months Allergies No known active allergies Medications furosemide [...] HFrEF (heart failure with reduced ejection fraction) ([facility]) 07/24/2018 Nonischemic cardiomyopathy ([facility]) 07/24/2018 Aortic root dilatation ([facility]) 07/24/2018 Overview (07/24/2018): On echo June 2018 4.0 cm Social History Tobacco Use Types Packs/Day Years [...] on file Legal 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 Gender Identity Not on file Sexual Orientation Not on file Last Filed Vital Signs Vital Sign Reading Time Taken Comments Blood Pressure 130/78 03/05/2022 3:11 PM INSTRUCTIONAL MANAGER Pulse 82 03/05/2022 3:11 PM INSTRUCTIONAL MANAGER Temperature 36.9 ??C (98.4 ??F) 03/15/2017 3:23 PM CS T Respiratory Rate - - Oxygen Saturation 82% 03/05/2022 3:11 PM INSTRUCTIONAL MANAGER Inhaled Oxygen Concentration - - Weight 129.8 kg (286 lb 3.2 oz) 03/05/2022 3:11 PM INSTRUCTIONAL MANAGER Height 182.9 cm (6') 03/05/2022 3:11 PM INSTRUCTIONAL MANAGER Body Mass Index 38.82 03/05/2022 3:11 PM INSTRUCTIONAL MANAGER Plan of Treatment Not on file Insurance [facility] CHOICE PLUS [facility] HMO/PPO Address: [facility] [id number] [place] [address] Care Teams Engraver Ornamental Design Relationship Specialty Start Date End Date Jaylin Ibarra MD [address] [facility] [address] [place] [address] PCP - General Family Medicine 07/10/18
--- OUTSIDE RECORDS SUMMARY | 2024-02-26 23:02 | XMS_ITS | Encounter Summary ---
Author Organization [facility] Address [address] [facility] [address] [place] [address] Care Team Providers Care Paint Laboratory Technician Name Role Phone Jaylin Ibrara MD Primary Care Provider Reason for Referral * Cardiology (Routine) - Closed Specialty Diagnoses / Procedures Referred By Porter t Referred To Contact Diagnoses Nonischemic cardiomyopathy (CMS/HCC) (HCC) Aortic root dilatation (CMS/HCC) (HCC) Procedures Transthoracic Echo Complete W Doppler/CF Edel Jackson NP [address] [address] Phone: tel: fax: [facility] Referral ID Status Reason Start Date Expiration Date Visits Re quested Visits Authorized [id number] Closed 06/15/2021 07/15/2022 1 1 Reason for Visit * Reason Comments Follow-up 7 mo f/u Congestive Heart Failure Encounter Details Date Type Department Care Team (Late st Contact Info) Description 06/15/2021 2:30 PM CDT Office Visit [facility] Cardiology [address] [address] Edel Jackson NP [address] [facility] [address] [address] Bilateral leg cramps (Primary Dx); Nonischemic cardiomyopathy (CMS/HCC) (HCC); Aortic root dilatation (CMS/HCC) (HCC); Hypertensive heart disease with chronic combined systolic and diastolic congestive heart failure (HCC); Essential hypertension; History of CVA with residual deficit Social History Tobacco Use Types Packs/Day Years Used Date Smoking Tobacco: Never Smokeless Tobacco: Former Alcohol Use Standard Drinks/Week Comments Not Currently 0 (1 standard drink = 0.6 oz pur e alcohol) Sex and Gender Information Value Date Recorded Sex Assigned at Not on file 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 Gender Identity Not on file Sexual Orientation Not on file documented as of this encounter Last Filed Vital Signs Vital Sign Reading Time Taken Comments Blood Pressure 138/84 06/15/2021 2:31 PM CDT Pulse 99 06/15/2021 2:31 PM CDT Temperature - - Respiratory Rate - - Oxygen Saturation 97% 06/15/2021 2:31 PM CDT Inhaled Oxygen Concentration - - Weight 128.3 kg (282 lb 14.4 oz) 06/15/2021 2:31 PM CDT Height 182.9 cm (6') 06/15/2021 2:31 PM CDT Body Mass Index 38.37 06/15/2021 2:31 PM CDT documented in this encounter Progress Notes * Edel Jackson NP - 06/15/2021 2:30 PM CDT Images from the original note were not included. [facility] Cardiology [address] [place] [address] Date of Visit: 06/15/2021 Patient ID: Portillo Lopez 1965 Chief Complaint Patient presents with ??? Follow-up 7 mo f/u ??? Congestive Heart Failure Portillo Lopez is a 55 y.o. male who is an established patient of Dr. Porter with a history CHF from a nonischemic cardiomyopathy and a history of stroke, returning to the office for routine follow-up. History of Present Illness: Portillo Lopez is a 55 y.o. male with a PMHx of longstanding hypertension, heart failure and nonhealing wounds on the lower extremities. [place] 3-4 years ago showing normal coronary arteries. An echo from February 2017 showed a mildly dilated LV, moderate concentric LVH and mildly reduced LV systolic function with EF 45-54%. He presented to [facility] on 07/07/2018 with complaint of imbalance and [...] of carvedilol and atorvastatin, and an outpatient ekg monitor tech to rule out atrial arrhythmia. 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 ?? 05/08/20 CAT visit: He is overdue for routine follow-up, and it just so happens he was hospitalized last week at [facility] for CHF exacerbation. Leading up to the [...] breath. 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 Records that I personally reviewed on the day of this visit include: (the interpretation is outlined in the HPI above) 11/05/[address] Porter I have also reviewed: allergies, current medications, past family history, past medical history, past social history, past surgical history and problem list Medical History: Past Medical History: Diagnosis Date ??? CHF (congestive heart failure) (CMS/HCC) ([facility]) ??? Heart disease ??? Hyperlipidemia ??? Hypertension ??? Mixed conductive and sensorineural hearing loss N/A ??? Stroke (CMS/HCC) ([facility]) History reviewed. No pertinent surgical history. Social History Tobacco Use ??? Smoking status: Never Smoker ??? Smokeless tobacco: Former User Substance Use Topics ??? Alcohol use: Not Currently Family History Problem Relation Age of Onset ??? Heart disease Mother ??? Hypertension Mother ??? Early Mother Review of Systems Constitutional: Positive for weight gain. Negative for diaphoresis, fever, malaise/fatigue and weight loss. HENT: Negative for hearing loss. Eyes: Negative for visual disturbance. Cardiovascular: Positive for leg swelling. Negative for chest pain, claudication, dyspnea on exertion, orthopnea, palpitations, paroxysmal nocturnal dyspnea and syncope. Respiratory: Negative for cough, hemoptysis, shortness of breath, snoring and wheezing. Hematologic/Lymphatic: Does not bruise/bleed easily. Skin: Negative for poor wound healing and rash. Musculoskeletal: Positive for myalgias. Negative for joint pain. Gastrointestinal: Negative for heartburn, nausea and vomiting. Genitourinary: Negative for hematuria. Neurological: Negative for dizziness, headaches and light-headedness. Psychiatric/Behavioral: Negative for depression. The patient is not nervous/anxious. Vital Signs: BP 138/84 (BP Location: Left arm, Patient Position: Sitting) Pulse 99 Ht 182.9 cm (6') Wt 128.3 kg (282 lb 14.4 oz) SpO2 97% BMI 38.37 kg/m?? Physical Exam Constitutional: General: He is not in acute distress. Appearance: He is well-developed. HENT: Head: Normocephalic and atraumatic. Nose: Comments: Wearing a mask Eyes: General: No scleral icterus. Conjunctiva/sclera: Conjunctivae normal. Neck: Vascular: No JVD. Trachea: No tracheal deviation. Cardiovascular: Rate and Rhythm: Normal rate and regular rhythm. Heart sounds: Normal heart sounds. No murmur heard. Pulmonary: Effort: Pulmonary effort is normal. No respiratory distress. Breath sounds: Normal breath sounds. Musculoskeletal: Comments: Trace amount of bilateral lower extremity dependent edema Skin: General: Skin is warm and dry. Neurological: Mental Status: He is alert and oriented to person, place, and time. Psychiatric: Mood and Affect: Mood normal. Behavior: Behavior normal. No Known Allergies Current Outpatient Medications: ??? [...] daily., Disp: , Rfl: ??? hydrALAZINE (APRESOLINE) 50 mg tablet, Take 50 mg by mouth every 8 (eight) hours , Disp: , Rfl: ??? lisinopriL (PRINIVIL,ZESTRIL) 40 mg tablet, Take 40 mg by mouth daily , Disp: , Rfl: ??? spironolactone (ALDACTONE) 50 mg tablet, Take 50 mg by mouth 2 (two) times a day, Disp: , Rfl: ??? polysaccharide iron complex (NU-IRON) 150 mg iron capsule, Take 150 mg by mouth 2 (two) times aday (Patient not taking: Reported on 06/15/2021), Disp: , Rfl: Lab Results Component Value Date POTASSIUM 3.2 (L) 07/15/2017 CREATININE 1.2 07/15/2017 CHOL 161 03/15/2017 TRIG 92 03/15/2017 LDLCALC 90 03/15/2017 HDL 53 03/15/2017 Lab Results Component Value Date WBC 5.5 08/05/2017 HGB 13.3 08/05/2017 HCT 40.8 08/05/2017 MCV 90.5 08/05/2017 Assessment: Diagnoses and all orders for this visit: Bilateral leg cramps (Primary) - Basic metabolic panel; Future Nonischemic cardiomyopathy (CMS/HCC) (HCC) - Transthoracic Echo Complete W Doppler/CF; Future Aortic root dilatation (CMS/HCC) (HCC) - Transthoracic Echo Complete W Doppler/CF; Future Hypertensive heart disease with chronic combined systolic and diastolic congestive heart failure (HCC) Essential hypertension History of CVA with residual deficit Plan/Recommendations: He is having leg cramps on a nearly daily basis. I asked him to go for a BMP to reassess his potassium level. He has a history of chronic systolic heart failure secondary to a nonischemic cardiomyopathy. His last echocardiogram was performed in April of 2020 at [facility] at which time his EF was 43%. Dr. Porter last note had mentioned repeating an echocardiogram to reassess his LV function. Asked the patient to return to our office in the next months to have this repeated. For now continue current medical therapy with lisinopril, carvedilol and spironolactone. His echocardiogram in 2019 showed aortic root dilatation 4.0 cm. Reassess this with a new echocardiogram. He has LVH and a history of hypertension. Today's blood pressure is fair. Continue current medical therapy with carvedilol, lisinopril, amlodipine and hydralazine. He has a history of stroke in 2019. Continue aspirin and atorvastatin. Return to the office to see Dr. Porter in 6 months. Call us sooner with questions or concerns. 06/15/2021 GENNARO Moore-BC Nurse Practitioner with [facility] Cardiology This note is dictated and transcribed using [employer] Direct Software. Station Gateman variancesmay occur. Despite proofreading, typographical errors may occur. documented in this encounter Plan of Treatment Not on file documented as of this encounter Procedures Procedure Name Priority Date/Time Associated Diagnosis Comments BASIC METABOLIC PANEL Routine 07/13/2021 1:49 PM CDT Bilateral leg cramps documented in this encounter Results * TRANSTHORACIC ECHO (TTE) COMPLETE W DOPPLER/CF W CONTRAST (07/15/2021 4:14 PM CDT) Anatomical Region Laterality Modality Ultrasound 07/15/2021 2:34 PM CDT Narrative 07/16/2021 7:55 AM CDT [facility] Cardiology [address] [facility] [address], [place] [address] [address] [facility] [address], [place] [address] P:[phone] P:[phone] Echocardiographic Report Patient Name: PORTILLO LOPEZ : 1965 Study Date: 07/15/2021 2:34:56 PM Gender: M Tech: Location: [place] Ref.Provider: EDEL JACKSON Height(Cm): 183 BSA: 2.47 Weight(Kg): 127.92 Heart Rate: 79 BP: 127/74 Quality: Definity contrast agent used to enhance endocardial border definition Order Provider: EDEL JACKSON Procedures: Echocardiographic Report: Transthoracic echocardiogram with complete 2D, M-Mode, color Doppler examination and Definity contrast. Indications: Aortic Root Dilitation, and Nonischemic cardiomyopathy. Measurements: 2D/M Mode ?Doppler ? Measurement ?Value ?Normal Range ? Measurement ?Value ?Normal Range ? EF Mod ? 62 ?AV Mean PG ? 6 ?mmHg ? EF MM ?57 ? [ 55 - 70 ] % ?AV Peak Kyle ?1.69 ? m/s ? LVIDd MM ? 5.00 ? [ 3.90 - 5.30 ] cm ? AV Peak PG ? 11 ? mmHg ? LVIDs MM ? 3.50 ? [ 2.30 - 3.90 ] cm ? AV VTI ? 0.32 ? cm ? LVPWd MM ? 1.92 ? [ 0.60 - 1.00 ] cm ? LVOT Peak Kyle ?0.90 ? [ 0.70 - 1.10 ] m/s ? IVSd MM ?1.75 ? [ 0.60 - 0.90 ] cm ? LVOT VTI ? 0.14 ? cm ? LA Dimension MM ?4.67 ? [ 2.70 - 3.80 ] cm ? MV E Peak Kyle ?0.52 ? [ 0.60 - 1.30 ] m/s ? AoR Diam MM ?3.58 ? [ 2.60 - 3.70 ] cm ? MV A Peak Ykle ?0.74 ? [ 0.40 - 0.80 ] m/s ? LA Volume Index ?21.00 ?[ 16.00 - 28.00 ] cc/m2 ?MV Decel Time ?263 ?[ 150 - 200 ] msec ? ACS MM ? 2.25 ? cm ? PV Peak Kyle ?1.12 ? [ 0.40 - 0.80 ] m/s ? TR Peak Kyle ?1.71 ? [ 0.40 - 0.80 ] m/s ? TR Peak PG ? 12 ? mmHg ? RVSP ? 20.00 ?mmHg ? E' ? 0.07 ? E/E' ? 7 ? Findings: Interpretation Site: Exam was interpreted at [facility]. Left Ventricle: Normal left ventricular size. Definity contrast agent used to visually enhance endocardial wall motion and contractility. Lot Number: [id number]. Severe concentric left ventricular hypertrophy. Impaired diastolic relaxation Grade I. Ejection fraction is measured at 62 %. Right Ventricle: Normal right ventricular size. Left Atrium: There is mild enlargement of left atrium. Right Atrium: The right atrium is normal in size. Atrial Septum: Normal atrial septum. Mitral Valve: Normal appearance of the mitral valve. Trivial regurgitation of the mitral valve. Aortic Valve: Normal appearance of the aortic valve. Tricuspid Valve: Normal appearance of the tricuspid valve. Estimated peak RVSP is 20 mmHg. Mild tricuspid regurgitation. Pulmonic Valve: Pulmonic valve not well visualized. Pericardium: Normal pericardium with no significant pericardial effusion. Aorta: Normal aortic root. IVC: Normal size and normal respiratory collapse consistent with normal right atrial pressure (<5 mmHg). Pulmonary Artery: Normal pulmonary artery size. Conclusions: Normal left ventricular size. Definity contrast [...] to improve . MR is now trivial. Electronically Signed By: Portillo Morelos MD, [facility] 2021-07-16 07:55:17 CDT Procedure Note Portillo Morelos MD - 07/16/2021 [facility] Cardiology [address] [facility] [address], [place] [address] [address] [facility] [address], [place] [address] P:[phone] P:[phone] Echocardiographic Report Patient Name: PORTILLO LOPEZPatient ID: [id number] : [id number] Date: 07/15/2021 2:34:56 PM Gender: MAccession #: [id number] Tech: GMLocation: [place] Ref.Provider: EDEL JACKSONHeight(Cm): 183 BSA: 2.47Weight(Kg): 127.92 Heart Rate: 79BP: 127/74 Quality: Definity contrast agent used to enhance endocardial borderdefinitionOrder Provider: EDEL JACKSON Procedures: Echocardiographic Report: Transthoracic echocardiogram with complete 2D, M-Mode, color Dopplerexamination and Definity contrast. Indications: Aortic Root Dilitation, and Nonischemic cardiomyopathy. Measurements: 2D/M Mode Doppler Measurement Value Normal Range MeasurementValue Normal Range EF Mod 62 AV Mean PG 6mmHg EF MM 57 [ 55 - 70 ] % AV Peak Vel1.69 m/s LVIDd MM 5.00 [ 3.90 - 5.30 ] cm AV Peak PG 11mmHg LVIDs MM 3.50 [ 2.30 - 3.90 ] cm AV VTI0.32 cm LVPWd MM 1.92 [ 0.60 - 1.00 ] cm LVOT Peak Vel0.90 [ 0.70 - 1.10 ] m/s IVSd MM 1.75 [ 0.60 - 0.90 ] cm LVOT VTI0.14 cm LA Dimension MM 4.67 [ 2.70 - 3.80 ] cm MV E Peak Vel0.52 [ 0.60 - 1.30 ] m/s AoR Diam MM 3.58 [ 2.60 - 3.70 ] cm MV A Peak Vel0.74 [ 0.40 - 0.80 ] m/s LA Volume Index 21.00 [ 16.00 - 28.00 ] cc/m2 MV Decel Loaw816 [ 150 - 200 ] msec ACS MM 2.25 cm PV Peak Vel1.12 [ 0.40 - 0.80 ] m/s TR Peak Vel1.71 [ 0.40 - 0.80 ] m/s TR Peak PG 12mmHg RVSP20.00 mmHg E'0.07 E/E' 7 Findings: Interpretation Site: Exam was interpreted at [facility]. Left Ventricle: Normal left ventricular size. Definity contrast agent used to visuallyenhance endocardial wall motion and contractility. Lot Number: [id number]. Severeconcentric left ventricular hypertrophy. Impaired diastolic relaxation Grade I. Ejectionfraction is measured at 62 %. Right Ventricle: Normal right ventricular size. Left Atrium: There is mild enlargement of left atrium. Right Atrium: The right atrium is normal in size. Atrial Septum: Normal atrial septum. Mitral Valve: Normal appearance of the mitral valve. Trivial regurgitation of the mitralvalve. Aortic Valve: Normal appearance of the aortic valve. Tricuspid Valve: Normal appearance of the tricuspid valve. Estimated peak RVSP is 20 mmHg.Mild tricuspid regurgitation. Pulmonic Valve: Pulmonic valve not well visualized. Pericardium: Normal pericardium with no significant pericardial effusion. Aorta: Normal aortic root. IVC: Normal size and normal respiratory collapse consistent with normal rightatrial pressure (<5 mmHg). Pulmonary Artery: Normal pulmonary artery size. Conclusions: Normal left ventricular size. Definity contrast agent used to visuallyenhance endocardial wall motion and contractility. Lot Number: [id number]. Severeconcentric left ventricular hypertrophy. Impaired diastolic relaxation Grade I. Ejectionfraction is measured at 62 %. There is mild enlargement of left atrium. Normal appearance of the mitral valve. Trivial regurgitation of the mitralvalve. Normal appearance of the aortic valve. Compared with prior exams LVEF continues to improve . MR is now trivial. Electronically Signed By: Portillo Morelos MD, [facility] 2021-07-16 07:55:17 CDT us Edel Jackson NP CV ECHO PROCEDURES Final Result * (ABNORMAL) Basic metabolic panel (07/13/2021 1:49 PM CDT) Glucose 91 65 - 99 mg/dL [facility] - 01 BUN 16 6 - 24 mg/dL [facility] - 01 Creatinine, Serum 1.35(H) 0.76 - 1.27 mg/dL [facility] - 01 eGFR 62 >59 mL/min/1.7 3 [facility] - 01 BUN/creat ratio 12 9 - 20 [facility] - 01 Sodium 140 134 - 144 mmol/L [facility] - 01 Potassium, sr 4.7 3.5 - 5.2 mmol/L [facility] - 01 Chloride 102 96 - 106 mmol/L [facility] - 01 CO2 20 20 - 29 mmol/L [facility] - 01 Calcium 9.7 8.7 - 10.2 mg/dL [facility] - 01 Blood specimen (specimen) 07/13/2021 1:49 PM CDT 07/13/2021 Narrative [facility] - 07/14/2021 7:09 AM CDT Performed at: ??01 - [facility] [address] ??[id number] Business Office Representative: Ruiz Paredes PhD, Phone: ??[phone] Edel Jackson NP LAB BLOOD ORDERABLES Liz l Result [facility] - 01 documented in this encounter Visit Diagnoses Diagnosis Bilateral leg cramps- Primary Nonischemic cardiomyopathy (CMS/HCC) (HCC) Other primary cardiomyopathies Aortic root dilatation (CMS/HCC) (HCC) Thoracic aneurysm without mention of rupture Hypertensive heart disease with chronic combined systolic and diastolic congestive heart failure (HCC) Essential hypertension Unspecified essential hypertension History of CVA with residual deficit Nonischemic cardiomyopathy (CMS/HCC) (HCC) Other primary cardiomyopathies Aortic root dilatation (CMS/HCC) (HCC) Thoracic aneurysm without mention of rupture documented in this encounter Care Teams Paint Laboratory Technician Relationship Specialty Start Date End Date Jaylin Ibarra MD [address] [place] [address] PCP - General Family Medicine 07/10/18 documented as of this encounter
--- OUTSIDE RECORDS SUMMARY | 2024-02-26 23:02 | XMS_ITS | Encounter Summary ---
Author Organization [facility] Address [address] [facility] [address] [place] [id number] Care Team Providers Care Dance Critic Name Role Phone Jaylin Ibarra MD Primary Care Provider Reason for Visit * Cardiology (Routine) - Closed Specialty Diagnoses / Procedures Referred By Porter t Referred To Contact Diagnoses Nonischemic cardiomyopathy (CMS/HCC) (HCC) Aortic root dilatation (CMS/HCC) (HCC) Procedures Transthoracic Echo Complete W Doppler/CF Edel Jackson NP [address] [facility] [address] [place] [address] Phone: tel: fax: [facility] Referral ID Status Reason Start Date Expiration Date Visits Re quested Visits Authorized [id number] Closed 06/15/2021 07/15/2022 1 1 Encounter Details Date Type Department Care Team (Latest Contact Info) Description 07/15/2021 3:00 PM CDT Ancillary Procedure [facility] Cardiology [address] [id number] Nonischemic cardiomyopathy (CMS/HCC) (HCC); Aortic root dilatation (CMS/HCC) (HCC) Social History Tobacco Use Types Packs/Day Years Used Date Smoking Tobacco: Never Smokeless Tobacco: Former Alcohol Use Standard Drinks/Week Comments Not Currently 0 (1 standard drink = 0.6 oz pur e alcohol) Sex and Gender Information Value Date Recorded Sex Assigned at Not on file 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 Gender Identity Not on file Sexual Orientation Not on file documented as of this encounter Plan of Treatment Not on file documented as of this encounter Procedures Procedure Name Priority Date/Time Associated Diagnosis Comments TRANSTHORACIC ECHO (TTE) COMPLETE W DOPPLER/CF W CONTRAST Routine 07/15/2021 4:14 PM CDT Nonischemic cardiomyopathy (CMS/HCC) (HCC) Aortic root dilatation (CMS/HCC) (HCC) documented in this encounter Results * TRANSTHORACIC ECHO (TTE) COMPLETE W DOPPLER/CF W CONTRAST (07/15/2021 4:14 PM CDT) Anatomical Region Laterality Modality Ultrasound 07/15/2021 2:34 PM CDT Narrative 07/16/2021 7:55 AM CDT [facility] Cardiology [address] [facility] [address], [place] [address] [address] [facility] [address], [place] [address] P:[phone] P:[phone] Echocardiographic Report Patient Name: PORTILLO LOPEZ : 1965 Study Date: 07/15/2021 2:34:56 PM Gender: M Tech: Location: [place] Ref.Provider: EDEL JACKSON Height(Cm): 183 BSA: 2.47 [...] 3.70 ] cm ? MV A Peak Kyle ?0.74 ? [ 0.40 - 0.80 ] [...] Site: Exam was interpreted at [facility]. Left Ventricle: Normal left ventricular size. Definity [...] trivial. Electronically Signed By: Portillo Morelos MD, [facility] 2021-07-16 07:55:17 CDT Procedure Note Portillo Morelos MD - 07/16/2021 [facility] Cardiology [address] [facility] [address], [place] [address] [address] [facility] [address], [place] [address] P:[phone] P:[phone] Echocardiographic Report Patient Name: PORTILLO LOPEZPatient ID: [id number] : [id number] Date: 07/15/2021 2:34:56 PM Gender: MAccession #: [id number] Tech: GMLocation: [place] Ref.Provider: EDLE JACKSONHeight(Cm): 183 BSA: 2.47Weight(Kg): 127.92 Heart Rate: [...] 16.00 - 28.00 ] cc/m2 MV Decel Pzes970 [ 150 - 200 ] msec ACS MM 2.25 cm PV Peak Vel1.12 [ 0.40 - 0.80 ] m/s TR Peak Vel1.71 [ 0.40 - 0.80 ] m/s TR Peak PG 12mmHg RVSP20.00 mmHg E'0.07 E/E' 7 Findings: Interpretation Site: Exam was interpreted at [facility]. Left Ventricle: Normal left ventricular size. Definity [...] trivial. Electronically Signed By: Portillo Morelos MD, [facility] 2021-07-16 07:55:17 CDT Edel Jackson NP CV ECHO PROCEDURES Final Result documented in this encounter Visit Diagnoses Diagnosis Nonischemic cardiomyopathy (CMS/HCC) (HCC) Other primary cardiomyopathies Aortic root dilatation (CMS/HCC) (HCC) Thoracic aneurysm without mention of rupture documented in this encounter Administered Medications Inactive Administered Medications - up to 3 most recent administrations Medication Order MAR Action Action Date Dose Rate Site perflutren lipid (DEFINITY) 1.5 mL in sodium chloride 0.9% 10 mL syringe 1-10 mL, intravenous, Once in imaging, contrast, Starting on Tue07/15/21 at 1523, For 1 dose Contrast Given 07/15/2021 3:35 PM CDT 1 mL documented in this encounter Orders Medications Ordered That Lino ht Not Have Been Administered Count Last Ordered Date First Ordered Date perflutren lipid (DEFINITY) 1.5 mL in sodium chloride 0.9% 10 mL syringe 1 07/15/2021 documented in this encounter Care Teams Dance Critic Relationship Specialty Start Date End Date Jaylin Ibarra MD [address] [facility] [address] [place] [address] PCP - General Family Medicine 07/10/18 documented as of this encounter
--- OUTSIDE RECORDS SUMMARY | 2024-02-26 23:02 | XMS_ITS | Encounter Summary ---
Author Organization [facility] Address [address] [facility] [address] [place] [address] Care Team Providers Care Automotive Technology Instructor Name Role Phone Jaylin Ibarra MD Primary Care Provider Reason for Visit * Reason Comments Follow-up 6 mo f/u Congestive Heart Failure Encounter Details Date Type Department Care Team (Latest Contact Info) Description 11/05/2020 3:00 PM CDT Office Visit [facility] Cardiology [address] [facility] [address] [place] [address] Ang Porter MD [address] [facility] [address] [place] [address] Chronic HFrEF (heart failure with reduced ejection fraction) (CMS/HCC) (HCC) (Primary Dx); Nonischemic cardiomyopathy (CMS/HCC) (HCC); Nonrheumatic mitral valve regurgitation; Essential hypertension; Aortic root dilatation (CMS/HCC) (HCC); History of CVA with residual deficit Social History Tobacco Use Types Packs/Day Years Used Date Smoking Tobacco: Never Smokeless Tobacco: Former Alcohol Use Standard Drinks/Week Comments Not Currently 0 (1 standard drink = 0.6 oz pur e alcohol) Sex and Gender Information Value Date Recorded Sex Assigned at Not on file 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 Gender Identity Not on file Sexual Orientation Not on file documented as of this encounter Last Filed Vital Signs Vital Sign Reading Time Taken Comments Blood Pressure 124/82 11/05/2020 3:14 PM CDT Pulse 78 11/05/2020 3:14 PM CDT Temperature - - Respiratory Rate - - Oxygen Saturation 95% 11/05/2020 3:14 PM CDT Inhaled Oxygen Concentration - - Weight 127.7 kg (281 lb 9.6 oz) 11/05/2020 3:14 PM CDT Height 182.9 cm (6') 11/05/2020 3:14 PM CDT Body Mass Index 38.19 11/05/2020 3:14 PM CDT documented in this encounter Progress Notes * Ang Porter MD - 11/05/2020 3:00 PM CDT [facility] DATE OF VISIT: 11/05/2020 CHIEF COMPLAINT Chief Complaint Patient presents with ??? Follow-up 6 mo f/u ??? Congestive Heart Failure ASSESSMENT Diagnoses and all orders for this visit: Chronic HFrEF (heart failure with reduced ejection fraction) (CMS/HCC) (HCC) (Primary) Nonischemic cardiomyopathy (CMS/HCC) (HCC) Nonrheumatic mitral valve regurgitation Essential hypertension Aortic root dilatation (CMS/HCC) (HCC) History of CVA with residual deficit PLAN/RECOMMENDATIONS 1. BP elevated but improved on repeat check, but still not controlled goal <140/90mmHg.. MonitorBP on routine basis. Call with readings. Continue consistent cardiovascular exercise, weight loss, medication compliance, and low- sodium diet. -Continue Coreg to 25mg BID, Amlodipine 10mg daily, Hydralazine 50mg TID. -Call with BP readings for further recommendations 2. HFrEF EF 43% Echo 04/2020 compensated NYHA class II-III sxs. CHF counseling performed. Follow daily weight, less than 2 g daily sodium intake, medication compliance. Call w/ wt gain >3lb in 24 hrs or worsening edema and/or REGALADO. -Weight up, more edema -Continue Lasix 80mg day, Spironolactone 50mg BID from PCP. Counseled on side effects possible of gynecomastia, he denies sxs. 3. Lifestyle modification counseling performed. Weight loss, exercise, reduction in caloric intake. 4. Lipids personally reviewed 08/15/20 LDL 58, well controlled goal LDL<70. Continue [id number] qhs and lifestyle modification. 5. Continue ASA 81mg daily indefinitely given CVA hx. Monitor for bleeding. 6. Echo 07/10/18 at [place] EF 35%. Repeat Echo prior to return visit in 2 months to assess EF on medical therapy and response. Further recommendations to follow. -12 lead EKG today personally reviewed and discussed sinus rhythm 73 beats per minute PACs, nonspecific ST changes, inferior NM, abnormal EKG NH interval 198 milliseconds QRS 102 milliseconds QTc 463msec Over 50% of this visit counseling CHF, CVA risk, HTN, lipids, medications, lifestyle modification. Follow up in the office In 2 months or sooner as needed. Thank you for allowing me the privilege of participating in the care this very pleasant patient. Please do not hesitate to contact me with any additional questions or concerns. PREET Martin is a 55 y.o. male with a PMHx of longstanding hypertension, heart failure and nonhealing wounds on the lower extremities. He [place] grapple [place]. [place]4 years [place] showing normal coronary arteries. An echo from February 2017 showed a mildly dilated LV, moderate concentric LVH and mildly reduced LV systolic function with EF 45-54%. He presented to [facility] on 07[facility]07[facility]2018 with complaint of [...] of carvedilol and atorvastatin, and an outpatient development team lead to rule out atrial arrhythmia. 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 ?? 05/08/20 CAT visit: He is overdue for routine follow-up, and it just so happens he was hospitalized last week at [facility] for CHF exacerbation. Leading up to the [...] his knees. No palps, syncope or falls. MEDICAL HISTORY Past Medical History: Diagnosis Date ??? CHF (congestive heart failure) (CMS/HCC) ([facility]) ??? Hyperlipidemia ??? Hypertension ??? Stroke (CMS/HCC) ([facility]) Social History Tobacco Use ??? Smoking status: [...] mg tablet lisinopriL (PRINIVIL,ZESTRIL) 40 mg tablet polysaccharide iron complex (NU-IRON) 150 mg iron capsule spironolactone (ALDACTONE) 50 mg tablet ALLERGIES No Known Allergies REVIEW OF SYSTEMS [...] for environmental allergies. PHYSICAL EXAM Vitals BP 124/82 (BP Location: Right arm, Patient Position: Sitting) Pulse 78 Ht 182.9 cm (6') Wt 127.7 kg (281 lb 9.6 oz) SpO2 95% BMI 38.19 kg/m?? Weight: 127.7 kg (281 lb 9.6 oz) Height: 182.9 cm (6') Body mass index is 38.19 kg/m??. Physical Exam Vitals reviewed. Constitutional: General: He is not in acute distress. Appearance: He is well-developed. He is not diaphoretic. HENT: Head: Normocephalic and atraumatic. Right Ear: External ear normal. Left Ear: External ear normal. Nose: Nose normal. Mouth/Throat: Dentition: Normal dentition. Eyes: General: Lids are normal. No scleral icterus. Conjunctiva/sclera: Conjunctivae normal. Neck: Thyroid: No thyromegaly. Vascular: Normal carotid pulses. No carotid bruit, hepatojugular reflux or JVD. Trachea: No tracheal deviation. Cardiovascular: Rate and Rhythm: Normal rate and regular rhythm. Pulses: Normal pulses and intact distal pulses. Heart sounds: Normal heart sounds, S1 [...] medical record, and bloodwork/lipids. Osmin Porter MD, [facility] This note is dictated and transcribed using [employer] Direct Software. Width Stripper variancesmay occur. Despite proofreading, typographical errors may occur. documented in this encounter Miscellaneous Notes * Addendum Note - Maribeth Rivas MA - 11/05/2020 3:00 PM CDTAddended by: MARIBETH RIVAS on: 11/08/2020 02:27 PM Modules accepted: Orders documented in this encounter Plan of Treatment Not on file documented as of this encounter Procedures Procedure Name Priority Date/Time Associated Diagnosis Comments ECG 12-LEAD Routine 11/05/2020 Chronic HFrEF (heart failure with reduced ejection fraction) (CMS/HCC) (HCC) documented in this encounter Results * ECG 12 lead (11/05/2020) us Ang Porter MD ECG ORDERABLES Final Re sult documented in this encounter Visit Diagnoses Diagnosis Chronic HFrEF (heart failure with reduced ejection fraction) (CMS/HCC) (HCC)- Primary Nonischemic cardiomyopathy (CMS/HCC) (HCC) Other primary cardiomyopathies Nonrheumatic mitral valve regurgitation Essential hypertension Unspecified essential hypertension Aortic root dilatation (CMS/HCC) (HCC) Thoracic aneurysm without mention of rupture History of CVA with residual deficit documented in this encounter Care Teams Automotive Technology Instructor Relationship Specialty Start Date End Date Jaylin Ibarra MD [address] [facility] [address] [place] [address] PCP - General Family Medicine 07/10/18 documented as of this encounter
--- OUTSIDE RECORDS SUMMARY | 2024-02-26 23:02 | XMS_ITS | Encounter Summary ---
Author Organization [facility] Address [address] [facility] [address] [place] [address] Care Team Providers Care Proof Operator Name Role Phone Jaylin Ibarra MD Primary Care Provider Encounter Details Date Type Department Care Team (Late st Contact Info) Description 07/06/2018 Orders Only [facility] Health Information Management [address] [place] [address] Scanning, Provider Social History Tobacco Use Types Packs/Day Years Used Date Smoking Tobacco: Never Assessed Sex and Gender Information Value Date Recorded Sex Assigned at Not on file 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 Gender Identity Not on file Sexual Orientation Not on file documented as of this encounter Plan of Treatment Not on file documented as of this encounter Procedures Procedure Name Priority Date/Time Associated Diagnosis Comments SCAN - RADIOLOGY/IMAGING 07/06/2018 CARDIOLOGY DOCUMENT SCAN 07/06/2018 documented in this encounter Results * SCAN - RADIOLOGY/IMAGING (07/06/2018) Anatomical Region Laterality Modality Other us Provider Scanning Edited Result - Final * SCAN - CARDIOLOGY (07/06/2018) Anatomical Region Laterality Modality Other us Provider Scanning CV CARDIAC SERVICES PROCEDURES Final Result documented in this encounter Visit Diagnoses Not on filedocumented in this encounter Care Teams Proof Operator Relationship Specialty Start Date End Date Jaylin Ibarra MD [address] [facility] [address] [place] [address] PCP - General Family Medicine 07/10/18 documented as of this encounter
--- OUTSIDE RECORDS SUMMARY | 2024-02-26 23:02 | XMS_ITS | Encounter Summary ---
Author Organization [facility] Address [address] [facility] [address] [place] [id number] Care Team Providers Care Furnace Clerk Name Role Phone Jaylin Ibarra MD Primary Care Provider Reason for Visit * Reason Comments Hospital Follow Up stroke Encounter Details Date Type Department Care Team (Late st Contact Info) Description 07/24/2018 11:00 AM CDT Office Visit [facility] [address] [id number] Sally Quijano NP [address] [facility] [address] [place] [address] Cerebrovascular accident (CVA), unspecified mechanism (CMS/HCC) (Primary Dx); Chronic combined systolic and diastolic CHF (congestive heart failure) (CMS/HCC); Nonischemic cardiomyopathy (CMS/HCC); Essential hypertension; Dietary counseling; Exercise counseling; Hospital discharge follow-up Social History Tobacco Use Types Packs/Day Years Used Date Smoking Tobacco: Never Smokeless Tobacco: Former Alcohol Use Standard Drinks/Week Comments Not Currently 0 (1 standard drink = 0.6 oz pur e alcohol) Sex and Gender Information Value Date Recorded Sex Assigned at Not on file Legal Sex Male 7:05 PM [employer] Gender Identity Not on file Sexual Orientation Not on file documented as of this encounter Last Filed Vital Signs Vital Sign Reading Time Taken Comments Blood Pressure 142/94 07/24/2018 11:31 AM CDT Pulse 58 07/24/2018 11:31 AM CDT Temperature - - Respiratory Rate - - Oxygen Saturation 97% 07/24/2018 11:31 AM CDT Inhaled Oxygen Concentration - - Weight 122.9 kg (271 lb) 07/24/2018 11:31 AM CDT Height 182.9 cm (6') 07/24/2018 11:31 AM CDT Body Mass Index 36.75 07/24/2018 11:31 AM CDT documented in this encounter Progress Notes * Sally Quijano NP - 07/24/2018 11:00 AM CDT [facility] Date of Visit: 07/24/2018 Patient ID: Portillo Martin 1965 Chief Complaint: Portillo Martin is a 52 y.o. male who comes to the office for hospital follow- up appointment afterCVA. History of Present Illness: Portillo Martin is a 52 y.o. male with a past medical history of longstanding hypertension, heart failure and nonhealing wounds on the lower extremities. He had been followed by cda teacher Dr. Ruggiero in [place] and reported a cardiac catheterization 3-4 years ago showing normal coronary arteries. An echo from February 2017 showed a mildly dilated LV, moderate concentric LVH and mildly reducedLV systolic function with EF 45-54%. He presented to [facility] on 07/07/2018 with complaintof imbalance and dizziness, [...] for hospital follow-up. He just saw Dr. So feel this morning prior to this visit. She [...] 116, TG 224, LDL 36, HDL 35 Records that I personally reviewed on the day of this visit include: (the interpretation is outlined in the HPI above) June 2018 [facility] records including inpatient consultation note from Dr. Porter, inpatient neurology note, echocardiogram report. I have also reviewed: allergies, current medications, [...] nocturnal dyspnea and syncope. Respiratory: Positive for snoring. Negative for cough, hemoptysis, shortness of breath and wheezing. Hematologic/Lymphatic: Does not bruise/bleed easily. Skin: Positive for poor wound healing. Negative for rash. Musculoskeletal: Negative for joint pain and myalgias. Gastrointestinal: Negative for heartburn, nausea and vomiting. Genitourinary: Negative for hematuria. Neurological: Positive for focal weakness. Negative for dizziness, headaches and light-headedness. Left-sided Psychiatric/Behavioral: Negative for depression. The patient is not nervous/anxious. Vital Signs: BP 142/94 (BP Location: Left arm, Patient Position: Sitting) Pulse 58 Ht 182.9 cm (6') Wt 122.9 kg (271 lb) SpO2 97% BMI 36.75 kg/m?? Physical Exam Constitutional: He is oriented [...] JVD present. No tracheal deviation present. Cardiovascular: Regular rhythm and normal heart sounds. Bradycardia present. No murmur heard. Pulmonary/Chest: Effort normal and breath sounds normal. No respiratory distress. Abdominal: Soft. Bowel sounds are normal. There is no tenderness. Musculoskeletal: Normal range of motion. He exhibits no edema. Mild bilateral lower extremity edema. Right leg is covered in dry kristin bandage dressing. Neurological: He is alert and oriented to person, place, and time. Skin: Skin is warm and dry. Psychiatric: He has a normal mood and affect. No Known Allergies Current Outpatient Medications: ??? amLODIPine (NORVASC) 10 mg tablet, Take 10 mg by mouth daily, Disp: , Rfl: ??? aspirin 81 mg enteric coated tablet, Take 81 mg by mouth daily, Disp: , Rfl: ??? atorvastatin (LIPITOR) 40 mg tablet, Take 40 mg by mouth daily, Disp: , Rfl: ??? bisoprolol (ZEBETA) 10 mg tablet, Take 20 mg by mouth daily, Disp: , Rfl: ??? carvedilol (COREG) 12.5 mg tablet, Take 12.5 mg by mouth 2 (two) times a day with meals, Disp: , Rfl: ??? carvedilol (COREG) 6.25 mg tablet, Take 6.25 mg by mouth 2 (two) times a day with meals, Disp: , Rfl: ??? chlorthalidone 25 mg tablet, Take 25 mg by mouth daily, Disp: , Rfl: ??? cholecalciferol (VITAMIN D-3) 1,000 unit tablet, Take 1,000 Units by mouth daily, Disp: , Rfl: ??? clobetasol (TEMOVATE) 0.05 % cream, Apply topically 2 (two) times a day, Disp: , Rfl: ??? furosemide (LASIX) 40 mg tablet, Take 40 mg by mouth daily, Disp: , Rfl: ??? hydrALAZINE (APRESOLINE) 100 mg tablet, Take 100 mg by mouth 3 (three) times a day, Disp: , Rfl: ??? lisinopril (PRINIVIL,ZESTRIL) 20 mg tablet, Take 40 mg by mouth 2 (two) times a day, Disp: , Rfl: ??? spironolactone (ALDACTONE) 50 mg tablet, Take 50 mg by mouth 2 (two) times a day, Disp: , Rfl: Assessment: Diagnoses and all orders for this visit: Cerebrovascular accident (CVA), unspecified mechanism (CMS/HCC) (Primary) Chronic combined systolic and diastolic CHF (congestive heart failure) (CMS/HCC) Nonischemic cardiomyopathy (CMS/HCC) Essential hypertension - POCT lipid panel Dietary counseling Exercise counseling Hospital discharge follow-up Plan/Recommendations: He has some mild left-sided residual deficits from the stroke. He starts physical therapy today. Heis on aspirin and statin. I reviewed the finding of cardiomyopathy with the patient and his fiancee. I explained the lisinopril and carvedilol can help improve this. I agree with the PCPs advice to up titrate carvedilol. He will now take 12.5 mg b.i.d.. He is also on 40 mg of furosemide daily and 50 mg of spironolactone daily. I saw explained the reason for doing the 30 day event monitor to rule out atrial arrhythmia. Of note, monitor was placed on July 10, but was having difficulty transmitting, ultimately removed on July 21, and he will resume wearing it later today July 24 when the new monitor arise at his home. Blood pressure is improving. He is also on amlodipine and hydralazine. I also reviewed the role of weight loss, regular exercise, and heart healthy diet to assist in better blood pressure control over time. Recommendations were given regarding heart healthy diet and regarding gradual resumption of her regular exercise program along with the physical therapy for stroke deficit. Return to the office to see Dr. Porter in 2-3 months. Call us sooner with questions or concerns. Sally Quijano, ANP-BC Nurse Practitioner with [facility] This note is dictated and transcribed using [employer]. Cloth Finishing Range Operator Chief variancesmay occur. Despite proofreading, typographical errors may occur. documented in this encounter Plan of Treatment Not on file documented as of this encounter Procedures Procedure Name Priority Date/Time Associated Diagnosis Comments POCT LIPID PANEL Routine 07/24/2018 12:1 4 PM CDT Essential hypertension documented in this encounter Results * POCT lipid panel (07/24/2018 12:14 PM CDT) Cholesterol, POC 116 mg/dL HDL, POC 35 mg/dL Triglycerides, POC 224 mg/dL LDL Cholesterol POC 36 mg/dL Chol/HDL Ratio, POC 3.3 Non-HDL Cholesterol, POC 81 mg/dL Cholesterol Total, POC 116 mg/dL Blood specimen (specimen) 07/24/2018 12:14 PM CDT Sally Quijano NP POINT OF CARE TEST ORDERA BLES Final Result documented in this encounter Visit Diagnoses Diagnosis Cerebrovascular accident (CVA), unspecified mechanism (HCC)- Primary Chronic combined systolic and diastolic CHF (congestive heart failure) (CMS/HCC) (HCC) Nonischemic cardiomyopathy (CMS/HCC) (HCC) Other primary cardiomyopathies Essential hypertension Unspecified essential hypertension Dietary counseling Dietary surveillance and counseling Exercise counseling Hospital discharge follow-up Other follow-up examination documented in this encounter Historical Medications * This list may reflect changes made after this encounter. hydrALAZINE (APRESOLINE) 50 mg tabletIndication s:hypertension Take 50 mg by mouth every 8 (eight) hours spironolactone (ALDACTONE) 50 mg tablet Take 50 mg by mouth 2 (two) times a day atorvastatin (LIPITOR) 40 mg tablet Take 40 mg by mouth daily lisinopriL (PRINIVIL,ZESTRI L) 40 mg tablet Take 40 mg by mouth daily cholecalciferol (VITAMIN D-3) 1,000 unit tablet Take 1,000 Units by mouth daily aspirin 81 mg enteric coated tablet Take 81 mg by mouth daily furosemide (LASIX) 40 mg tablet Take 40 mg by mouth daily Take 1.5 tablets daily. carvedilol (COREG) 12.5 mg tablet Take 12.5 mg by mouth 2 (two) times a day with meals 9 bisoprolol (ZEBETA) 10 mg tablet Take 20 mg by mouth daily 9 chlorthalidone 25 mg tablet Take 25 mg by mouth daily 9 carvedilol (COREG) 6.25 mg tablet Take 6.25 mg by mouth 2 (two) times a day with meals 9 amLODIPine (NORVASC) 10 mg tablet Take 10 mg by mouth daily 9 clobetasol (TEMOVATE) 0.05 % cream Apply topically 2 (two) times a day 9 added in this encounter Care Teams Furnace Clerk Relationship Specialty Start Date End Date Jaylin Ibarra MD [address] [facility] [address] [place] [address] PCP - General Family Medicine 07/10/18 documented as of this encounter
--- OUTSIDE RECORDS SUMMARY | 2024-02-26 23:03 | XMS_ITS | Encounter Summary ---
Author Organization [facility] Healthcare Address [address] [place] [address] Care Team Providers Care Celery Cutter Name Role Phone Unavailable Primary Care Provider Unavailabl e Encounter Details Date Type Department Care Team (Late st Contact Info) Description 03/14/2017 12:58 PM SPORT INTERN - 03/15/2017 5:05 PM SPORT INTERN Hospital Encounter [facility] Lalito Caceres MD [address] [facility] [address] [place] [address] Hypertensive urgency; Acute on chronic combined systolic and diastolic congestive heart failure (CMS/HCC); Cardiomyopathy (CMS/HCC); Hypertensive heart disease with heart failure (CMS/HCC); Hyperglycemia; Obesity; Body mass index (BMI) of 39.0-39.9 in adult; Family history of ischemic heart disease and other diseases of the circulatory system Social History Tobacco Use Types Packs/Day Years Used Date Smoking Tobacco: Never Assessed Sex and Gender Information Value Date Recorded Sex Assigned at Not on file Legal Sex Male 7:05 PM SPORT INTERN Gender Identity Not on file Sexual Orientation Not on file documented as of this encounter Last Filed Vital Signs Vital Sign Reading Time Taken Comments Blood Pressure 152/99 03/15/2017 3:23 PM SPORT INTERN Pulse 74 03/15/2017 3:23 PM SPORT INTERN Temperature 36.9 ??C (98.4 ??F) 03/15/2017 3:23 PM CS T Respiratory Rate - - Oxygen Saturation 96% 03/15/2017 3:23 PM SPORT INTERN Inhaled Oxygen Concentration - - Weight 129.3 kg (285 lb) 03/15/2017 3:23 PM SPORT INTERN Height 182.9 cm (6') 03/15/2017 3:23 PM SPORT INTERN Body Mass Index 38.65 03/15/2017 3:23 PM SPORT INTERN documented in this encounter Plan of Treatment Not on file documented as of this encounter Procedures Procedure Name Priority Date/Time Associated Diagnosis Comments THYROID FUNCTION CASCADE Routine 03/15/2017 6:33 AM SPORT INTERN CBC WITH AUTO DIFFERENTIAL Routine 03/15/2017 6:33 AM SPORT INTERN HEMOGLOBIN A1C Routine 03/15/2017 6:33 AM SPORT INTERN LIPID PANEL Routine 03/15/2017 6:33 AM SPORT INTERN BASIC METABOLIC PANEL Routine 03/15/2017 6:33 AM SPORT INTERN URINALYSIS, MACRO AND MICRO Routine 03/15/2017 12:08 AM SPORT INTERN CARDIOLOGY REPORT 03/15/2017 12: 00 AM SPORT INTERN TRANSTHORACIC ECHO (TTE) COMPLETE W DOPPLER/CF Routine 03/15/2017 12:00 AM SPORT INTERN TROPONIN I Routine 03/14/2017 2:14 PM SPORT INTERN TROPONIN I Routine 03/14/2017 11:03 AM SPORT INTERN CBC WITH AUTO DIFFERENTIAL Routine 03/14/2017 8:07 AM SPORT INTERN APTT Routine 03/14/2017 8:07 AM SPORT INTERN PROTIME-INR Routine 03/14/2017 8:07 AM SPORT INTERN B-TYPE NATRIURETIC PEPTIDE Routine 03/14/2017 8:07 AM SPORT INTERN COMPREHENSIVE METABOLIC PANEL Routine 03/14/2017 8:07 AM SPORT INTERN XR CHEST 1 VIEW Routine 03/14/2017 12:00 AM SPORT INTERN documented in this encounter Results * TSH reflex to free T4 (03/15/2017 6:33 AM SPORT INTERN) TSH W REFLEX TO FT4 1.74 0.27 - 4.20 uIU/mL 03/15/2017 6:33 AM SPORT INTERN 03/15/2017 6:44 AM SPORT INTERN Birdieraquel Dubois LAB BLOOD ORDERABLES Final R esult Performing Organization Address [facility]/ZIP Co de Phone Number [facility] HISTORICAL RESULTS * Hemoglobin A1c (03/15/2017 6:33 AM SPORT INTERN) Hemoglobin A1c % 5.2 4.8 - 5.9 % Comment: [place] [employer] recommends that the goal of therapy should be an A1C hemoglobin of <7%. Reevaluate the treatment regimen in patients with an A1C >8%. 03/15/2017 6:33 AM SPORT INTERN 03/15/2017 6:44 AM [facility] BLOOD ORDERABLES Final R esult Performing Organization Address [facility] Co de Phone Number [facility] HISTORICAL RESULTS * Lipid panel (03/15/2017 6:33 AM SPORT INTERN) Triglycerides 92 0 - 199 mg/dL Comment:12 hr pc highly jayy mmended for Triglyceride Cholesterol 161 0 - 199 mg/dL Comment: Borderline: ??200-239 High Risk: ?? >239 HDL Cholesterol 53 mg/dL 8 7:28 AM [facility] HISTORICAL RESULTS Comment: New methodology in use 02-01-17; New Reference Ranges 03-02-17: Males: >=40 mg/dL Females: >=50 mg/dL LDL Cholesterol, Calc 90 0 - 130 mg/dL 03/15/2017 7:28 AM [facility] [employer] HISTORICAL RESULTS Comment:High Risk > 159 mg/d L Cholesterol/HDL Ratio 3.0 03/15/2017 7:28 AM SPORT INTERN [facility] [employer] HISTORICAL RESULTS Comment: Cholesterol / HDL Ratio 3.5:1 or less is desirable. Cholesterol / HDL Ratio greater than 5:1 is considered higher risk for developing heart disease. 03/15/2017 6:33 AM SPORT INTERN 03/15/2017 6:44 AM SPORT INTERN us Birdie Dubois LAB BLOOD ORDERABLES Final R esult [facility] [employer] HISTORICAL RESULTS * CBC with auto differential (03/15/2017 6:33 AM SPORT INTERN) WBC 4.8 3.5 - 10.5 x10 3/ul 03/15/2017 6:56 AM [facility] [employer] HISTORICAL RESULTS Comment:New Reference Range in use 03/10/17. RBC 5.02 4.11 - 5.71 x10 6/ul 03/15/2017 6:56 AM [facility] [employer] HISTORICAL RESULTS Hemoglobin 14.7 13.0 - 17.0 g/dl 03/15/2017 6:56 AM [facility] [employer] HISTORICAL RESULTS Hct 44.7 38.2 - 48.5 % 03/15/2017 6:56 AM [facility] HISTORICAL RESULTS MCV 89.0 80.0 - 97.0 fl 03/15/2017 6:56 AM [facility] [employer] [facility] HISTORICAL RESULTS MCH 29.3 27.0 - 31.2 pg 03/15/2017 6:56 AM [facility] [employer] HISTORICAL RESULTS MCHC 32.9 31.8 - 35.4 g/dl 03/15/2017 6:56 AM [facility] [employer] HISTORICAL RESULTS RDW 14.8 11.6 - 14.8 % 03/15/2017 6:56 AM [facility] [employer] HISTORICAL RESULTS Plt Count 263 150 - 450 x10 3/ul 03/15/2017 6:56 AM [facility] [employer] HISTORICAL RESULTS Comment:New Reference Range in use 03/10/17. MPV 9.8 7.4 - 10.4 fl Neut % 56.8 37.0 - 85.0 % Immature Gran % 0.4 0.0 - 3.0 % Lymph % 31.5 5.0 - 45.0 % Orange % 9.6 3.0 - 15.0 % Eos % 1.3 0.0 - 7.0 % Baso % 0.4 0.0 - 2.0 % Absolute Neuts (auto) 2.7 1.7 - 8.7 x10 3/ul Immature Gran # 0.0 0.0 - 0.3 x10 3/ul Absolute Lymphs (auto) 1.5 0.2 - 4.6 x10 3/ul Absolute Monos (auto) 0.5 0.1 - 1.5 x10 3/ul Absolute Eos (auto) 0.1 0.0 - 0.7 x10 3/ul Absolute Basos (auto) 0.0 0.0 - 0.2 x10 3/ul Nucleat RBC Rel Count 0.0 0 - 3 #/100WBC Absolute Nucleated RBC 0.00 x10 3/ul Absolute Neutrophils 2700 200 - 8000 /ul 03/15/2017 6:33 AM SPORT INTERN 03/15/2017 6:44 AM SPORT INTERN us Birdie Dubois LAB BLOOD ORDERABLES Final R esult [facility] HISTORICAL RESULTS * (ABNORMAL) Basic metabolic panel (03/15/2017 6:33 AM SPORT INTERN) Sodium 138 135 - 145 mmol/L 03/15/2017 7:28 AM SPORT INTERN [facility] [employer] [facility] HISTORICAL RESULTS Potassium 3.4 3.3 - 5.1 mmol/L 03/15/2017 7:28 AM [facility] HISTORICAL RESULTS Chloride 99 96 - 108 mmol/L 03/15/2017 7:28 AM [facility] HISTORICAL RESULTS Carbon Dioxide 25 22 - 32 mmol/L Anion Gap 14 7 - 16 Glucose 119(H) 70 - 100 mg/dL BUN 11 6 - 20 mg/dL Creatinine 1.2 0.5 - 1.3 mg/dL 03/15/2017 7:28 AM [facility] HISTORICAL RESULTS Comment: NOTE: Estimated GFR (Cockroft-Gault) will NOT [...] ? Kidney failure or on dialysis @ Est GFR (Cockcroft-G) 101 ml/MIN 03/15/2017 7:28 AM [facility] [employer] HISTORICAL RESULTS Comment: Estimated GFR(Cockroft-Gault)is used to calculate patient medication dosage Calcium 8.6 8.6 - 10.0 mg/dL 03/15/2017 7:28 AM [facility] [employer] HISTORICAL RESULTS 03/15/2017 6:33 AM SPORT INTERN 03/15/2017 6:44 AM [facility] us Birdie Dubois LAB BLOOD ORDERABLES Final R esult [employer] HISTORICAL RESULTS * Urinalysis, macro and micro (03/15/2017 12:08 AM SPORT INTERN) Ur Collection Type CLEAN CATCH 03/15/2017 12:27 AM [facility] [employer] HISTORICAL RESULTS Urine Color YELLOW YELLOW 03/15/2017 12:27 AM [facility] [employer] HISTORICAL RESULTS Urine Clarity CLEAR CLEAR 03/15/2017 12:27 AM [facility] [employer] HISTORICAL RESULTS Urine Glucose (UA) NORMAL NORMAL mg/dL 03/15/2017 12:27 AM SPORT INTERN [employer] HISTORICAL RESULTS Urine Bilirubin NEGATIVE NEGATIVE mg/dl 03/15/2017 12:27 AM SPORT INTERN [employer] HISTORICAL RESULTS Urine Ketones NEGATIVE NEGATIVE mg/dL 03/15/2017 12:27 AM SPORT INTERN [employer] HISTORICAL RESULTS Ur Specific [place] [employer] 1.012 1.005 - 1.025 03/15/2017 12:27 AM [facility] [employer] HISTORICAL RESULTS Urine Blood NEGATIVE NEGATIVE mg/dl Urine pH 6.0 5.0 - 8.0 03/15/2017 12:27 AM SPORT INTERN [facility] HISTORICAL RESULTS Urine Protein NEGATIVE NEGATIVE mg/dL Urine Urobilinogen NORMAL NORMAL mg/dL 03/15/2017 12:27 AM SPORT INTERN [facility] HISTORICAL RESULTS Urine Nitrite NEGATIVE NEGATIVE 03/15/2017 12:27 AM SPORT INTERN [facility] HISTORICAL RESULTS Ur Leukocyte Esterase NEGATIVE NEGATIVE Davin/ul 03/15/2017 12:27 AM SPORT INTERN [facility] HISTORICAL RESULTS Ur Microscopic Review Indicated or Ordered Urine RBC 3 0 - 2 /HPF Urine WBC <1 0 - 2 /HPF Urine Bacteria Rare /HPF Urine Mucus RARE /LPF 03/15/2017 12:0 8 AM SPORT INTERN 03/15/2017 12:14 AM SPORT INTERN Sultan Guillermo Ruggiero MD LAB URINE ORDERABLES Final Re sult [facility] HISTORICAL RESULTS * CARDIOLOGY REPORT (03/15/2017 12:00 AM SPORT INTERN) Anatomical Region Laterality Modality Other Narrative 03/15/2017 12:00 AM SPORT INTERN Ordered by an unspecified provider. Historical Provider [facility] RALPH LEON Final Result * Transthoracic Echo Complete W Doppler/CF (03/15/2017 12:00 AM SPORT INTERN) Anatomical Region Laterality Modality Ultrasound 03/15/2017 Narrative 03/15/2017 2:48 PM SPORT INTERN Results viewable in EMR, Cardiovascular [EOD] Procedure Note Provider, Historical, - 07/08/2020 Results viewable in EMR, Cardiovascular [EOD] Birdie Dubois CV ECHO PROCEDURES Final Res ult * Troponin I (03/14/2017 2:14 PM SPORT INTERN) Troponin I < 0.300 0.000 - 0.300 ng/mL 03/14/2017 2:48 PM SPORT INTERN [facility] HISTORICAL RESULTS Comment: Reference using NEHEMIAS Chemiluminescence ? Negative: Repeat in 4-6 hours as indicated. 03/14/2017 2:14 PM SPORT INTERN 03/14/2017 2:18 PM SPORT INTERN [employer] [facility] LAB BLOOD ORDERABLES Final Res ult Performing Organization Address [facility] Co de Phone Number [facility] HISTORICAL RESULTS * Troponin I (03/14/2017 11:03 AM SPORT INTERN) Troponin I < 0.300 0.000 - 0.300 ng/mL 03/14/2017 11:50 AM SPORT INTERN [facility] HISTORICAL RESULTS Comment: Reference using NEHEMIAS Chemiluminescence ? Negative: Repeat in 4-6 hours as indicated. 03/14/2017 11:0 3 AM SPORT INTERN 03/14/2017 11:05 AM SPORT INTERN [employer] [facility] LAB BLOOD ORDERABLES Final Res ult Performing Organization Address [facility] Co de Phone Number [facility] HISTORICAL RESULTS * (ABNORMAL) B-type natriuretic peptide (03/14/2017 8:07 AM SPORT INTERN) B-Natriuretic Peptide 1029(H) 0 - 100 pg/mL 03/14/2017 9:02 AM SPORT INTERN [facility] HISTORICAL RESULTS Comment: B Natriutetic Peptide METHOD: ??[employer] Centaur [...] hours of bolus or infusion of nesiritide. 03/14/2017 8:07 AM SPORT INTERN 03/14/2017 8:13 AM SPORT INTERN us [employer] [facility] LAB BLOOD ORDERABLES Final Res ult Performing Organization Address [facility] de Phone Number [facility] HISTORICAL RESULTS * Protime-INR (03/14/2017 8:07 AM SPORT INTERN) PT 13.9 11.8 - 14.5 SECONDS 03/14/2017 9:19 AM SPORT INTERN [facility] HISTORICAL RESULTS INR 1.08 0.01 - 5.99 03/14/2017 9:19 AM SPORT INTERN [facility] HISTORICAL RESULTS Comment: Recommended Therapeutic range for Oral Anticoagulant Therapy No anti-coagulation therapy ? Normal Range: ?0.8-1.4 Anti-coagulation therapy ? Low intensity therapy ?2.0-3.0 ? High intensity therapy ?? 2.5-3.5 Critical Value ? Greater than or equal to 6.0 Patients should be monitored for serious bleeding. ?? 03/14/2017 8:07 AM SPORT INTERN 03/14/2017 8:13 AM SPORT INTERN [employer] [facility] LAB BLOOD ORDERABLES Final Res ult Performing Organization Address [facility] de Phone Number [facility] HISTORICAL RESULTS * aPTT (03/14/2017 8:07 AM SPORT INTERN) APTT 33 26 - 33 SECONDS 03/14/2017 8:50 AM SPORT INTERN [facility] HISTORICAL RESULTS 03/14/2017 8:07 AM SPORT INTERN 03/14/2017 8:13 AM SPORT INTERN [employer] LAB BLOOD ORDERABLES Final Res ult Performing Organization Address [facility]/ZIP Co de Phone Number [facility] HISTORICAL RESULTS * (ABNORMAL) Comprehensive metabolic panel (03/14/2017 8:07 AM SPORT INTERN) Sodium 139 135 - 145 mmol/L Potassium 3.5 3.3 - 5.1 mmol/L Chloride 100 96 - 108 mmol/L Carbon Dioxide 28 22 - 32 mmol/L Anion Gap 11 7 - 16 Glucose 118(H) 70 - 100 mg/dL BUN 11 6 - 20 mg/dL Creatinine 1.1 0.5 - 1.3 mg/dL Comment: NOTE: Estimated GFR (Cockroft-Gault) will NOT be calculated unless patient Height and Weight were entered. Also, Kidney Disease Stage (GFR) and Estimated GFR (Cockroft-Gault) will NOT be calculated if Creatinine result is <0.2. Kidney Disease Stage > 90 mL/MIN Comment: NOTE; ??The GFR is an [...] ? Kidney failure or on dialysis @ Est GFR (Cockcroft-G) 110 ml/MIN 03/14/2017 8:38 AM [facility] [employer] HISTORICAL RESULTS Comment: Estimated GFR(Cockroft-Gault)is used to calculate patient medication dosage Calcium 8.6 8.6 - 10.0 mg/dL 03/14/2017 8:38 AM SPORT INTERN [employer] HISTORICAL RESULTS Total Protein 7.1 6.4 - 8.3 g/dL 03/14/2017 8:38 AM [facility] [employer] HISTORICAL RESULTS Albumin 4.2 3.5 - 5.2 g/dL 03/14/2017 8:38 AM [facility] [employer] HISTORICAL RESULTS Globulin 2.9 2.3 - 3.5 gm/dL 03/14/2017 8:38 AM SPORT INTERN [facility] [employer] HISTORICAL RESULTS Albumin/Globulin Ratio 1.4 1.1 - 1.8 03/14/2017 8:38 AM [facility] [employer] HISTORICAL RESULTS Total Bilirubin 0.8 0.0 - 1.2 mg/dL 03/14/2017 8:38 AM SPORT INTERN [facility] [employer] HISTORICAL RESULTS AST 26 0 - 40 U/L 03/14/2017 8:38 AM [facility] [employer] HISTORICAL RESULTS ALT 27 0 - 41 U/L 03/14/2017 8:38 AM [facility] [employer] HISTORICAL RESULTS Alkaline Phosphatase 98 40 - 129 U/L 03/14/2017 8:38 AM [facility] [employer] HISTORICAL RESULTS 03/14/2017 8:07 AM SPORT INTERN 03/14/2017 8:13 AM SPORT INTERN us [employer] [facility] LAB BLOOD ORDERABLES Final Res ult [employer] HISTORICAL RESULTS * CBC with auto differential (03/14/2017 8:07 AM SPORT INTERN) WBC 6.2 3.5 - 10.5 x10 3/ul 03/14/2017 8:20 AM [email or web address] HISTORICAL RESULTS Comment:New Reference Range in use 03/10/17. RBC 5.26 4.11 - 5.71 x10 6/ul 03/14/2017 8:20 AM [email or web address] HISTORICAL RESULTS Hemoglobin 15.3 13.0 - 17.0 g/dl 03/14/2017 8:20 AM [email or web address] HISTORICAL RESULTS Hct 47.3 38.2 - 48.5 % 03/14/2017 8:20 AM SPORT INTERN [employer] HISTORICAL RESULTS MCV 89.9 80.0 - 97.0 fl 03/14/2017 8:20 AM [email or web address] HISTORICAL RESULTS MCH 29.1 27.0 - 31.2 pg 03/14/2017 8:20 AM [email or web address] HISTORICAL RESULTS MCHC 32.3 31.8 - 35.4 g/dl 03/14/2017 8:20 AM [email or web address] HISTORICAL RESULTS RDW 14.6 11.6 - 14.8 % 03/14/2017 8:20 AM [email or web address] HISTORICAL RESULTS Plt Count 272 150 - 450 x10 3/ul 03/14/2017 8:20 AM [email or web address] HISTORICAL RESULTS Comment:New Reference Range in use 03/10/17. MPV 9.8 7.4 - 10.4 fl 03/14/2017 8:20 AM [email or web address] HISTORICAL RESULTS Neut % 61.1 37.0 - 85.0 % 03/14/2017 8:20 AM [email or web address] HISTORICAL RESULTS Immature Gran % 0.6 0.0 - 3.0 % 03/14/2017 8:20 AM [email or web address] HISTORICAL RESULTS Lymph % 28.6 5.0 - 45.0 % 03/14/2017 8:20 AM [email or web address] HISTORICAL RESULTS Orange % 7.4 3.0 - 15.0 % 03/14/2017 8:20 AM [email or web address] HISTORICAL RESULTS Eos % 1.8 0.0 - 7.0 % 03/14/2017 8:20 AM [email or web address] HISTORICAL RESULTS Baso % 0.5 0.0 - 2.0 % 03/14/2017 8:20 AM [email or web address] HISTORICAL RESULTS Absolute Neuts (auto) 3.8 1.7 - 8.7 x10 3/ul Immature Gran # 0.0 0.0 - 0.3 x10 3/ul 03/14/2017 8:20 AM SPORT INTERN [facility] HISTORICAL RESULTS Absolute Lymphs (auto) 1.8 0.2 - 4.6 x10 3/ul 03/14/2017 8:20 AM SPORT INTERN [facility] HISTORICAL RESULTS Absolute Monos (auto) 0.5 0.1 - 1.5 x10 3/ul 03/14/2017 8:20 AM SPORT INTERN [facility] HISTORICAL RESULTS Absolute Eos (auto) 0.1 0.0 - 0.7 x10 3/ul 03/14/2017 8:20 AM SPORT INTERN [facility] HISTORICAL RESULTS Absolute Basos (auto) 0.0 0.0 - 0.2 x10 3/ul Nucleat RBC Rel Count 0.3 0 - 3 #/100WBC 03/14/2017 8:20 AM SPORT INTERN [facility] HISTORICAL RESULTS Absolute Nucleated RBC 0.02 x10 3/ul Absolute Neutrophils 3800 200 - 8000 /ul 03/14/2017 8:07 AM SPORT INTERN 03/14/2017 8:13 AM SPORT INTERN us [employer] [facility] LAB BLOOD ORDERABLES Final Res ult [facility] HISTORICAL RESULTS * XR Chest 1 View (03/14/2017 12:00 AM SPORT INTERN) Anatomical Region Laterality Modality Body, Chest N/A Radiographic Herlinda ging 03/14/2017 Impressions 03/14/2017 8:39 AM SPORT INTERN ??Mild cardiomegaly without overt failure. THIS IS AN ELECTRONICALLY VERIFIED FINAL REPORT 03/14/2017 8:36 AM - Electronically signed by Jamin Awan JA: HALEY D: ??03/14/2017 8:36 AM T: ??03/14/2017 8:36 AM Report ID: [id number] Reading Location: ??[id number] [EOD] Narrative 03/14/2017 8:39 AM SPORT INTERN EXAM DESCRIPTION: ??Chest 1 View Portable COMPLETED DATE/TIME: ??03/14/2017 8:29 am REASON FOR STUDY: ??onset overnight, BP 185/114 at time of this exam, hx chf COMPARISON: ??None available. TECHNIQUE: ??Single frontal radiographic view of the chest acquired. FINDINGS: ??LUNGS AND PLEURA: No focal consolidation or pneumothorax. No pleural effusion. MEDIASTINUM: Normal mediastinal and hilar contour. HEART: The heart is mildly enlarged. BONES: No acute findings. OTHER: No other significant finding. Procedure Note Provider, MD Lauri - 07/08/2020 EXAM DESCRIPTION: Chest 1 View Portable COMPLETED DATE/TIME: 03/14/2017 8:29 am REASON FOR STUDY: onset overnight, BP 185/114 at time of this exam, hxchf COMPARISON: None available. TECHNIQUE: Single frontal radiographic view of the chest acquired. FINDINGS: LUNGS AND PLEURA: No focal consolidation or pneumothorax. No pleural effusion. MEDIASTINUM: Normal mediastinal and hilar contour. HEART: The heart is mildly enlarged. BONES: No acute findings. OTHER: No other significant finding. IMPRESSION: Mild cardiomegaly without overt failure. THIS IS AN ELECTRONICALLY VERIFIED FINAL REPORT 03/14/2017 8:36 AM - Electronically signed by Jamin Awan JA: HALEY Report ID: [id number] Reading Location: [id number] [EOD] [employer] [facility] IMG XR PROCEDURES Final Result documented in this encounter Visit Diagnoses Diagnosis Hypertensive urgency Acute on chronic combined systolic and diastolic congestive heart failure (CMS/HCC) (HCC) Cardiomyopathy (HCC) Other primary cardiomyopathies Hypertensive heart disease with heart failure (CMS/HCC) (HCC) Unspecified hypertensive heart disease with heart failure Hyperglycemia Other abnormal glucose Obesity Obesity, unspecified Body mass index (BMI) of 39.0-39.9 in adult Family history of ischemic heart disease and other diseases of the circulatory system documented in this encounter
--- OUTSIDE RECORDS SUMMARY | 2024-02-26 23:03 | XMS_ITS | Encounter Summary ---
Author Organization [facility] Facility Care Team Providers Care Director Mba Name Role Phone Jaylin Ibarra MD Primary Care Provider Encounter Details Date Type Department Care Team (Latest Contact Info) Description 02/16/2017 Orders Only [facility] CLINCONV ProviderLauri MD [address] [place] [address] [phone] Social History Tobacco Use Types Packs/Day Years Used Date Smoking Tobacco: Never Assessed Sex and Gender Information Value Date Recorded Sex Assigned at Not on file Legal Sex Male 7:05 PM [employer] Gender Identity Not on file Sexual Orientation Not on file documented as of this encounter Plan of Treatment Not on file documented as of this encounter Procedures Procedure Name Priority Date/Time Associated Diagnosis Comments SCAN - LABS 03/16/2017 12:00 AM [employer] documented in this encounter Results * SCAN - LABS (03/16/2017 12:00 AM [employer]) Narrative 03/16/2017 12:00 AM [employer] Ordered by an unspecified provider. Historical Provider Final Res ult documented in this encounter Visit Diagnoses Not on filedocumented in this encounter Care Teams Director Mba Relationship Specialty Start Date End Date Jaylin Ibarra MD [address] [place] [address] PCP - General Family Medicine 07/10/18 documented as of this encounter
--- OUTSIDE RECORDS SUMMARY | 2024-02-26 23:03 | XMS_ITS | Encounter Summary ---
Author Organization [facility] Facility Care Team Providers Care Early Childhood Associate Name Role Phone Jaylin Ibarra MD Primary Care Provider Encounter Details Date Type Department Care Team (Latest Contact Info) Description 04/09/2015 Orders Only [facility] CLINCONV ProviderLauri MD [address] [place] [address] [phone] Social History Tobacco Use Types Packs/Day Years Used Date Smoking Tobacco: Never Assessed Sex and Gender Information Value Date Recorded Sex Assigned at Not on file Legal Sex Male 7:05 PM [employer] Gender Identity Not on file Sexual Orientation Not on file documented as of this encounter Plan of Treatment Not on file documented as of this encounter Procedures Procedure Name Priority Date/Time Associated Diagnosis Comments PROCEDURE - RESULT 04/09/2015 12 :00 AM [employer] PROCEDURE - RESULT 04/09/2015 12 :00 AM [employer] documented in this encounter Results * PROCEDURE - RESULT (04/09/2015 12:00 AM [employer]) Narrative 04/09/2015 12:00 AM [employer] Ordered by an unspecified provider. Historical Provider Final Res ult * PROCEDURE - RESULT (04/09/2015 12:00 AM [employer]) Narrative 04/09/2015 12:00 AM [employer] Ordered by an unspecified provider. us Historical Provider MD Final Res ult documented in this encounter Visit Diagnoses Not on filedocumented in this encounter Care Teams Early Childhood Associate Relationship Specialty Start Date End Date Jaylin Ibarra MD [address] [facility] [address] [place] [address] PCP - General Family Medicine 07/10/18 documented as of this encounter
--- OUTSIDE RECORDS SUMMARY | 2024-02-26 23:03 | XMS_ITS | Encounter Summary ---
Author Organization [facility] Facility Care Team Providers Care Perinatal Technician Name Role Phone Jaylin Ibarra MD Primary Care Provider Encounter Details Date Type Department Care Team (Latest Contact Info) Description 03/15/2017 Orders Only [facility]IN[facility] ProviderLauri MD [address] [place] [address] [id number] Social History Tobacco Use Types Packs/Day Years Used Date Smoking Tobacco: Never Assessed Sex and Gender Information Value Date Recorded Sex Assigned at Not on file Legal Sex Male 7:05 PM FLORAL ARRANGER Gender Identity Not on file Sexual Orientation Not on file documented as of this encounter Plan of Treatment Not on file documented as of this encounter Procedures Procedure Name Priority Date/Time Associated Diagnosis Comments CARDIOLOGY REPORT 03/23/2017 12: 00 AM FLORAL ARRANGER documented in this encounter Results * CARDIOLOGY REPORT (03/23/2017 12:00 AM FLORAL ARRANGER) Anatomical Region Laterality Modality Other Narrative 03/23/2017 12:00 AM FLORAL ARRANGER Ordered by an unspecified provider. Historical Provider [facility] RALPH LEON Final Result documented in this encounter Visit Diagnoses Not on filedocumented in this encounter Care Teams Perinatal Technician Relationship Specialty Start Date End Date Jaylin Ibarra MD [address] [facility] [address] [place] [address] PCP - General Family Medicine 07/10/18 documented as of this encounter
--- OUTSIDE RECORDS SUMMARY | 2024-02-26 23:03 | XMS_ITS | Encounter Summary ---
Author Organization [facility] Healthcare Address [address] [place] [address] Care Team Providers Care Claims Coordinator Name Role Phone Unavailable Primary Care Provider Unavailabl e Encounter Details Date Type Department Care Team (Latest Contact Info) Description 03/23/2017 2:44 PM [employer]ISHER [employer] Hospital Encounter [facility] [place] Guillermo Gallo MD [address] [facility] [address] [place] [address] [address] Chronic diastolic heart failure (CMS/HCC) Social History Tobacco Use Types Packs/Day Years Used Date Smoking Tobacco: Never Assessed Sex and Gender Information Value Date Recorded Sex Assigned at Not on file Legal Sex Male 7:05 PM [employer] Gender Identity Not on file Sexual Orientation Not on file documented as of this encounter Plan of Treatment Not on file documented as of this encounter Procedures Procedure Name Priority Date/Time Associated Diagnosis Comments B-TYPE NATRIURETIC PEPTIDE Routine 03/23/2017 2:50 PM [employer] BASIC METABOLIC PANEL Routine 03/23/2017 2:50 PM [employer] documented in this encounter Results * (ABNORMAL) B-type natriuretic peptide (03/23/2017 2:50 PM [employer]) B-Natriuretic Peptide 293(H) 0 - 100 pg/mL 03/23/2017 3:47 PM [employer] [facility] HISTORICAL RESULTS Comment: B Natriutetic Peptide METHOD: [...] hours of bolus or infusion of nesiritide. 03/23/2017 2:50 PM [employer] 03/23/2017 3:13 PM [employer] [facility] [place] Guillermo Ruggiero MD LAB BLOOD ORDERABLES Final Re sult [facility] HISTORICAL RESULTS * Basic metabolic panel (03/23/2017 2:50 PM FIN[employer]) Sodium 139 135 - 145 mmol/L Potassium 3.7 3.3 - 5.1 mmol/L Chloride 97 96 - 108 mmol/L Carbon Dioxide 29 22 - 32 mmol/L Anion Gap 13 7 - 16 Glucose 96 70 - 100 mg/dL BUN 13 6 - 20 mg/dL Creatinine 1.1 0.5 [...] Kidney failure or on dialysis @ Calcium 9.8 8.6 - 10.0 mg/dL 03/23/2017 3:38 PM [employer] [facility] HISTORICAL RESULTS 03/23/2017 2:50 PM [employer] 03/23/2017 3:13 PM [employer] [facility] [place] Guillermo Ruggiero MD LAB BLOOD ORDERABLES Final Re sult [facility] HISTORICAL RESULTS documented in this encounter Visit Diagnoses Diagnosis Chronic diastolic heart failure (HCC) Chronic diastolic heart failure documented in this encounter
--- OUTSIDE RECORDS SUMMARY | 2024-02-26 23:03 | XMS_ITS | Encounter Summary ---
Author Organization [facility] Healthcare Address [address] [place] [address] Care Team Providers Care Scaleman Name Role Phone Unavailable Primary Care Provider Unavailabl e Encounter Details Date Type Department Care Team (Latest Contact Info) Description 04/16/2015 6:16 AM MOLD FILLER AND DRAINER - 04/16/2015 11:01 AM MOLD FILLER AND DRAINER Hospital Encounter [facility] OP Kaleb Ray MD [address] [facility] [address] [address] Ganglion of right wrist; Essential (primary) hypertension Social History Tobacco Use Types Packs/Day Years Used Date Smoking Tobacco: Never Assessed Sex and Gender Information Value Date Recorded Sex Assigned at Not on file Legal Sex Male 7:05 PM MOLD FILLER AND DRAINER Gender Identity Not on file Sexual Orientation Not on file documented as of this encounter Last Filed Vital Signs Vital Sign Reading Time Taken Comments Blood Pressure 158/105 04/16/2015 7:18 AM MOLD FILLER AND DRAINER Pulse 54 04/16/2015 7:18 AM MOLD FILLER AND DRAINER Temperature 36.3 ??C (97.3 ??F) 04/16/2015 7:18 AM CS T Respiratory Rate - - Oxygen Saturation 98% 04/16/2015 7:18 AM MOLD FILLER AND DRAINER Inhaled Oxygen Concentration - - Weight 123.4 kg (272 lb) 04/16/2015 7:18 AM MOLD FILLER AND DRAINER Height 182.9 cm (6') 04/16/2015 7:18 AM MOLD FILLER AND DRAINER Body Mass Index 36.89 04/16/2015 7:18 AM MOLD FILLER AND DRAINER documented in this encounter Plan of Treatment Not on file documented as of this encounter Visit Diagnoses Diagnosis Ganglion of right wrist Essential (primary) hypertension Unspecified essential hypertension documented in this encounter
--- OUTSIDE RECORDS SUMMARY | 2024-02-26 23:03 | XMS_ITS | Encounter Summary ---
Author Organization [facility] Healthcare Address [address] [place] [address] Care Team Providers Care Diesel Pile Hammer Operator Name Role Phone Unavailable Primary Care Provider Unavailabl e Encounter Details Date Type Department Care Team (Latest Contact Info) Description 04/11/2015 6:56 AM SAND MILL OPERATOR FACING SAND Hospital Encounter [facility] OP Kaleb Ray MD [address] [facility] [address] [address] Encounter for preprocedural cardiovascular examination; Encounter for preprocedural laboratory examination; Abnormal electrocardiogram Social History Tobacco Use Types Packs/Day Years Used Date Smoking Tobacco: Never Assessed Sex and Gender Information Value Date Recorded Sex Assigned at Not on file Legal Sex Male 7:05 PM SAND MILL OPERATOR [employer]ACING SAND Gender Identity Not on file Sexual Orientation Not on file documented as of this encounter Plan of Treatment Not on file documented as of this encounter Procedures Procedure Name Priority Date/Time Associated Diagnosis Comments BUN / CREATININE RATIO Routine 04/11/2015 7:48 AM SAND MILL OPERATOR FACING SAND ELECTROLYTE PANEL Routine 04/11/2015 7:4 8 AM SAND MILL OPERATOR FACING SAND documented in this encounter Results * Electrolyte panel (04/11/2015 7:48 AM SAND MILL OPERATOR FACING SAND) Sodium 138 135 - 145 mmol/L 04/11/2015 10:17 AM SAND MILL OPERATOR FACING SAND [facility] HISTORICAL RESULTS Potassium 3.3 3.3 - 5.1 mmol/L Chloride 97 96 - 108 mmol/L Carbon Dioxide 27 22 - 32 mmol/L Anion Gap 14 7 - 16 04/11/2015 7:48 AM SAND MILL OPERATOR FACING SAND 04/11/2015 9:45 AM [facility] us Km Wan MD LAB BLOOD ORDERABLES Liz l Result [facility] HISTORICAL RESULTS * BUN / creatinine ratio (04/11/2015 7:48 AM [facility]) BUN 18 6 - 20 mg/dL Creatinine 1.1 0.5 [...] age, and race of the patient. THE ESTIMATED GFR IS VALIDATED FOR AGES 18-70 YEARS STAGE ?mL/Min ?DESCRIPTION ??1 ?90 mL/min or more ?Normal or elevated GFR ??2 ? 60-89 mL/min ?Mildly decreased GFR ??3 ? 30-59 mL/min ?Moderately decreased GFR ??4 ? 15-29 mL/min ?Severely decreased GFR ??5 ? <15 mL/min ? Kidney failure or on dialysis @ 04/11/2015 7:48 AM SAND MILL OPERATOR FACING SAND 04/11/2015 9:45 AM SAND MILL OPERATOR [employer]AC[employer] SAND us Km Wan MD LAB BLOOD ORDERABLES Liz hou Result [facility] HISTORICAL RESULTS documented in this encounter Visit Diagnoses Diagnosis Encounter for preprocedural cardiovascular examination Encounter for preprocedural laboratory examination Abnormal electrocardiogram Nonspecific abnormal electrocardiogram (ECG) (EKG) documented in this encounter
--- OUTSIDE RECORDS SUMMARY | 2024-02-26 23:04 | XMS_ITS | Continuity of Care Document ---
Author Organization [facility] [place] [address] [place] [address] [address] [place] [address] Phone Care Team Providers Care Pit Clerk Name Role Phone Santos OD, Eduar Unavailable Unavailable Procedures Procedure Date Eye Exam Established Pt Advance Directives Directive Yes / No Effective Date File Name No Information Encounters Encounter Description Practice Location Reason(s) For Visit Diagnoses Date Provider Providers Copied on Encounter [facility], [id number] [place] [address] [address], [place], [place], [id number], [place] tel:[phone] [facility] No Information 3-200 7 Santos OD Eduar. [address] , [address], [place], [address], [place]. tel:[phone] Family History Family Member Type Diagnosis Age At Onset No Information Payers Payer name Insurance type Covered republican ID Authorkandicea bert(s) [facility] CI [id number] Social History Type Description Quantity Date Captured Comments Sex Male Smoking Status No Information Chief Complaint And Reason For Visit No Information Reason For Referral Reason For Referral No Information History Of Present Illness Encounter Date Complaint History Of Prese nt Illness No Information Functional Status Date Functional Assessmen t No Information Instructions Date Instruction Additional Infor mation No Information Assessments Type Assessment Date No Information Patient Care Teams Name Effective Dates (start - stop) Status Members No Information
== END 2024-02-22 13:41 | disposition home or self-care (01) ==
LOC: ANHED 21:56 → ANHIMU 02-20 04:57 → ANH3MEDSUR 02-22 12:13 → ANHIMU 02-23 07:52
PROVIDERS: Emergency Medicine; Admitting Provider Internal Medicine; Emergency Provider Emergency Medicine; PCP Family Medicine; Visit Provider Internal Medicine
DX: I16.1 Hypertensive emergency (principal); I13.0 Hypertensive heart and chronic kidney disease with heart failure and stage 1 through stage 4 chronic kidney disease, or unspecified chronic kidney disease; N18.31 Chronic kidney disease, stage 3a; I50.42 Chronic combined systolic (congestive) and diastolic (congestive) heart failure; I34.0 Nonrheumatic mitral (valve) insufficiency; I42.0 Dilated cardiomyopathy; R79.89 Other specified abnormal findings of blood chemistry; E78.2 Mixed hyperlipidemia; I87.319 Chronic venous hypertension (idiopathic) with ulcer of unspecified lower extremity; G62.9 Polyneuropathy, unspecified; Z91.148 Patient's other noncompliance with medication regimen for other reason; Z79.82 Long term (current) use of aspirin; Z79.899 Other long term (current) drug therapy; Z86.73 Personal history of transient ischemic attack (TIA), and cerebral infarction without residual deficits; Z87.891 Personal history of nicotine dependence
CPT/HCPCS: 36415; 71045; 78452; 80053; 81003; 83690; 83880; 84484; 85025; 85610; 85730; 93005; 93017; 93306; 96374; 99285; A9270; A9502; G0378; J0360; J2405; J2785

== ENCOUNTER 2024-10-10 08:45 | Outpatient (RCR) | payer SELFPAY | END 2024-10-10 09:57 | disposition home or self-care (01) | LOC: ANHCPREHAB 08:45 | PROVIDERS: PCP Family Medicine; Visit Provider Family Medicine | DX: I50.9 Heart failure, unspecified (principal) | CPT/HCPCS: 93798; 99199 ==